=== PATIENT | male | born 1975 | race Caucasian/White ===

== ENCOUNTER 2017-06-04 14:43 | Inpatient (IN) | payer OTHER, MEDICAID ==
[~2017-06-04] VITALS: Ht 172.7 cm; Wt 61.9 kg
[~2017-06-04 14:43] MED LIST: INSULIN
[2017-06-04 14:45] VITALS: BP 153/81
--- NOTE | 2017-06-04 14:45 | NUR ---
PATIENT TO BED #2
--- NOTE | 2017-06-04 15:00 | NUR ---
PATIENT BIBA WITH BLOOD SUGAR IN THE FACILITY 38, GLUCAGON 1MG GIVEN IM, WHEN SPRAYER AUTOMATIC SPRAY MACHINE ARRIVED BS 72, ORAL GLUCOSE GIVEN, 92 BLOOD GLUCOSE AFTER. HX OF DM, HTN, CKD WITH HD TTS, AV SHUNT TO LEFT UPER ARM, LEGALLY BLIND, LEFT SIDE WEAKNESS, MULTIPLE FALLS AT RETIREMENT. AAOX4, LUNGS CLEAR BL; HR EVEN AND REGULAR; PT DENIES ANY FEVER, CP, SOB, OR COUGH AT THIS TIME; SKIN IS WARM AND DRY TO TOUCH, DENIES PAIN; VSS; PATIENT POSITIONED FOR COMFORT; HOB ELEVATED; BEDRAILS UP X2; BED DOWN. ER MD MADE AWARE OF PT STATUS.
[2017-06-04] MEDS ORDERED: CRAN450T5 PO (15:58)
[2017-06-04] MEDS ORDERED: NIFE90TE4 PO (15:58)
[2017-06-04] MEDS ORDERED: LOSA100T1 PO (15:58)
[2017-06-04] MEDS ORDERED: ASCO500T45 PO (15:58)
[2017-06-04] MEDS ORDERED: LACT10SO11 PO (15:58)
[2017-06-04] MEDS ORDERED: DOCU-299 PO (15:58)
[2017-06-04] MEDS ORDERED: APR20I IM (15:58)
[2017-06-04] MEDS ORDERED: CLON0.3T23 PO (15:58)
[2017-06-04] MEDS ORDERED: OMEP20TC12 PO (15:58)
[2017-06-04] MEDS ORDERED: ISOS20TA13 PO (15:58)
[2017-06-04] MEDS ORDERED: cefTRIAXone 1,000 MG VIAL ONE (17:03)
[2017-06-04 17:09] LABS: BASOPHILS # (AUTO) 0.1 K/uL (0.00-0.22); BASOPHILS % (AUTO) 0.7 % (0.0-2.0); EOSINOPHILS # (AUTO) 0.2 K/uL (0-0.4); EOSINOPHILS % (AUTO) 2.5 % (0.0-4.0); HEMATOCRIT 27.5 % (36-52); LYMPHOCYTES # (AUTO) 0.5 K/uL (2.0-11.5); LYMPHOCYTES % (AUTO) 5.8 % (20.5-51.1); MEAN CORPUSCULAR HEMOGLOBIN 31 pg (27-31); MEAN CORPUSCULAR HGB CONC 33 g/dL (33-37); MEAN CORPUSCULAR VOLUME 94.1 fL (80-94); MONOCYTES # (AUTO) 0.6 K/uL (0.8-1.0); MONOCYTES % (AUTO) 7.8 % (1.7-9.3); NEUTROPHILS # (AUTO) 6.9 K/uL (1.8-7.7); NEUTROPHILS % (AUTO) 83.2 % (42.2-75.2); PLATELET COUNT (AUTO) 187 K/uL (140-450); RED BLOOD CELL COUNT(AUTO) 2.92 MIL/uL (4.20-6.10); RED CELL DISTRIBUTION WIDTH 15.2 % (11.6-13.7); WHITE BLOOD COUNT (AUTO) 8.3 K/uL (4.8-10.8)
[2017-06-04 17:31] LABS: PROTHROMBIN TIME 16.3 secs (10.8-13.4)
[2017-06-04 17:43] LABS: CARBON DIOXIDE 28.6 mmol/L (21-32); POTASSIUM 3.6 mmol/L (3.5-5.1)
[2017-06-04 17:45] LABS: CREATININE 7.9 mg/dL (0.7-1.3)
--- NOTE | 2017-06-04 17:47 | NUR ---
CRITICAL LAB OF ROSS 7.9, ER DOCTOR MADE AWARE.
[2017-06-04 18:03] LABS: TOTAL BILIRUBIN 0.4 mg/dL (0.0-1.0)
[2017-06-04] MEDS ORDERED: HYDROcodone/APAP 7.5/325 MG 1 TAB PO PRN (18:55)
[2017-06-04] MEDS ORDERED: MORPHINE SULFATE 2 MG/ML SYR IVP PRN (18:55)
[2017-06-04] MEDS ORDERED: DOCUSATE SODIUM 100 MG GELCAP PO PRN (18:55)
[2017-06-04] MEDS ORDERED: ONDANSETRON 4 MG/2 ML VIAL IM/IVP PRN (18:55)
[2017-06-04] MEDS ORDERED: ACETAMINOPHEN 325 MG TAB PO PRN (18:55)
[2017-06-04] MEDS: DEXT 5% /NACL 0.9% 1,000 ML IV SCH (19:00)
--- NOTE | 2017-06-04 19:20 | NUR ---
Patient will be admitted TELE. Will go to room 119A. Belongings list completed. Report to KATHERIN WATTS AT BEDSIDE. PT IS IN STABLE CONDITION AT THIS TIME.
[2017-06-04 19:30] VITALS: BP 136/68
--- NOTE | 2017-06-04 19:30 | NUR ---
RECEIVED PT FROM ER IN STABLE CONDITION. REPORT GIVEN BY MOIRA PANDEY. RR EVEN/UNLABORED. NO S/S OF DISTRESS NOTED. PT AAOX4, ON 2L O2 VIA NC. IV PATENT AND INTACT INFUSING WELL. PT HAS SCAB TO BOTTOM OF LEFT FOOT, SKIN WARM AND DRY TO TOUCH. BOWEL SOUNDS PRESENT. INITIAL ASSESSMENT COMPLETED. PLAN OF CARE DISCUSSED WITH PT, VERBALIZED UNDERSTANDING ALL SAFETY PRECAUTIONS MET, CALL LIGHT WITHIN REACH, WILL CONTINUE TO MONITOR
[2017-06-04] MEDS ORDERED: DEXTROSE 50% 50 ML SYR IVP PRN (20:00)
--- NOTE | 2017-06-04 20:00 | NUR ---
DR. HINES IN TO SEE PT, MADE AWARE OF PTS BS 327.
[2017-06-04] MEDS ORDERED: INSULIN LANTUS 100 UNITS/ML 10 ML VIAL SUBQ SCH (21:00)
[2017-06-04] MEDS: ASCORBIC ACID 500 MG TAB PO SCH (21:48)
[2017-06-04] MEDS: BLOOD GLUCOSE MONITORING 1 DEV DEV FS SCH (21:59)
[2017-06-04] MEDS: INSULIN LISPRO SLIDING SCALE 100 UNITS/ML VIAL SUBQ PRN (22:13)
--- NOTE | 2017-06-04 22:13 | NUR ---
MADE DR. HINES AWARE OF BS 433, HE STATED TO GIVE 13 UNITS ON HUMALOG
[2017-06-05] VITALS: BP 156/94
--- NOTE | 2017-06-05 | NUR ---
VSS, BS 133. NO S/S OF DISTRESS NOTED. WILL CONTINUE TO MONITOR
[2017-06-05 04:00] VITALS: BP 148/86
[2017-06-05] MEDS: DEXT 5% /NACL 0.9% 1,000 ML IV SCH ×2 (05:00→15:35)
[2017-06-05 06:45] LABS: BASOPHILS % (AUTO) 0.8 % (0.0-2.0); EOSINOPHILS # (AUTO) 0.1 K/uL (0-0.4); EOSINOPHILS % (AUTO) 3.1 % (0.0-4.0); HEMATOCRIT 26.1 % (36-52); HEMOGLOBIN 8.3 g/dL (12.0-18.0); LYMPHOCYTES # (AUTO) 0.9 K/uL (2.0-11.5); LYMPHOCYTES % (AUTO) 19.4 % (20.5-51.1); MEAN CORPUSCULAR HEMOGLOBIN 30 pg (27-31); MEAN CORPUSCULAR HGB CONC 32 g/dL (33-37); MEAN CORPUSCULAR VOLUME 94.2 fL (80-94); MONOCYTES # (AUTO) 0.3 K/uL (0.8-1.0); NEUTROPHILS # (AUTO) 3.3 K/uL (1.8-7.7); NEUTROPHILS % (AUTO) 69.7 % (42.2-75.2); PLATELET COUNT (AUTO) 139 K/uL (140-450); RED BLOOD CELL COUNT(AUTO) 2.77 MIL/uL (4.20-6.10); RED CELL DISTRIBUTION WIDTH 14.8 % (11.6-13.7); WHITE BLOOD COUNT (AUTO) 4.7 K/uL (4.8-10.8)
[2017-06-05] MEDS: BLOOD GLUCOSE MONITORING 1 DEV DEV FS SCH ×4 (06:47→21:50)
--- NOTE | 2017-06-05 06:48 | NUR ---
PTS BS 11, EASILY AROUSED TO NAME, NO S/S OF DISTRESS NOTED. D50 GIVEN
--- NOTE | 2017-06-05 07:40 | NUR ---
REPORT GIVEN TO DAY NURSE FOR CONTINUITY OF CARE, PT IN STABLE CONDITION
--- NOTE | 2017-06-05 07:45 | NUR ---
RECEIVED PT. FROM CANARY RAISER NURSE, AWAKE, ALERT LYING ON THE BED WITH AN IV LINE INFUSING ON THE LEFT ARM AT G. 20, BLOOD GLUCOSE CHECK DONE AND RESULT REVEALED 45MG/DL. WILL CONTINUE TO MONITOR AND CONTINUE WITH CURRENT PLAN OF CARE. CALL LIGHT WITHIN REACH.
--- NOTE | 2017-06-05 07:50 | NUR ---
PT IS LYING ON THE BED, PT WAS GIVEN ORANGE JUICE TO HELP RAISE UP THE BLOOD GLUCOSE. WILL RECHECK. PT HAS NO SIGNS OF DISTRESS AT THIS TIME. CALL LIGHT WITHIN REACH. WILL CONTINUE TO MONITOR
[2017-06-05 08:00] VITALS: BP 190/101
[2017-06-05] MEDS: ISOSORBIDE DINITRATE 20 MG TAB PO SCH ×3 (08:30→16:55)
[2017-06-05] MEDS: cloNIDine 0.1 MG TAB PO SCH ×3 (08:30→16:54)
--- NOTE | 2017-06-05 08:30 | NUR ---
PT IS AWAKE, LYING ON HIS LEFT SIDE ON THE BED, REPEAT BLOOD GLUCOSE CHECK DONE RESULT REVEALED 88MG/DL. MEDICATIONS WERE GIVEN. NO SIGNS OF DISTRESS NOTED AT THIS TIME. CALL LIGHT WITHIN REACH. WILL CONTINUE TO MONITOR.
[2017-06-05] MEDS: LACTOBACILLUS RHAMNOSUS GG 1 EACH CAP PO SCH (08:31)
[2017-06-05] MEDS: DOCUSATE SODIUM 100 MG GELCAP PO SCH (08:31)
[2017-06-05] MEDS: ASCORBIC ACID 500 MG TAB PO SCH ×2 (08:32→21:51)
[2017-06-05 08:35] LABS: T4 (THYROXINE) 6.5 ug/dL (4.5-12.0)
[2017-06-05] MEDS ORDERED: MECLIZINE 25 MG TAB PO PRN (09:20)
[2017-06-05] MEDS: NIFEdipine 90 MG TABER PO SCH (10:02)
--- NOTE | 2017-06-05 10:27 | NUR ---
PATIENT HAS BEEN SCREENED AND CATEGORIZED MODERATE NUTRITION RISK. PATIENT WILL BE SEEN WITHIN 3-5 DAYS OF ADMISSION. 06/07/17 - 06/09/[address]
--- NOTE | 2017-06-05 10:30 | NUR ---
CLARISA FROM X-RAY CAME AND SAID THAT THE PT. REFUSED TO HAVE AN ULTRASOUND OF THE CAROTID. PT SAID HE FEELS TIRED.
[2017-06-05 11:01] LABS: CHOL/HDL RATIO 1.5 (1-4.5); MAGNESIUM 2.3 mg/dL (1.8-2.4); PHOSPHORUS 7.2 mg/dL (2.5-4.9); THYROID STIMULATING HORMONE 3.41 uIU/mL (0.34-3.74)
[2017-06-05 12:00] VITALS: BP 164/86
--- NOTE | 2017-06-05 12:59 | NUR ---
CALLED VERO TO LET HER KNOW THE PATIENT HAD AN ORDER FOR DIALYSIS. I ASKED HER TO COME IN TO DO DIALYSIS SOON POSSIBLE.
--- NOTE | 2017-06-05 13:20 | NUR ---
PT IS WITH THE [facility] BUFFER COPPER DOING AN ULTRASOUND OF THE CAROTID ON THE PT. PT IS LYING COMFORTABLY ON THE BED. AWAKE AND NO SIGNS OF DISTRESS NOTED AT THIS TIME WHILE THE ULTRASOUND IS BEING DONE. CALL LIGHT WITHIN REACH. WILL CONTINUE TO MONITOR.
[2017-06-05] MEDS: INSULIN LISPRO SLIDING SCALE 100 UNITS/ML VIAL SUBQ PRN ×2 (13:33→17:16)
--- NOTE | 2017-06-05 13:33 | NUR ---
PT IS GIVEN A 2 UNITS OF HUMALOG, SUBQ IN THE RIGHT UPPER ARM. PT IS LYING ON THE BED COMFORTABLY. NO SIGNS OF DISTRESS NOTED AT THIS TIME. CALL LIGHT WITHIN REACH. WILL CONTINUE TO MONITOR.
[2017-06-05 13:40] LABS: ANION GAP 21.4 (8-16); CARBON DIOXIDE 24.2 mmol/L (21-32); POTASSIUM 3.6 mmol/L (3.5-5.1)
--- NOTE | 2017-06-05 14:00 | NUR ---
DIALYSIS NURSE HERE TO BEGIN DIALYSIS ON PT.
--- NOTE | 2017-06-05 14:06 | NUR ---
UNABLE TO DO TO 2D ECHO TODAY DUE TO PT REQUESTING ECHO TO BE DONE AFTER LUNCH. DIALYSIS IS IN ROOM NOW
[2017-06-05 15:08] LABS: CREATININE 8.7 mg/dL (0.7-1.3)
[2017-06-05 16:00] VITALS: BP 148/78
[2017-06-05] MEDS ORDERED: cefTRIAXone 2,000 MG in DEXTROSE 5% 100 ML IV SCH (17:00)
[2017-06-05] MEDS ORDERED: cefTRIAXone 1,000 MG in DEXTROSE 5% 100 ML IV SCH (17:00)
--- NOTE | 2017-06-05 17:45 | NUR ---
DIALYSIS COMPLETED AT THIS TIME. 3 LITER OUTPUT FROM DIALYSIS.
--- NOTE | 2017-06-05 19:28 | NUR ---
ENDORSED PT TO VENEER PRESS OPERATOR NURSE FOR CONTINUITY OF CARE. PT IS LYING COMFORTABLY ON THE BED. NO UNTOWARD SIGNS AND SYMPTOMS NOTED.
--- NOTE | 2017-06-05 20:17 | NUR ---
ASLEEP EASILY AWAKENS RESPONSIVE TO PHOTOGRAPHY COLORIST VERBAL COMMANDS LFW POSITION PATIENT REFUSES TO USE SUPPLEMENTAL OXYGEN VIA NC
--- NOTE | 2017-06-05 20:40 | NUR ---
RECEIVED PT FROM STEFANIE RN PT AAOX2 RESTING ON BED ON LEFT UA AV SHUNT FOR DIALYSIS, ON TELEMETRY SR NOT DISTRESS NOTED AT THIS TIME INITIAL ASSESSMENT DONE
[2017-06-05 20:45] VITALS: BP 136/66
--- NOTE | 2017-06-05 21:58 | NUR ---
PTS BS IS 100, CALLED DR. HINES AND ASKED IF HE WANTED PT TO HAVE 20 UNITS LANTUS, HE SAID TO HOLD FOR CASSANDRA
[2017-06-06] VITALS: BP 153/87
--- NOTE | 2017-06-06 | NUR ---
PT SLEEPING WELL NOT DISTRESS NOTYED ON TELMETRY SR REPOSITIONED Q2H
[2017-06-06 04:00] VITALS: BP 160/95
--- NOTE | 2017-06-06 04:00 | NUR ---
SPONGE BATH GIVEN LINEN CHANGED REPOSITIONED Q2H NOT DISTRESS NOTED ON TELEMETRY SR
[2017-06-06] MEDS: BLOOD GLUCOSE MONITORING 1 DEV DEV FS SCH ×4 (06:43→20:44)
[2017-06-06] MEDS: INSULIN LISPRO SLIDING SCALE 100 UNITS/ML VIAL SUBQ PRN ×3 (06:43→20:48)
--- NOTE | 2017-06-06 06:46 | NUR ---
PT RESTING ON BED ON TELEMETRY SR BLOOD SUGAR TEST 206 COVERAGE WITH4 UNITS SUBQ HUMALOG FOLLOWING PROTOCOL, PT WILL BE ENDORSED TO DAY SHIFT NURSE FOR CONTINUITY OF CARE
--- NOTE | 2017-06-06 07:20 | NUR ---
RECEIVED REPORT FROM SENIOR RESEARCH PROJECT MANAGER NURSE AT BEDSIDE FOR CONT OF CARE. PATIENT RESTING WITH EYES CLOSED EASILY WOKEN. NO ACUTE DISTRESS NOTED. PATIENT RESPONDS APPROPRIATELY TO QUESTIONS. PATIENT WITH RFA 20G. FISUTULA TO LFA. CALL LIGHT WITHIN REACH. WILL CONT TO MONITOR.
[2017-06-06 08:00] VITALS: BP 194/94
--- NOTE | 2017-06-06 08:00 | NUR ---
INITIAL ASSESSMENT PERFORMED. VSS. PATIENT ALERT AND ABLE TO VERBALIZE NEEDS. NO ACUTE DISTRESS. DENIES PAIN. PATIENT WITH LEFT ARM FISTULA. BRUIT/THRILL PRESENT. PATIENT WITH IV SITE TO RFA 20G SL. PATENT AND INTACT. PATIENT EASILY WOKEN RESPONDS APPROPRIATELY TO QUESTIONS. PATIENT LEGALLY BLIND ALL ITEMS WITHIN REACH. DISCUSSED PLAN OF CARE WITH PATIENT AT BEDSIDE. PATIENT VERBALIZED UNDERSTANDING AND AGREEMENT. CALL LIGHT WITHIN REACH. WILL CONT TO MONITOR PT.
[2017-06-06] MEDS: NIFEdipine 90 MG TABER PO SCH (08:12)
--- NOTE | 2017-06-06 08:12 | NUR ---
ADMINISTERED SCHEDULED MEDICATIONS ORDERED. PATIENT TOLERATED WELL. PT BP 194/94. WILL RECHECK BP. NO ACUTE DISTRESS NOTED. CALL LIGHT WITHIN REACH. WILL CONT TO MONITOR.
[2017-06-06] MEDS: ISOSORBIDE DINITRATE 20 MG TAB PO SCH ×3 (08:13→17:19)
[2017-06-06] MEDS: cloNIDine 0.1 MG TAB PO SCH ×3 (08:13→17:19)
[2017-06-06] MEDS: LACTOBACILLUS RHAMNOSUS GG 1 EACH CAP PO SCH (08:13)
[2017-06-06] MEDS: DOCUSATE SODIUM 100 MG GELCAP PO SCH (08:13)
[2017-06-06] MEDS: ASCORBIC ACID 500 MG TAB PO SCH ×2 (08:13→20:44)
--- NOTE | 2017-06-06 10:00 | NUR ---
REASSESSED BP 157/77. PATIENT STABLE . NO ACUTE DISTRESS. NO C/O PAIN OR DISCOMFORT. ALL NEEDS ANTICIPATED THEY ARISE.CALL LIGHT WITHIN REACH. WILL CONT TO MONITOR.
--- NOTE | 2017-06-06 13:39 | NUR ---
ADMINISTERED SCHEDULED MEDICATION ORDERED. NO ACUTE DISTRESS NOTED. DENIES PAIN. PATIENT WITH BP 177/97 HR 77. WILL RECHECK BP.
--- NOTE | 2017-06-06 14:00 | NUR ---
PHYSICAL THERAPIST REPORTED THAT WHEN WORKING WITH PT O2 SAT RANGING FROM 80-85 ON ROOM AIR. PATIENT REFUSING TO WEAR NASAL CANULA . EXPLAINED RISKS AND BENEFITS TO PATIENT . CONT TO REFUSE. PATIENT ATTEMPTED TO USE SIMPLE MASK BRIEFLY BECAUSE HE STATED HE DID NOT LIKE NASAL CANULA. DID NOT LIKE SIMPLE MASK EITHER. DR LYMAN IN AT THAT TIME AND MADE AWARE. WILL CONT TO MONITOR PT.
--- NOTE | 2017-06-06 15:38 | NUR ---
RECHECKED BP 140/75 HR 75. PATIENT ALERT AND ABLE TO VERBALIZE NEEDS. LEGALLY BLIND ALL ITEMS WITHIN REACH. DENIES PAIN. WILL CONT TO MONITOR.
[2017-06-06 16:00] VITALS: BP 131/79
--- NOTE | 2017-06-06 16:00 | NUR ---
PATIENT VSS. PATIENT O2 SAT FLUCTUATING BETWEEN 80-89%. PATIENT MADE AWARE . EDUCATED ON IMPORTANCE ON OXYGEN USE. PATIENT REFUSED BOTH SIMPLE MASK AND NC. PT CONT TO REFUSE. CALL LIGHT WITHIN REACH. WILL CONT TO MONITOR PT.
--- NOTE | 2017-06-06 18:20 | NUR ---
PATIENT ALERT AND ABLE TO VERBALIZE NEEDS. NO ACUTE DISTRESS NOTED. PATIENT IN BED HAVING DINNER. ALL ITEMS WITHIN REACH. DENIES PAIN AT THIS TIME. CALL LIGHT WITHIN REACH. WILL CONT TO MONITOR PT. SPOKE WITH VERO PANDEY FROM DIALYSIS AND MADE AWARE OF ORDERS FOR PATIENT TO HAVE HD TOMORROW.
--- NOTE | 2017-06-06 19:19 | NUR ---
ENDORSED REPORT TO MASON LINER NURSE AT BEDSIDE FOR CONTINUITY OF CARE. PATIENT STABLE.
--- NOTE | 2017-06-06 19:20 | NUR ---
RECEIVED REPORT FROM DAY SHIFT RN, PATIENT RESTING IN BED, NO S/S OF DISTRESS NOTED, RESPIRATION EVEN AND UNLABORED, O2SAT 92% ON ROOM AIR. PLAN OF CARE DISCUSSED, PATIENT VERBALIZED UNDERSTANDING. CALL LIGHT WITHIN REACH, SAFETY MEASURE ENSURED, WILL CONTINUE TO MONITOR.
[2017-06-06] MEDS ORDERED: INSULIN LANTUS 100 UNITS/ML 10 ML VIAL SUBQ SCH (21:00)
[2017-06-06] MEDS: hydrALAZINE 25 MG TAB PO PRN (23:38)
--- NOTE | 2017-06-06 23:48 | NUR ---
BP 171/116, HR 71, HYDRALAZINE ADMINISTERED ORDERED. PATIENT STATED," I FEEL MY SUGAR IS LOW, CAN YOU CHECK MY SUGAR." GLUCOSE LEVEL 79. INFORMED DR. HINES. DR SAID," HIS GLUCOSE LEVEL SHOULD BE AROUND 140." OFFERED PATIENT JUICE AND CRACKERS, BUT PATIENT ASKED FOR SANDWICH. I TOLD PATIENT THAT WE DON'T HAVE SANDWICH AT THIS MOMENT, BUT I CALLED [employer] TO BRING US SANDWICH. PATIENT BECAME UPSET AND SAID," I DON'T WANT CRACKERS, I AM TIRED OF EXPLAINING TO YOU GUYS, YOU DON'T WANT GIVE ME A SANDWICH, THAT'S FINE, I WILL TEACH YOU GUYS A LESSON." EXPLAINED TO PATIENT," IT TAKES TIME FOR [employer] TO BRING SANDWICH, ONCE THE SANDWICH IS DELIVERED, I WILL GIVE HIM A SANDWICH." PATIENT STILL REFUSE TO EAT CRACKERS.
[2017-06-07] VITALS: BP 171/116
--- NOTE | 2017-06-07 00:03 | NUR ---
OFFERED A SANDWICH TO PATIENT, PATIENT REFUSED AND SAID," I DON'T WANT SANDWICH NOW, I TOLD YOU I WOULD TEACH YOU A LESSON." ASKED PATIENT TO CLARIFY WHAT A LESSON MEAN. PATIENT SAID," I WOULD SHOW YOU THAT MY SUGAR WILL GO DOWN." EDUCATED PATIENT OF THE COMPLICATIONS OF HYPOGLYCEMIA, PATIENT STILL REFUSED SANDWICH.
--- NOTE | 2017-06-07 00:09 | NUR ---
MADE DR. HINES AWARE THAT PATIENT REFUSED SANDWICH.
--- NOTE | 2017-06-07 01:18 | NUR ---
PATIENT ATE A SANDWICH, AND CRACKERS. BP 148/73, HR 71, O2SAT 93%, RR 18. NO S/S OF DISTRESS NOTED, RESPIRATION EVEN AND UNLABORED, CALL LIGHT WITHIN REACH, SAFETY MEASURE ENSURED, WILL CONTINUE TO MONITOR.
--- NOTE | 2017-06-07 03:28 | NUR ---
PATIENT IS SLEEPING, NO S/S OF DISTRESS NOTED, RESPIRATION EVEN AND UNLABORED, CALL LIGHT WITHIN REACH, SAFETY MEASURE ENSURED, WILL CONTINUE TO MONITOR.
[2017-06-07] MEDS: BLOOD GLUCOSE MONITORING 1 DEV DEV FS SCH ×4 (06:54→20:49)
--- NOTE | 2017-06-07 07:16 | NUR ---
ENDORSED PLAN OF CARE TO DAY SHIFT RN, PATIENT RESTING IN BED, IN STABLE CONDITION.
--- NOTE | 2017-06-07 07:18 | NUR ---
RECEIVED REPORT FROM WEBSPHERE PORTAL ARCHITECT NURSE. PATIENT IS IN STABLE CONDITION. HE IS ALERT AND ORIENTEDX4. PATIENT IS LEGALLY BLIND. SIGNS ARE POSTED. NO IV OR B/P ON LEFT ARM. SIGNS ARE POSTED. DIALYSIS SHUNT ON L ARM. TODAY HE WILL BE RECEIVING DIALYSIS. IV ON R WRIST SALINE LOCK. IV IS CLEAN, DRY AND INTACT. HX OF LEFT TOE AMPUTATION. GAVE PATIENT CRACKERS REQUESTED TO PREVENT HYPOGLYCEMIA. BED IS IN LOW POSITION. CALL LIGHT WITHIN REACH. WILL CONTINUE TO MONITOR PATIENT.
[2017-06-07 07:21] LABS: ANION GAP 18.8 (8-16); CARBON DIOXIDE 25.3 mmol/L (21-32); POTASSIUM 4.1 mmol/L (3.5-5.1)
[2017-06-07 07:49] LABS: CREATININE 8.7 mg/dL (0.7-1.3)
[2017-06-07 08:00] VITALS: BP 203/103
[2017-06-07 08:04] LABS: PROTHROMBIN TIME 15.4 secs (10.8-13.4)
[2017-06-07] MEDS: DOCUSATE SODIUM 100 MG GELCAP PO SCH (09:00)
[2017-06-07] MEDS: cloNIDine 0.1 MG TAB PO SCH ×3 (09:59→18:16)
[2017-06-07] MEDS: ISOSORBIDE DINITRATE 20 MG TAB PO SCH ×3 (10:00→18:15)
[2017-06-07] MEDS: LACTOBACILLUS RHAMNOSUS GG 1 EACH CAP PO SCH (10:00)
[2017-06-07] MEDS: ASCORBIC ACID 500 MG TAB PO SCH (10:00)
[2017-06-07] MEDS: NIFEdipine 90 MG TABER PO SCH (10:00)
--- NOTE | 2017-06-07 10:00 | NUR ---
ADMINISTERED MORNING MEDS ORDERED. TOLERATED MEDS WELL. PATIENT IS CURRENTLY ALERT AND ORIENTED WITH NO S/SX OF DISTRESS. BED IN LOW POSITION, CALL LIGHT WITHIN REACH. WILL CONTINUE TO MONITOR.
--- NOTE | 2017-06-07 10:49 | NUR ---
PT NOTES Patient refused PT tx d/t not feeling well, and will be having HD right now. Asked if he would like to do some therapy prior to HD, but cont to refuse, not today. Will follow up with PT tx tomorrow. Nursing aware.
--- NOTE | 2017-06-07 11:30 | NUR ---
DIALYSIS NURSE AT BEDSIDE. WILL CONTINUE TO MONITOR PATIENT.
--- NOTE | 2017-06-07 11:54 | NUR ---
LET DR REYNOLDS KNOW THAT PATIENTS BLOOD PRESSURE IS STILL HIGH, 209/117, AND DIALYSIS NURSE IS JUST STARTING. DIALYSIS NURSE STATED THAT SHE WILL RECHECK SHORTLY AND IF IT IS STILL HIGH SHE WILL LET ME KNOW SO I CAN GIVE PATIENT PRN HYDRALAZINE.
--- NOTE | 2017-06-07 12:36 | NUR ---
ADMINISTERED AFTERNOON MEDS ORDERED. PATIENT TOLERATED MEDS WELL. DIALYSIS NURSE IS AT BEDSIDE. WILL CONTINUE TO MONITOR.
[2017-06-07] MEDS: hydrALAZINE 25 MG TAB PO PRN (12:44)
[2017-06-07] MEDS ORDERED: CARVEDILOL 6.25 MG TAB PO SCH (13:30)
--- NOTE | 2017-06-07 14:12 | NUR ---
ADMINISTERED BLOOD PRESSURE MED ORDERED BY WILL CONTINUE TO MONITOR B/P. LATEST BP IS 199/103. DIALYSIS NURSE AT BEDSIDE. WILL CONTINUE TO MONITOR PATIENT.
--- NOTE | 2017-06-07 14:30 | NUR ---
DIALYSIS NURSE GAVE REPORT. 4L OUT. PATIENT TOLERATED WELL. ALL VITALS STABLE EXCEPT B/P. WILL CONTINUE TO MONITOR BP AND GIVE MEDS ORDERED/PRN.
[2017-06-07 16:00] VITALS: BP 168/92
--- NOTE | 2017-06-07 16:30 | NUR ---
PATIENT CURRENTLY RESTING. NO S/SX OF DISTRESS. WILL CONTINUE TO MONITOR.
[2017-06-07] MEDS: CALCIUM ACETATE 667 MG TAB PO SCH (18:15)
--- NOTE | 2017-06-07 19:25 | NUR ---
ENDORSED PATIENT TO SALOONKEEPER RN FOR CONTINUITY OF CARE. PATIENT IN STABLE CONDITION.
--- NOTE | 2017-06-07 19:35 | NUR ---
RECEIVED REPORT FROM DAY SHIFT RN, PATIENT RESTING IN BED, NO S/S OF DISTRESS NOTED, RESPIRATION EVEN AND UNLABORED, DENIES PAIN AT THIS TIME. PLAN OF CARE DISCUSSED, PATIENT VERBALIZED UNDERSTANDING, CALL LIGHT WITHIN REACH, SAFETY MEASURE ENSURED, WILL CONTINUE TO MONITOR.
[2017-06-07] MEDS: CARVEDILOL 6.25 MG TAB PO SCH (20:55)
[2017-06-07] MEDS: INSULIN LISPRO SLIDING SCALE 100 UNITS/ML VIAL SUBQ PRN (20:57)
[2017-06-07] MEDS ORDERED: NIFEdipine 30 MG TABER PO SCH (21:00)
[2017-06-07] MEDS ORDERED: INSULIN LANTUS 100 UNITS/ML 10 ML VIAL SUBQ SCH (21:00)
--- NOTE | 2017-06-07 21:06 | NUR ---
DUE MEDICATION GIVEN, PATIENT TOLERATED WELL. NO S/S OF DISTRESS NOTED, RESPIRATION EVEN AND UNLABORED, CALL LIGHT WITHIN REACH, SAFETY MEASURE ENSURED, WILL CONTINUE TO MONITOR.
[2017-06-07 23:55] VITALS: BP 164/87
--- NOTE | 2017-06-07 23:58 | NUR ---
BP 164/87, HR 62, PATIENT DENIES ANY DISCOMFORT. MADE DR. LIANG AWARE. NO ORDER RECEIVED AT THIS TIME.
--- NOTE | 2017-06-08 02:23 | NUR ---
PATIENT IS SLEEPING, NO S/S OF DISTRESS NOTED, RESPIRATION EVEN AND UNLABORED, ON ROOM AIR. CALL LIGHT WITHIN REACH, SAFETY MEASURE ENSURED, WILL CONTINUE TO MONITOR.
--- NOTE | 2017-06-08 04:05 | NUR ---
BP 161/85, HR 74. NO S/S OF DISTRESS NOTED, RESPIRATION EVEN AND UNLABORED. CALL LIGHT WITHIN REACH, SAFETY MEASURE ENSURED, WILL CONTINUE TO MONITOR.
--- NOTE | 2017-06-08 05:51 | NUR ---
PATIENT IS SLEEPING, RESPIRATION EVEN AND UNLABORED, CALL LIGHT WITHIN REACH, SAFETY MEASURE ENSURED, WILL CONTINUE TO MONITOR.
[2017-06-08] MEDS: BLOOD GLUCOSE MONITORING 1 DEV DEV FS SCH (06:34)
[2017-06-08] MEDS ORDERED: LACT1.4C PO (06:43)
[2017-06-08] MEDS ORDERED: ROC1PM IV ×2 (06:43→06:46)
[2017-06-08 06:59] LABS: ANION GAP 17.9 (8-16); CARBON DIOXIDE 28.3 mmol/L (21-32); POTASSIUM 4.2 mmol/L (3.5-5.1)
[2017-06-08 07:06] LABS: MAGNESIUM 1.9 mg/dL (1.8-2.4); PHOSPHORUS 6.1 mg/dL (2.5-4.9)
--- NOTE | 2017-06-08 07:14 | NUR ---
ENDORSED PLAN OF CARE TO DAY SHIFT RN, PATIENT RESTING IN BED, IN STABLE CONDITION.
--- NOTE | 2017-06-08 07:15 | NUR ---
RECEIVED REPORT FROM VARIETY LATHE OPERATOR NURSE. PATIENT HAS NO SIGNS AND SYMPTOMS OF ACUTE DISTRESS NOTED AT THIS TIME. HE IS ALERT AND ORIENTEDX4. PATIENT IS LEGALLY BLIND. PATIENT HAS AV SHUNT ON THE LEFT UPPER ARM. SIGNS ARE POSTED. NO IV OR B/P ON LEFT ARM. IV ON R WRIST SALINE LOCK. IV IS CLEAN, DRY AND INTACT. HX OF LEFT TOE AMPUTATION. GAVE PATIENT CRACKERS REQUESTED TO PREVENT HYPOGLYCEMIA. BED IS IN LOW POSITION. CALL LIGHT WITHIN REACH. WILL CONTINUE TO MONITOR PATIENT.
[2017-06-08 07:18] LABS: HEMATOCRIT 23.7 % (36-52); HEMOGLOBIN 7.9 g/dL (12.0-18.0); MEAN CORPUSCULAR HEMOGLOBIN 31 pg (27-31); MEAN CORPUSCULAR HGB CONC 34 g/dL (33-37); MEAN CORPUSCULAR VOLUME 93.8 fL (80-94); PLATELET COUNT (AUTO) 108 K/uL (140-450); RED BLOOD CELL COUNT(AUTO) 2.53 MIL/uL (4.20-6.10); RED CELL DISTRIBUTION WIDTH 15.1 % (11.6-13.7); WHITE BLOOD COUNT (AUTO) 2.7 K/uL (4.8-10.8)
[2017-06-08 08:00] VITALS: BP 144/86
[2017-06-08 08:04] LABS: CREATININE 6.9 mg/dL (0.7-1.3)
--- NOTE | 2017-06-08 08:13 | NUR ---
CM NOTE RECEIVED ORDER TO [place]SF[place] [facility] [place] PER ROSENDO OF [facility], PATIENT CAN GO TO RM [address] Rishi MENA, NUMBER TO CALL FOR REPORT PH# [phone]. SPOKE WITH [facility] OF [facility] PH# [phone] AND WITH PATIENT'S FATHER MR. MAGNUS BOOTH PH# [phone] WHO SAID THAT HE IS WILLING TO PAY FOR TRANSPORT. PER [facility] NIEVES [place], PATIENT WILL BE PICKED UP AT 1100 TIME TODAY GOING TO [facility]. SULY PANDEY AND DORA OF [facility] AWARE.
[2017-06-08] MEDS: NIFEdipine 90 MG TABER PO SCH (08:33)
[2017-06-08 08:35] VITALS: BP 144/86
[2017-06-08] MEDS: CARVEDILOL 6.25 MG TAB PO SCH (08:35)
[2017-06-08] MEDS: CALCIUM ACETATE 667 MG TAB PO SCH (08:35)
[2017-06-08] MEDS: LACTOBACILLUS RHAMNOSUS GG 1 EACH CAP PO SCH (08:35)
[2017-06-08] MEDS: cloNIDine 0.1 MG TAB PO SCH (08:35)
[2017-06-08] MEDS: ISOSORBIDE DINITRATE 20 MG TAB PO SCH (08:36)
--- NOTE | 2017-06-08 08:48 | NUR ---
ADMINISTERED PATIENTS MORNING MEDICATIONS. HE TOLERATED THEM WELL. MADE HIM AWARE THAT [place] [facility] [place] VERBALIZED UNDERSTANDING. WILL CONTINUE TO MONITOR.
[2017-06-08] MEDS: DOCUSATE SODIUM 100 MG GELCAP PO SCH (09:00)
[2017-06-08] MEDS ORDERED: LEVO750T2 IVP (10:50)
[2017-06-08] MEDS: hydrALAZINE 25 MG TAB PO PRN (10:53)
--- NOTE | 2017-06-08 12:00 | NUR ---
DISCHARGE ORDER IS IN PLACE. PATIENT IS GOING BACK [place] [facility] [place] ROOM 10A. GAVE PATIENT INSTRUCTIONS ON SIGNS AND SYMPTOMS ON DISTRESS AND TO SEEK EMERGENCY MEDICAL ATTENTION WHEN HE HAS ANY. EDUCATED HIM ON THE IMPORTANCE OF EATING WELL SO HIS BLOOD SUGAR DOESN'T DROP. PATIENT VERBALIZED UNDERSTANDING. PREMIERE IS HERE TO FRENCH INSTRUCTOR THE PATIENT. PATIENT IS IN STABLE CONDITION. ALL BELONGINGS ARE WITH THE PATIENT.
--- NOTE | 2017-06-08 12:05 | NUR ---
BEEN TRYING TO CALL [facility] BUT LINE IS DOWN, FINALLY WAS ABLE TO GET AHOLD OF SOMEONE TO GIVE REPORT. REPORT WAS GIVEN.
[2017-06-08 15:01] LABS: EOSINOPHILS % (MANUAL) 7 % (0-4); LYMPHOCYTES % (MANUAL) 30 % (20-46); MONOCYTES % (MANUAL) 12 % (5-12)
== END 2017-06-08 12:00 | disposition home or self-care (01) | DRG 177 ==
LOC: MED 14:43 → MTU 18:57
PROVIDERS: ADMIT Student in an Organized Health Care Education/Training Program; ATTEND Student in an Organized Health Care Education/Training Program
PROC: 5A1D70Z Performance of Urinary Filtration, Intermittent, Less than 6 Hours Per Day (ICD-10-PCS; principal; 2017-06-05)
PROC: 5A1D70Z Performance of Urinary Filtration, Intermittent, Less than 6 Hours Per Day (ICD-10-PCS; 2017-06-07)
DX: J69.0 Pneumonitis due to inhalation of food and vomit (principal); N17.0 Acute kidney failure with tubular necrosis; G93.41 Metabolic encephalopathy; I50.43 Acute on chronic combined systolic (congestive) and diastolic (congestive) heart failure; D68.59 Other primary thrombophilia; E11.21 Type 2 diabetes mellitus with diabetic nephropathy; E44.0 Moderate protein-calorie malnutrition; N18.6 End stage renal disease; E11.649 Type 2 diabetes mellitus with hypoglycemia without coma; E11.319 Type 2 diabetes mellitus with unspecified diabetic retinopathy without macular edema; I13.0 Hypertensive heart and chronic kidney disease with heart failure and stage 1 through stage 4 chronic kidney disease, or unspecified chronic kidney disease; J18.9 Pneumonia, unspecified organism; H54.8 Legal blindness, as defined in USA; Z99.2 Dependence on renal dialysis; Z88.1 Allergy status to other antibiotic agents; Z88.8 Allergy status to other drugs, medicaments and biological substances; Z89.429 Acquired absence of other toe(s), unspecified side; Z68.20 Body mass index [BMI] 20.0-20.9, adult; E78.5 Hyperlipidemia, unspecified; D63.1 Anemia in chronic kidney disease; I70.209 Unspecified atherosclerosis of native arteries of extremities, unspecified extremity; Z79.899 Other long term (current) drug therapy
CPT/HCPCS: 36415; 71045; 80048; 80053; 82550; 82948; 83036; 83605; 83735; 83880; 84100; 84436; 84443; 84479; 84484; 85025; 85610; 85730; 87040; 87081; 90935; 93005; 93880; 93925; 93970; 96365; 97110; 97116; 97140; 97530; 99285; J0696; J1644; J1815; J2405; J7030; J7042; J7060; Q0092

== ENCOUNTER 2017-07-26 16:06 | Emergency (ER) | payer OTHER, MEDICAID ==
[~2017-07-26] VITALS: Ht 182.9 cm; Wt 68.0 kg
[~2017-07-26 16:06] MED LIST changes: +APR20I IM; +ASCO500T45 PO; +CLON0.3T23 PO; +CRAN450T5 PO; +DOCU-299 PO; -INSULIN; +ISOS20TA13 PO; +LACT1.4C PO; +LACT10SO11 PO; +LEVO750T2 IVP; +LOSA100T1 PO; +NIFE90TE4 PO; +OMEP20TC12 PO
[2017-07-26 16:11] VITALS: BP 241/125
[2017-07-26] MEDS ORDERED: TRAM50TA1 PO (16:24)
[2017-07-26] MEDS ORDERED: PRON INH (16:24)
[2017-07-26] MEDS ORDERED: INSU100S22 SUBQ (16:24)
[2017-07-26] MEDS ORDERED: SIMV40TA1 PO (16:24)
[2017-07-26] MEDS ORDERED: LISI-420 PO (16:24)
[2017-07-26] MEDS ORDERED: PHO667 PO (16:24)
[2017-07-26] MEDS ORDERED: KEP500 PO (16:24)
[2017-07-26] MEDS ORDERED: OLOP2.5S OP (16:24)
[2017-07-26] MEDS: hydrALAZINE 20 MG/ML VIAL IVP ONE (16:38)
[2017-07-26] MEDS: METOPROLOL 5 MG/5 ML VIAL IVP ONE (17:25)
[2017-07-26] MEDS: cloNIDine 0.1 MG TAB PO ONE (18:01)
[2017-07-26 19:03] VITALS: BP 166/106
== END 2017-07-26 19:03 | disposition home or self-care (01) ==
LOC: MED 16:06
DX: I10 Essential (primary) hypertension (principal); E11.9 Type 2 diabetes mellitus without complications; Z79.899 Other long term (current) drug therapy; Z88.8 Allergy status to other drugs, medicaments and biological substances; Z88.1 Allergy status to other antibiotic agents
CPT/HCPCS: 96374; 96375; 99284; J0360; J3490

== ENCOUNTER 2017-08-18 14:18 | Inpatient (IN) | payer OTHER, MEDICAID ==
[~2017-08-18] VITALS: Ht 182.9 cm; Wt 61.7 kg
[2017-08-18] VITALS (27 sets, daily range): BP systolic 178–253; BP diastolic 62–121
[~2017-08-18 14:18] MED LIST changes: +INSU100S22 SUBQ; +KEP500 PO; -LACT1.4C PO; -LACT10SO11 PO; -LEVO750T2 IVP; +LISI-420 PO; +OLOP2.5S OP; +PHO667 PO; +PRON INH; +SIMV40TA1 PO; +TRAM50TA1 PO
--- NOTE | 2017-08-18 14:18 | NUR ---
Patient BIBA ACLS, transferred to bed 7. RN evaluating patient at bedside.
--- NOTE | 2017-08-18 14:46 | NUR ---
Dr. Cruz evaluating patient at bedside.
--- NOTE | 2017-08-18 14:50 | NUR ---
PT BIBA FOR C/O HIGH BP WHILE HAVING DIALYSIS. PT DENIES ANY PAIN, SOB N/V OR DIZZINESS. PTS SHUNT IS ON LEFT UPPARM ARM, THRILL PALPATED, BRUIT AUSCULTATED. PT IS AXO X4, PLACED ON ALL MONITORS --> BP 255/111 DR GREY NOTIFIED. PT STATES THAT HE GOT THROUGH 3.5 HR OS DIALYSIS, THEY REMOVED 3.5 LITERS. NAD NOTED/STATED OTEHRWISE.
[2017-08-18] MEDS ORDERED: FUROSEMIDE 40 MG/4 ML VIAL IVP ONE (15:00)
[2017-08-18] MEDS ORDERED: ENALAPRILAT 2.5 MG/2 ML VIAL IVP ONE (15:00)
[2017-08-18] MEDS ORDERED: NITROGLYCERIN 2% 1 GM PKT TP ONE (15:00)
[2017-08-18] MEDS ORDERED: MORPHINE SULFATE 2 MG/ML SYR IVP ONE (15:00)
--- NOTE | 2017-08-18 15:11 | NUR ---
opto mechanical technician at bedside.
--- NOTE | 2017-08-18 16:04 | NUR ---
PT ON CELL PHONE WRITING DOWN NUMBERS ON PAPER. NO CHANGE FROM PREVIOUS. PT DENIES ANY DISTRESS AT THIS TIME. LAB AT BEDSIDE DRAWING LABS. PT REMAINS ON ALL MONITORS. PT WAS JUST MEDICATED FOR HTN PER MD KRAUS. BP REMAINS HIHG AT THIS TIME, WILL CONTINUE TO REASSESS BP.
[2017-08-18 16:11] LABS: BASOPHILS # (AUTO) 0.1 K/uL (0.00-0.22); BASOPHILS % (AUTO) 2.3 % (0.0-2.0); EOSINOPHILS # (AUTO) 0.3 K/uL (0-0.4); EOSINOPHILS % (AUTO) 8.7 % (0.0-4.0); HEMATOCRIT 39.9 % (36-52); HEMOGLOBIN 13.2 g/dL (12.0-18.0); LYMPHOCYTES # (AUTO) 0.6 K/uL (2.0-11.5); LYMPHOCYTES % (AUTO) 15.8 % (20.5-51.1); MEAN CORPUSCULAR HEMOGLOBIN 32 pg (27-31); MEAN CORPUSCULAR HGB CONC 33 g/dL (33-37); MEAN CORPUSCULAR VOLUME 97.5 fL (80-94); MONOCYTES # (AUTO) 0.4 K/uL (0.8-1.0); MONOCYTES % (AUTO) 10.1 % (1.7-9.3); NEUTROPHILS # (AUTO) 2.3 K/uL (1.8-7.7); NEUTROPHILS % (AUTO) 63.1 % (42.2-75.2); PLATELET COUNT (AUTO) 140 K/uL (140-450); RED BLOOD CELL COUNT(AUTO) 4.09 MIL/uL (4.20-6.10); RED CELL DISTRIBUTION WIDTH 15.1 % (11.6-13.7); WHITE BLOOD COUNT (AUTO) 3.7 K/uL (4.8-10.8)
[2017-08-18 16:28] LABS: ANION GAP 14.1 (8-16); CARBON DIOXIDE 30.9 mmol/L (21-32); TOTAL BILIRUBIN 0.5 mg/dL (0.0-1.0)
[2017-08-18 16:31] LABS: CREATININE 4.7 mg/dL (0.7-1.3)
[2017-08-18 16:32] LABS: PROTHROMBIN TIME 16.1 secs (10.8-13.4)
[2017-08-18] MEDS ORDERED: NITROPRUSSIDE 50 MG in DEXTROSE 5% 250 ML IV ONE (16:35)
[2017-08-18] MEDS ORDERED: CAPTOPRIL 12.5 MG TAB PO ONE (16:50)
[2017-08-18] MEDS ORDERED: NITROGLYCERIN 50 MG/D5W PREMIX 250 ML IV ONE ×2 (16:50→16:53)
--- NOTE | 2017-08-18 16:58 | NUR ---
NITRO DRIP STARTED AT 10MCG/MIN PER MD GREY VERBAL ORDER. BP 250/122, HR 64.
--- NOTE | 2017-08-18 16:59 | NUR ---
Dr. Vargas evaluating patient at bedside.
[2017-08-18] MEDS ORDERED: BUPIVACAINE-MPF 0.25% 30 ML VIAL INJ ONE (17:10)
--- NOTE | 2017-08-18 17:25 | NUR ---
ADMITTED PT FROM ER BY ANDRAE, PT AWAKE, ALERT, BOTH EYES BLIND. ON ROOM AIR, NO S/S OF RESPIRATORY DISTRESS NOTED. LUNG SOUNDS CLEAR, PT ABLE TO MOVE ALL HIS EXTREMITIES BUT LEFT SIDE WEAKNESS NOTED. PT REFUSED TO TAKE OFF HIS OWN TOP AND PANTS. POC EXPLAINED TO PT, CALL LIGHT IN REACH, WILL CONTINUE TO MONITOR. Addendum: 08/18/17 at 1956 by Claudio Braswell RN PT ON NITROGLYCERIN 20 MCG/MIN WHEN PT CAME TO ICU.
--- NOTE | 2017-08-18 17:29 | NUR ---
Patient will be admitted to care of [facility]. Admited to ICU. Will go to room 2. Belongings list completed. Report to RODRI PANDEY.
[2017-08-18] MEDS ORDERED: HYDROmorphone 1 MG/ML AMP IVP ONE (18:45)
[2017-08-18] MEDS ORDERED: LORazepam 2 MG/ML VIAL IVP ONE (18:45)
[2017-08-18] MEDS ORDERED: DEXTROSE 50% 50 ML SYR IVP PRN (18:55)
[2017-08-18] MEDS ORDERED: ALBUTEROL 0.083% 2.5 MG/3 ML NEBU INH PRN (19:00)
[2017-08-18] MEDS ORDERED: traMADol 50 MG TAB PO PRN (19:00)
[2017-08-18] MEDS ORDERED: ACETAMINOPHEN 325 MG TAB PO PRN (19:15)
[2017-08-18] MEDS ORDERED: INSULIN LISPRO 100 UNITS/ML VIAL SUBQ ONE (19:30)
--- NOTE | 2017-08-18 19:30 | NUR ---
RECEIVED BEDSIDE REPORT FROM MORNING SHIFT NURSE. PATIENT AWAKE, ALERT AND ORIENTED X4, VERBALLY RESPONSIVE, BOTH EYES BLIND NOTED. ON O2 2L/M VIA NC, SAT 99% NOTED. NO ACUTE DISTRESS NOTED. BILATERAL LUNGS SOUND CLEAR. DENIES PAIN. PERIPHERAL LINE TO RIGHT FORE ARM RUNNING NITROGLYCERIN 100MCG/MIN. BP IS 228/[address] RIVERA AT BEDSIDE TO PREPARE CENTRAL LINE INSERTION. PATIENT ABLE TO MOVE ALL EXTREMITIES AND LEFT SIDE WEAKNESS NOTED. DARK COLORED LESION ON RIGHT BABY TOE, DRY ABRASION ON TIP OF RIGHT MIDDLE TOE, CALLOUS ON LEFT FOOT AND AMPUTATED LEFT BABY TOE. HOB ELEVATED, BED IN LOW POSITION, CALL LIGHT WITHIN REACH. WILL CONTINUE TO MONITOR.
[2017-08-18] MEDS ORDERED: LORazepam 2 MG/ML VIAL ONE (19:32)
[2017-08-18] MEDS ORDERED: HYDROmorphone PFS 2 MG/ML SYR ONE (19:34)
[2017-08-18 19:39] LABS: MAGNESIUM 2.1 mg/dL (1.8-2.4); PHOSPHORUS 4.3 mg/dL (2.5-4.9)
--- NOTE | 2017-08-18 19:45 | NUR ---
CENTRAL LINE INSERTION PROCEDURE STARTED BY DR. RIVERA, TECH AT BEDSIDE. PATIENT AAO X4. WILL CONTINUE TO MONITOR.
[2017-08-18] MEDS ORDERED: LORazepam 2 MG/ML VIAL IVP PRN (20:35)
--- NOTE | 2017-08-18 20:50 | NUR ---
RECEIVED CALL FROM DR. BRENDA Javier. UPDATE PATIENT'S CONDITION, RECEIVED CLONIDINE 0.1MG PO ONCE AND CLONIDINE 0.1MG Q6H. WILL FOLLOW THE ORDERS.
[2017-08-18] MEDS ORDERED: PANTOPRAZOLE 40 MG TABEC PO SCH (21:00)
[2017-08-18] MEDS ORDERED: INSULIN GLARGINE HUM REC ANLOG 5 UNIT SUBQ SCH (21:00)
[2017-08-18] MEDS ORDERED: NON-FORMULARY ITEM (Cranberry Fruit (Cranberry) 450 MG) PO SCH (21:00)
[2017-08-18] MEDS ORDERED: cloNIDine 0.1 MG TAB PO SCH (21:00)
[2017-08-18] MEDS: SIMVASTATIN 40 MG TAB PO SCH (21:05)
[2017-08-18] MEDS: levETIRAcetam 500 MG TAB PO SCH (21:05)
[2017-08-18] MEDS: ASCORBIC ACID 500 MG TAB PO SCH (21:05)
--- NOTE | 2017-08-18 21:40 | NUR ---
PATIENT CURRENTLY ON 2L NC. BREATH SOUNDS CLEAR. NO SOB. NO BREATHING TREATMENT INDICATED AT THIS TIME. NO RESPIRATORY DISTRESS NOTED AT THIS TIME. WILL CONTINUE TO MONITOR.
[2017-08-18] MEDS: BLOOD GLUCOSE MONITORING 1 DEV DEV FS SCH (21:46)
[2017-08-18] MEDS: INSULIN LANTUS 100 UNITS/ML 10 ML VIAL SUBQ SCH (22:00)
--- NOTE | 2017-08-18 22:40 | NUR ---
CALLED DR. GUTIERREZ.Hortencia NOTIFIED PATIENT HAS HOME MEDICATION ORDER FOR CLONIDINE 0.3MG PO TID. DR. GUTIERREZ STATED FOLLOW THE HOME MEDICATION ORDER INSTEAD OF PREVIOUS HIS ORDER. AND Addendum: 08/19/17 at 0009 by Lorrie Gonzales RN [id number] Hortencia GUTIERREZ REGARDING PATIENT'S HIGH BP DESPITE OF NITROGLYCERIN DRIP, HE ORDERED TO START PATIENT ON CARDENE DRIP OR IF NOT AVAILABLE TO START ON NITROPRUSSIDE DRIP; CARRIED OUT.
[2017-08-18] MEDS ORDERED: NITROPRUSSIDE 50 MG in DEXTROSE 5% 250 ML IV PRN (22:45)
--- NOTE | 2017-08-18 23:00 | NUR ---
DIALYSIS NURSE AT BEDSIDE TO HEMODIALYSIS, PATIENT AAO X4, DENIES ANY PAIN. NO ACUTE DISTRESS NOTED. BP 205/93 NOTED. WILL CONTINUE TO MONITOR.
[2017-08-19] VITALS (70 sets, daily range): BP systolic 109–209; BP diastolic 56–119
--- NOTE | 2017-08-19 00:05 | NUR ---
PER DIE MAKER TRIMRONDA, THERE'S NO AVAILABLE CARDENE NOR NITRPRUSSIDE DRIP ACCORDING TO [facility] [employer] PHARMACIST SHERLEY. DR. Hortencia GUTIERREZ WAS INFORMED AND AWARE; ADVICED JUST TO CONTINUE NITROGLYCERIN DRIP AND SINCE PATIENT IS WITH ON GOING HEMODIALYSIS BP MIGHT COME DOWN.
--- NOTE | 2017-08-19 02:00 | NUR ---
HEMODIALYSIS DONE, RECEIVED REPORT FROM DIALYSIS NURSE, REMOVED 4L OF FLUID FROM PATIENT. NO ACUTE DISTRESS NOTED. DENIES PAIN OR DISCOMFORT, PATIENT STATED LITTLE TIRED USUAL. BP 174/ 99 NOTED. WILL CONTINUE TO MONITOR.
--- NOTE | 2017-08-19 05:00 | NUR ---
PATIENT IN ASLEEP AT THIS TIME, AROUSALBLE TO VOICE. DENIES PAIN OR DISCOMFORT. NO ACUTE DISTRESS NOTED. BP 168/90 NOTED WITH NITROGLYCERIN DRIP. WILL CONTINUE TO MONITOR.
--- NOTE | 2017-08-19 05:40 | NUR ---
CALLED DR. GUTIERREZ, NOTIFIED PATIENT BP 183/115, HR 58 TO 60 WITH NITROGLYCERIN DRIP AND BP WENT UP TO 200 WHEN NITROGLYCERIN DRIP HOLDING. RECEIVED PROCARDIA 60MG PO ONCE AND BID ORDER. Addendum: 08/19/17 at 0653 by Celine Garzon RN WRONG WITH PROCARDIA 60MG PO ONCE. RECEIVED PROCARDIA 60MG PO BID ORDER.
--- NOTE | 2017-08-19 06:00 | NUR ---
ADMINISTERED NIFEDIPINE 60MG PO ONCE BECAUSE PATIENT ALREADY HAS NIFEDIPINE 90MG PO DAILY. WILL NEED TO VERIFY WITH DR. GUTIERREZ.
[2017-08-19] MEDS: NIFEdipine 60 MG TABER PO SCH (06:30)
[2017-08-19] MEDS ORDERED: NON-FORMULARY ITEM (Omeprazole (Omeprazole) 20 MG) PO SCH (06:30)
--- NOTE | 2017-08-19 07:30 | NUR ---
RECEIVED PT FROM PM NURSE, PT AWAKE, ALERT, And ORIENTED. ON O2 NC 2L/MIN, O2 SAT 98, NO S/S OF RESPIRATORY DISTRESS NOTED. BEDSIDE MONITOR SHOWS SR 60 S, BP 203/119, PT HAS CENTRAL LINE TO RIGHT IJ RUNNING NITROGLYCERIN 80 MCG/MIN. SCDS IN PLACE, PT C/O NECK SORE BUT IT IS TOLERABLE , WILL NOTIFY DOCTOR WHEN THEY MAKE ROUNDS, REORIENTED PT ENVIRONMENT, CALL LIGHT IN REACH, PT REFUSED TO HOB ELEVATED 30 DEGREES AND HE PREFERS LYING FLAT.WILL CONTINUE TO MONITOR PT.
--- NOTE | 2017-08-19 07:30 | NUR ---
REPORT GIVEN TO MORNING NURSE.
[2017-08-19] MEDS: BLOOD GLUCOSE MONITORING 1 DEV DEV FS SCH ×4 (08:00→20:50)
[2017-08-19 08:01] LABS: BASOPHILS # (AUTO) 0.2 K/uL (0.00-0.22); BASOPHILS % (AUTO) 3.4 % (0.0-2.0); EOSINOPHILS # (AUTO) 0.5 K/uL (0-0.4); EOSINOPHILS % (AUTO) 10.1 % (0.0-4.0); HEMATOCRIT 36.8 % (36-52); LYMPHOCYTES # (AUTO) 0.7 K/uL (2.0-11.5); LYMPHOCYTES % (AUTO) 15.7 % (20.5-51.1); MEAN CORPUSCULAR HEMOGLOBIN 32 pg (27-31); MEAN CORPUSCULAR HGB CONC 33 g/dL (33-37); MEAN CORPUSCULAR VOLUME 97.7 fL (80-94); MONOCYTES # (AUTO) 0.7 K/uL (0.8-1.0); MONOCYTES % (AUTO) 13.9 % (1.7-9.3); NEUTROPHILS # (AUTO) 2.7 K/uL (1.8-7.7); NEUTROPHILS % (AUTO) 56.9 % (42.2-75.2); PLATELET COUNT (AUTO) 170 K/uL (140-450); RED BLOOD CELL COUNT(AUTO) 3.76 MIL/uL (4.20-6.10); RED CELL DISTRIBUTION WIDTH 15.3 % (11.6-13.7); WHITE BLOOD COUNT (AUTO) 4.8 K/uL (4.8-10.8)
[2017-08-19 08:07] LABS: ANION GAP 13.4 (8-16); CARBON DIOXIDE 30.1 mmol/L (21-32); POTASSIUM 4.5 mmol/L (3.5-5.1)
[2017-08-19 08:11] LABS: MAGNESIUM 2.2 mg/dL (1.8-2.4); PHOSPHORUS 6.4 mg/dL (2.5-4.9)
[2017-08-19 08:13] LABS: CREATININE 6.5 mg/dL (0.7-1.3)
[2017-08-19] MEDS: DOCUSATE SODIUM 100 MG GELCAP PO SCH (08:15)
[2017-08-19] MEDS: cloNIDine 0.1 MG TAB PO SCH ×3 (08:15→17:08)
[2017-08-19] MEDS: PANTOPRAZOLE 40 MG TABEC PO SCH ×2 (08:15→17:08)
[2017-08-19] MEDS: CALCIUM ACETATE 667 MG TAB PO SCH ×3 (08:15→17:07)
[2017-08-19] MEDS: ISOSORBIDE DINITRATE 20 MG TAB PO SCH ×3 (08:16→17:08)
[2017-08-19] MEDS: ASCORBIC ACID 500 MG TAB PO SCH ×2 (08:16→20:50)
[2017-08-19] MEDS: levETIRAcetam 500 MG TAB PO SCH ×2 (08:16→20:50)
[2017-08-19] MEDS: LOSARTAN 50 MG TAB PO SCH (08:16)
[2017-08-19] MEDS: hydrALAZINE 20 MG/ML VIAL IM SCH ×3 (08:18→17:07)
--- NOTE | 2017-08-19 08:50 | NUR ---
DR. RIDDLE MAKING ROUNDS, MADE HER AWARE PT HAS HEADACHE.
[2017-08-19] MEDS ORDERED: NIFEdipine 90 MG TABER PO SCH (09:00)
[2017-08-19] MEDS ORDERED: LOSARTAN 50 MG TAB PO SCH (09:00)
[2017-08-19] MEDS ORDERED: LISINOPRIL 20 MG TAB PO SCH (09:00)
[2017-08-19] MEDS ORDERED: OLOPATADINE HCL OP SCH (09:00)
[2017-08-19] MEDS ORDERED: KETOROLAC 30 MG/ML VIAL IVP PRN (09:40)
--- NOTE | 2017-08-19 10:02 | NUR ---
PT C/O HEADACHE, OFFERED PT PAIN MEDICATION, PT REFUSED, PT STATED " FORGET IT, I AM FINE", CHARGE NURSE AWARE, NOTIFIED DR. RIDDLE PT HAS HEADACHE.
[2017-08-19] MEDS: INSULIN LISPRO SLIDING SCALE 100 UNITS/ML VIAL SUBQ PRN ×2 (11:48→16:36)
--- NOTE | 2017-08-19 13:14 | NUR ---
pt sleeping at this moment, no s/s of respiratory distress noted. vitals in normal range at this moment.
[2017-08-19] MEDS: METOCLOPRAMIDE 10 MG/2 ML INJ VIAL IVP PRN (13:38)
[2017-08-19] MEDS: NITROGLYCERIN 50 MG/D5W PREMIX 250 ML IV PRN (14:36)
--- NOTE | 2017-08-19 17:50 | NUR ---
PT HAD A GOOD APPETITE FOR DINNER, BED CHANGED WITH CHARGE NURSE.
--- NOTE | 2017-08-19 18:53 | NUR ---
NEPHRO IN TO SEE PT, WILL FOLLOW UP, PT SLEEPING AT THIS TIME, VITALS STABLE, NO S/S OF RESPIRATORY DISTRESS NOTED.
--- NOTE | 2017-08-19 19:20 | NUR ---
RECEIVED BEDSIDE REPORT FROM MORNING SHIFT NURSE. PATIENT IN ASLEEP, AROUSABLE TO VOICE, ALERT AND ORIENTED X4, VERBALLY RESPONSIVE, BOTH EYES BLIND NOTED. ON ROOM AIR, O2 SAT 92% NOTED. NO ACUTE DISTRESS NOTED. BILATERAL LUNGS SOUND CLEAR. DENIES PAIN AND HEADACHE AT THIS TIME. NO NAUSEA/ VOMIT AT THIS TIME.CENTRAL LINE TO RIGHT IJ, INTACT AND PATENT. NO DRIP NOTED. BP IS 135/[address] RIVERA AT BEDSIDE TO SEE THE PATIENT. PATIENT ABLE TO MOVE ALL EXTREMITIES AND LEFT SIDE WEAKNESS NOTED. DARK COLORED LESION ON RIGHT BABY TOE, DRY ABRASION ON TIP OF RIGHT MIDDLE TOE, CALLOUS ON LEFT FOOT AND AMPUTATED LEFT BABY TOE. HOB ELEVATED, BED IN LOW POSITION, CALL LIGHT WITHIN REACH. WILL CONTINUE TO MONITOR.
--- NOTE | 2017-08-19 19:35 | NUR ---
RECEIVED PATIENT ON ROOM AIR, O2 SAT 93%. PATIENT STATES TO HAVE NO SOB. BREATH SOUNDS CLEAR. NO BREATHING TREATMENT INDICATED AT THIS TIME. NO RESPIRATORY DISTRESS NOTED AT THIS TIME. WILL CONTINUE TO MONITOR.
[2017-08-19] MEDS: SIMVASTATIN 40 MG TAB PO SCH (20:50)
[2017-08-19] MEDS: INSULIN LANTUS 100 UNITS/ML 10 ML VIAL SUBQ SCH (20:54)
--- NOTE | 2017-08-19 21:00 | NUR ---
BS CHECKED 118 NOTED, PATIENT FEELING HUNGRY. GIVEN ORANGE JUICE, CRACKERS AND SANDWICHES. ADMINISTERED SCHEDULED MEDICATIONS ORDERED, TOLERATED WELL. NO ACUTE DISTRESS NOTED. SR ON THE MONITOR. DENIES PAIN. WILL CONTINUE TO MONITOR.
--- NOTE | 2017-08-19 23:00 | NUR ---
PATIENT IN ASLEEP, AROUSABLE TO VOICE. NO ACUTE DISTRESS NOTED. BP IN CONTROLLED. SR ON THE MONITOR. DENIES ANY PAIN. WILL CONTINUE TO MONITOR.
--- NOTE | 2017-08-19 23:26 | NUR ---
PATIENT PLACED ON 2L NC PER 02 DESATURATION TO 88%. CURRENT O2 SAT ON 2L NC 99%. NO RESPIRATORY DISTRESS NOTED AT THIS TIME. WILL CONTINUE TO MONITOR.
[2017-08-20] VITALS (62 sets, daily range): BP systolic 109–205; BP diastolic 62–111
--- NOTE | 2017-08-20 00:48 | NUR ---
PATIENT'S BP 200/[address] GUTIERREZ.Y, RECEIVED ORDER TO START NITROGLYCERIN DRIP AND MONITOR THE PATIENT. WILL CARRY OUT.
--- NOTE | 2017-08-20 00:55 | NUR ---
STARTED NITROGLYCERIN DRIP 5MCG/MIN. PATIENT DENIES CHEST PAIN, HEADACHE OR DISCOMFORT AT THIS TIME. WILL CONTINUE TO MONITOR.
--- NOTE | 2017-08-20 02:00 | NUR ---
DR. RIVERA AT BEDSIDE TO CHECK THE PATIENT. WILL FOLLOW ORDER.
--- NOTE | 2017-08-20 03:00 | NUR ---
PATIENT IN ASLEEP, AROUSABLE TO VOICE. DENIES PAIN. ON NITROGLYCERIN DRIP, BP 190/99 NOTED. HR 65 NOTED. WILL CONTINUE TO MONITOR.
--- NOTE | 2017-08-20 05:00 | NUR ---
PATIENT IN ASLEEP, AROUSABLE TO VOICE, NO ACUTE DISTRESS NOTED. DENIES PAIN, N/V AT THIS TIME. BP 197/104 WITH NITROGLYCERIN DRIP. WILL CONTINUE TO TITRATE TO CONTROL THE BP.
[2017-08-20 05:48] LABS: BASOPHILS # (AUTO) 0.1 K/uL (0.00-0.22); BASOPHILS % (AUTO) 1.8 % (0.0-2.0); EOSINOPHILS # (AUTO) 0.6 K/uL (0-0.4); EOSINOPHILS % (AUTO) 10.2 % (0.0-4.0); HEMATOCRIT 35.5 % (36-52); HEMOGLOBIN 11.7 g/dL (12.0-18.0); LYMPHOCYTES # (AUTO) 0.8 K/uL (2.0-11.5); LYMPHOCYTES % (AUTO) 14.4 % (20.5-51.1); MEAN CORPUSCULAR HEMOGLOBIN 32 pg (27-31); MEAN CORPUSCULAR HGB CONC 33 g/dL (33-37); MEAN CORPUSCULAR VOLUME 97.4 fL (80-94); MONOCYTES # (AUTO) 0.8 K/uL (0.8-1.0); MONOCYTES % (AUTO) 13.9 % (1.7-9.3); NEUTROPHILS # (AUTO) 3.2 K/uL (1.8-7.7); NEUTROPHILS % (AUTO) 59.7 % (42.2-75.2); PLATELET COUNT (AUTO) 161 K/uL (140-450); RED BLOOD CELL COUNT(AUTO) 3.64 MIL/uL (4.20-6.10); RED CELL DISTRIBUTION WIDTH 14.8 % (11.6-13.7); WHITE BLOOD COUNT (AUTO) 5.4 K/uL (4.8-10.8)
[2017-08-20 05:51] LABS: PROTHROMBIN TIME 15.9 secs (10.8-13.4)
[2017-08-20 05:56] LABS: ANION GAP 12.4 (8-16); CARBON DIOXIDE 29.9 mmol/L (21-32); POTASSIUM 4.3 mmol/L (3.5-5.1)
[2017-08-20 05:58] LABS: MAGNESIUM 2.4 mg/dL (1.8-2.4); PHOSPHORUS 7.1 mg/dL (2.5-4.9)
[2017-08-20 06:00] LABS: CREATININE 8.6 mg/dL (0.7-1.3)
[2017-08-20 06:04] LABS: FREE T4 (FREE THYROXINE) 0.95 ng/dL (0.76-1.46); THYROID STIMULATING HORMONE 2.74 uIU/mL (0.34-3.74)
[2017-08-20] MEDS: NIFEdipine 60 MG TABER PO SCH (06:27)
[2017-08-20] MEDS: INSULIN LISPRO SLIDING SCALE 100 UNITS/ML VIAL SUBQ PRN ×2 (07:17→16:30)
[2017-08-20] MEDS: BLOOD GLUCOSE MONITORING 1 DEV DEV FS SCH ×4 (07:18→20:48)
--- NOTE | 2017-08-20 07:20 | NUR ---
BEDSIDE REPORT GIVEN TO MORNING NURSE.
--- NOTE | 2017-08-20 07:30 | NUR ---
RECEIVED PT FROM PM NURSE, PT SLEEPING BUT EASILY AWAKING BY INITIAL ASSESSMENT. PT SAYS HE HAD A GOOD SLEEP LAST NIGHT. ON ROOM AIR, O2 SAT 98, NO S/S OF RESPIRATORY DISTRESS NOTED. BEDSIDE MONITOR SHOWS SR 66 S, BP 192/101, PT HAS CENTRAL LINE TO RIGHT IJ RUNNING NITROGLYCERIN 100 MCG/MIN. SCDS IN PLACE, PT C/O HEADACHE WHEN ASSESS PT,FELT A BUMP ON THE BACK OF HEAD. PT STATED PAIN WHEN TOUCH THE BUMP AND HE ALSO STATED HE HIT HIS HEAD BEFORE HE CAME TO HOSPITAL HE BENT DOWN TO TIE HIS SHOES . OFFERED PT PAIN MEDICATION, PT REFUSED. WILL NOTIFY DOCTOR WHEN THEY MAKE ROUNDS, REORIENTED PT ENVIRONMENT, CALL LIGHT IN REACH.WILL CONTINUE TO MONITOR PT.
[2017-08-20] MEDS: PANTOPRAZOLE 40 MG TABEC PO SCH ×2 (07:34→16:32)
[2017-08-20] MEDS: CALCIUM ACETATE 667 MG TAB PO SCH ×3 (07:34→16:33)
[2017-08-20] MEDS ORDERED: NIFEdipine 30 MG TABER PO SCH (08:00)
[2017-08-20] MEDS: hydrALAZINE 20 MG/ML VIAL IM SCH (08:37)
[2017-08-20] MEDS: ASCORBIC ACID 500 MG TAB PO SCH ×2 (08:37→20:51)
[2017-08-20] MEDS: DOCUSATE SODIUM 100 MG GELCAP PO SCH (08:37)
[2017-08-20] MEDS: levETIRAcetam 500 MG TAB PO SCH ×2 (08:38→20:51)
[2017-08-20] MEDS: cloNIDine 0.1 MG TAB PO SCH ×3 (08:38→20:50)
[2017-08-20] MEDS: LOSARTAN 50 MG TAB PO SCH (08:39)
[2017-08-20] MEDS: ISOSORBIDE DINITRATE 20 MG TAB PO SCH ×3 (08:39→20:50)
--- NOTE | 2017-08-20 08:40 | NUR ---
DIALYSIS NURSE JOSE PRESENT TO BEDSIDE.
[2017-08-20] MEDS ORDERED: NIFEdipine 90 MG TABER PO SCH (09:00)
--- NOTE | 2017-08-20 10:00 | NUR ---
HOLD NITROGLYCERIN DUE TO PT ON DIALYSIS. CHARGE NURSE AWARE.
--- NOTE | 2017-08-20 12:10 | NUR ---
DIALYSIS DONE, TOTAL OUTPUT 3 L PER DIALYSIS NURSE
[2017-08-20] MEDS: PIPER/TAZO 2.25GM/D5W PREMIX 50 ML IV SCH ×2 (12:34→20:49)
[2017-08-20] MEDS: hydrALAZINE 25 MG TAB PO SCH ×2 (12:35→20:51)
[2017-08-20] MEDS: MUPIROCIN 2% OINT 22 GM TUBE TP SCH (12:36)
[2017-08-20] MEDS: CHLORHEXADINE GLUC 2% CLOTH TP SCH (12:36)
[2017-08-20] MEDS: METOCLOPRAMIDE 10 MG/2 ML INJ VIAL IVP PRN ×2 (12:59→21:44)
--- NOTE | 2017-08-20 12:59 | NUR ---
PT THROW UP AFTER EATING LUNCH, REGLAN GIVEN ORDERED.
[2017-08-20] MEDS ORDERED: hydrALAZINE 20 MG/ML VIAL IM SCH (13:00)
--- NOTE | 2017-08-20 14:03 | NUR ---
CALLED CATHEAD WORKER [id number] REGARDING PT IS READY TO GO CT, PER TECH, SHE HAS COUPLE OF ER PT, JUST GIVE HER 30 MINUTES.
--- NOTE | 2017-08-20 15:05 | NUR ---
08/20/17 RD INITIAL ASSESSMENT COMPLETED PLEASE REFER TO NUTRITION ASSESSMENT UNDER CARE ACTIVITY FOR ESTIMATED NUTRITIONAL NEEDS. 1. CONTINUE CCHO 60 GM, NA 2GM, AND FLUID 1500 DIET TOLERATED 2. RECOMMEND RENAL DIET IN ADDITION TO CURRENT DIET. 3. RECOMMEND PROVIDING FINGER FOODS SO IT WOULD BE EASIER FOR PT TO FEED HIMSELF WITH. 4. RD TO FOLLOW-UP 2-3 DAYS, HIGH RISK ELIDA BADILLO RD
[2017-08-20 15:09] LABS: HEPATITIS A ANTIBODY IGM Negative (Negative); HEPATITIS B CORE AB TOTAL Negative (Negative); HEPATITIS B SURFACE ANTIBODY Reactive (.); HEPATITIS B SURFACE ANTIGEN Negative (Negative)
[2017-08-20] MEDS: NITROGLYCERIN 50 MG/D5W PREMIX 250 ML IV PRN (16:19)
[2017-08-20] MEDS ORDERED: cloNIDine 0.1 MG TAB PO PRN (17:35)
--- NOTE | 2017-08-20 19:15 | NUR ---
RECEIVED BEDSIDE REPORT FROM MORNING SHIFT NURSE. PATIENT IN ASLEEP, AROUSABLE TO VOICE, ALERT AND ORIENTED X4, VERBALLY RESPONSIVE, BOTH EYES BLIND NOTED. ON ROOM AIR, O2 SAT 95% NOTED. NO ACUTE DISTRESS NOTED. BILATERAL LUNGS SOUND CLEAR. DENIES PAIN AND HEADACHE AT THIS TIME. NO NAUSEA/ VOMIT AT THIS TIME.CENTRAL LINE TO RIGHT IJ, RUNNING NITROGLYCERIN DRIP 50MCG/MIN. LINE INTACT AND PATENT. PATIENT ABLE TO MOVE ALL EXTREMITIES AND LEFT SIDE WEAKNESS NOTED. DARK COLORED LESION ON RIGHT BABY TOE, DRY ABRASION ON TIP OF RIGHT MIDDLE TOE, CALLOUS ON LEFT FOOT AND AMPUTATED LEFT BABY TOE. HOB ELEVATED, BED IN LOW POSITION, CALL LIGHT WITHIN REACH. WILL CONTINUE TO MONITOR. Addendum: 08/21/17 at 0702 by Celine Garzon RN PATIENT REFUSED BILATERAL SIDE PAD FOR SEIZURE PRECAUTION. RISK AND BENEFIT EXPLAINED X3.
[2017-08-20] MEDS: SIMVASTATIN 40 MG TAB PO SCH (20:50)
[2017-08-20] MEDS: INSULIN LANTUS 100 UNITS/ML 10 ML VIAL SUBQ SCH (20:58)
--- NOTE | 2017-08-20 21:10 | NUR ---
ADMINISTERED SCHEDULED MEDICATIONS ORDERED, PATIENT TOLERATED WELL. BS CHECKED 102 NOTED. OFFERED SANDWICHES, APPLE JUICE. NO ACUTE DISTRESS NOTED. DENIES PAIN AT THIS TIME. WILL CONTINUE TO MONITOR.
--- NOTE | 2017-08-20 21:45 | NUR ---
ADMINISTERED PRN REGLAN DUE TO PATIENT VOMIT ONE TIME AFTER ATE SANDWICHES AND JUICE. WILL CONTINUE TO MONITOR.
--- NOTE | 2017-08-20 22:20 | NUR ---
PATIENT DENIES NAUSEA/ VOMIT AND PAIN AT THIS TIME. WILL CONTINUE TO MONITOR.
--- NOTE | 2017-08-20 23:05 | NUR ---
HOLD NITROGLYCERIN DRIP DUE TO BP 109/68, HR 77. PATIENT IN ASLEEP. NO ACUTE DISTRESS NOTED.
[2017-08-21] VITALS (10 sets, daily range): BP systolic 121–171; BP diastolic 64–98
--- NOTE | 2017-08-21 | NUR ---
PATIENT IN ASLEEP, AROUSABLE TO VOICE. DENIES ANY DISCOMFORT AT THIS TIME. NO ACUTE DISTRESS NOTED.
--- NOTE | 2017-08-21 02:00 | NUR ---
PATIENT IN ASLEEP AT THIS TIME, AROUSABLE TO VOICE. NO ACUTE DISTRESS NOTED. DENIES PAIN AT THIS TIME. NO NAUSEA/VOMIT. SR ON THE MONITOR. CALL LIGHT WITHIN REACH.
[2017-08-21 05:10] LABS: BASOPHILS % (AUTO) 0.5 % (0.0-2.0); EOSINOPHILS # (AUTO) 0.4 K/uL (0-0.4); EOSINOPHILS % (AUTO) 7.8 % (0.0-4.0); HEMATOCRIT 37.9 % (36-52); HEMOGLOBIN 12.3 g/dL (12.0-18.0); LYMPHOCYTES # (AUTO) 0.6 K/uL (2.0-11.5); LYMPHOCYTES % (AUTO) 12.8 % (20.5-51.1); MEAN CORPUSCULAR HEMOGLOBIN 32 pg (27-31); MEAN CORPUSCULAR HGB CONC 33 g/dL (33-37); MEAN CORPUSCULAR VOLUME 97.2 fL (80-94); MONOCYTES # (AUTO) 0.7 K/uL (0.8-1.0); MONOCYTES % (AUTO) 14.1 % (1.7-9.3); NEUTROPHILS # (AUTO) 3.3 K/uL (1.8-7.7); NEUTROPHILS % (AUTO) 64.8 % (42.2-75.2); PLATELET COUNT (AUTO) 166 K/uL (140-450); RED CELL DISTRIBUTION WIDTH 14.7 % (11.6-13.7); WHITE BLOOD COUNT (AUTO) 5.1 K/uL (4.8-10.8)
[2017-08-21] MEDS: hydrALAZINE 25 MG TAB PO SCH ×3 (05:15→20:39)
[2017-08-21] MEDS: ISOSORBIDE DINITRATE 20 MG TAB PO SCH ×3 (05:16→20:40)
[2017-08-21] MEDS: cloNIDine 0.1 MG TAB PO SCH ×3 (05:16→20:39)
[2017-08-21] MEDS: PIPER/TAZO 2.25GM/D5W PREMIX 50 ML IV SCH ×3 (05:17→20:47)
[2017-08-21 06:03] LABS: ANION GAP 15.5 (8-16); CARBON DIOXIDE 29.8 mmol/L (21-32); POTASSIUM 4.3 mmol/L (3.5-5.1)
[2017-08-21 06:11] LABS: MAGNESIUM 1.9 mg/dL (1.8-2.4)
[2017-08-21 06:23] LABS: CREATININE 7.6 mg/dL (0.7-1.3)
--- NOTE | 2017-08-21 07:20 | NUR ---
BEDSIDE REPORT GIVEN TO MORNING SHIFT NURSE.
--- NOTE | 2017-08-21 07:30 | NUR ---
RECEIVED PT FROM PM NURSE, PT SLEEPING BUT EASILY AWAKING. ON ROOM AIR , O2 SAT 98, NO S/S OF RESPIRATORY DISTRESS NOTED. BEDSIDE MONITOR SHOWS SR 60 S, PT OFF NITROGLYCERIN DRIP DURING PM SHIFT. PT HAS CENTRAL LINE TO RIGHT IJ WITH GOOD BLOOD RETURN. SCDS IN PLACE, PT DENIES HEADACHE TODAY, REORIENTED PT ENVIRONMENT, CALL LIGHT IN REACH, WILL CONTINUE TO MONITOR PT.
[2017-08-21] MEDS: PANTOPRAZOLE 40 MG TABEC PO SCH ×2 (08:07→16:39)
[2017-08-21] MEDS: NIFEdipine 90 MG TABER PO SCH (08:07)
[2017-08-21] MEDS: CALCIUM ACETATE 667 MG TAB PO SCH ×3 (08:07→16:39)
[2017-08-21] MEDS: ASCORBIC ACID 500 MG TAB PO SCH ×2 (08:07→20:39)
[2017-08-21] MEDS: DOCUSATE SODIUM 100 MG GELCAP PO SCH (08:07)
[2017-08-21] MEDS: levETIRAcetam 500 MG TAB PO SCH ×2 (08:08→20:40)
[2017-08-21] MEDS: BLOOD GLUCOSE MONITORING 1 DEV DEV FS SCH ×4 (08:12→20:38)
[2017-08-21] MEDS: INSULIN LISPRO SLIDING SCALE 100 UNITS/ML VIAL SUBQ PRN ×2 (08:15→20:43)
--- NOTE | 2017-08-21 08:30 | NUR ---
PATIENT HAS BEEN SCREENED AND CATEGORIZED HIGH NUTRITION RISK. PATIENT WILL BE SEEN WITHIN 1-2 DAYS OF ADMISSION. 08/20/[address]
--- NOTE | 2017-08-21 09:40 | NUR ---
DIALYSIS NURSE JOSE PRESENT TO BEDSIDE. PT SLEEPING AT THIS TIME, NO S/S OF RESPIRATORY DISTRESS NOTED.
[2017-08-21] MEDS: CHLORHEXADINE GLUC 2% CLOTH TP SCH (11:40)
--- NOTE | 2017-08-21 11:47 | NUR ---
PT'S DAUGHTER AT BEDSIDE, PT'S DAUGHTER CALLED MOHAN( GRANDDAUGHTER), CHARGE NURSE TALKED WITH MOHAN ON THE PHONE REGARDING DR. MORRIS'S EXTUBATION ORDER, PER MIND, SHE WILL ASK HER UNCLE AND CALL US BACK. CHARGE NURSE ALSO TELL MOHAN THE RISKS OF EXTUBATION. MOHAN VERBALIZED UNDERSTANDING AND SHE WOULD LET HER UNCLE KNOW THE RISKS. Addendum: 08/21/17 at 1206 by Claudio Braswell RN WRONG ENTRY, DISCARD IT.
--- NOTE | 2017-08-21 11:55 | NUR ---
MOHAN ( PT'S GRANDDAUGHTER CALLED BACK) HAD CONVERSATION WITH CHARGE NURSE LISHA, SHE STATED HER UNCLE ( WHO IS THE DECISION MAKER) SAID IT IS OK TO TAKE THE TUBE OUT. Addendum: 08/21/17 at 1227 by Claudio Braswell RN WRONG ENTRY, DISCARD IT.
[2017-08-21] MEDS: MUPIROCIN 2% OINT 22 GM TUBE TP SCH (12:00)
--- NOTE | 2017-08-21 12:00 | NUR ---
DIALYSIS IN PROCESS, PT TOLERATED WELL.
--- NOTE | 2017-08-21 13:00 | NUR ---
DIALYSIS DONE, OUTPUT 2 L. PT TOLERATED WELL.
--- NOTE | 2017-08-21 14:30 | NUR ---
PT WAS UPSET HE CAN NOT FIND ONE PIECE OF PAPER WITH HIS DAD'S CELLPHONE NUMBER, TRIED TO HELP PT TO FIND THE PIECE OF PAPER, ONLY [facility] MENU WITH NOTHING HANDWRITING ON, CALLED PT'S MOTHER TO SEE DOES SHE HAVE PT'S DAD'S NUMBER, VOICE MESSAGE LEFT. WILL FOLLOW UP.
--- NOTE | 2017-08-21 15:06 | NUR ---
PT CALMS DOWN, SLEEPING AT THIS MOMENT.
[2017-08-21 15:07] LABS: FOLIC ACID 10.6 ng/mL (>3.0)
[2017-08-21] MEDS ORDERED: D50SYR IVP (15:38)
[2017-08-21] MEDS ORDERED: TOR30I IVP (15:38)
[2017-08-21] MEDS ORDERED: HYDR-4420 PO (15:38)
[2017-08-21] MEDS ORDERED: ATI2I IVP (15:38)
[2017-08-21] MEDS ORDERED: METO50TE2 PO (15:38)
[2017-08-21] MEDS ORDERED: BACTO TP (15:38)
[2017-08-21] MEDS ORDERED: PANT40EC28 PO (15:38)
[2017-08-21] MEDS ORDERED: MECL-272 PO (15:38)
[2017-08-21] MEDS ORDERED: CHLO118S2 TP (15:38)
[2017-08-21] MEDS ORDERED: ACET-1182 PO (15:38)
[2017-08-21] MEDS ORDERED: METO5SOL24 IVP (15:38)
[2017-08-21] MEDS ORDERED: LANTUS SUBQ (15:38)
[2017-08-21] MEDS ORDERED: CLON0.1T42 PO (15:38)
[2017-08-21] MEDS ORDERED: PIPE50SO5 IV (15:49)
--- NOTE | 2017-08-21 16:02 | NUR ---
REHAB NOTES RECEIVED CANCELLATION ORDER FOR ST SWALLOW EVAL
--- NOTE | 2017-08-21 16:31 | NUR ---
Typesetting Machine Operator/Tender Note: I faxed patient's clinical information to [facility] . Per Kenn from [facility], patient may return to bed 11A, accepting physician , he requested patient to be transfer to their facility after 7pm, case technician Diane duarte.
--- NOTE | 2017-08-21 17:00 | NUR ---
NOTIFIED PT'S DAD, PT WANTED TO BE PICKED UP BY HIM, PT REFUSED TO BE TRANSFERRED BY AMBULANCE. PER PT'S DAD, HE WILL BE THERE AFTER 7PM.
--- NOTE | 2017-08-21 17:10 | NUR ---
Tableau Architect Notes: Kenn form [facility] call asking for Auto Body Straightener Taylor; I informed him she has left for the day. Kenn stated that earlier today there was a miscommunication between S.W the [facility] staff and they are making arrangements however; they are unable to take Patient back tonight. Wire Puller Eladia and manager plant Diane made aware.
--- NOTE | 2017-08-21 17:40 | NUR ---
PT'S MOTHER CALLED IN, NOTIFIED HER PT WILL NOT BE TRANSFERRED TO ( [facility] TODAY, MAYBE TOMORROW, PT'S MOM STATED SHE WILL NOTIFY PT'S DAD.
--- NOTE | 2017-08-21 17:48 | NUR ---
JOSE LUIS AWARE THAT PATIENT CANNOT GO TO [facility] TODAY. I ALSO INFORMED DR. SCHOFIELD THAT PATIENT WILL NOT BE GOING TO [facility] TODAY. LISHA PANDEYSERVICE NOW DEVELOPER NURSE AWARE.
--- NOTE | 2017-08-21 18:40 | NUR ---
PT ATE 100% OF FOOD, EXPLAINED TO PT WE MAY TRANSFER PT TO [facility] TOMORROW, PT VERBALIZED UNDERSTANDING.
--- NOTE | 2017-08-21 19:17 | NUR ---
REPORT GIVEN TO PM NURSE. PT IS SITTING IN BED QUIETLY AT THIS MOMENT.
--- NOTE | 2017-08-21 19:30 | NUR ---
RECEIVED BEDSIDE REPORT FROM MORNING SHIFT NURSE. PATIENT AWAKE, ALERT AND ORIENTED X4, VERBALLY RESPONSIVE, BOTH EYES BLIND NOTED. ON ROOM AIR, O2 SAT 94% NOTED. NO ACUTE DISTRESS NOTED. BILATERAL LUNGS SOUND CLEAR. DENIES PAIN AND HEADACHE AT THIS TIME. NO NAUSEA/ VOMIT, PATIENT EATING CRACKERS AT THIS TIME. CENTRAL LINE TO RIGHT IJ, INTACT AND PATENT. PATIENT ABLE TO MOVE ALL EXTREMITIES AND LEFT SIDE WEAKNESS NOTED. DARK COLORED LESION ON RIGHT BABY TOE, DRY ABRASION ON TIP OF RIGHT MIDDLE TOE, CALLOUS ON LEFT FOOT AND AMPUTATED LEFT BABY TOE. HOB ELEVATED, BED IN LOW POSITION, CALL LIGHT WITHIN REACH. WILL CONTINUE TO MONITOR.
[2017-08-21] MEDS: SIMVASTATIN 40 MG TAB PO SCH (20:39)
[2017-08-21] MEDS: MECLIZINE 25 MG TAB PO SCH (20:40)
[2017-08-21] MEDS: INSULIN LANTUS 100 UNITS/ML 10 ML VIAL SUBQ SCH (20:42)
[2017-08-21] MEDS ORDERED: METOPROLOL SUCCINATE 50 MG TABER PO SCH (21:00)
--- NOTE | 2017-08-21 21:10 | NUR ---
ADMINISTERED SCHEDULED MEDICATIONS ORDERED, TOLERATED WELL. NO NAUSEA/VOMIT. BS CHECKED 287 NOTED. ADMINISTERED HUMALOG 6 UNITS AND LANTUS 10 UNITS. PATIENT DENIES PAIN. NO ACUTE DISTRESS NOTED.
--- NOTE | 2017-08-21 23:40 | NUR ---
PATIENT IN ASLEEP, AROUSABLE TO VOICE. NO ACUTE DISTRESS NOTED. DENIES PAIN AT THIS TIME. WILL CONTINUE TO MONITOR.
[2017-08-22] VITALS: BP 119/68
--- NOTE | 2017-08-22 01:30 | NUR ---
PATIENT IN ASLEEP, AROSABLE TO VOICE. DENIES PAIN, N/V. NO ACUTE DISTRESS NOTED. WILL CONTINUE TO MONITOR.
--- NOTE | 2017-08-22 03:30 | NUR ---
PATIENT IN ASLEEP AT THIS TIME, AROUSABLE TO VOICE. DENIES PAIN, N/V. NO ACUTE RESPIRATORY DISTRESS NOTED. PB CONTROLLED. O2 SAT 98% IN ROOM AIR. WILL CONTINUE TO MONITOR.
--- NOTE | 2017-08-22 03:35 | NUR ---
PATIENT SEDATED WITH PROPOFOL DRIP. 30MCG/KG/MIN. NO ACUTE RESPIRATORY DISTRESS NOTED. SR ON THE MONITOR. PROVIDED VAP ORAL CARE, SMALL AMOUNT WHITE CLEAR SECRETION NOTED. WILL CONTINUE TO MONITOR. Addendum: 08/22/17 at 0423 by Celine Garzon RN WRONG ENTRY DISCARD.
[2017-08-22 04:00] VITALS: BP 132/78
[2017-08-22 04:50] LABS: BASOPHILS # (AUTO) 0.1 K/uL (0.00-0.22); BASOPHILS % (AUTO) 1.3 % (0.0-2.0); EOSINOPHILS # (AUTO) 0.6 K/uL (0-0.4); EOSINOPHILS % (AUTO) 13.3 % (0.0-4.0); HEMATOCRIT 37.3 % (36-52); HEMOGLOBIN 12.3 g/dL (12.0-18.0); LYMPHOCYTES # (AUTO) 0.8 K/uL (2.0-11.5); LYMPHOCYTES % (AUTO) 16.3 % (20.5-51.1); MEAN CORPUSCULAR HEMOGLOBIN 32 pg (27-31); MEAN CORPUSCULAR HGB CONC 33 g/dL (33-37); MEAN CORPUSCULAR VOLUME 96.8 fL (80-94); MONOCYTES # (AUTO) 0.7 K/uL (0.8-1.0); MONOCYTES % (AUTO) 13.8 % (1.7-9.3); NEUTROPHILS # (AUTO) 2.7 K/uL (1.8-7.7); NEUTROPHILS % (AUTO) 55.3 % (42.2-75.2); PLATELET COUNT (AUTO) 170 K/uL (140-450); RED BLOOD CELL COUNT(AUTO) 3.85 MIL/uL (4.20-6.10); RED CELL DISTRIBUTION WIDTH 14.9 % (11.6-13.7); WHITE BLOOD COUNT (AUTO) 4.9 K/uL (4.8-10.8)
[2017-08-22] MEDS: hydrALAZINE 25 MG TAB PO SCH ×2 (04:58→13:34)
[2017-08-22] MEDS: cloNIDine 0.1 MG TAB PO SCH ×2 (04:59→13:36)
[2017-08-22] MEDS: ISOSORBIDE DINITRATE 20 MG TAB PO SCH ×2 (04:59→13:35)
[2017-08-22] MEDS: PIPER/TAZO 2.25GM/D5W PREMIX 50 ML IV SCH ×2 (05:00→12:16)
--- NOTE | 2017-08-22 05:10 | NUR ---
ADMINISTERED SCHEDULED MEDICATIONS ORDERED, TOLERATED WELL. DENIES PAIN, NAUSEA/VOMIT. NO ACUTE DISTRESS NOTED. SR ON THE MONITOR. WILL CONTINUE TO MONITOR.
[2017-08-22 05:51] LABS: ANION GAP 13.2 (8-16); CARBON DIOXIDE 29.8 mmol/L (21-32)
[2017-08-22 05:52] LABS: MAGNESIUM 1.9 mg/dL (1.8-2.4); PHOSPHORUS 6.7 mg/dL (2.5-4.9)
[2017-08-22 06:46] LABS: CREATININE 6.7 mg/dL (0.7-1.3)
--- NOTE | 2017-08-22 07:10 | NUR ---
GIVEN BEDSIDE REPORT TO MORNING NURSE.
--- NOTE | 2017-08-22 07:10 | NUR ---
PT RESTING IN BED. AWAKE ALERT. ABLE TO MAKE NEEDS KNOWN. UNABLE TO SEE. SB ON MONITOR. SKIN DRY AND WARM TO TOUCH. LUNGS DIMINISHED ON AUSCULTATION. RIGHT IJ TRIPLE LUMEN INTACT WITH GOOD BLOOD RETURNS. ABDOMEN SOFT ROUND AND NON-TENDER. ACTIVE BOWEL SOUND. SKIN INTACT. DENIES PAIN AT THIS TIME. KEPT HOB ELEVATED. BED IN LOW POSITION LOCKED. WILL CONTINUE TO MONITOR.
--- NOTE | 2017-08-22 07:35 | NUR ---
PT DENIED MORNING CARE.
[2017-08-22] MEDS: PANTOPRAZOLE 40 MG TABEC PO SCH ×2 (07:50→16:23)
[2017-08-22] MEDS: CALCIUM ACETATE 667 MG TAB PO SCH ×3 (07:50→16:22)
--- NOTE | 2017-08-22 07:50 | NUR ---
BREAKFAST SERVED. ASSISTED NEEDED.
[2017-08-22 08:00] VITALS: BP 120/44
[2017-08-22] MEDS: INSULIN LISPRO SLIDING SCALE 100 UNITS/ML VIAL SUBQ PRN ×2 (08:22→13:47)
[2017-08-22] MEDS: BLOOD GLUCOSE MONITORING 1 DEV DEV FS SCH ×3 (08:23→16:22)
--- NOTE | 2017-08-22 08:35 | NUR ---
SEEN BY DR. NAPIER. WILL FOLLOW UP ON ORDER.
[2017-08-22] MEDS: NIFEdipine 90 MG TABER PO SCH (09:18)
[2017-08-22] MEDS: MECLIZINE 25 MG TAB PO SCH (09:19)
[2017-08-22] MEDS: DOCUSATE SODIUM 100 MG GELCAP PO SCH (09:20)
[2017-08-22] MEDS: ASCORBIC ACID 500 MG TAB PO SCH (09:20)
[2017-08-22] MEDS: levETIRAcetam 500 MG TAB PO SCH (09:20)
--- NOTE | 2017-08-22 09:54 | NUR ---
PT SLEEPING IN BED COMFORTABLY. VS WNL. BP 138/85. NO CHANGE IN LOC. WILL CONTINUE TO MONITOR.
--- NOTE | 2017-08-22 10:57 | NUR ---
PT REFUSED TO USE BED DECKER AND BEDSIDE COMMODE.
--- NOTE | 2017-08-22 11:04 | NUR ---
CALLED [facility] TO GIVE REPORT SPOKE TO KATHERIN PERRY REFUSED TO GET REPORT AT THIS TIME. SAID WILL CALL US BACK TO GET REPORT FROM US.
--- NOTE | 2017-08-22 11:08 | NUR ---
CALLED PT'S MOTHER AND FATHER, LEFT VOICE MESSAGE INFORMING THAT WE HAVE ROOM FOR [facility]. WAITING FOR CALL BACK.
--- NOTE | 2017-08-22 11:36 | NUR ---
Mailing Machine Operator Note: Per Kenn from [facility] , patent may return to room 33A, accepting physician is , Kenn requested patient to be transfer after 5pm today, I informed patient's nurse Kita of this.
--- NOTE | 2017-08-22 11:50 | NUR ---
BS CHECKED 53. OFFERED JUICE AND LUNCH AVAILABE TO PT. PT REFUSED TO EAT. NOTIFIED DR. LUNA.
[2017-08-22 12:00] VITALS: BP 138/78
[2017-08-22] MEDS: MUPIROCIN 2% OINT 22 GM TUBE TP SCH (12:10)
[2017-08-22] MEDS: CHLORHEXADINE GLUC 2% CLOTH TP SCH (12:15)
--- NOTE | 2017-08-22 12:35 | NUR ---
ASSISTED TO USE BEDSIDE COMMODE.
[2017-08-22 12:45] VITALS: BP_SYST 146; BP_SYST 153; BP_DIAS 76; BP_DIAS 82
--- NOTE | 2017-08-22 13:28 | NUR ---
PT RESTING IN BED COMFORTABLY. NO ACUTE DISTRESS NOTED. NO CHANGE IN LOC. WILL CONTINUE TO MONITOR.
--- NOTE | 2017-08-22 14:41 | NUR ---
RECEIVED CALL FROM [facility]. REPORT GIVEN TO RECEIVING NURSE FREDIS CHÁVEZ. PT IS GOING TO BE TRANSFERRED TO [facility] ROOM 33A.
[2017-08-22 16:30] VITALS: BP 153/76
--- NOTE | 2017-08-22 16:53 | NUR ---
PT DOESN'T WANT TO BE ON MONITOR.
--- NOTE | 2017-08-22 17:00 | NUR ---
PT REFUSED TO BE ON BEDSIDE MONITOR. ASSIGNED NURSE EXPLAINED THE IMPORTANCE TO KEEP PT ON MONITORING STILL REFUSED TO BE HOOKED ON LINES FOR BEDSIDE MONITORING. REFUSED TO PUT GOWN ON. PT IS AWARE THAT HE IS GOING [place] [facility] AND WILL BE ACCOMPAINED BY FATHER. VS T: 97.1 BP 153/76 HR 63 RR 15 SPO2 98%. PT ON STABLE CONDITION. SITTING AT BEDSIDE. ON CONTINUOUS MONITORING.
--- NOTE | 2017-08-22 17:40 | NUR ---
AT 1726 PT DISCHARGED ON STABLE CONDITION ACCOMPANIED BY FATHER. PT TRANSFERRED TO PRIVATE VEHICLE VIA WHEELCHAIR BY ASSIGNED NURSE. DISCHARGE TEACHING PROVIDED TO PT AND FATHER. ALL NEEDED DOCUMENTS HANDED TO FATHER. BELONGINGS HANDED TO FATHER.
== END 2017-08-22 17:26 | disposition home or self-care (01) | DRG 177 ==
LOC: MED 14:18 → MIC 16:41
PROVIDERS: ADMIT Family Medicine; ATTEND Family Medicine
PROC: 02HV33Z Insertion of Infusion Device into Superior Vena Cava, Percutaneous Approach (ICD-10-PCS; principal; 2017-08-18)
PROC: 5A1D70Z Performance of Urinary Filtration, Intermittent, Less than 6 Hours Per Day (ICD-10-PCS; 2017-08-18)
PROC: 5A1D70Z Performance of Urinary Filtration, Intermittent, Less than 6 Hours Per Day (ICD-10-PCS; 2017-08-20)
PROC: 5A1D70Z Performance of Urinary Filtration, Intermittent, Less than 6 Hours Per Day (ICD-10-PCS; 2017-08-21)
DX: J69.0 Pneumonitis due to inhalation of food and vomit (principal); N17.0 Acute kidney failure with tubular necrosis; N18.6 End stage renal disease; I13.2 Hypertensive heart and chronic kidney disease with heart failure and with stage 5 chronic kidney disease, or end stage renal disease; D68.9 Coagulation defect, unspecified; E87.1 Hypo-osmolality and hyponatremia; I16.0 Hypertensive urgency; E11.65 Type 2 diabetes mellitus with hyperglycemia; K21.9 Gastro-esophageal reflux disease without esophagitis; Z88.1 Allergy status to other antibiotic agents; Z88.8 Allergy status to other drugs, medicaments and biological substances; E11.22 Type 2 diabetes mellitus with diabetic chronic kidney disease; H54.8 Legal blindness, as defined in USA; E11.319 Type 2 diabetes mellitus with unspecified diabetic retinopathy without macular edema; E78.5 Hyperlipidemia, unspecified; R56.9 Unspecified convulsions; D63.8 Anemia in other chronic diseases classified elsewhere; D72.819 Decreased white blood cell count, unspecified; Z79.4 Long term (current) use of insulin; Z99.2 Dependence on renal dialysis; E11.40 Type 2 diabetes mellitus with diabetic neuropathy, unspecified; E83.39 Other disorders of phosphorus metabolism; S09.90XA Unspecified injury of head, initial encounter; X58.XXXA Exposure to other specified factors, initial encounter; Y93.89 Activity, other specified; Y92.89 Other specified places as the place of occurrence of the external cause; Y99.8 Other external cause status; E11.43 Type 2 diabetes mellitus with diabetic autonomic (poly)neuropathy; K31.84 Gastroparesis; N28.1 Cyst of kidney, acquired; Z22.322 Carrier or suspected carrier of Methicillin resistant Staphylococcus aureus; R42 Dizziness and giddiness; E87.8 Other disorders of electrolyte and fluid balance, not elsewhere classified; Z88.2 Allergy status to sulfonamides
CPT/HCPCS: 36415; 70450; 71045; 76705; 80048; 80053; 82533; 82607; 82728; 82746; 82948; 83540; 83735; 83880; 84100; 84439; 84443; 84484; 85025; 85045; 85610; 85730; 86704; 86706; 86708; 86709; 86803; 87081; 87340; 93005; 93308; 96374; 96375; 99285; J0360; J1170; J1642; J1815; J1940; J2060; J2270; J2543; J2765; J3490; J7030; J8597; Q0092

== ENCOUNTER 2017-08-22 22:52 | Emergency (ER) | payer OTHER, MEDICAID ==
[~2017-08-22] VITALS: Ht 182.9 cm; Wt 54.4 kg
[~2017-08-22 22:52] MED LIST changes: +ACET-1182 PO; -APR20I IM; +ATI2I IVP; +BACTO TP; +CHLO118S2 TP; +CLON0.1T42 PO; +D50SYR IVP; +HYDR-4420 PO; +LANTUS SUBQ; +MECL-272 PO; +METO50TE2 PO; +METO5SOL24 IVP; +PANT40EC28 PO; +PIPE50SO5 IV; +TOR30I IVP
[2017-08-22 23:07] VITALS: BP 167/90
[2017-08-22] MEDS ORDERED: INSULIN REGULAR, HUMAN 100 UNIT/ML VIAL SUBQ ONE (23:15)
[2017-08-23 00:38] VITALS: BP 147/88
== END 2017-08-23 00:38 | disposition home or self-care (01) ==
LOC: MED 22:52
DX: E11.65 Type 2 diabetes mellitus with hyperglycemia (principal); I12.0 Hypertensive chronic kidney disease with stage 5 chronic kidney disease or end stage renal disease; N18.6 End stage renal disease; E11.22 Type 2 diabetes mellitus with diabetic chronic kidney disease; Z79.4 Long term (current) use of insulin; Z99.2 Dependence on renal dialysis; Z88.1 Allergy status to other antibiotic agents; Z88.8 Allergy status to other drugs, medicaments and biological substances
CPT/HCPCS: 82948; 99283; J1815; 99282

== ENCOUNTER 2017-08-25 14:59 | Emergency (ER) | payer OTHER, MEDICAID ==
[~2017-08-25] VITALS: Ht 182.9 cm; Wt 68.0 kg
[~2017-08-25 14:59] MED LIST changes: +APR20I IM
--- NOTE | 2017-08-25 14:59 | NUR ---
PT BIBA TO ER BED 07
--- NOTE | 2017-08-25 15:00 | NUR ---
42/M BIBA FROM DIALYSIS CENTER FOR HIGH BP. HD SITE TRISTAN, CENTRAL LINE R NECK. DENIES N/V/D; SKIN IS PINK/WARM/DRY; AAOX4 .LUNGS CLEAR BL. PT DENIES ANY FEVER, CP, SOB, OR COUGH AT THIS TIME; PATIENT STATES PAIN OF 0/10 AT THIS TIME. PATIENT POSITIONED FOR COMFORT; HOB ELEVATED; BEDRAILS UP X2; BED DOWN. ER MD MADE AWARE OF PT STATUS.
[2017-08-25 15:03] VITALS: BP 246/116
[2017-08-25] MEDS ORDERED: METOPROLOL 5 MG/5 ML VIAL IVP ONE (15:25)
[2017-08-25] MEDS ORDERED: hydrALAZINE 20 MG/ML VIAL IVP ONE (15:25)
[2017-08-25] MEDS ORDERED: NITROGLYCERIN 2% 1 GM PKT TP ONE (15:30)
[2017-08-25] MEDS ORDERED: cloNIDine 0.1 MG TAB PO ONE (15:30)
--- NOTE | 2017-08-25 18:14 | NUR ---
Patient discharged with BP 228/115;DENIES JUARES OR DIZINESS DR GREY MADE AWARE. Written and verbal after care instructions given and explained. Patient alert, oriented and verbalized understanding of instructions. Ambulance Transport with to [facility]. All questions addressed prior to discharge. ID band removed. Patient advised to follow up with PMD. Rx of TRAMADOL given. Patient educated on indication of medication including possible reaction and side effects. Opportunity to ask questions provided and answered.
[2017-08-25 18:16] VITALS: BP 228/115
--- NOTE | 2017-08-25 19:10 | NUR ---
ATTEMPTED TO CALL REPORT TO [facility] ABOUT PATIENT AND WAS DISCONNECTED.
== END 2017-08-25 18:14 | disposition home or self-care (01) ==
LOC: MED 14:59
DX: I12.0 Hypertensive chronic kidney disease with stage 5 chronic kidney disease or end stage renal disease (principal); N18.6 End stage renal disease; E11.22 Type 2 diabetes mellitus with diabetic chronic kidney disease; Z86.73 Personal history of transient ischemic attack (TIA), and cerebral infarction without residual deficits; Z99.2 Dependence on renal dialysis; Z88.1 Allergy status to other antibiotic agents; Z79.899 Other long term (current) drug therapy
CPT/HCPCS: 96374; 96375; 99284; J0360; J3490

== ENCOUNTER 2017-08-30 11:28 | Emergency (ER) | payer OTHER, MEDICAID ==
[~2017-08-30] VITALS: Ht 182.9 cm; Wt 68.0 kg
[~2017-08-30 11:28] MED LIST changes: -APR20I IM
[2017-08-30 11:30] VITALS: BP 235/100
--- NOTE | 2017-08-30 11:32 | NUR ---
42/M BIBA FROM DIALYSIS CENTER S/P HIGH BP. PT REPORTED DIZINESS; DENIES JUARES OR N/V/D; [facility]; [facility]. NO URINE X 9 YEARS. HX ESRD, HTN & DM & HIGH CHOL, GERD & BLIND. LUNGS CLEAR BL. PT DENIES ANY FEVER, CP, SOB, OR COUGH AT THIS TIME; PATIENT STATES PAIN OF 0/10 AT THIS TIME. PATIENT POSITIONED FOR COMFORT; HOB ELEVATED; BEDRAILS UP X2; BED DOWN. ER MADE AWARE OF PT STATUS. Addendum: 08/30/17 at 1402 by [email or web address] PT STATED HD X 3 TIMES/WEEK; ON ZABRNIA CHRISTOPHER & SAT.
--- NOTE | 2017-08-30 11:32 | NUR ---
Note undone in EDM - 08/30/17 at 1400 by [email or web address] 42/M LUCIAA FROM DIALYSIS CENTER S/P HIGH BP. PT REPORT DIZINESS; DENIES JUARES OR N/V/D; [facility]; [facility]. DENIES URENTE X 9 YEARS. HX ESRD, HTN & DM & BLIND. LUNGS CLEAR BL. PT DENIES ANY FEVER, CP, SOB, OR COUGH AT THIS TIME; PATIENT STATES PAIN OF 0/10 AT THIS TIME. PATIENT POSITIONED FOR COMFORT; HOB ELEVATED; BEDRAILS UP X2; BED DOWN. ER MD MADE AWARE OF PT STATUS.
--- NOTE | 2017-08-30 11:32 | NUR ---
PT BIBA BLS TO BED 8
--- NOTE | 2017-08-30 11:52 | NUR ---
XRAY AT BEDSIDE
--- NOTE | 2017-08-30 11:56 | NUR ---
PT REFUSES CXR; NOTIFIED DR GREY.
[2017-08-30] MEDS ORDERED: cloNIDine 0.1 MG TAB ONE (12:06)
[2017-08-30] MEDS ORDERED: LABETALOL 100 MG/20 ML VIAL ONE (12:07)
[2017-08-30] MEDS ORDERED: LABETALOL 100 MG/20 ML VIAL IVP ONE ×2 (12:10→15:30)
--- NOTE | 2017-08-30 12:24 | NUR ---
NING PANDEY ASKED FOR HELP WITH IV START---UPON INTRODUCING MYSELF TO PT AND INFORMING HIM OF IV ATTEMPT, PT REFUSED. MR BOOTH STATED HE IS TIRED OF IV AND HE HAD A PICC LINE REMOVED TODAY.
[2017-08-30 12:28] LABS: BASOPHILS # (AUTO) 0.2 K/uL (0.00-0.22); BASOPHILS % (AUTO) 4.3 % (0.0-2.0); EOSINOPHILS # (AUTO) 0.5 K/uL (0-0.4); EOSINOPHILS % (AUTO) 12.2 % (0.0-4.0); HEMATOCRIT 34.8 % (36-52); HEMOGLOBIN 11.8 g/dL (12.0-18.0); LYMPHOCYTES # (AUTO) 0.8 K/uL (2.0-11.5); LYMPHOCYTES % (AUTO) 18.1 % (20.5-51.1); MEAN CORPUSCULAR HEMOGLOBIN 32 pg (27-31); MEAN CORPUSCULAR HGB CONC 34 g/dL (33-37); MEAN CORPUSCULAR VOLUME 93.4 fL (80-94); MONOCYTES # (AUTO) 0.5 K/uL (0.8-1.0); MONOCYTES % (AUTO) 11.1 % (1.7-9.3); NEUTROPHILS # (AUTO) 2.4 K/uL (1.8-7.7); NEUTROPHILS % (AUTO) 54.3 % (42.2-75.2); PLATELET COUNT (AUTO) 169 K/uL (140-450); RED BLOOD CELL COUNT(AUTO) 3.72 MIL/uL (4.20-6.10); RED CELL DISTRIBUTION WIDTH 14.2 % (11.6-13.7); WHITE BLOOD COUNT (AUTO) 4.4 K/uL (4.8-10.8)
[2017-08-30] MEDS ORDERED: LISINOPRIL 20 MG TAB PO SCH (12:45)
[2017-08-30 12:47] LABS: ALBUMIN 3.7 g/dL (3.4-5.0); ANION GAP 23.8 (8-16); CARBON DIOXIDE 24.8 mmol/L (21-32); POTASSIUM 4.6 mmol/L (3.5-5.1); TOTAL BILIRUBIN 0.5 mg/dL (0.0-1.0)
[2017-08-30 12:49] LABS: CREATININE 9.1 mg/dL (0.7-1.3)
[2017-08-30] MEDS ORDERED: NACL 0.9% 500 ML IV SCH (13:43)
[2017-08-30] MEDS ORDERED: ACETAMINOPHEN 325 MG TAB PO PRN (13:45)
[2017-08-30] MEDS ORDERED: HYDROcodone/APAP 5/325 MG 1 TAB TAB PO PRN (13:45)
[2017-08-30] MEDS ORDERED: ONDANSETRON 4 MG/2 ML VIAL IM/IVP PRN (13:45)
[2017-08-30] MEDS ORDERED: DOCUSATE SODIUM 100 MG GELCAP PO PRN (13:45)
[2017-08-30 14:46] LABS: CHOL/HDL RATIO 1.5 (1-4.5); MAGNESIUM 2.5 mg/dL (1.8-2.4); THYROID STIMULATING HORMONE 1.56 uIU/mL (0.34-3.74)
--- NOTE | 2017-08-30 15:09 | NUR ---
Patient does not wish to proceed with medical care recommended by . Patient given information related to possible complications, up to and including , which could occur as a result of leaving hospital at this time. Patient verbalizes understanding of risks involved leaving against medical advice. Patient has signed AMA form. Addendum: 08/31/17 at 1735 by [facility] Patient does not wish to proceed with medical care recommended by DR GREY. INFORMED PT TO ADMIT IN HOSPITAL BUT PT REFUSED AND WANTED TO SIGN AMA. PT AGITATED AND WANT TO GO TO FACILITY. PT STATED" MY BLOOD PRESSURE GO DOWN & I WANT TO GO TO MY FACILITY NEXT DOOR'. OFFERED TAXI VOUCHER BUT PT REFUSED. MIRACLE BARRAZA CALL SECURITY TO TAKE PT TO FACILITY.
[2017-08-30 15:10] VITALS: BP 143/77
[2017-08-30] MEDS ORDERED: cloNIDine 0.1 MG TAB PO ONE (15:30)
[2017-08-31 06:15] LABS: T4 (THYROXINE) 6.5 ug/dL (4.5-12.0)
--- NOTE | 2017-08-31 18:20 | NUR ---
PT LEOBARDO INFORMED HE WOULD LIKE TO GO BACK TO HIS FACILITY, HE FEELS FINE NOW. INFORMED PT OF RISK FACTORS OF SIGNING AMA EVEN LEADING UP TO . PT WITH FULL CLEAR SPEECH AWAKE ALERT ORIENTED TO NAME PLACE TIME AND EVENT, CONTINUED TO ACCEPT RISK AND RESPONSIBILITY OF SIGNING AMA. DC INSTRUCTIONS GIVEN TO PT AND F/U WITH PMD SOON POSSIBLE, RETURN FOR ANY MEDICAL EMERGENCIES. PT ASKED WHAT IS THE NEAREST STREET TO OUR EXIT AND AFFIRMED HE KNEW THE LOCATION AND HOW TO GET BACK. FOOD WAS OFFERED, PT REFUSED STATED HE WILL EAT IN HIS FACILITY. WHEEL CHAIR ASSISTANCE WAS OFFERED, PT GREW AGGITATED SHOUTING "I DONT NEED A FUCKING WHEELCHAIR, I CAN WALK FINE". MIRACLE PANDEYSHEARING SHED WORKER OFFERED PT A TAXI; PT AGAIN SHOUTED, " I ALREADY TOLD YOU I KNOW HOW TO GET BACK, IT'S ONLY THE NEXT BUILDING OVER" FINALLY PT AMBULATED OUTSIDE THE ER WITH STEADY GAIT, GREYSON BOYD GUIDED PT OUT OF THE ER ON PT'S REQUEST. MIRACLE PANDEYSHEARING SHED WORKER CALLED SECURITY TO MEET PT OUTSIDE AND OFFER A RIDE IN THEIR GOLF CART TO HIS FACILITY [facility]
== END 2017-08-30 15:09 | disposition left against medical advice (07) ==
LOC: MED 11:28
DX: I16.0 Hypertensive urgency (principal); I12.0 Hypertensive chronic kidney disease with stage 5 chronic kidney disease or end stage renal disease; N18.6 End stage renal disease; E11.22 Type 2 diabetes mellitus with diabetic chronic kidney disease; Z91.15 Patient's noncompliance with renal dialysis; Z86.73 Personal history of transient ischemic attack (TIA), and cerebral infarction without residual deficits; Z88.1 Allergy status to other antibiotic agents; Z88.8 Allergy status to other drugs, medicaments and biological substances; Z79.899 Other long term (current) drug therapy
CPT/HCPCS: 36415; 80053; 80061; 82550; 83036; 83690; 83735; 83880; 84100; 84436; 84443; 84479; 84484; 85025; 85610; 85730; 93005; 99285; J3490

== ENCOUNTER 2017-10-04 15:25 | Emergency (ER) | payer OTHER, MEDICAID ==
[~2017-10-04] VITALS: Ht 182.9 cm; Wt 68.0 kg
[2017-10-04 15:27] VITALS: BP 227/97
--- NOTE | 2017-10-04 15:34 | NUR ---
42Y/M BIB EMS FROM DIALYSIS CENTER IN [place] FOR HIGH BLOOD PRESSURE AFTER DIALYSIS. PT IS ION THE MONITOR. PT DENIES N/V/D; SKIN IS PINK/WARM/DRY; AAOX4 WITH EVEN AND STEADY GAIT; LUNGS CLEAR BL; HR EVEN AND REGULAR; PT DENIES ANY FEVER, CP, SOB, OR COUGH AT THIS TIME; PATIENT STATES PAIN OF 0/10 AT THIS TIME; PATIENT POSITIONED FOR COMFORT; HOB ELEVATED; BEDRAILS UP X1; BED DOWN. ER MD MADE AWARE OF PT STATUS.
[2017-10-04] MEDS ORDERED: cloNIDine 0.1 MG TAB PO ONE (15:35)
[2017-10-04] MEDS ORDERED: cloNIDine 0.1 MG TAB ONE (15:39)
--- NOTE | 2017-10-04 16:06 | NUR ---
PT REFUSE IV MANAGEMENT; AWARE AND NOTIFIED
--- NOTE | 2017-10-04 16:21 | NUR ---
PT REFUSE TO STAY IN THE HOSPITAL, PT INSISTED ON LEAVING KNOWING THE CONDITIONS OF HIGH BLOOD PRESSURE 248/120, ER MD MADE AWARE AND NOTIFIED.
--- NOTE | 2017-10-04 16:21 | NUR ---
PATIENT INSISTS ON LEAVING WILL SIGN AMA, SPOKE TO DEONNA RN AT [facility] AND THEY ARE UNABLE TO SEND A STAFF MEMBER OVER TO PICK HIM UP. A TAXI VOUCHER IS PROVIDED AND AND A CALL PLACED FOR TRANSPORT.
--- NOTE | 2017-10-04 18:19 | NUR ---
PT BECOME ANGRY AND AGITATED, JEANINE CADENA WAS CALLED AND NOW IS WITH JALEN LOPEZ.
[2017-10-04 18:33] VITALS: BP 190/105
--- NOTE | 2017-10-04 18:33 | NUR ---
Patient does not wish to proceed with medical care recommended by . Patient given information related to possible complications, up to and including , which could occur as a result of leaving hospital at this time. Patient verbalizes understanding of risks involved leaving against medical advice. Patient has signed AMA form.
--- NOTE | 2017-10-04 18:33 | NUR ---
INFORMED BY JALEN LOPEZ THAT SHE AND SECURITY TOOK PT BACK TO [facility]
== END 2017-10-04 18:33 | disposition left against medical advice (07) ==
LOC: MED 15:25
DX: I12.0 Hypertensive chronic kidney disease with stage 5 chronic kidney disease or end stage renal disease (principal); E11.22 Type 2 diabetes mellitus with diabetic chronic kidney disease; N18.6 End stage renal disease; Z99.2 Dependence on renal dialysis; Z79.4 Long term (current) use of insulin; Z88.1 Allergy status to other antibiotic agents; Z88.3 Allergy status to other anti-infective agents; Z88.8 Allergy status to other drugs, medicaments and biological substances
CPT/HCPCS: 93005; 99283

== ENCOUNTER 2017-10-23 18:38 | Emergency (ER) | payer OTHER, MEDICAID ==
[~2017-10-23] VITALS: Ht 182.9 cm; Wt 68.0 kg
--- NOTE | 2017-10-23 18:39 | NUR ---
PT LUCILA BELTRAN, CURRENTLY AWAITING BED
--- NOTE | 2017-10-23 18:47 | NUR ---
PT TAKEN TO BED 5 BY EMS CREW
[2017-10-23 18:54] VITALS: BP 205/103
--- NOTE | 2017-10-23 19:18 | NUR ---
BIBA. PT PRESENTED ER WITH C/O SYNCOPE AND LOW BS. PT HAD DIALYSIS TODAY. UPON ASSESSMENT, BS WAS 199. PT IS WADE IN BOTH EYES. PT IS UNSTEADY AND NEEDS ASSISTANCE TO AMBUALTE. PT STATED HE BLACKED OUT DUE TO LOW BS. SKIN IS PINK/WARM/DRY; AAOX4 LUNGS CLEAR BL; HR EVEN AND REGULAR; PATIENT STATES PAIN OF 0/10 AT THIS TIME; VSS; PATIENT POSITIONED FOR COMFORT; HOB ELEVATED; BEDRAILS UP X2; BED DOWN. ER MD MADE AWARE OF PT STATUS. Addendum: 10/23/17 at 2034 by [email or web address] BIBA. PT PRESENTED ER WITH C/O SYNCOPE AND LOW BS. PT HAD DIALYSIS TODAY. UPON ASSESSMENT, BS WAS 199. PT IS BLIND IN BOTH EYES. PT IS UNSTEADY AND NEEDS ASSISTANCE TO AMBUALTE. PT STATED HE BLACKED OUT DUE TO LOW BS. SKIN IS PINK/WARM/DRY; AAOX4 LUNGS CLEAR BL; HR EVEN AND REGULAR; PATIENT STATES PAIN OF 0/10 AT THIS TIME; VSS; PATIENT POSITIONED FOR COMFORT; HOB ELEVATED; BEDRAILS UP X2; BED DOWN. ER MD MADE AWARE OF PT STATUS.
--- NOTE | 2017-10-23 21:07 | NUR ---
PT REFUSING LABS AT THIS TIME. MADE AWARE
--- NOTE | 2017-10-23 21:19 | NUR ---
CONTACT PT FATHER FOR A RIDE HOME. NOTIFIED.
[2017-10-23 22:05] VITALS: BP 191/92
--- NOTE | 2017-10-23 22:05 | NUR ---
Patient discharged with v/s stable. Written and verbal after care instructions given and explained. Patient verbalized understanding. Ambulatory with steady gait. All questions addressed prior to discharge. Advised to follow up with PMD. Father picked up pt. pt was able to ambulate with fathers assistance. non skid socks were implemented due to pt not having shoes. pt tolerated well.
== END 2017-10-23 22:05 | disposition home or self-care (01) ==
LOC: MED 18:38
DX: E11.649 Type 2 diabetes mellitus with hypoglycemia without coma (principal); R55 Syncope and collapse; E11.22 Type 2 diabetes mellitus with diabetic chronic kidney disease; E11.40 Type 2 diabetes mellitus with diabetic neuropathy, unspecified; I12.0 Hypertensive chronic kidney disease with stage 5 chronic kidney disease or end stage renal disease; N18.6 End stage renal disease; I10 Essential (primary) hypertension; Z88.1 Allergy status to other antibiotic agents; Z88.3 Allergy status to other anti-infective agents; Z88.8 Allergy status to other drugs, medicaments and biological substances; Z79.4 Long term (current) use of insulin; Z79.899 Other long term (current) drug therapy; Z86.73 Personal history of transient ischemic attack (TIA), and cerebral infarction without residual deficits; Z99.2 Dependence on renal dialysis
CPT/HCPCS: 82948; 99283

== ENCOUNTER 2017-11-01 12:16 | Inpatient (IN) | payer OTHER, MEDICAID ==
[~2017-11-01] VITALS: Ht 182.9 cm; Wt 66.7 kg
[2017-11-01 12:17] VITALS: BP 236/112
--- NOTE | 2017-11-01 12:17 | NUR ---
PT BIBA ALS TO BED 6
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
--- NOTE | 2017-11-01 12:21 | NUR ---
NOT ABLE TO GIVE URINE, DIALYSIS PT
--- NOTE | 2017-11-01 12:24 | NUR ---
DR OCAMPO EVALUATING AT BEDSIDE
[2017-11-01] MEDS ORDERED: cloNIDine 0.1 MG TAB PO ONE ×2 (12:30→14:05)
[2017-11-01 12:49] LABS: BASOPHILS # (AUTO) 0.1 K/uL (0.00-0.22); BASOPHILS % (AUTO) 1.8 % (0.0-2.0); EOSINOPHILS # (AUTO) 0.3 K/uL (0-0.4); EOSINOPHILS % (AUTO) 5.7 % (0.0-4.0); HEMATOCRIT 29.7 % (36-52); HEMOGLOBIN 10.1 g/dL (12.0-18.0); LYMPHOCYTES # (AUTO) 0.6 K/uL (2.0-11.5); LYMPHOCYTES % (AUTO) 12.4 % (20.5-51.1); MEAN CORPUSCULAR HEMOGLOBIN 33 pg (27-31); MEAN CORPUSCULAR HGB CONC 34 g/dL (33-37); MEAN CORPUSCULAR VOLUME 96.6 fL (80-94); MONOCYTES # (AUTO) 0.5 K/uL (0.8-1.0); MONOCYTES % (AUTO) 9.7 % (1.7-9.3); NEUTROPHILS # (AUTO) 3.4 K/uL (1.8-7.7); NEUTROPHILS % (AUTO) 70.4 % (42.2-75.2); PLATELET COUNT (AUTO) 148 K/uL (140-450); RED BLOOD CELL COUNT(AUTO) 3.08 MIL/uL (4.20-6.10); RED CELL DISTRIBUTION WIDTH 13.8 % (11.6-13.7); WHITE BLOOD COUNT (AUTO) 4.8 K/uL (4.8-10.8)
--- NOTE | 2017-11-01 12:52 | NUR ---
PT REFUSED X-RAY
--- NOTE | 2017-11-01 12:58 | NUR ---
PT CHANGED HIS MIND AND NOW WANTS X-RAY
--- NOTE | 2017-11-01 13:03 | NUR ---
DR OCAMPO CANCELLED ORDER FOR CHEST X-RAY
--- NOTE | 2017-11-01 13:05 | NUR ---
X-RAY NOTIFIED; CHEST X-RAY WAS CANCELLED FOR PT
[2017-11-01 13:07] LABS: ANION GAP 11.3 (8-16); CARBON DIOXIDE 31.3 mmol/L (21-32); POTASSIUM 5.6 mmol/L (3.5-5.1)
[2017-11-01 13:11] LABS: PROTHROMBIN TIME 14.5 secs (10.8-13.4)
[2017-11-01 13:12] LABS: CREATININE 6.1 mg/dL (0.7-1.3)
[2017-11-01 13:13] LABS: ALBUMIN 3.9 g/dL (3.4-5.0); TOTAL BILIRUBIN 0.5 mg/dL (0.0-1.0)
[2017-11-01] MEDS ORDERED: ONDANSETRON 4 MG/2 ML VIAL IM/IVP PRN (14:15)
[2017-11-01] MEDS ORDERED: NACL 0.9% 1,000 ML IV SCH (14:15)
[2017-11-01] MEDS ORDERED: ZOLPIDEM 5 MG TAB PO PRN (14:15)
[2017-11-01] MEDS ORDERED: DOCUSATE SODIUM 100 MG GELCAP PO PRN (14:15)
[2017-11-01] MEDS ORDERED: ACETAMINOPHEN 325 MG TAB PO PRN (14:15)
[2017-11-01] MEDS ORDERED: LORazepam 2 MG/ML VIAL IM/IVP PRN (14:15)
[2017-11-01] MEDS ORDERED: HYDROcodone/APAP 5/325 MG 1 TAB TAB PO PRN (14:15)
[2017-11-01] MEDS ORDERED: MORPHINE SULFATE 2 MG/ML SYR IVP PRN (14:15)
--- NOTE | 2017-11-01 14:55 | NUR ---
PT REFUSE IV MANANGMENT AT THIS TIME
[2017-11-01 15:08] LABS: MAGNESIUM 2.3 mg/dL (1.8-2.4); PHOSPHORUS 2.8 mg/dL (2.5-4.9)
--- NOTE | 2017-11-01 15:13 | NUR ---
Patient will be admitted to care of . Admited to TELE FLOOR. Will go to room 114. Belongings list completed. Report to KATHERIN STOUT.
--- NOTE | 2017-11-01 15:13 | NUR ---
PT TAKEN TO FLOOR BY KATHERIN NORTON AND EMT GREYSON
--- NOTE | 2017-11-01 15:15 | NUR ---
PT ADMITTED FROM ER. REPORT RECEIVED FROM ER NURSE. PT AAOx3, DENIES ANY PAIN OR DISCOMFORT. NO SIGNS OF DISTRESS. PT ORIENTED TO ROOM & UNIT. FALL PRECAUTIONS INITIATED. CALL LIGHT WITHIN REACH. PT CALM & COOPERATIVE. DR. DAN NOTIFIED OF PERSISTENT ELEVATED BP. WILL CONTINUE TO MONITOR PT.
[2017-11-01] MEDS ORDERED: hydrALAZINE 25 MG TAB PO SCH (15:45)
[2017-11-01 16:00] VITALS: BP 235/107
[2017-11-01] MEDS ORDERED: cloNIDine 0.1 MG TAB PO PRN (16:35)
[2017-11-01] MEDS ORDERED: DEXTROSE 50% 50 ML SYR IVP PRN (16:35)
[2017-11-01] MEDS ORDERED: HYDR100T79 PO (16:44)
[2017-11-01] MEDS ORDERED: cloNIDine 0.1 MG TAB PO SCH ×2 (16:46→17:00)
--- NOTE | 2017-11-01 16:47 | NUR ---
SPOKE TO DR KIM ON THE PHONE WITH ORDER FOR STAT DIALYSIS. SPOKE TO PHAM AT DIALYSIS RE ORDER. PER PHAM, WILL ARRIVE IN 3HRS.
[2017-11-01] MEDS ORDERED: ALBUTEROL SULFATE/IPRATROPIU 3 ML SOL IH PRN (16:55)
[2017-11-01] MEDS: hydrALAZINE 25 MG TAB PO SCH (17:00)
[2017-11-01] MEDS ORDERED: SODIUM POLYSTYRENE 15 GM/60 ML UDBTL PO SCH (17:00)
[2017-11-01] MEDS: CALCIUM ACETATE 667 MG TAB PO SCH (17:14)
[2017-11-01] MEDS: ISOSORBIDE DINITRATE 20 MG TAB PO SCH (17:15)
[2017-11-01] MEDS: INSULIN LISPRO SLIDING SCALE 100 UNITS/ML VIAL SUBQ PRN ×2 (17:17→22:25)
--- NOTE | 2017-11-01 18:25 | NUR ---
US AT BEDSIDE
--- NOTE | 2017-11-01 18:30 | NUR ---
PICC LINE INSERTION CONSENT SIGNED BY PT, PICC LINE NURSE ESHA CALLED TO NOTIFY OF ORDER, PER ESHA, WE NEED OK FROM HEAD MIXER TO START PICC LINE ON RENAL PATIENT, DR KAMARA PAGED AT THIS TIME
--- NOTE | 2017-11-01 18:38 | NUR ---
PT TO RADIOLOGY FOR CT HEAD
--- NOTE | 2017-11-01 18:50 | NUR ---
DR KAMARA CALLED BACK, STATES PICC LINE PLACEMENT IS NOT IDEAL FOR PT BECAUSE OF FUTURE NEED FOR RIGHT ARM FISTULA FOR DIALYSIS, DR KAMARA RECOMMENDS ATTEMPTING PIV IF POSSIBLE, PICC LINE SHOULD BE LAST RESORT, PT INFORMED OF DR KAMARA'S RECOMMENDATION TO TRY PIV, PT AGREEABLE, PIV START ATTEMPTED X1 IN R FA, WITHOUT SUCCESS, PT REQUESTS TO HAVE IV IN NECK ( EJ PIV ), WILL NOTIFY ONCOMING SHIFT.
--- NOTE | 2017-11-01 19:25 | NUR ---
REPORT GIVEN TO LAUNDRY MACHINE OPERATOR NURSE FOR CONTINUITY OF CARE.
--- NOTE | 2017-11-01 19:26 | NUR ---
RECD. RESTING IN BED, AWAKE, A/OX4, BLIND. RESPIRATION EVEN AND UNLABORED. NO IV LINE. DIALYSIS ON GOING, LEFT UPPER ARM AV SHUNT. WITH WOUNDS AT THE RIGHT SECOND AND FIFTH TOE, AND LATERAL FOOT, OPEN TO AIR, NO DRAINAGE NOTED. PLAN OF CARE DISCUSSED. VERBALIZED UNDERSTANDING. DENIES PAIN 0/10.
[2017-11-01 20:00] VITALS: BP 204/99
--- NOTE | 2017-11-01 20:00 | NUR ---
Patient's Plan of Care was discussed and reviewed with MICROWAVE OVEN ASSEMBLER: ARDEN CHAVARRIA
[2017-11-01] MEDS: BLOOD GLUCOSE MONITORING 1 DEV DEV FS SCH (21:00)
[2017-11-01] MEDS ORDERED: METOPROLOL SUCCINATE 50 MG TABER PO SCH (21:00)
--- NOTE | 2017-11-01 21:00 | NUR ---
ER CHARGE NURS E CAME, NEW IV LINE INSERTED AT THE RIGHT HAND G20.
[2017-11-01] MEDS: ASCORBIC ACID 500 MG TAB PO SCH (22:15)
[2017-11-01] MEDS: ATORVASTATIN 20 MG TAB PO SCH (22:16)
[2017-11-01] MEDS: levETIRAcetam 500 MG TAB PO SCH (22:16)
[2017-11-01] MEDS: MECLIZINE 25 MG TAB PO SCH (22:17)
--- NOTE | 2017-11-01 22:25 | NUR ---
LAB CALLED TROPONIN, 0.704, INFORMED DR. HUBBARD. NO ORDER MADE BUT WILL REPEAT BECAUSE DIALYIS PATIENT USUALLY HAVE HIGH TROPONIN. MADE AWARE OF BP ALWAYS HIGH DURING DIALYSIS, 204/99, HR - 60. PO MEDICATION GIVEN. WILL ORDER BP IV MEDICATION AFTER DIALYSIS.
--- NOTE | 2017-11-01 22:55 | NUR ---
DIALYSIS FINISHED, ABLE TO TAKE OUT 3 LITERS FLUIDS.
--- NOTE | 2017-11-01 23:10 | NUR ---
INFORMED DR. RAYA, BP STILL HIGH AFTER DIALYSIS, 220/101, HR - 60. WILL ORDER HYDRALAZINE.
[2017-11-01] MEDS: cloNIDine 0.1 MG TAB PO SCH (23:53)
--- NOTE | 2017-11-01 23:53 | NUR ---
MEDICATED WITH CLONIDINE 0.3 MG ORDERED.
[2017-11-02] VITALS (9 sets, daily range): BP systolic 120–235; BP diastolic 62–105
--- NOTE | 2017-11-02 01:40 | NUR ---
INFORMED DR. RAYA, PATIENT BP STILL HIGH - 222/106, HR -57. WILL ORDER MEDICATION.
[2017-11-02] MEDS ORDERED: cloNIDine 0.1 MG TAB PO ONE (01:45)
[2017-11-02] MEDS: ENALAPRILAT 2.5 MG/2 ML VIAL IVP PRN ×2 (03:13→10:35)
--- NOTE | 2017-11-02 03:13 | NUR ---
BP - 190/89 HR - 57. MEDICATED WITH VASOTEC 5 MG. IVP BY KATHERIN GALAVIZ.
--- NOTE | 2017-11-02 04:13 | NUR ---
BP - 196/83, HR -57, RESTING COMFORTABLY SLEEPING IN BED.
[2017-11-02] MEDS: LEVOTHYROXINE 0.025 MG TAB PO SCH (06:30)
[2017-11-02] MEDS: BLOOD GLUCOSE MONITORING 1 DEV DEV FS SCH ×4 (06:41→20:47)
[2017-11-02] MEDS: INSULIN LISPRO SLIDING SCALE 100 UNITS/ML VIAL SUBQ PRN ×2 (06:43→17:40)
--- NOTE | 2017-11-02 07:00 | NUR ---
REQUESTING FOR SOME SPECIFIC FOODS TO EAT. WILL ENDORSED TO AM NURSE TO ASSIST HELP CHOOSE FOODS IN THE MENU. NO COMPLAINT OF PAIN 0/10. SAFETY MAINTAINED DURING SHIFT.
--- NOTE | 2017-11-02 07:15 | NUR ---
RECEIVED REPORT FROM SENIOR SCIENTIST NURSE. PT LYING COMFORTABLY IN BED, ALERT & AWAKE, VERBALLY RESPONSIVE, DENIES ANY PAIN OR DISCOMFORT, NO SIGNS OF DISTRESS. FALL PRECAUTIONS IN PLACE. WILL CONTINUE TO MONITOR.
[2017-11-02] MEDS: DOCUSATE SODIUM 100 MG GELCAP PO SCH (08:26)
[2017-11-02] MEDS: cloNIDine 0.1 MG TAB PO SCH ×2 (08:26→20:51)
[2017-11-02] MEDS: levETIRAcetam 500 MG TAB PO SCH ×2 (08:27→20:48)
[2017-11-02] MEDS: FAMOTIDINE 20 MG TAB PO SCH (08:27)
[2017-11-02] MEDS: MECLIZINE 25 MG TAB PO SCH ×2 (08:27→20:50)
[2017-11-02] MEDS: ASCORBIC ACID 500 MG TAB PO SCH ×2 (08:27→20:47)
[2017-11-02] MEDS: ISOSORBIDE DINITRATE 20 MG TAB PO SCH (08:28)
[2017-11-02] MEDS: CALCIUM ACETATE 667 MG TAB PO SCH ×3 (08:28→17:43)
[2017-11-02] MEDS: hydrALAZINE 25 MG TAB PO SCH ×3 (08:29→17:43)
--- NOTE | 2017-11-02 08:51 | NUR ---
PATIENT HAS BEEN SCREENED AND CATEGORIZED MODERATE NUTRITION RISK. PATIENT WILL BE SEEN WITHIN 3-5 DAYS OF ADMISSION. 11/04/17 11/06/[address]
[2017-11-02] MEDS ORDERED: METOPROLOL SUCCINATE 50 MG TABER PO SCH (09:00)
[2017-11-02] MEDS ORDERED: NIFEdipine 90 MG TABER PO SCH (09:00)
[2017-11-02] MEDS ORDERED: cloNIDine 0.1 MG TAB PO SCH ×3 (09:00→14:00)
[2017-11-02] MEDS ORDERED: OLOPATADINE HCL OP SCH (09:00)
[2017-11-02] MEDS ORDERED: LISINOPRIL 20 MG TAB PO SCH (09:00)
[2017-11-02] MEDS: INSULIN LANTUS 100 UNITS/ML 10 ML VIAL SUBQ SCH (09:00)
[2017-11-02] MEDS: LOSARTAN 50 MG TAB PO SCH (09:37)
[2017-11-02 09:38] LABS: BASOPHILS # (AUTO) 0.1 K/uL (0.00-0.22); BASOPHILS % (AUTO) 1.3 % (0.0-2.0); EOSINOPHILS # (AUTO) 0.3 K/uL (0-0.4); EOSINOPHILS % (AUTO) 6.8 % (0.0-4.0); HEMATOCRIT 31.3 % (36-52); HEMOGLOBIN 10.5 g/dL (12.0-18.0); LYMPHOCYTES # (AUTO) 0.8 K/uL (2.0-11.5); LYMPHOCYTES % (AUTO) 17.3 % (20.5-51.1); MEAN CORPUSCULAR HEMOGLOBIN 32 pg (27-31); MEAN CORPUSCULAR HGB CONC 33 g/dL (33-37); MEAN CORPUSCULAR VOLUME 96.5 fL (80-94); MONOCYTES # (AUTO) 0.5 K/uL (0.8-1.0); MONOCYTES % (AUTO) 11.5 % (1.7-9.3); NEUTROPHILS # (AUTO) 2.8 K/uL (1.8-7.7); NEUTROPHILS % (AUTO) 63.1 % (42.2-75.2); PLATELET COUNT (AUTO) 148 K/uL (140-450); RED BLOOD CELL COUNT(AUTO) 3.24 MIL/uL (4.20-6.10); RED CELL DISTRIBUTION WIDTH 13.9 % (11.6-13.7); WHITE BLOOD COUNT (AUTO) 4.4 K/uL (4.8-10.8)
[2017-11-02 09:53] LABS: ANION GAP 11.2 (8-16); CARBON DIOXIDE 32.9 mmol/L (21-32); POTASSIUM 4.1 mmol/L (3.5-5.1)
[2017-11-02 10:00] LABS: CREATININE 4.8 mg/dL (0.7-1.3)
[2017-11-02 10:13] LABS: MAGNESIUM 1.7 mg/dL (1.8-2.4); PHOSPHORUS 3.7 mg/dL (2.5-4.9)
--- NOTE | 2017-11-02 10:35 | NUR ---
VASOTEC 5MG GIVEN IV FOR ELEVATED BP. PT LYING COMFORTABLY IN BED, ALERT, VERBALLY RESPONSIVE, DENIES ANY PAIN OR DISCOMFORT.
[2017-11-02] MEDS ORDERED: ENALAPRILAT 2.5 MG/2 ML VIAL IVP PRN (11:50)
--- NOTE | 2017-11-02 12:00 | NUR ---
RADIOLOGY CALLED & INFORMED THAT PT TO REMAIN NPO DURING DINNER D/T ABD US SCHEDULED FOR 6PM. PT NOTIFIED & VERBALIZED UNDERSTANDING.
[2017-11-02] MEDS ORDERED: MAGNESIUM OXIDE 400 MG TAB PO SCH (12:30)
--- NOTE | 2017-11-02 12:50 | NUR ---
DR KIM AT BEDSIDE TO ASSESS PT
--- NOTE | 2017-11-02 13:00 | NUR ---
PT REFUSED LUNCH. ALTERNATIVE MEAL/SNACKS OFFERED BUT CONTINUE TO REFUSE. HUMALOG INSULIN COVERAGE PER POC SLIDING SCALE NOT GIVEN D/T NO PO INTAKE.
--- NOTE | 2017-11-02 14:45 | NUR ---
MEDS DUE GIVEN. PT LYING COMFORTABLY IN BED, ALERT, VERBALLY RESPONSIVE, DENIES ANY PAIN OR DISCOMFORT, NO SIGNS OF DISTRESS.
[2017-11-02] MEDS: ISOSORBIDE DINITRATE 10 MG TAB PO SCH ×2 (15:09→17:43)
--- NOTE | 2017-11-02 18:00 | NUR ---
DEPENDENCY DIRECTOR AT BEDSIDE FOR ABD US. PT ALERT, AWAKE, DENIES PAIN OR DISCOMFORT, NO SIGNS OF DISTRESS. WILL CONTINUE TO MONITOR.
--- NOTE | 2017-11-02 19:10 | NUR ---
REPORT GIVEN TO GRANULATING BLENDER NURSE EWA SANDOVAL IN STABLE CONDITION.
--- NOTE | 2017-11-02 19:11 | NUR ---
RECEIVED REPORT FROM DAY SHIFT NURSE PHILLIP RN, PT STABLE, NO DISTRESS NOTED, IV TO R HAND 20G PATENT, INTACT, PT ON ROOM AIR, NO SOB, PT HAS DIALYSIS ACCESS ON THE L ARM, INITIAL ASSESSMENT DONE, ALL SAFETY PRECAUTION MET, PT HOB AT 30DEG, CALL LIGHT WITHIN REACH, WILL CONTINUE TO MONITOR.
[2017-11-02] MEDS: ATORVASTATIN 20 MG TAB PO SCH (20:49)
--- NOTE | 2017-11-02 20:58 | NUR ---
DUE MEDICATION ADMINISTERED, PT TOLERATED WELL, NO DISTRESS NOTED, CALL LIGHT WITHIN REACH, WILL CONTINUE TO MONITOR.
--- NOTE | 2017-11-02 22:18 | NUR ---
CALLED DR. RAYA REGARDING PT UNABLE TO SLEEP WITH HOB 30 DEG, PT REQUESTING TO HAVE THE BED FLAT, STATED UNDERSTANDING AND STATED THAT PT SHOULD BE SITTING UP WHEN TAKING BLOOD PRESSURE, PT AGREES, LEFT PT RESTING, NO DISTRESS NOTED, CALL LIGHT WITHIN REACH, WILL CONTINUE TO MONITOR.
[2017-11-03] VITALS (8 sets, daily range): BP systolic 111–222; BP diastolic 63–106
--- NOTE | 2017-11-03 00:10 | NUR ---
CHECKED ON PT, PT SLEEPING, NO DISTRESS NOTED, V/S TAKEN, WNL, PT STATED HAVING NO PAIN AT THIS MOMENT, CALL LIGHT WITHIN REACH, WILL CONTINUE TO MONITOR.
--- NOTE | 2017-11-03 02:09 | NUR ---
PT SLEEPING, NO DISTRESS NOTED, CALL LIGHT WITHIN REACH, WILL CONTINUE TO MONITOR.
--- NOTE | 2017-11-03 04:22 | NUR ---
CHECKED ON PT, PT SLEEPING, V/S TAKEN WNL, PT RESTING, NO DISTRESS NOTED, CALL LIGHT WITHIN REACH, WILL CONTINUE TO MONITOR.
[2017-11-03] MEDS: cloNIDine 0.1 MG TAB PO SCH ×3 (05:30→20:35)
[2017-11-03] MEDS: LEVOTHYROXINE 0.025 MG TAB PO SCH (05:31)
[2017-11-03] MEDS: BLOOD GLUCOSE MONITORING 1 DEV DEV FS SCH ×4 (05:37→20:30)
--- NOTE | 2017-11-03 05:39 | NUR ---
CHECKED ON PT BLOOD SUGAR 194, PT REFUSED INSULIN PER PROTOCOL, PT STATED THAT HIS PRIMARY DOCTOR SAID THAT HIS BLOOD SUGAR HAS TO STAY ABOVE 200, EDUCATE PT REGARDING BLOOD SUGAR CONTROL, PT STILL REFUSED INSULIN. DR. LUNA NOTIFIED, STATED UNDERSTANDING. PT STABLE, NO DISTRESS NOTED, CALL LIGHT WITHIN REACH.
--- NOTE | 2017-11-03 07:15 | NUR ---
ENDORSED PT TO DAY SHIFT NURSE FRANCINE RN, PT STABLE, NO DISTRESS NOTED, CALL LIGHT WITHIN REACH.
--- NOTE | 2017-11-03 07:16 | NUR ---
RECEIVED REPORT FROM CATERING TRUCK DRIVER RN. PATIENT IS AAOX4, IS LEGALLY BLIND. HAS NO SIGNS AND SYMPTOMS OF ACUTE DISTRESS NOTED AT THIS TIME. HAS IV TO THE RIGHT HAND 20G, SALINE LOCK AT THIS TIME. SITE IS CLEAN, DRY, PATENT AND INTACT. HAS LEFT UPPER ARM AV SHUNT. DISCUSSED PLAN OF CARE WITH PATIENT AND HE VERBALIZED UNDERSTANDING. BED IN LOWEST POSITION, SIDE RAILS UP X2, CALL LIGHT WITHIN NORMAL REACH. WILL CONTINUE TO MONITOR.
[2017-11-03] MEDS: DOCUSATE SODIUM 100 MG GELCAP PO SCH (08:44)
[2017-11-03] MEDS: FAMOTIDINE 20 MG TAB PO SCH (08:44)
[2017-11-03] MEDS: CALCIUM ACETATE 667 MG TAB PO SCH ×3 (08:44→16:54)
[2017-11-03] MEDS: ASCORBIC ACID 500 MG TAB PO SCH ×2 (08:44→20:36)
[2017-11-03] MEDS: MECLIZINE 25 MG TAB PO SCH ×2 (08:45→20:36)
[2017-11-03] MEDS: levETIRAcetam 500 MG TAB PO SCH ×2 (08:45→20:35)
[2017-11-03] MEDS: NIFEdipine 60 MG TABER PO SCH (09:00)
[2017-11-03] MEDS: ISOSORBIDE DINITRATE 10 MG TAB PO SCH ×3 (09:00→16:53)
[2017-11-03] MEDS: INSULIN LANTUS 100 UNITS/ML 10 ML VIAL SUBQ SCH (09:00)
[2017-11-03] MEDS: LOSARTAN 50 MG TAB PO SCH (09:00)
[2017-11-03] MEDS: hydrALAZINE 25 MG TAB PO SCH ×3 (09:00→16:54)
--- NOTE | 2017-11-03 10:00 | NUR ---
DIALYSIS NURSE IS HERE. PATIENT IN STABLE CONDITION.
--- NOTE | 2017-11-03 10:09 | NUR ---
ASLEEP LFW POSITION HEMODIALYSIS IN PROGRESS
[2017-11-03 10:21] LABS: BASOPHILS # (AUTO) 0.1 K/uL (0.00-0.22); BASOPHILS % (AUTO) 1.1 % (0.0-2.0); EOSINOPHILS # (AUTO) 0.4 K/uL (0-0.4); EOSINOPHILS % (AUTO) 8.1 % (0.0-4.0); HEMOGLOBIN 9.5 g/dL (12.0-18.0); LYMPHOCYTES # (AUTO) 0.7 K/uL (2.0-11.5); LYMPHOCYTES % (AUTO) 14.2 % (20.5-51.1); MEAN CORPUSCULAR HEMOGLOBIN 32 pg (27-31); MEAN CORPUSCULAR HGB CONC 34 g/dL (33-37); MEAN CORPUSCULAR VOLUME 95.6 fL (80-94); MONOCYTES # (AUTO) 0.6 K/uL (0.8-1.0); NEUTROPHILS # (AUTO) 3.2 K/uL (1.8-7.7); NEUTROPHILS % (AUTO) 64.6 % (42.2-75.2); PLATELET COUNT (AUTO) 156 K/uL (140-450); RED BLOOD CELL COUNT(AUTO) 2.93 MIL/uL (4.20-6.10); RED CELL DISTRIBUTION WIDTH 14.2 % (11.6-13.7); WHITE BLOOD COUNT (AUTO) 4.9 K/uL (4.8-10.8)
[2017-11-03 12:08] LABS: ANION GAP 10.2 (8-16); CARBON DIOXIDE 28.4 mmol/L (21-32); CREATININE 2.7 mg/dL (0.7-1.3)
[2017-11-03 12:12] LABS: MAGNESIUM 1.6 mg/dL (1.8-2.4); PHOSPHORUS 2.1 mg/dL (2.5-4.9)
[2017-11-03 12:14] LABS: POTASSIUM 2.6 mmol/L (3.5-5.1)
[2017-11-03] MEDS: INSULIN LISPRO SLIDING SCALE 100 UNITS/ML VIAL SUBQ PRN ×2 (12:20→16:59)
--- NOTE | 2017-11-03 12:50 | NUR ---
DIALYSIS NURSE IS FINISHED. REMOVED 3L. PATIENT HAS NO SIGNS AND SYMPTOMS OF DISTRESS NOTED AT THIS TIME.
[2017-11-03] MEDS ORDERED: MAGNESIUM OXIDE 400 MG TAB PO SCH (12:55)
[2017-11-03] MEDS ORDERED: POTASSIUM PHOSPHATE 15 MM in NACL 0.9% 250 ML IV SCH (12:55)
[2017-11-03] MEDS ORDERED: POTASSIUM CHLORIDE 10 MEQ TABER PO SCH (12:55)
--- NOTE | 2017-11-03 15:00 | NUR ---
RESTING IN BED. HAS NO SIGNS AND SYMPTOMS OF ACUTE DISTRESS NOTED AT THIS TIME.
--- NOTE | 2017-11-03 19:05 | NUR ---
ENDORSED PATIENT TO RELAY ASSOCIATE RN FOR CONTINUITY OF CARE. PATIENT IN STABLE CONDITION.
--- NOTE | 2017-11-03 19:06 | NUR ---
RECEIVED BEDSIDE REPORT FROM DAY SHIFT NURSE FRANCINE RN, PT STABLE, NO DISTRESS NOTED, IV TO R HAND 20G PATENT, INTACT. SALINE LOCKED, PT ON ROOM AIR, NO SOB, PT STATED HAVING NO PAIN AT THIS MOMENT, JUST DIZZINESS WHICH HAS BEEN CHRONIC, INITIAL ASSESSMENT DONE, ALL SAFETY PRECAUTION MET, WILL CONTINUE TO MONITOR.
[2017-11-03 19:51] LABS: ANION GAP 8.1 (8-16); CARBON DIOXIDE 28.9 mmol/L (21-32)
[2017-11-03 20:04] LABS: CREATININE 4.2 mg/dL (0.7-1.3)
--- NOTE | 2017-11-03 20:33 | NUR ---
REPORTED TO DR. DUVAL REGARDING PT CREATININE CRITICAL VALUE OF 4.2, PT IS A DIALYSIS PT AND IT HAS BEEN TRENDING. STATED UNDERSTANDING AND STATED NO CHANGE IN ORDERS.
[2017-11-03] MEDS: ATORVASTATIN 20 MG TAB PO SCH (20:36)
--- NOTE | 2017-11-03 22:50 | NUR ---
PT BP 222/106, CALLED DR. DUVAL REGARDING PT BP, DR STATED TO GIVE THE PRN ORDER, CONFIRMED WITH TO GIVE 10MG OF VASOTEC, PRN ORDER OF VASOTEC ADMINISTERED, PT TOLERATED WELL, NO DISTRESS NOTED, CALL LIGHT WITHIN REACH, WILL CONTINUE TO MONITOR.
[2017-11-04] VITALS (10 sets, daily range): BP systolic 105–251; BP diastolic 42–118
--- NOTE | 2017-11-04 | NUR ---
NOTIFIED REGARDING PT BP STILL 245/118 HR 64 TAKEN AT 235, PT STABLE, NO DISTRESS NOTED, STATED FEELING USUAL WITH CHRONIC DIZZINESS. STATED UNDERSTANDING AND WILL PUT IN ORDERS.
--- NOTE | 2017-11-04 00:17 | NUR ---
NIGEL PER ORDERED GIVEN, PT TOLERATED WELL, NO DISTRESS NOTED, CALL LIGHT WITHIN REACH, WILL RECHECK PT BP IN 90 MINUTES
[2017-11-04] MEDS ORDERED: cloNIDine 0.1 MG TAB PO SCH (00:30)
--- NOTE | 2017-11-04 01:50 | NUR ---
NOTIFIED DR. DUVAL REGARDING PT BP HAS NOT GONE DOWN CURRENTLY AT 251/109 HR 61, STATED UNDERSTANDING AND WILL PUT IN ORDERS. WILL FOLLOW UP WITH ORDERS.
--- NOTE | 2017-11-04 02:04 | NUR ---
NITRO PER DR ORDERED GIVEN, PT TOLERATED WELL, WILL RECHECK PT BP IN 30 MIN, PT RESTING, NO DISTRESS NOTED, CALL LIGHT WITHIN REACH, WILL CONTINUE TO MONITOR.
[2017-11-04] MEDS ORDERED: NITROGLYCERIN 0.4 MG TAB SL SCH (02:15)
--- NOTE | 2017-11-04 02:31 | NUR ---
RECHECKED PT BP CURRENTLY AT 213/103 HR 60, PT RESTING, NO DISTRESS NOTED, NOTIFIED DR. DUVAL, STATED UNDERSTANDING, AND STATED TO JUST MONITOR PT FOR NOW.
[2017-11-04] MEDS: cloNIDine 0.1 MG TAB PO SCH ×3 (04:21→21:00)
--- NOTE | 2017-11-04 04:21 | NUR ---
DUE MEDICATION GIVEN, CATAPRES AND MINOXADIL, PER DR. DUVAL IT IS OK TO GIVE BOTH AT THE SAME TIME, ADMINISTER MEDICATION TO PT, PT TOLERATED WELL, NO DISTRESS NOTED, WILL RECHECK BP IN 90MINUTES, CALL LIGHT WITHIN REACH, WILL CONTINUE TO MONITOR.
[2017-11-04] MEDS ORDERED: MINOXIDIL 2.5 MG TAB PO SCH ×2 (04:30→06:30)
--- NOTE | 2017-11-04 05:51 | NUR ---
CALLED DR. DUVAL REGARDING PT BP DID NOT GO DOWN AFTER MEDICATION, CURRENTLY AT 254/107 HR 59, PT SLEEPING, NO DISTRESS NOTED, CALL LIGHT WITHIN REACH, WILL CONTINUE TO MONITOR.
[2017-11-04] MEDS ORDERED: hydrALAZINE 20 MG/ML VIAL IVP PRN (06:20)
[2017-11-04] MEDS: LEVOTHYROXINE 0.025 MG TAB PO SCH (06:46)
--- NOTE | 2017-11-04 06:46 | NUR ---
HYDRALAZINE ORDERED PER DR ORDERED GIVEN, STATED TO GIVE PT THE HYDRALAZINE INSTEAD OF THE MINOXADIL THAT WAS ORDERED FOR 09.08, PT TOLERATED WELL, NO DISTRESS NOTED, CALL LIGHT WITHIN REACH, WILL CONTINUE TO MONITOR.
[2017-11-04] MEDS: INSULIN LISPRO SLIDING SCALE 100 UNITS/ML VIAL SUBQ PRN ×3 (06:53→21:23)
[2017-11-04] MEDS: BLOOD GLUCOSE MONITORING 1 DEV DEV FS SCH ×4 (06:55→21:23)
[2017-11-04 07:28] LABS: BASOPHILS # (AUTO) 0.1 K/uL (0.00-0.22); BASOPHILS % (AUTO) 1.2 % (0.0-2.0); EOSINOPHILS # (AUTO) 0.5 K/uL (0-0.4); EOSINOPHILS % (AUTO) 10.7 % (0.0-4.0); HEMATOCRIT 28.4 % (36-52); HEMOGLOBIN 9.7 g/dL (12.0-18.0); LYMPHOCYTES # (AUTO) 0.7 K/uL (2.0-11.5); LYMPHOCYTES % (AUTO) 15.6 % (20.5-51.1); MEAN CORPUSCULAR HEMOGLOBIN 32 pg (27-31); MEAN CORPUSCULAR HGB CONC 34 g/dL (33-37); MEAN CORPUSCULAR VOLUME 95.1 fL (80-94); MONOCYTES # (AUTO) 0.6 K/uL (0.8-1.0); MONOCYTES % (AUTO) 13.6 % (1.7-9.3); NEUTROPHILS # (AUTO) 2.7 K/uL (1.8-7.7); NEUTROPHILS % (AUTO) 58.9 % (42.2-75.2); PLATELET COUNT (AUTO) 150 K/uL (140-450); RED BLOOD CELL COUNT(AUTO) 2.98 MIL/uL (4.20-6.10); RED CELL DISTRIBUTION WIDTH 14.3 % (11.6-13.7); WHITE BLOOD COUNT (AUTO) 4.6 K/uL (4.8-10.8)
--- NOTE | 2017-11-04 07:30 | NUR ---
ENDORSED PT TO DAY SHIFT NURSE FRANCINE RN, PT STABLE, NO DISTRESS NOTED, BP STILL HIGH, LAST BP TAKEN 217/107 HR 60, DR. MIKE ALREADY NOTIFIED, STATED TO CONTINUE TO MONITOR.
[2017-11-04 08:07] LABS: MAGNESIUM 2.1 mg/dL (1.8-2.4); PHOSPHORUS 5.4 mg/dL (2.5-4.9)
[2017-11-04 08:12] LABS: ANION GAP 10.3 (8-16); POTASSIUM 4.3 mmol/L (3.5-5.1)
[2017-11-04] MEDS: levETIRAcetam 500 MG TAB PO SCH ×2 (08:22→21:17)
[2017-11-04] MEDS: DOCUSATE SODIUM 100 MG GELCAP PO SCH (08:23)
[2017-11-04] MEDS: LOSARTAN 50 MG TAB PO SCH (08:23)
[2017-11-04] MEDS: CALCIUM ACETATE 667 MG TAB PO SCH ×3 (08:23→17:11)
[2017-11-04] MEDS: hydrALAZINE 25 MG TAB PO SCH ×3 (08:24→17:12)
[2017-11-04] MEDS: ASCORBIC ACID 500 MG TAB PO SCH ×2 (08:24→21:17)
[2017-11-04] MEDS: NIFEdipine 60 MG TABER PO SCH (08:24)
[2017-11-04] MEDS: FAMOTIDINE 20 MG TAB PO SCH (08:25)
[2017-11-04] MEDS: MINOXIDIL 2.5 MG TAB PO SCH ×2 (08:25→21:00)
[2017-11-04] MEDS: MECLIZINE 25 MG TAB PO SCH ×2 (08:26→21:00)
[2017-11-04] MEDS: ISOSORBIDE DINITRATE 10 MG TAB PO SCH ×3 (08:26→17:12)
--- NOTE | 2017-11-04 08:30 | NUR ---
ADMINISTERED PATIENTS MORNING MEDICATIONS. TOLERATED WELL. REFUSED THE LANTUS STATING THAT HE DOESN'T TAKE THAT MEDICATION.
[2017-11-04] MEDS: INSULIN LANTUS 100 UNITS/ML 10 ML VIAL SUBQ SCH (09:00)
--- NOTE | 2017-11-04 09:43 | NUR ---
RECHECKED PATIENTS BLOOD PRESSURE, IT IS 153/89
[2017-11-04 10:10] LABS: CREATININE 5.2 mg/dL (0.7-1.3)
--- NOTE | 2017-11-04 11:30 | NUR ---
PATIENT RESTING IN BED. NO SIGNS AND SYMPTOMS OF ACUTE DISTRESS NOTE AT THIS TIME. WILL CONTINUE TO MONITOR.
--- NOTE | 2017-11-04 12:40 | NUR ---
BP CONTINUE TO BE HIGH BUT PATIENT IS ASYMPTOMATIC. DRS ARE AWARE OF HIS HIGH BP. WILL CONTINUE TO MONITOR.
[2017-11-04] MEDS: RAMIPRIL 5 MG CAP PO SCH (18:35)
--- NOTE | 2017-11-04 19:25 | NUR ---
ENDORSED PATIENT TO GALLERY DIRECTOR RN FOR CONTINUITY OF CARE. PATIENT IN STABLE CONDITION.
--- NOTE | 2017-11-04 19:27 | NUR ---
RECEIVED REPORT FROM RN. PT RESTING IN BED. AAOX4. NO S/S OF ACUTE DISTRESS. PT DENIES PAIN. IV SITE PATENT AND INTACT. CALL LIGHT WITHIN REACH. SAFETY MEASURES ENSURED. WILL CONTINUE TO MONITOR.
[2017-11-04] MEDS: ISOSORBIDE MONONITRATE 30 MG TABER PO SCH (21:00)
--- NOTE | 2017-11-04 21:00 | NUR ---
BLOOD PRESSURE MEDS HELD DUE TO BP TRENDING DOWN TO 108/42. DR. THRASHER MADE AWARE. WILL CONTINUE TO MONITOR.
[2017-11-04] MEDS: ATORVASTATIN 20 MG TAB PO SCH (21:17)
--- NOTE | 2017-11-04 23:33 | NUR ---
PT SLEEPING IN BED. NO S/S OF ACUTE DISTRESS. WILL CONTINUE TO MONITOR.
[2017-11-05 04:00] VITALS: BP 103/47
--- NOTE | 2017-11-05 04:53 | NUR ---
PT SLEEPING IN BED. NO S/S OF ACUTE DISTRESS. WILL CONTINUE TO MONITOR
[2017-11-05] MEDS: cloNIDine 0.1 MG TAB PO SCH ×2 (04:54→12:46)
[2017-11-05] MEDS: LEVOTHYROXINE 0.025 MG TAB PO SCH (05:37)
[2017-11-05] MEDS: BLOOD GLUCOSE MONITORING 1 DEV DEV FS SCH ×2 (05:49→11:30)
[2017-11-05] MEDS: INSULIN LISPRO SLIDING SCALE 100 UNITS/ML VIAL SUBQ PRN ×2 (05:50→13:11)
[2017-11-05 06:30] LABS: BASOPHILS % (AUTO) 0.9 % (0.0-2.0); EOSINOPHILS # (AUTO) 0.5 K/uL (0-0.4); EOSINOPHILS % (AUTO) 10.3 % (0.0-4.0); HEMATOCRIT 25.4 % (36-52); HEMOGLOBIN 8.8 g/dL (12.0-18.0); LYMPHOCYTES # (AUTO) 0.9 K/uL (2.0-11.5); LYMPHOCYTES % (AUTO) 16.8 % (20.5-51.1); MEAN CORPUSCULAR HEMOGLOBIN 32 pg (27-31); MEAN CORPUSCULAR HGB CONC 35 g/dL (33-37); MEAN CORPUSCULAR VOLUME 93.7 fL (80-94); MONOCYTES # (AUTO) 0.8 K/uL (0.8-1.0); MONOCYTES % (AUTO) 14.6 % (1.7-9.3); NEUTROPHILS % (AUTO) 57.4 % (42.2-75.2); PLATELET COUNT (AUTO) 149 K/uL (140-450); RED BLOOD CELL COUNT(AUTO) 2.71 MIL/uL (4.20-6.10); RED CELL DISTRIBUTION WIDTH 14.3 % (11.6-13.7); WHITE BLOOD COUNT (AUTO) 5.2 K/uL (4.8-10.8)
[2017-11-05 06:52] LABS: MAGNESIUM 2.1 mg/dL (1.8-2.4); PHOSPHORUS 5.2 mg/dL (2.5-4.9)
[2017-11-05 06:54] LABS: ANION GAP 15.4 (8-16); CARBON DIOXIDE 24.1 mmol/L (21-32); POTASSIUM 4.5 mmol/L (3.5-5.1)
[2017-11-05 07:00] LABS: CREATININE 7.6 mg/dL (0.7-1.3)
--- NOTE | 2017-11-05 07:30 | NUR ---
RECEIVED REPORT FROM PM RN. PT RESTING IN BED. AWAKE, ALERT, ON ROOM AIR. NO S/S OF ACUTE DISTRESS. PT DENIES PAIN. IV SITE TO RIGHT HAND PATENT AND INTACT. PT ALSO HAS DIALYSIS ACCESS TO LEFT ARM. CALL LIGHT WITHIN REACH. SAFETY MEASURES ENSURED. POC EXPLAINED TO PT, PT VERBALIZED UNDERSTANDING . WILL CONTINUE TO MONITOR.
[2017-11-05 08:00] VITALS: BP 134/73
[2017-11-05] MEDS: INSULIN LANTUS 100 UNITS/ML 10 ML VIAL SUBQ SCH (08:53)
[2017-11-05] MEDS: CALCIUM ACETATE 667 MG TAB PO SCH ×2 (08:55→12:47)
[2017-11-05] MEDS: FAMOTIDINE 20 MG TAB PO SCH (08:55)
[2017-11-05] MEDS: ISOSORBIDE MONONITRATE 30 MG TABER PO SCH (08:56)
[2017-11-05] MEDS: ASCORBIC ACID 500 MG TAB PO SCH (08:57)
[2017-11-05] MEDS: levETIRAcetam 500 MG TAB PO SCH (08:57)
[2017-11-05] MEDS: hydrALAZINE 25 MG TAB PO SCH ×2 (08:57→12:46)
[2017-11-05] MEDS: DOCUSATE SODIUM 100 MG GELCAP PO SCH (09:00)
--- NOTE | 2017-11-05 09:00 | NUR ---
PT REFUSED COLACE. PT STATED "I DO NOT WANT TO TAKE THIS MEDICATION TO MAKE ME GO".
[2017-11-05] MEDS: MECLIZINE 25 MG TAB PO SCH (09:04)
[2017-11-05] MEDS: MINOXIDIL 2.5 MG TAB PO SCH (09:04)
[2017-11-05] MEDS: RAMIPRIL 5 MG CAP PO SCH (09:04)
[2017-11-05] MEDS: NIFEdipine 60 MG TABER PO SCH (09:04)
--- NOTE | 2017-11-05 10:00 | NUR ---
PT NOTE 919 CHART REVIEWED AND CLEARED FOR PHYSICAL THERAPY PER RN. Pt WAS SEEN AWAKE RESTING IN BED BUT REFUSED PT PARTICIPATION DESPITE ENCOURAGEMENT. Pt STATES THAT HE HAS BLISTER ON LEFT FOOT AND DOES NOT WANT TO PARTICIPATE WITH PT AT THIS TIME. Pt WAS EDUCATED ON HEP THAT CAN BE PERFORMED IN SUPINE, VERBALIZED UNDERSTANDING; RN UPDATED.
[2017-11-05] MEDS ORDERED: CLON0.1T42 PO (10:11)
[2017-11-05] MEDS ORDERED: LEVO0.0211 PO (10:11)
[2017-11-05] MEDS ORDERED: MECL-272 PO (10:11)
[2017-11-05] MEDS ORDERED: ADA60 PO (10:11)
[2017-11-05] MEDS ORDERED: LON2.5 PO (10:11)
[2017-11-05] MEDS ORDERED: ISOS30TE35 PO (10:11)
[2017-11-05] MEDS ORDERED: RAMI5CAP21 PO (10:11)
[2017-11-05] MEDS ORDERED: KEP500 PO (10:11)
[2017-11-05] MEDS ORDERED: hydrALAZINE 20 MG/ML VIAL IVP PRN (10:51)
--- NOTE | 2017-11-05 11:30 | NUR ---
Title Coordinator Notes: I called Shubham Assistant Federal Public Defender at [facility], to inform her about Patient's discharge today. Per Shubham Patient is on a 7 days skilled bed hold. Per Shubham patient is able to return to their facility at room 33A under accepting MD Lester today after 15:00pm. I thanked Shubham for information and I ended the call.
--- NOTE | 2017-11-05 11:43 | NUR ---
SPOKE WITH ROSENDO AT [facility] AND FAXED INFORMATION AND ORDER FOR THE CT WITH CONTRAST. I TOLD HER ABOUT THE CT AND NEEDS TO BE DONE OUTPATIENT ON DAY OF DIALYSIS, PRIOR TO DIALYSIS. PATIENT CAN GO TO ROOM 33A UNDER DR[address] MAYORGA AFTER 3P.M. I INFORMED RODRI PANDEY. SHE SAID THE PATIENT'S MOTHER WILL PICK HIM UP.
[2017-11-05 12:00] VITALS: BP 155/91
--- NOTE | 2017-11-05 12:30 | NUR ---
ASSISTED PT TO BATH ROOM , PT HAD BM.
--- NOTE | 2017-11-05 13:40 | NUR ---
NOTIFIED DR. DAN PT HAS ST DEPRESSION ON MONITOR.
[2017-11-05 14:16] VITALS: BP 151/88
--- NOTE | 2017-11-05 14:55 | NUR ---
CALLED RN IN [facility] RN CRYSTAL [phone] FOR REPORT.
--- NOTE | 2017-11-05 15:50 | NUR ---
PT MOTHER PRESENT TO BEDSIDE. PT'S MOTHER SIGNED DISCHARGE PAPER. ALL PERSONAL BELONGINGS WITH PT. PT AND PT'S MOTHER VERBALIZED UNDERSTANDING, IV REMOVED. PT TAKEN TO PARKING LOT BY WHEELCHAIR, ACCOMPANIED BY RN. PT DISCHARGED IN STABLE CONDITION.
== END 2017-11-05 16:00 | DRG 291 ==
LOC: MED 12:16 → MTU 14:15
PROVIDERS: ADMIT General Practice; ATTEND General Practice
PROC: 5A1D70Z Performance of Urinary Filtration, Intermittent, Less than 6 Hours Per Day (ICD-10-PCS; principal; 2017-11-01)
PROC: 5A1D70Z Performance of Urinary Filtration, Intermittent, Less than 6 Hours Per Day (ICD-10-PCS; 2017-11-03)
DX: I13.2 Hypertensive heart and chronic kidney disease with heart failure and with stage 5 chronic kidney disease, or end stage renal disease (principal); N18.6 End stage renal disease; G93.41 Metabolic encephalopathy; I50.43 Acute on chronic combined systolic (congestive) and diastolic (congestive) heart failure; N17.0 Acute kidney failure with tubular necrosis; I16.1 Hypertensive emergency; E87.1 Hypo-osmolality and hyponatremia; D68.9 Coagulation defect, unspecified; D64.9 Anemia, unspecified; E11.65 Type 2 diabetes mellitus with hyperglycemia; I73.9 Peripheral vascular disease, unspecified; H54.8 Legal blindness, as defined in USA; E03.9 Hypothyroidism, unspecified; E87.5 Hyperkalemia; D63.8 Anemia in other chronic diseases classified elsewhere; E11.21 Type 2 diabetes mellitus with diabetic nephropathy; E11.22 Type 2 diabetes mellitus with diabetic chronic kidney disease; E11.319 Type 2 diabetes mellitus with unspecified diabetic retinopathy without macular edema; F41.9 Anxiety disorder, unspecified; F32.9 Major depressive disorder, single episode, unspecified; E83.42 Hypomagnesemia; N20.0 Calculus of kidney; K21.9 Gastro-esophageal reflux disease without esophagitis; R56.9 Unspecified convulsions; E11.51 Type 2 diabetes mellitus with diabetic peripheral angiopathy without gangrene; R00.1 Bradycardia, unspecified; T46.5X5A Adverse effect of other antihypertensive drugs, initial encounter; E87.8 Other disorders of electrolyte and fluid balance, not elsewhere classified; E83.39 Other disorders of phosphorus metabolism; E78.5 Hyperlipidemia, unspecified; I08.1 Rheumatic disorders of both mitral and tricuspid valves; Z99.2 Dependence on renal dialysis; Z88.1 Allergy status to other antibiotic agents; Z88.8 Allergy status to other drugs, medicaments and biological substances; Z79.4 Long term (current) use of insulin; Z91.14 Patient's other noncompliance with medication regimen; Y92.89 Other specified places as the place of occurrence of the external cause
CPT/HCPCS: 36415; 70450; 71045; 76705; 80048; 80053; 82140; 82948; 83690; 83735; 83880; 84100; 84134; 84484; 85025; 85610; 85730; 87081; 93005; 93880; 93976; 97161-GP; 99285; J0360; J1644; J1815; J3490; J7030; J8597; Q0092

== ENCOUNTER 2017-12-21 10:14 | Inpatient (IN) | payer OTHER, MEDICAID ==
[~2017-12-21] VITALS: Ht 182.9 cm; Wt 71.7 kg
[~2017-12-21 10:14] MED LIST changes: +ADA60 PO; -BACTO TP; -CHLO118S2 TP; -CLON0.3T23 PO; -HYDR-4420 PO; +HYDR100T79 PO; -INSU100S22 SUBQ; -ISOS20TA13 PO; +ISOS30TE35 PO; +LEVO0.0211 PO; -LISI-420 PO; -LOSA100T1 PO; -METO50TE2 PO; -NIFE90TE4 PO; -OMEP20TC12 PO; -PANT40EC28 PO; -PIPE50SO5 IV; +RAMI5CAP21 PO
--- NOTE | 2017-12-21 10:16 | NUR ---
PT LUCILA BLS TO ER BED 05
[2017-12-21 10:17] VITALS: BP 150/93
--- NOTE | 2017-12-21 10:20 | NUR ---
42 Y/O M, BIBA. PATIENT PRESENTS TO ED WITH BRIGHT RED RECTAL BLEEDING x2 DAYS . PT STATES HE FEELS DIZZY . DENIES N/V/D; SKIN IS PINK/WARM/DRY; AAOX4 WITH EVEN AND STEADY GAIT; LUNGS CLEAR BL; HR EVEN AND REGULAR; PT DENIES ANY FEVER, CP, SOB, OR COUGH AT THIS TIME; PATIENT STATES PAIN OF 0/10 AT THIS TIME; VSS; PATIENT POSITIONED FOR COMFORT; HOB ELEVATED; BEDRAILS UP X2; BED DOWN. ER MD MADE AWARE OF PT STATUS.
[2017-12-21] MEDS ORDERED: NACL 0.9% 500 ML IV SCH (10:49)
[2017-12-21] MEDS ORDERED: ONDANSETRON 4 MG/2 ML VIAL IVP ONE (10:50)
[2017-12-21] MEDS ORDERED: FAMOTIDINE 20 MG/2 ML VIAL IVP ONE (10:50)
[2017-12-21] MEDS ORDERED: PANTOPRAZOLE 40 MG INJ VIAL IVP ONE (10:50)
[2017-12-21] MEDS: DEXT 5% /NACL 0.9% 1,000 ML IV SCH (11:14)
[2017-12-21] MEDS ORDERED: DOCUSATE SODIUM 100 MG GELCAP PO PRN (11:15)
[2017-12-21] MEDS ORDERED: LORazepam 2 MG/ML VIAL IM/IVP PRN (11:15)
[2017-12-21] MEDS ORDERED: KETOROLAC 15 MG/ML VIAL IVP PRN (11:15)
[2017-12-21] MEDS ORDERED: ONDANSETRON 4 MG/2 ML VIAL IM/IVP PRN (11:15)
[2017-12-21] MEDS ORDERED: MORPHINE SULFATE 2 MG/ML SYR IVP PRN (11:15)
[2017-12-21 11:23] LABS: BASOPHILS # (AUTO) 0.1 K/uL (0.00-0.22); BASOPHILS % (AUTO) 1.5 % (0.0-2.0); EOSINOPHILS # (AUTO) 0.3 K/uL (0-0.4); EOSINOPHILS % (AUTO) 4.6 % (0.0-4.0); HEMATOCRIT 30.3 % (36-52); LYMPHOCYTES # (AUTO) 0.8 K/uL (2.0-11.5); LYMPHOCYTES % (AUTO) 10.3 % (20.5-51.1); MEAN CORPUSCULAR HEMOGLOBIN 32 pg (27-31); MEAN CORPUSCULAR HGB CONC 33 g/dL (33-37); MEAN CORPUSCULAR VOLUME 97.7 fL (80-94); MONOCYTES % (AUTO) 13.9 % (1.7-9.3); NEUTROPHILS # (AUTO) 5.2 K/uL (1.8-7.7); NEUTROPHILS % (AUTO) 69.7 % (42.2-75.2); PLATELET COUNT (AUTO) 225 K/uL (140-450); RED BLOOD CELL COUNT(AUTO) 3.11 MIL/uL (4.20-6.10); RED CELL DISTRIBUTION WIDTH 14.4 % (11.6-13.7); WHITE BLOOD COUNT (AUTO) 7.5 K/uL (4.8-10.8)
--- NOTE | 2017-12-21 11:25 | NUR ---
PATIENT REFUESING ALL CARE. REFUESED O2 SPO2 89% CURRENTLY; MD NOTIFIED. MEDICATION AND IV MANAGMENT ALSO REFUESED.
[2017-12-21 11:33] LABS: PROTHROMBIN TIME 14.4 secs (10.8-13.4)
[2017-12-21 11:36] LABS: ALBUMIN 3.1 g/dL (3.4-5.0); CARBON DIOXIDE 37.5 mmol/L (21-32); POTASSIUM 4.5 mmol/L (3.5-5.1); TOTAL BILIRUBIN 0.4 mg/dL (0.0-1.0)
--- NOTE | 2017-12-21 11:39 | NUR ---
CRITICAL LAB VALUE RECEIVED AT THIS TIME, BUN 78 AND CREATININE 8.75. ER MD NOTIFIED.
[2017-12-21 11:40] LABS: CREATININE 8.8 mg/dL (0.7-1.3)
[2017-12-21] MEDS ORDERED: LORazepam 2 MG/ML VIAL IVP PRN (11:45)
[2017-12-21] MEDS ORDERED: traMADol 50 MG TAB PO PRN (11:45)
[2017-12-21] MEDS ORDERED: KETOROLAC 30 MG/ML VIAL IVP PRN (11:45)
[2017-12-21 12:09] LABS: MAGNESIUM 2.5 mg/dL (1.8-2.4); PHOSPHORUS 7.2 mg/dL (2.5-4.9); THYROID STIMULATING HORMONE 1.92 uIU/mL (0.34-3.74)
--- NOTE | 2017-12-21 12:15 | NUR ---
RECEIVED PATIENT FROM ED VIA [employer]. RECEIVED REPORT FROM ED RN. PATIENT IN STABLE CONDITION, AO X3. NO COMPLAINTS OF PAIN. STATES HE HAS "CONSTANT DIZZINESS". PT REPORTS "MY DIZZINESS IS 2/10 RIGHT NOW". DOCTOR IS AWARE. HAS PERIODS OF UNCOOPERATIVENESS. PT IS BLIND. LT UA FISTULA FOR HD ON /. SKIN INTACT. NO BLEEDING FROM RECTUM SEEN. WILL CONTINUE TO MONITOR. NO IV ACCESS AVAILABLE, PATIENT REFUSED IV ACCESS. PT REFUSED TO TAKE OFF HIS SHOES AND PANTS, REFUSING SCD. PER PT, HE IS ANURIC. ALL SAFETY PRECAUTIONS IN PLACE, WILL CONTINUE TO MONITOR.
--- NOTE | 2017-12-21 12:15 | NUR ---
GAVE REPORT TO RODRI DAWSON TELE NURSE FOR CONTINUATION OF CARE. PATIENT STABLE AT TIME OF ADMISSION.
[2017-12-21 12:20] VITALS: BP 138/75
[2017-12-21] MEDS ORDERED: MIRT30TA PO (12:40)
[2017-12-21] MEDS ORDERED: GABA300C PO (12:40)
[2017-12-21] MEDS ORDERED: DEXTROSE 50% 50 ML SYR IVP PRN (12:45)
[2017-12-21] MEDS ORDERED: FAMOTIDINE 20 MG TAB PO SCH (13:00)
--- NOTE | 2017-12-21 13:01 | NUR ---
LEFT MESSAGE FOR DR. GOMEZ REGARDING DIET CLARIFICATION. WILL HOLD ALL ORAL MEDS UNTIL CLARIFICATION OBTAINED.
--- NOTE | 2017-12-21 13:10 | NUR ---
PATIENT AWARE THAT HE IS TO PROVIDE STOOL SAMPLE. HE AGREES TO NOTIFY CIVIL ATTORNEY CV RN WHEN HE NEEDS TO GO AND WILL BE HELPED ONTO BEDSIDE COMMODE.
[2017-12-21] MEDS: CALCIUM ACETATE 667 MG TAB PO SCH ×2 (13:26→18:01)
[2017-12-21] MEDS: cloNIDine 0.1 MG TAB PO SCH ×3 (13:27→23:15)
--- NOTE | 2017-12-21 13:31 | NUR ---
SCHEDULED MEDICATIONS ADMINISTERED. PATIENT IS NO LONGER NPO.
--- NOTE | 2017-12-21 13:57 | NUR ---
SENIOR MANAGER CAME TO ELEMENT SETTER PATIENT, PATIENT REFUSED, NOTIFIED.
--- NOTE | 2017-12-21 14:55 | NUR ---
PATIENT REFUSED BLOOD PRESSURE MEASUREMENT AT THIS TIME. WILL TRY AGAIN FOR 1600 VITALS.
[2017-12-21] MEDS ORDERED: MAGNESIUM CITRATE 300 ML BTL PO SCH (15:30)
--- NOTE | 2017-12-21 15:30 | NUR ---
DR. LANGFORD DISCUSSED COLONOSCOPY WITH PATIENT.
[2017-12-21 16:00] VITALS: BP 114/64
[2017-12-21] MEDS ORDERED: BOWEL EVACUANT DRINK 4,000 ML PDS PO SCH (16:00)
--- NOTE | 2017-12-21 16:07 | NUR ---
GOLYTE ADMINISTERED. PATIENT VERBALIZED UNDERSTANDING FOR INDICATION OF MEDICATION. WILL CONTINUE TO ENCOURAGE PATIENT TO DRINK THROUGHOUT THE SHIFT.
[2017-12-21] MEDS: BLOOD GLUCOSE MONITORING 1 DEV DEV FS SCH ×2 (16:34→21:00)
[2017-12-21 16:47] LABS: BASOPHILS # (AUTO) 0.2 K/uL (0.00-0.22); BASOPHILS % (AUTO) 2.2 % (0.0-2.0); EOSINOPHILS # (AUTO) 0.4 K/uL (0-0.4); EOSINOPHILS % (AUTO) 5.8 % (0.0-4.0); HEMATOCRIT 28.9 % (36-52); HEMOGLOBIN 9.6 g/dL (12.0-18.0); LYMPHOCYTES # (AUTO) 0.9 K/uL (2.0-11.5); LYMPHOCYTES % (AUTO) 11.7 % (20.5-51.1); MEAN CORPUSCULAR HEMOGLOBIN 32 pg (27-31); MEAN CORPUSCULAR HGB CONC 33 g/dL (33-37); MEAN CORPUSCULAR VOLUME 97.4 fL (80-94); MONOCYTES # (AUTO) 0.9 K/uL (0.8-1.0); MONOCYTES % (AUTO) 12.1 % (1.7-9.3); NEUTROPHILS # (AUTO) 5.1 K/uL (1.8-7.7); NEUTROPHILS % (AUTO) 68.2 % (42.2-75.2); PLATELET COUNT (AUTO) 217 K/uL (140-450); RED BLOOD CELL COUNT(AUTO) 2.97 MIL/uL (4.20-6.10); RED CELL DISTRIBUTION WIDTH 14.2 % (11.6-13.7); WHITE BLOOD COUNT (AUTO) 7.4 K/uL (4.8-10.8)
[2017-12-21] MEDS: METOCLOPRAMIDE 10 MG/2 ML INJ VIAL IVP SCH ×2 (17:00→21:44)
[2017-12-21] MEDS: LACTULOSE 20 GM/30 ML UDC PO SCH ×2 (18:01→21:45)
[2017-12-21] MEDS: SENNA 8.6 MG TAB PO SCH (18:01)
--- NOTE | 2017-12-21 18:01 | NUR ---
SCHEDULED MEDS ADMINISTERED AT THIS TIME. PT DENIES PAIN AND DISCOMFORT. WILL CONTINUE TO MONITOR.
--- NOTE | 2017-12-21 19:20 | NUR ---
REPORT GIVEN TO MEAT SCRUBBER RN. PT IN STABLE CONDITION. ENDORSED NEED TO FINISH GOLYTE AT BEDSIDE.
--- NOTE | 2017-12-21 19:20 | NUR ---
RECEIVED REPORT AT BEDSIDE FROM RODRI PANDEY DAYSHIFT NURSEFOR CONTINUTIY OF CARE, PT IN STABLE CONDITION.
[2017-12-21 20:00] VITALS: BP 139/74
[2017-12-21] MEDS ORDERED: ZOLPIDEM 5 MG TAB PO PRN (21:00)
[2017-12-21] MEDS ORDERED: SIMVASTATIN 40 MG TAB PO SCH (21:00)
--- NOTE | 2017-12-21 21:00 | NUR ---
PT IN LOW BED ASLEEP BUT AROUSABLE TO NAME AND LIGHT TOUCH. V/S FOLLOWS T 99.1 P 60 R 18 B/P 136/74 FINGERSTICK IS 165. COVERAGE OF HUMALOG GIVEN ORDERED. PT TAKING GOLYTELY FOR COLONOSCOPY TOMORROW.
[2017-12-21] MEDS: ISOSORBIDE MONONITRATE 30 MG TABER PO SCH (21:46)
[2017-12-21] MEDS: GABAPENTIN 300 MG CAP PO SCH (21:47)
[2017-12-21] MEDS: levETIRAcetam 500 MG TAB PO SCH (21:47)
[2017-12-21] MEDS: ASCORBIC ACID 500 MG TAB PO SCH (21:48)
[2017-12-21] MEDS: MIRTAZAPINE 15 MG TAB PO SCH (21:48)
--- NOTE | 2017-12-21 22:00 | NUR ---
PT FINISHED Jewel Toned CONTAINER. PT ALREADY HAD X2 VERY LARGE BOWELS CONSISTENCY IS LOOSE AND LIGHT BROWN LIQUID. NO C/O VOICED REGARDING PAIN.
[2017-12-21] MEDS: INSULIN LANTUS 100 UNITS/ML 10 ML VIAL SUBQ SCH (22:15)
[2017-12-21] MEDS: INSULIN LISPRO SLIDING SCALE 100 UNITS/ML VIAL SUBQ PRN (22:19)
[2017-12-22] VITALS: BP 157/80
[2017-12-22] MEDS ORDERED: INFLUENZA VIRUS VACCINE QUAD 0.5 ML SYR IMVAC PRN (01:40)
--- NOTE | 2017-12-22 03:00 | NUR ---
PT HAD LARGE BM, BED AND GOWN WERE CHANGED. NO BLOOD NOTED.
[2017-12-22 04:00] VITALS: BP 152/76
--- NOTE | 2017-12-22 06:00 | NUR ---
PT FINGERSTICK 33. PT HAS NO IV ACCESS DUE TO BEING A VERY HARD STICK AND PT REFUSES. PT WAS LETHARGIC BUT RESPONSIVE AND WAS ABLE TO DRINK OJ MIXED WITH 2 SUGAR PACKETS.
[2017-12-22] MEDS: LEVOTHYROXINE 0.025 MG TAB PO SCH (06:37)
--- NOTE | 2017-12-22 06:37 | NUR ---
PATIENT HAS BEEN SCREENED AND CATEGORIZED MODERATE NUTRITION RISK. PATIENT WILL BE SEEN WITHIN 3-5 DAYS OF ADMISSION. 12/24/17-12/26/17 CHELITA STONE MS, RDN
[2017-12-22 07:14] LABS: T4 (THYROXINE) 6.1 ug/dL (4.5-12.0)
--- NOTE | 2017-12-22 07:15 | NUR ---
FINGERSTICK RETAKE IS 60. ENDORSED CARE TO DAYSHIFT NURSE. RESIDENT MD MADE AWARE THAT PT NEEDED TO HAVE OJ IN THE AM DUE TO VERY LOW BLOOD SUGAR. PT SCHEDULED FOR COLONOSCOPY TODAY CONSENT SIGNED AND PRE OP LIST DONE. MD AWARE THAT JUICE WAS GIVEN FOR BLOOD SUGAR.
[2017-12-22] MEDS ORDERED: fentaNYL 0.05 MG/ML VIAL ONE (07:16)
[2017-12-22] MEDS ORDERED: diphenhydrAMINE 50 MG/ML VIAL ONE (07:17)
[2017-12-22] MEDS ORDERED: MIDAZOLAM 2 MG/2 ML VIAL ONE (07:17)
--- NOTE | 2017-12-22 07:22 | NUR ---
RECEIVED REPORT FROM CASE HARDENER RN. PATIENT IN STABLE CONDITION, AO X1. LAST BS WAS 60 PER CASE HARDENER RN. WILL RE-CHECK. NO COMPLAINTS OF PAIN. PT IS BLIND. LT UA FISTULA FOR HD ON . SKIN INTACT. NO BLEEDING FROM RECTUM SEEN. WILL CONTINUE TO MONITOR. NO IV ACCESS AVAILABLE, PATIENT REFUSED IV ACCESS. PT REFUSED SCD. PER PT, HE IS ANURIC. ALL SAFETY PRECAUTIONS IN PLACE, WILL CONTINUE TO MONITOR.
[2017-12-22] MEDS ORDERED: DEXTROSE 50% 50 ML SYR IVP PRN (07:35)
[2017-12-22] MEDS ORDERED: BOWEL EVACUANT DRINK 4,000 ML PDS PO ONE (07:35)
[2017-12-22 08:00] VITALS: BP 135/78
--- NOTE | 2017-12-22 08:15 | NUR ---
BS NOW IS 73. PATIENT IS AWAKE. AO X1. PT DRANK ANOTHER APPLE JUICE BOX.
[2017-12-22] MEDS: BLOOD GLUCOSE MONITORING 1 DEV DEV FS SCH ×4 (08:20→21:43)
--- NOTE | 2017-12-22 08:24 | NUR ---
PER DR. LANGFORD, EDGARCEL THE COLONOSCOPY. Addendum: 12/22/17 at 0825 by Yulisa Conner Meng, RN PATIENT DOES NOT HAVE IV ACCESS AND HAS BEEN REFUSING IT SINCE ADMISSION YESTERDAY.
[2017-12-22] MEDS: METOCLOPRAMIDE 10 MG/2 ML INJ VIAL IVP SCH ×4 (09:00→21:00)
[2017-12-22] MEDS: PANTOPRAZOLE 40 MG INJ VIAL IVP SCH (09:00)
[2017-12-22] MEDS ORDERED: OLOPATADINE HCL OP SCH (09:00)
[2017-12-22 09:40] LABS: BASOPHILS # (AUTO) 0.1 K/uL (0.00-0.22); BASOPHILS % (AUTO) 0.9 % (0.0-2.0); EOSINOPHILS # (AUTO) 0.1 K/uL (0-0.4); EOSINOPHILS % (AUTO) 1.8 % (0.0-4.0); HEMATOCRIT 31.4 % (36-52); HEMOGLOBIN 10.3 g/dL (12.0-18.0); LYMPHOCYTES # (AUTO) 0.6 K/uL (2.0-11.5); LYMPHOCYTES % (AUTO) 8.2 % (20.5-51.1); MEAN CORPUSCULAR HEMOGLOBIN 32 pg (27-31); MEAN CORPUSCULAR HGB CONC 33 g/dL (33-37); MEAN CORPUSCULAR VOLUME 97.1 fL (80-94); MONOCYTES # (AUTO) 0.8 K/uL (0.8-1.0); MONOCYTES % (AUTO) 10.1 % (1.7-9.3); NEUTROPHILS # (AUTO) 6.2 K/uL (1.8-7.7); PLATELET COUNT (AUTO) 236 K/uL (140-450); RED BLOOD CELL COUNT(AUTO) 3.23 MIL/uL (4.20-6.10); RED CELL DISTRIBUTION WIDTH 14.3 % (11.6-13.7); WHITE BLOOD COUNT (AUTO) 7.9 K/uL (4.8-10.8)
[2017-12-22] MEDS: NIFEdipine 60 MG TABER PO SCH (09:53)
[2017-12-22] MEDS: LACTULOSE 20 GM/30 ML UDC PO SCH (09:53)
[2017-12-22] MEDS: RAMIPRIL 5 MG CAP PO SCH (09:54)
[2017-12-22] MEDS: ASCORBIC ACID 500 MG TAB PO SCH ×2 (09:54→20:59)
[2017-12-22] MEDS: levETIRAcetam 500 MG TAB PO SCH ×2 (09:54→21:00)
[2017-12-22] MEDS: ISOSORBIDE MONONITRATE 30 MG TABER PO SCH ×2 (09:54→20:58)
[2017-12-22] MEDS: SENNA 8.6 MG TAB PO SCH (09:55)
[2017-12-22] MEDS: CALCIUM ACETATE 667 MG TAB PO SCH ×3 (09:55→17:18)
[2017-12-22 09:57] LABS: ANION GAP 15.4 (8-16); POTASSIUM 4.4 mmol/L (3.5-5.1)
[2017-12-22 10:00] LABS: CHOL/HDL RATIO 1.6 (1-4.5); MAGNESIUM 3.2 mg/dL (1.8-2.4); PHOSPHORUS 8.3 mg/dL (2.5-4.9)
--- NOTE | 2017-12-22 10:59 | NUR ---
NOTIFIED K.Chiquis DIALYSIS OF PT SCHEDULED FOR HD TODAY AT 2778. DIALYSIS NURSE WILL BE SENT TO UNIT.
[2017-12-22] MEDS: DEXT 5% /NACL 0.9% 1,000 ML IV SCH (11:14)
--- NOTE | 2017-12-22 11:30 | NUR ---
PT DRANK TWO JUICE BOXES AFTER BS OF 63. PT IS ALERT. NO IV ACCESS. WILL CONTINUE TO MONITOR.
--- NOTE | 2017-12-22 11:50 | NUR ---
OBTAINED CONSENT FOR DIALYSIS FROM PATIENT.
[2017-12-22 12:00] VITALS: BP 174/90
--- NOTE | 2017-12-22 12:00 | NUR ---
TUNA PURSE SEINER HERE TO START HD. NOTIFIED TUNA PURSE SEINER THAT PATIENT RECEIVED RAMIPRIL, NIFEDIPINE AND IMDUR IN THE MORNING.
[2017-12-22] MEDS ORDERED: HYDROCORTISONE 2.5% CRM 30 GM TUBE TP SCH (12:10)
--- NOTE | 2017-12-22 12:13 | NUR ---
PER HOMELAND SECURITY PROGRAM SPECIALIST, PT WAS AGITATED AND SHOUTING. PULLED ATIVAN FROM [facility]. HOMELAND SECURITY PROGRAM SPECIALIST WILL ADMINISTER THE PRESCRIBED DOSE THROUGH HD.
[2017-12-22] MEDS ORDERED: LORazepam 1 MG TAB PO PRN (12:25)
[2017-12-22] MEDS ORDERED: SHARK OIL/PHENYLEPHRINE 60 GM TUBE TP PRN (13:10)
--- NOTE | 2017-12-22 13:10 | NUR ---
PATIENT SLEEPING IN BED, ONE HOUR AFTER ATIVAN IVP THROUGH HD. STILL UNDERGOING HD. WILL CONTINUE TO MONITOR.
[2017-12-22 16:00] VITALS: BP 169/82
--- NOTE | 2017-12-22 16:00 | NUR ---
HD COMPLETE. PER STORAGE MANAGEMENT CONSULTANT, 3.6 L REMOVED. PT IN STABLE CONDITION. WILL CONTINUE TO MONITOR.
--- NOTE | 2017-12-22 17:19 | NUR ---
ATIVAN PO GIVEN FOR ANXIETY. WILL ATTEMPT IV ACCESS LATER.
[2017-12-22] MEDS ORDERED: BOWEL EVACUANT DRINK 4,000 ML PDS PO SCH (18:00)
--- NOTE | 2017-12-22 18:00 | NUR ---
PT REFUSING IV ACCESS. PROMOTIONS MANAGER PHILLIP TALKED TO PATIENT BUT HE CONTINUES TO REFUSE. WILL NOTIFY DOCTOR.
--- NOTE | 2017-12-22 18:19 | NUR ---
PT SLEEPING IN BED, ONE HOUR AFTER ATIVAN PO.
--- NOTE | 2017-12-22 19:00 | NUR ---
LEFT MESSAGE FOR MOTHER EDI [phone] TO BRING PATADAY EYE DROPS PER PHARMACY REQUEST.
--- NOTE | 2017-12-22 19:20 | NUR ---
NOTIFIED DR. JOHNS THAT PT REFUSED IV ACCESS MULTIPLE TIMES.
--- NOTE | 2017-12-22 19:29 | NUR ---
REPORT GIVEN TO HAND BANDER RN. PT IN STABLE CONDITION. Addendum: 12/22/17 at 1943 by Yulisa Conner Meng RN NOTIFIED HAND BANDER RN THOMAS THAT PT HAS LOW BLOOD SUGARS DURING THE NIGHT. ALSO STOOL CULTURE TO BE COLLECTED.
--- NOTE | 2017-12-22 19:31 | NUR ---
RECEIVED PT FROM RODRI RN PT AAOX3 ON TELEMETRY SR, HD FISTULA ON LEFT UA NOT IV ACCESS PT REFUSED DR BOYD AWARE, PT ON COLON PREPARATION FOR COLONOSCOPY, INITIAL ASSESSMENT DONE
[2017-12-22 20:00] VITALS: BP 148/78
--- NOTE | 2017-12-22 20:00 | NUR ---
PT REFUSED TO FINISH ALL GOLYTELY I EXPLAINT THE IMPORTANT TOFINISH GOLYTELY DR CURRY
[2017-12-22] MEDS ORDERED: HALOPERIDOL IM 5 MG/ML VIAL IM SCH (20:15)
[2017-12-22] MEDS: GABAPENTIN 300 MG CAP PO SCH (20:58)
[2017-12-22] MEDS: MIRTAZAPINE 15 MG TAB PO SCH (20:59)
[2017-12-22] MEDS: INSULIN LANTUS 100 UNITS/ML 10 ML VIAL SUBQ SCH ×2 (21:00→21:51)
--- NOTE | 2017-12-22 21:30 | NUR ---
BLOOD SUGAR TEST 113
[2017-12-23] VITALS: BP 158/92
[2017-12-23] MEDS: DEXT 5% /NACL 0.9% 1,000 ML IV SCH (00:45)
--- NOTE | 2017-12-23 00:45 | NUR ---
IV WAS INSERTED ON RT HAND GAUGE # 24 PT SLEEPING ON TELEMETRY SR PT WILL BE NPO FOR COLONOSCOPY
[2017-12-23 04:00] VITALS: BP 155/89
--- NOTE | 2017-12-23 04:00 | NUR ---
PT SLEEPING WITH LIQUID STOOL BROWNISH ON TELE SR
[2017-12-23] MEDS: cloNIDine 0.1 MG TAB PO SCH ×3 (05:00→20:59)
--- NOTE | 2017-12-23 06:00 | NUR ---
BLOOD SUGAR TEST 190 PT NPO AND PT WILL BE ENDORSED TO DAY SHIFT NURSE A LITTLE SMEAR YELLOW COLOR LIQUID STOOL
[2017-12-23] MEDS: LEVOTHYROXINE 0.025 MG TAB PO SCH (06:30)
[2017-12-23] MEDS: BLOOD GLUCOSE MONITORING 1 DEV DEV FS SCH ×4 (06:41→21:11)
--- NOTE | 2017-12-23 07:25 | NUR ---
RECEIVED PT REPORT FROM CUT OUT WORKER RN AT BEDSIDE. PT IN STABLE CONDITION, SLEEPING, EASILY AROUSED BY NAME, AOX2. NO COMPLAINTS OF PAIN. PT IS BLIND, CALL LIGHT WITHIN REACH. LT UA FISTULA FOR HD ON . SKIN INTACT. NO RECTAL BLEEDING SEEN. WILL CONTINUE TO MONITOR. IV CATH RIGHT HAND 24G, PATENT AND INTACT, ASYMPTOMATIC. ALL SAFETY PRECAUTIONS IN PLACE, WILL CONTINUE TO MONITOR.
[2017-12-23 07:44] LABS: HEMATOCRIT 30.5 % (36-52); HEMOGLOBIN 10.3 g/dL (12.0-18.0); MEAN CORPUSCULAR HEMOGLOBIN 33 pg (27-31); MEAN CORPUSCULAR HGB CONC 34 g/dL (33-37); MEAN CORPUSCULAR VOLUME 96.5 fL (80-94); PLATELET COUNT (AUTO) 250 K/uL (140-450); RED BLOOD CELL COUNT(AUTO) 3.16 MIL/uL (4.20-6.10); WHITE BLOOD COUNT (AUTO) 9.2 K/uL (4.8-10.8)
[2017-12-23 07:49] LABS: ANION GAP 12.7 (8-16); CARBON DIOXIDE 31.4 mmol/L (21-32); POTASSIUM 4.1 mmol/L (3.5-5.1)
[2017-12-23 07:53] LABS: MAGNESIUM 2.3 mg/dL (1.8-2.4); PHOSPHORUS 5.4 mg/dL (2.5-4.9)
[2017-12-23 08:00] VITALS: BP 170/91
[2017-12-23 08:00] LABS: CREATININE 6.7 mg/dL (0.7-1.3)
[2017-12-23 08:09] LABS: BASOPHILS % (MANUAL) 0 % (0-2); EOSINOPHILS % (MANUAL) 3 % (0-4); LYMPHOCYTES % (MANUAL) 14 % (20-46); MONOCYTES % (MANUAL) 10 % (5-12)
[2017-12-23] MEDS: RAMIPRIL 5 MG CAP PO SCH (08:32)
[2017-12-23] MEDS: SENNA 8.6 MG TAB PO SCH (08:33)
[2017-12-23] MEDS: DOCUSATE SODIUM 250 MG GELCAP PO SCH (08:33)
[2017-12-23] MEDS: levETIRAcetam 500 MG TAB PO SCH ×2 (08:33→20:58)
[2017-12-23] MEDS: CALCIUM ACETATE 667 MG TAB PO SCH ×3 (08:33→17:41)
[2017-12-23] MEDS: ASCORBIC ACID 500 MG TAB PO SCH ×2 (08:33→20:57)
[2017-12-23] MEDS: ISOSORBIDE MONONITRATE 30 MG TABER PO SCH ×2 (08:34→20:58)
[2017-12-23] MEDS: METOCLOPRAMIDE 10 MG/2 ML INJ VIAL IVP SCH ×4 (08:34→20:58)
[2017-12-23] MEDS: NIFEdipine 60 MG TABER PO SCH (08:34)
[2017-12-23] MEDS: PANTOPRAZOLE 40 MG INJ VIAL IVP SCH (08:35)
[2017-12-23] MEDS ORDERED: FAMOTIDINE 20 MG TAB PO SCH (09:00)
--- NOTE | 2017-12-23 10:55 | NUR ---
SPOKE WITH FLORA, DR LANGFORD WILL PERFORM COLONOSCOPY TOMORROW.
[2017-12-23 12:00] VITALS: BP 188/94
[2017-12-23] MEDS: INSULIN LISPRO SLIDING SCALE 100 UNITS/ML VIAL SUBQ PRN ×2 (12:21→21:22)
--- NOTE | 2017-12-23 12:30 | NUR ---
HELPED PT WITH LUNCH, PT TOLERATED OK. FINISHED 50%
[2017-12-23 16:00] VITALS: BP 158/86
--- NOTE | 2017-12-23 16:00 | NUR ---
PT'S O2 SAT 88%, ELEVATED HOB TO 35DEG, O2 SAT 91-92%. PUT O2 2L VIA NC. O2 SAT 96% NOTIFIED DR OZUNA.
[2017-12-23] MEDS ORDERED: BOWEL EVACUANT DRINK 4,000 ML PDS PO SCH (18:00)
--- NOTE | 2017-12-23 18:00 | NUR ---
PT FINISHED 2L OF [employer].
--- NOTE | 2017-12-23 18:35 | NUR ---
SAT PT ON THE BEDSIDE COMMODE. PT HAVING BM, YELLOW LIQUIDIY STOOL.
--- NOTE | 2017-12-23 19:00 | NUR ---
STOOL COLLECTED AND SENT TO LAB.
--- NOTE | 2017-12-23 19:20 | NUR ---
RECEIVED BEDSIDE REPORT FROM KATHERIN FERRARO, PT ON BEDSIDE COMMODE, IV ON RIGHT HAND 24G INFUSING D5 AND 1/2 NS AT 10 ML/HR. PT IN NOTED TO BE LEGALLY BLIND, ON FALL RISK. CONTINUING WITH KAMLESH NOTED 500 ML LEFT TO CONSUME. EXPLAINED TO PT THAT HE MUST FINISH BOWEL PREP BEFORE PROCEDURE TOMORROW AND IS ORDERED TO BE NPO AT MIDNIGHT. PT AGREED AND STATED HE UNDERSTANDS. CALL LIGHT WITHIN REACH, LEAD JAVASCRIPT DEVELOPER AT BEDSIDE, WILL CONTINUE TO MONITOR.
--- NOTE | 2017-12-23 19:20 | NUR ---
ENDORSED PT TO NEURO INTENSIVIST PHYSICIAN RN. PT IN STABLE CONDITION.
[2017-12-23] MEDS: GABAPENTIN 300 MG CAP PO SCH (20:57)
[2017-12-23] MEDS: MIRTAZAPINE 15 MG TAB PO SCH (20:59)
--- NOTE | 2017-12-23 21:11 | NUR ---
PT BG 309 MEDICATED WITH 8 UNITS OF INSULIN ACCORDING TO MD ORDER.
[2017-12-23] MEDS: INSULIN LANTUS 100 UNITS/ML 10 ML VIAL SUBQ SCH (21:21)
--- NOTE | 2017-12-23 22:35 | NUR ---
PT C/O THAT HE HASN'T BEEN ABLE TO SLEEP THE PAST FEW DAYS. ADMINISTERED AMBIEN ACCORDING TO MD ORDER.
[2017-12-24] VITALS: BP 145/80
--- NOTE | 2017-12-24 | NUR ---
KAMLESH BOWEL PREP COMPLETED, PLACED ON NPO STATUS, REMOVED FOOD AND FLUIDS FROM ROOM, WILL CONTINUE TO MONITOR.
--- NOTE | 2017-12-24 02:20 | NUR ---
PLACED PT ON SEIZURE PRECAUTIONS WITH APPROPRIATE SUCTION EQUIPMENT AT BEDSIDE.
--- NOTE | 2017-12-24 03:52 | NUR ---
PT ASLEEP IN BED, NO SIGNS OF DISTRESS, CALL LIGHT WITHIN REACH.
[2017-12-24] MEDS: cloNIDine 0.1 MG TAB PO SCH ×3 (05:00→21:02)
--- NOTE | 2017-12-24 05:15 | NUR ---
ENTERED PTS ROOM, STAFF AT BEDSIDE REPORTED PT FOUND ON FLOOR WITH IV OUT. BP 160/91, HR 68, RR 14, DENIES PAIN NO SIGNS OF ACUTE TRAUMA, DR JOHNS AWARE AND AT BEDSIDE, CHARGE NURSE AWARE, EYE CARE PROFESSIONAL AWARE. NO NEW ORDERS AT THIS TIME. PT IN BED, EDUCATION PROVIDED ABOUT CALLING FOR HELP. CALL LIGHT WITHIN REACH. WILL CONTINUE TO MONITOR.
[2017-12-24] MEDS: LEVOTHYROXINE 0.025 MG TAB PO SCH (06:30)
[2017-12-24] MEDS ORDERED: GLUCAGON 1 MG VIAL ONE (06:53)
--- NOTE | 2017-12-24 06:56 | NUR ---
BLOOD SUGAR 45 CALLED OR IF OKAY TO GIVE APPLE JUICE STATED OKAY ACCORDING TO CHARGE NURSE THOMAS. ADMINISTERED APPLE JUICE REASSESSED BLOOD GLUCOSE 47. CALLED THE RESIDENTS SPOKE WITH DR GOMEZ AND NAT. ORDER NOTIFYING OF SITUATION ORDER TO REASSESS BLOOD GLUCOSE CALLED BACK ORDER GLUCOSE IS 52. ORDER FOR 1 MG GLUCAGON. ADMINISTERED GLUCAGON IN RIGHT VASTUS LATERALIS. WILL REASSESS BLOOD SUGAR.
--- NOTE | 2017-12-24 07:01 | NUR ---
PATIENT REFUSED DUE CLONIDINE AND SYNTHROID STATED "I DONT WANT THAT SHIT WHAT I WANT IS TO BE LEFT ALONE TO " WILL HOLD DUE MEDICATIONS.
--- NOTE | 2017-12-24 07:10 | NUR ---
PT BLOOD GLUCOSE 123. ENDORSED PT TO DAY SHIFT NURSE YU, PATIENT STABLE.
--- NOTE | 2017-12-24 07:15 | NUR ---
RECEIVED REPORT FROM DIRECTOR OF SALES MARKETING NURSE. PT IS SLEEPING IN BED, LEFT LATERAL POSITION, PT IS EASILY AWAKEN, PT IS AAOX2, LEGALLY BLIND, PT HAS NO IV ACCESS AT THIS TIME, WILL ATTEMPT TO START A NEW IV, PT SKIN IS INTACT, NO S/S OF RESPIRATORY DISTRESS OR DISCOMFORT NOTED, PT IS ON ROOM AIR, DISCUSSED PLAN OF CARE WITH PT, PT VERBALIZED UNDERSTANDING, SAFETY/FALL PRECAUTIONS ARE IN PLACE, CALL LIGHT IS WITHIN REACH, WILL CONTINUE TO MONITOR.
[2017-12-24] MEDS ORDERED: GLUCAGON 1 MG VIAL IM SCH (07:30)
[2017-12-24] MEDS: BLOOD GLUCOSE MONITORING 1 DEV DEV FS SCH ×4 (07:33→21:12)
--- NOTE | 2017-12-24 07:45 | NUR ---
PT WAS TRANSFERRED TO A BED WITH BED ALARM. BED IS IN LOW POSITION, 2 SIDE RAILS UP, CALL LIGHT IS WITHIN REACH, BED ALARM IS ON.
[2017-12-24 08:00] VITALS: BP 173/78
[2017-12-24] MEDS: CALCIUM ACETATE 667 MG TAB PO SCH ×3 (08:00→18:11)
[2017-12-24] MEDS: SENNA 8.6 MG TAB PO SCH (09:00)
[2017-12-24] MEDS: DOCUSATE SODIUM 250 MG GELCAP PO SCH (09:00)
[2017-12-24] MEDS: ASCORBIC ACID 500 MG TAB PO SCH ×2 (09:00→21:01)
[2017-12-24] MEDS: RAMIPRIL 5 MG CAP PO SCH (09:10)
[2017-12-24] MEDS: levETIRAcetam 500 MG TAB PO SCH ×2 (09:10→21:01)
[2017-12-24] MEDS: NIFEdipine 60 MG TABER PO SCH (09:11)
[2017-12-24] MEDS: METOCLOPRAMIDE 10 MG/2 ML INJ VIAL IVP SCH ×2 (09:11→13:00)
[2017-12-24] MEDS: ISOSORBIDE MONONITRATE 30 MG TABER PO SCH ×2 (09:11→21:02)
[2017-12-24] MEDS: PANTOPRAZOLE 40 MG INJ VIAL IVP SCH (09:11)
[2017-12-24] MEDS: DEXT 5% /NACL 0.9% 1,000 ML IV SCH (11:14)
[2017-12-24] MEDS: hydrALAZINE 20 MG/ML VIAL IVP PRN (11:23)
--- NOTE | 2017-12-24 12:56 | NUR ---
Worship Leader Note: Elver Lord from [facility] , patient is on a 7 day bed hold and is one of their meterman patients. She stated patient does not have an existing Advance Directive and his father Salinas Mas and his mother Heide Alberto are his healthcare decision makers. I faxed patient's medical information to [facility].
[2017-12-24 13:38] LABS: BASOPHILS # (AUTO) 0.1 K/uL (0.00-0.22); BASOPHILS % (AUTO) 1.5 % (0.0-2.0); EOSINOPHILS # (AUTO) 0.3 K/uL (0-0.4); EOSINOPHILS % (AUTO) 5.2 % (0.0-4.0); HEMATOCRIT 28.6 % (36-52); HEMOGLOBIN 9.6 g/dL (12.0-18.0); LYMPHOCYTES # (AUTO) 0.8 K/uL (2.0-11.5); LYMPHOCYTES % (AUTO) 13.9 % (20.5-51.1); MEAN CORPUSCULAR HEMOGLOBIN 32 pg (27-31); MEAN CORPUSCULAR HGB CONC 34 g/dL (33-37); MEAN CORPUSCULAR VOLUME 96.6 fL (80-94); MONOCYTES # (AUTO) 0.6 K/uL (0.8-1.0); NEUTROPHILS % (AUTO) 69.4 % (42.2-75.2); PLATELET COUNT (AUTO) 241 K/uL (140-450); RED BLOOD CELL COUNT(AUTO) 2.96 MIL/uL (4.20-6.10); RED CELL DISTRIBUTION WIDTH 13.8 % (11.6-13.7); WHITE BLOOD COUNT (AUTO) 5.8 K/uL (4.8-10.8)
[2017-12-24] MEDS ORDERED: diphenhydrAMINE 50 MG/ML VIAL ONE (14:17)
[2017-12-24] MEDS ORDERED: MIDAZOLAM 2 MG/2 ML VIAL ONE ×2 (14:17→14:19)
[2017-12-24] MEDS: MIDAZOLAM 2 MG/2 ML VIAL ONE ×2 (14:17→14:38)
[2017-12-24] MEDS: fentaNYL 0.05 MG/ML VIAL ONE ×2 (14:17→14:38)
[2017-12-24 14:18] LABS: ANION GAP 17.3 (8-16); CARBON DIOXIDE 30.6 mmol/L (21-32); POTASSIUM 4.9 mmol/L (3.5-5.1)
[2017-12-24 14:20] LABS: MAGNESIUM 2.4 mg/dL (1.8-2.4); PHOSPHORUS 6.8 mg/dL (2.5-4.9)
[2017-12-24 14:28] LABS: CREATININE 9.1 mg/dL (0.7-1.3)
--- NOTE | 2017-12-24 14:30 | NUR ---
PT TAKEN TO OR AT THIS TIME TO HAVE A COLONOSCOPY DONE. PT LEFT IN STABLE CONDITION.
[2017-12-24 16:00] VITALS: BP 147/91
--- NOTE | 2017-12-24 19:40 | NUR ---
ENDORSED PT TO FRAME POLISHER NURSE FOR CONTINUITY OF CARE. PT STABLE AT THIS TIME.
--- NOTE | 2017-12-24 19:45 | NUR ---
RECEIVED FROM AM RN IN BED AWAKE AND ALERT. VERBALIZES WELL IN GUYANESE. DX. OF G.I. BLEED. HD PT. WITH LAV SHUNT. CALL LIGHT WITH IN REACH AND CARE PLANS FOR THE NIGHT DISCUSSED WITH HIM. BED ALARM ON . NO FURTHER RECTAL BLEEDING COMPLAINT AT THIS TIME.
[2017-12-24 20:56] VITALS: BP 136/79
[2017-12-24] MEDS: MIRTAZAPINE 15 MG TAB PO SCH (21:01)
[2017-12-24] MEDS: GABAPENTIN 300 MG CAP PO SCH (21:02)
[2017-12-24] MEDS: INSULIN LANTUS 100 UNITS/ML 10 ML VIAL SUBQ SCH (21:15)
[2017-12-24] MEDS: INSULIN LISPRO SLIDING SCALE 100 UNITS/ML VIAL SUBQ PRN (21:17)
--- NOTE | 2017-12-24 22:26 | NUR ---
PROVIDED WITH DM SNACK. ABLE TO VERBALIZE NEEDS WELL. NO SOB. NO COMPLAINTS OF ANY PAIN DONE AT THIS TIME. CALL LIGHT WITH IN REACH.
[2017-12-25] VITALS (7 sets, daily range): BP systolic 172–202; BP diastolic 87–102
--- NOTE | 2017-12-25 00:24 | NUR ---
SLEEPING AT THIS TIME. NO RESTLESSNESS NOTED.
--- NOTE | 2017-12-25 02:20 | NUR ---
CHECKED ON PT.NO RESTLESSNESS NOTED. SLEEPING. ABLE TO VERBALIZE NEEDS WELL WHEN AWAKE. IVF INFUSING WELL AND NO S/S OF INFILTRATION. BED ALARM AT BEDSIDE.
[2017-12-25] MEDS: cloNIDine 0.1 MG TAB PO SCH ×3 (05:56→21:55)
[2017-12-25] MEDS: LEVOTHYROXINE 0.025 MG TAB PO SCH (05:56)
[2017-12-25] MEDS: BLOOD GLUCOSE MONITORING 1 DEV DEV FS SCH ×4 (05:57→21:00)
[2017-12-25] MEDS: INSULIN LISPRO SLIDING SCALE 100 UNITS/ML VIAL SUBQ PRN ×3 (06:03→16:50)
--- NOTE | 2017-12-25 07:10 | NUR ---
CALLED VERO BARNES NURSE AT AND INFORMED OF PT. HD MD ORDER. VERO BARNES NURSE TOLD TO HOLD ALL BP MEDS.
[2017-12-25 07:19] LABS: BASOPHILS # (AUTO) 0.1 K/uL (0.00-0.22); BASOPHILS % (AUTO) 1.9 % (0.0-2.0); EOSINOPHILS # (AUTO) 0.4 K/uL (0-0.4); EOSINOPHILS % (AUTO) 7.8 % (0.0-4.0); HEMATOCRIT 25.9 % (36-52); HEMOGLOBIN 8.6 g/dL (12.0-18.0); LYMPHOCYTES % (AUTO) 18.3 % (20.5-51.1); MEAN CORPUSCULAR HEMOGLOBIN 32 pg (27-31); MEAN CORPUSCULAR HGB CONC 33 g/dL (33-37); MEAN CORPUSCULAR VOLUME 95.7 fL (80-94); MONOCYTES # (AUTO) 0.6 K/uL (0.8-1.0); MONOCYTES % (AUTO) 11.4 % (1.7-9.3); NEUTROPHILS # (AUTO) 3.2 K/uL (1.8-7.7); NEUTROPHILS % (AUTO) 60.6 % (42.2-75.2); PLATELET COUNT (AUTO) 205 K/uL (140-450); RED CELL DISTRIBUTION WIDTH 13.4 % (11.6-13.7); WHITE BLOOD COUNT (AUTO) 5.2 K/uL (4.8-10.8)
[2017-12-25 07:37] LABS: ANION GAP 13.5 (8-16); CARBON DIOXIDE 28.1 mmol/L (21-32); CREATININE 10.5 mg/dL (0.7-1.3); POTASSIUM 4.6 mmol/L (3.5-5.1)
[2017-12-25 07:59] LABS: MAGNESIUM 2.6 mg/dL (1.8-2.4); PHOSPHORUS 8.1 mg/dL (2.5-4.9)
--- NOTE | 2017-12-25 08:00 | NUR ---
INFORMED DR. GOMEZ THAT PT. BP [id number]/90 AT THIS TIME, NO ACUTE DISTRESS NOTICED, AND PER VERO GARZA HD NURSE NOT TO GIVE ALL BP MEDS DUE TO HD SCHEDULE TODAY. ALSO INFORMED CHARGE NURSE AYE CASTELLANOS -KATHERIN.
--- NOTE | 2017-12-25 08:00 | NUR ---
Patient's Plan of Care was discussed and reviewed with FRONT DESK PERSON: SELVIN MEJÍA
[2017-12-25] MEDS: levETIRAcetam 500 MG TAB PO SCH ×2 (08:35→21:53)
[2017-12-25] MEDS: CALCIUM ACETATE 667 MG TAB PO SCH ×3 (08:35→16:44)
[2017-12-25] MEDS: DOCUSATE SODIUM 250 MG GELCAP PO SCH (08:35)
[2017-12-25] MEDS: ASCORBIC ACID 500 MG TAB PO SCH ×2 (08:36→21:55)
[2017-12-25] MEDS: SENNA 8.6 MG TAB PO SCH (08:36)
[2017-12-25] MEDS: LACTULOSE 20 GM/30 ML UDC PO SCH (08:37)
--- NOTE | 2017-12-25 08:45 | NUR ---
DUE TO RECEIVING A FNS CONSULT, PATIENT HAS BEEN CATEGORIZED HIGH RISK. PATIENT WILL BE SEEN WITHIN 1-2 DAYS FROM RECEIVING FNS CONSULT. 12/25/17- 12/26/[address]
[2017-12-25] MEDS: NIFEdipine 60 MG TABER PO SCH (09:00)
[2017-12-25] MEDS: EPOETIN ALFA 4,000 UNITS/ML VIAL SUBQ SCH ×2 (09:00→14:11)
[2017-12-25] MEDS: RAMIPRIL 5 MG CAP PO SCH (09:00)
[2017-12-25] MEDS: ISOSORBIDE MONONITRATE 30 MG TABER PO SCH ×2 (09:00→21:52)
--- NOTE | 2017-12-25 09:55 | NUR ---
ASSISTED PT. TO BATHROOM. TOLERATED WELL. NO C/O PAIN.
--- NOTE | 2017-12-25 10:25 | NUR ---
CHRISTIAN -HD NURSE CAME FOR PT. SCHEDULED HD.
--- NOTE | 2017-12-25 13:36 | NUR ---
12/25/17 RD INITIAL ASSESSMENT COMPLETED PLEASE REFER TO NUTRITION ASSESSMENT UNDER CARE ACTIVITY FOR ESTIMATED NUTRITIONAL NEEDS. 1. CONTINUE RENAL AND CCHO 60 GM DIET TOLERATED 2. ENCOURAGE INCREASING PO INTAKE 3. RD TO FOLLOW-UP ON EATING HABITS AND NUTRITION EDUCATION 4. RD TO FOLLOW-UP 3-5 DAYS, MODERATE RISK ELIDA BADILLO RD
--- NOTE | 2017-12-25 14:11 | NUR ---
CHRISTIAN -HD NURSE GAVE [id number] UNITS VIA PT. HD ACCESS PER MD ORDER.
--- NOTE | 2017-12-25 14:38 | NUR ---
DR. GOMEZ CAME AND SEEN PT.. INFORMED DR. GOMEZ THAT PT. VS ESPECIALLY BP WAS 202/93 AT 1430.
[2017-12-25] MEDS ORDERED: NIFEdipine 60 MG TABER PO SCH (15:00)
[2017-12-25] MEDS ORDERED: ISOSORBIDE MONONITRATE 30 MG TABER PO SCH (15:00)
--- NOTE | 2017-12-25 16:55 | NUR ---
INFORMED DR. RIVERA THAT PT. VS AT 1645 ESPECIALLY BP WAS 195/102 AND PT. ASYMPTOMATIC.
[2017-12-25] MEDS: hydrALAZINE 20 MG/ML VIAL IVP PRN (17:06)
--- NOTE | 2017-12-25 18:52 | NUR ---
DR. CHENG CAME AND SEEN PT.. INFORMED DR. CHENG ABOUT PT. HIGH BP SINCE 0800 START OF SHIFT TILL 1809.
--- NOTE | 2017-12-25 19:22 | NUR ---
REPORT RECEIVED FROM MELIDA CHÁVEZ DAYSNHFT NURSE AT BEDSIDE FOR CONTINUITY OF CARE, PT IN STABLE CONDITION.
--- NOTE | 2017-12-25 19:22 | NUR ---
BEDSIDE REPORT GIVEN TO CIERRA CLARK -KATHERIN. IN STABLE CONDITION. ALSO ENDORSED ABOUT PT. HIGH BP DURING SHIFT.
--- NOTE | 2017-12-25 19:30 | NUR ---
NEW ORDER NOTED TRANDATE/LABETALOL 20MG IVP FOR ELEVATED B/P V/S FOLLOWS T 98.7 P 76 R 18 B/P 213/108 02 96% WITH R/A. FLY RAIL OPERATOR SEE CALLED BECAUSE MEDICATION NOT AVAILABLE O THE UNIT. AWAITING MEDICATION ARRIVAL. PT HAS NO C/O OF SYMPTOMS OF HIGH B/P.
[2017-12-25] MEDS ORDERED: LABETALOL 100 MG/20 ML VIAL ONE (20:07)
[2017-12-25] MEDS: LABETALOL 100 MG/20 ML VIAL IVP SCH ×2 (20:30→22:11)
[2017-12-25] MEDS: INSULIN LANTUS 100 UNITS/ML 10 ML VIAL SUBQ SCH (21:00)
--- NOTE | 2017-12-25 21:00 | NUR ---
PT GIVEN [id number] VIA IV SITE AT 24G IN R THUMB. MEDICATION GIVEN IV PUSH. FINGER STICK NOTED 155, PT DECLINES 2 UNITS OF COVERAGE. GIVEN LANTUS COVERAGE 10 UNITS ORDERED AND ALL ORAL PILLS DUE AT THIS TIME.
[2017-12-25] MEDS: GABAPENTIN 300 MG CAP PO SCH (21:53)
[2017-12-25] MEDS: MIRTAZAPINE 15 MG TAB PO SCH (21:54)
--- NOTE | 2017-12-25 22:00 | NUR ---
PRIMARY RESIDENT ON DUTY DR. DAN INFORMED PRIMARY NURSE THAT PT HAS BEEN HERE BEFORE AND THAT PT HAS HX OF EPISODE OF HIGH B/P, RESIDENT DOCTOR REQUEST THAT B/P BE TAKEN WITH PT SITTING IN UPRIGHT POSITION. PT B/P SITTING YUP AT 90% IS 181/82. MADE AWARE.
[2017-12-25] MEDS ORDERED: hydrALAZINE 25 MG TAB PO SCH (22:30)
[2017-12-26] VITALS: BP 153/83
--- NOTE | 2017-12-26 00:30 | NUR ---
PT IN BED, ALL REQUESTED NEEDS ATTENDED BY STAFF. PT V/S FOLLOWS: T 98.7 P 76 R 18 B/P 153/83 02 94 WITH R/A.
--- NOTE | 2017-12-26 03:00 | NUR ---
PT SLEEPING NO S/S OF PAIN OR DISTRESS NOTED BED LOW ALL FALLS AND SEIZURE PRECAUTIONS IN PLACE.
[2017-12-26] MEDS: cloNIDine 0.1 MG TAB PO SCH (05:00)
--- NOTE | 2017-12-26 05:53 | NUR ---
LAB DRAWS AT BEDSIDE.
[2017-12-26] MEDS: LEVOTHYROXINE 0.025 MG TAB PO SCH (06:27)
[2017-12-26] MEDS: BLOOD GLUCOSE MONITORING 1 DEV DEV FS SCH ×2 (07:13→11:54)
--- NOTE | 2017-12-26 07:37 | NUR ---
ENDORSED CARE TO CORINE GOOD DAYSHIFT NURSE FOR CONTINUITY OF CARE, PT IN STABLE CONDITION
--- NOTE | 2017-12-26 07:38 | NUR ---
RECEIVED BEDSIDE REPORT FROM HARDENER HELPER NURSE. PATIENT IS SLEEPING. NO SIGNS OF DISTRESS ON RA. PATIENT IN LEGALLY BLIND. SIGNS POSTED. FALL RISK PROTOCOL IN PLACE. PLACED PATIENT ON SEIZURE PRECAUTIONS. SIGNS POSTED. AV SHUNT ON L ARM, NO B/P OR VENIPUNCTURE ON L ARM SIGN POSTED. AMBULATE W ASSIST. SKIN IS INTACT. MED SURGE PATIENT. R THUMB 24G SALINE LOCK. CLEAN, DRY AND INTACT. BED IN LOW POSITION. BED ALARM IS ON. WILL CONTINUE TO MONITOR THE PATIENT. CALL LIGHT IS WITHIN REACH.
[2017-12-26 08:00] VITALS: BP 133/68
[2017-12-26] MEDS: levETIRAcetam 500 MG TAB PO SCH (08:51)
[2017-12-26] MEDS: CALCIUM ACETATE 667 MG TAB PO SCH (08:51)
[2017-12-26] MEDS: ISOSORBIDE MONONITRATE 30 MG TABER PO SCH (08:52)
[2017-12-26] MEDS: RAMIPRIL 5 MG CAP PO SCH (08:52)
[2017-12-26] MEDS: ASCORBIC ACID 500 MG TAB PO SCH (08:52)
[2017-12-26] MEDS: NIFEdipine 60 MG TABER PO SCH (08:52)
[2017-12-26] MEDS: DOCUSATE SODIUM 250 MG GELCAP PO SCH (08:56)
[2017-12-26] MEDS: LACTULOSE 20 GM/30 ML UDC PO SCH (08:56)
[2017-12-26] MEDS: SENNA 8.6 MG TAB PO SCH (08:57)
--- NOTE | 2017-12-26 08:57 | NUR ---
ADMINISTERED MEDS. PATIENT TOLERATED WELL. PATIENT REFUSED SENNA, LACTULOSE AND COLACE AT THIS TIME. HE SAID HE DOES NOT NEED IT
[2017-12-26] MEDS ORDERED: hydrALAZINE 25 MG TAB PO SCH ×2 (09:00→10:10)
--- NOTE | 2017-12-26 09:20 | NUR ---
PT WORKING WITH THE PATIENT AT THIS TIME. WILL CONTINUE TO MONITOR THE PATIENT
[2017-12-26 09:33] LABS: HEMATOCRIT 32.5 % (36-52); HEMOGLOBIN 10.4 g/dL (12.0-18.0); LYMPHOCYTES % (AUTO) 19.6 % (20.5-51.1); MEAN CORPUSCULAR HEMOGLOBIN 32 pg (27-31); MEAN CORPUSCULAR HGB CONC 32 g/dL (33-37); MEAN CORPUSCULAR VOLUME 98.3 fL (80-94); NEUTROPHILS % (AUTO) 63.2 % (42.2-75.2); PLATELET COUNT (AUTO) 259 K/uL (140-450); RED BLOOD CELL COUNT(AUTO) 3.31 MIL/uL (4.20-6.10); WHITE BLOOD COUNT (AUTO) 4.9 K/uL (4.8-10.8)
[2017-12-26 09:34] LABS: BASOPHILS % (AUTO) 0.7 % (0.0-2.0); EOSINOPHILS # (AUTO) 0.3 K/uL (0-0.4); EOSINOPHILS % (AUTO) 5.8 % (0.0-4.0); MONOCYTES # (AUTO) 0.5 K/uL (0.8-1.0); MONOCYTES % (AUTO) 10.7 % (1.7-9.3); NEUTROPHILS # (AUTO) 3.1 K/uL (1.8-7.7)
[2017-12-26 09:55] LABS: ANION GAP 12.3 (8-16); CARBON DIOXIDE 31.7 mmol/L (21-32)
[2017-12-26 09:58] LABS: MAGNESIUM 2.4 mg/dL (1.8-2.4); PHOSPHORUS 6.5 mg/dL (2.5-4.9)
[2017-12-26 09:59] LABS: CREATININE 7.5 mg/dL (0.7-1.3)
--- NOTE | 2017-12-26 10:05 | NUR ---
Front Desk Assistant Note: I faxed patient's updated medical information to [facility]. Per Director Investor Relations Ileana, patient is not on isolation. Per Kenn from [facility] , patient can go to room 9C at their facility any time today, accepting physician is , and Director Investor Relations Ileana made aware.
[2017-12-26] MEDS ORDERED: PHEN1OIN TP (10:16)
[2017-12-26] MEDS ORDERED: RAMI5CAP21 PO (10:16)
[2017-12-26] MEDS ORDERED: DOCU-299 PO (10:16)
[2017-12-26] MEDS ORDERED: LACT10SO11 PO (10:16)
[2017-12-26] MEDS ORDERED: PROC4I SUBQ (10:16)
[2017-12-26] MEDS ORDERED: PHO667 PO (10:16)
[2017-12-26] MEDS ORDERED: D50SYR IVP (10:16)
[2017-12-26] MEDS ORDERED: DOCU-463 PO (10:16)
[2017-12-26] MEDS ORDERED: HUMSLIDE SUBQ (10:16)
[2017-12-26] MEDS ORDERED: SENN-89 PO (10:16)
[2017-12-26] MEDS ORDERED: LANTUS SUBQ (10:16)
[2017-12-26] MEDS ORDERED: GLUC-805 FS (10:16)
--- NOTE | 2017-12-26 10:45 | NUR ---
CALLED DANIELLE BOOTH AND LAWSON BEGUM AT [phone] AND [phone] NO ANSWER, LEFT A MESSAGE. PATIENT NEEDS TO BE PICKED UP PER CASE MANAGEMENT, CALLED PARENTS TO SEE IF THEY CAN PICK HIM UP. PER RAFA IT WOULD BE ABOUT 50DOLLARS FOR TRANSPORT.
--- NOTE | 2017-12-26 10:51 | NUR ---
PATIENT SAID HE IS SURE HIS DAD WILL PICK HIM UP. WILL AWAIT HIS DADS CALL BACK.
--- NOTE | 2017-12-26 11:30 | NUR ---
G[place] [facility] [place] ANSWERED ALL QUESTIONS AT THIS TIME. GAVE CALL BACK NUMBER
[2017-12-26] MEDS ORDERED: PNEUMOCOCCAL VACCINE 23 MCG/0.5 ML VIAL IMVAC SCH (11:35)
--- NOTE | 2017-12-26 11:55 | NUR ---
DAD HERE TO DOOR OPERATOR PATIENT. EDUCATED PATIENT AND DAD ON DISEASE PROCESS, ABN S/SX, WHEN TO GO TO THE ER, MEDICATIONS, EDUCATED ON F/U WITH PCP. ADMINISTERED PNA AND FLU VACCINES. PATIENT TOLERATED WELL. IVS REMOVED. IV TIPS ARE INTACT. ID BANDS REMOVED. PATIENT CHANGED IN NORMAL CLOTHES AND LEFT IN WHEELCHAIR IN STABLE CONDITION. DAD SIGNED ALL PAPERWORK AND LEFT.
--- NOTE | 2017-12-26 13:06 | NUR ---
LATE ENTRY FOR 10:30 SPOKE WITH JODY, QUOTE FOR WHEELCHAIR TRANSPORT IS ABOUT $47.50 AND INFORMED PATIENT'S FATHER DANIELLE YOU. PER PATIENT'S FATHER HE WILL MENSWEAR SALESPERSON HIS SON [place] [facility] [place]
[2017-12-26] MEDS ORDERED: INSULIN LANTUS 100 UNITS/ML 10 ML VIAL SUBQ SCH (21:00)
== END 2017-12-26 11:55 | disposition home or self-care (01) | DRG 393 ==
LOC: MED 10:14 → MTU 11:14
PROVIDERS: ADMIT General Practice; ATTEND General Practice
PROC: 5A1D70Z Performance of Urinary Filtration, Intermittent, Less than 6 Hours Per Day (ICD-10-PCS; 2017-12-22)
PROC: 0DJD8ZZ Inspection of Lower Intestinal Tract, Via Natural or Artificial Opening Endoscopic (ICD-10-PCS; principal; 2017-12-24 13:25)
PROC: 5A1D70Z Performance of Urinary Filtration, Intermittent, Less than 6 Hours Per Day (ICD-10-PCS; 2017-12-25)
DX: K64.8 Other hemorrhoids (principal); N18.6 End stage renal disease; I50.43 Acute on chronic combined systolic (congestive) and diastolic (congestive) heart failure; G93.41 Metabolic encephalopathy; N17.0 Acute kidney failure with tubular necrosis; I13.2 Hypertensive heart and chronic kidney disease with heart failure and with stage 5 chronic kidney disease, or end stage renal disease; E44.0 Moderate protein-calorie malnutrition; K64.4 Residual hemorrhoidal skin tags; K21.9 Gastro-esophageal reflux disease without esophagitis; E10.22 Type 1 diabetes mellitus with diabetic chronic kidney disease; E10.319 Type 1 diabetes mellitus with unspecified diabetic retinopathy without macular edema; E10.42 Type 1 diabetes mellitus with diabetic polyneuropathy; E10.43 Type 1 diabetes mellitus with diabetic autonomic (poly)neuropathy; E10.65 Type 1 diabetes mellitus with hyperglycemia; E03.9 Hypothyroidism, unspecified; G40.909 Epilepsy, unspecified, not intractable, without status epilepticus; F32.9 Major depressive disorder, single episode, unspecified; D63.8 Anemia in other chronic diseases classified elsewhere; F41.9 Anxiety disorder, unspecified; K31.84 Gastroparesis; F29 Unspecified psychosis not due to a substance or known physiological condition; E83.39 Other disorders of phosphorus metabolism; E83.41 Hypermagnesemia; E78.5 Hyperlipidemia, unspecified; H54.8 Legal blindness, as defined in USA; Z99.2 Dependence on renal dialysis; Z88.1 Allergy status to other antibiotic agents; Z88.8 Allergy status to other drugs, medicaments and biological substances; Z79.899 Other long term (current) drug therapy; Z86.73 Personal history of transient ischemic attack (TIA), and cerebral infarction without residual deficits; Z91.19 Patient's noncompliance with other medical treatment and regimen; Z82.5 Family history of asthma and other chronic lower respiratory diseases; Z82.49 Family history of ischemic heart disease and other diseases of the circulatory system; Z68.21 Body mass index [BMI] 21.0-21.9, adult
CPT/HCPCS: 36415; 80048; 80053; 82140; 82150; 82272; 82948; 83036; 83690; 83735; 83880; 84100; 84134; 84436; 84443; 84484; 85025; 85610; 85730; 86886; 86900; 86901; 86920; 87045; 87081; 89055; 90658; 90732; 90935; 93005; 97110; 97116; 97530; 99285; C9113; J0360; J0885; J1200; J1610; J1630; J1815; J2060; J2250; J2405; J2765; J3010; J3490; J7030; J7042

== ENCOUNTER 2018-02-02 03:50 | Inpatient (IN) | payer OTHER ==
[~2018-02-02] VITALS: Ht 182.9 cm; Wt 72.6 kg
[2018-02-02 03:50] VITALS: BP 212/101
[~2018-02-02 03:50] MED LIST changes: +DOCU-463 PO; +GABA300C PO; +GLUC-805 FS; +HUMSLIDE SUBQ; +ISOS30TE PO; -ISOS30TE35 PO; +LACT10SO11 PO; +MIRT30TA PO; +PHEN1OIN TP; +PROC4I SUBQ; -RAMI5CAP21 PO; +RAMI5CAP73 PO; +SENN-89 PO
--- NOTE | 2018-02-02 03:50 | NUR ---
Patient BIBA BLS from [facility], transferred to bed 11. RN evaluating patient at bedside.
--- NOTE | 2018-02-02 03:50 | NUR ---
42/M BIBA FROM [facility] S/P MECHANICAL FALL, PER EMS PT WAS FOUND ON THE FLOOR LYING ON HIS LEFT SIDE BY [facility] STAFF. FACILITY CHECKED BS- AT 40, GIVEN GLUCAGON AND SANDWICH, BS 162 AT 0315. PT AOX4, GCS 15. PT STATES " I DONT KNOW WHAT HAPPENED". DENIES ANY PAIN, LEFT ARM/LEG WITHOUT DEFORMITY, LEFT SIDE OF BODY WITHOUT ANY COMPLAINTS OR S/S OF INJURY. PMH: DM, HTN, DIALYSIS (/), TBI Addendum: 02/02/18 at 0544 by MEDDESIREE UNKNOWN IF LOC/HEAD INJURY. DENIES HEADACHE/ NECK PAIN, SCALP INTACT.
[2018-02-02] MEDS ORDERED: INSU100I7 SQ (04:23)
[2018-02-02] MEDS ORDERED: GLU1I IM (04:23)
[2018-02-02] MEDS ORDERED: TRAM50TA1 PO (04:23)
[2018-02-02] MEDS ORDERED: ASCO-770 PO (04:23)
[2018-02-02] MEDS ORDERED: MIRT30TA PO (04:23)
--- NOTE | 2018-02-02 04:23 | NUR ---
PT SENT TO CT VIA BED WITH DIRECTOR CLIENT AND EMT GHULAM MCKEON
--- NOTE | 2018-02-02 05:35 | NUR ---
PT MADE AWARE OF RELIGIOUS ASSISTANT TIME
--- NOTE | 2018-02-02 05:35 | NUR ---
[facility] BLS ETA FOR PICKUP : 2 HOURS. [facility] STAFF INFORMED REGARDING PT STATUS
--- NOTE | 2018-02-02 07:01 | NUR ---
Patient discharged with v/s stable. Written and verbal after care instructions given and explained. Patient verbalized understanding. Ambulance Transport with [facility] to skilled nursing. All questions addressed prior to discharge. Advised to follow up with PMD.
[2018-02-02] MEDS ORDERED: NITROGLYCERIN 0.4 MG TAB SL ONE ×3 (07:15→07:35)
[2018-02-02] MEDS ORDERED: hydrALAZINE 20 MG/ML VIAL IVP STA (07:29)
--- NOTE | 2018-02-02 07:31 | NUR ---
BP 216/116 PRIOR TO NITROSTAT ADMINISTRATION
--- NOTE | 2018-02-02 07:38 | NUR ---
PATIENT REFUSED EKG. FIONA SPARROW MADE AWARE
[2018-02-02] MEDS: NACL 0.9% 1,000 ML IV SCH (07:42)
--- NOTE | 2018-02-02 07:43 | NUR ---
XRAY AT BEDSIDE
--- NOTE | 2018-02-02 07:44 | NUR ---
PT REFUSED XRAY
[2018-02-02] MEDS ORDERED: ACETAMINOPHEN 325 MG TAB PO PRN (07:45)
[2018-02-02] MEDS ORDERED: DOCUSATE SODIUM 100 MG GELCAP PO PRN (07:45)
[2018-02-02] MEDS ORDERED: HYDROcodone/APAP 5/325 MG 1 TAB TAB PO PRN (07:45)
[2018-02-02] MEDS ORDERED: ONDANSETRON 4 MG/2 ML VIAL IM/IVP PRN (07:45)
[2018-02-02] MEDS ORDERED: LORazepam 2 MG/ML VIAL IM/IVP PRN (07:45)
[2018-02-02] MEDS ORDERED: ZOLPIDEM 5 MG TAB PO PRN (07:45)
--- NOTE | 2018-02-02 07:50 | NUR ---
PT REFUSE IV START WITH HYRALAZINE MEDICATION. BP 181/[address] SNOW NOTIFIED. RESEARCH ATTORNEY ISAAC NOTIFIED
--- NOTE | 2018-02-02 08:07 | NUR ---
LAB AT BEDSIDE
[2018-02-02 08:20] LABS: BASOPHILS # (AUTO) 0.1 K/uL (0.00-0.22); BASOPHILS % (AUTO) 0.8 % (0.0-2.0); EOSINOPHILS # (AUTO) 0.2 K/uL (0-0.4); EOSINOPHILS % (AUTO) 2.4 % (0.0-4.0); HEMOGLOBIN 11.6 g/dL (12.0-18.0); LYMPHOCYTES # (AUTO) 0.7 K/uL (2.0-11.5); LYMPHOCYTES % (AUTO) 9.1 % (20.5-51.1); MEAN CORPUSCULAR HEMOGLOBIN 31 pg (27-31); MEAN CORPUSCULAR HGB CONC 33 g/dL (33-37); MEAN CORPUSCULAR VOLUME 93.8 fL (80-94); MONOCYTES # (AUTO) 0.5 K/uL (0.8-1.0); MONOCYTES % (AUTO) 7.3 % (1.7-9.3); NEUTROPHILS # (AUTO) 5.9 K/uL (1.8-7.7); NEUTROPHILS % (AUTO) 80.4 % (42.2-75.2); PLATELET COUNT (AUTO) 242 K/uL (140-450); RED BLOOD CELL COUNT(AUTO) 3.73 MIL/uL (4.20-6.10); RED CELL DISTRIBUTION WIDTH 15.9 % (11.6-13.7); WHITE BLOOD COUNT (AUTO) 7.3 K/uL (4.8-10.8)
[2018-02-02] MEDS ORDERED: INSULIN REGULAR, HUMAN 100 UNIT/ML VIAL SUBQ ONE (08:25)
--- NOTE | 2018-02-02 08:34 | NUR ---
PT TAKEN TO FLOOR BY KATHERIN HASSAN AND DEB SHEEHAN
[2018-02-02 08:45] VITALS: BP 220/108
--- NOTE | 2018-02-02 08:45 | NUR ---
PT ARRIVED ON THE UNIT WITH 2 ER NURSES. PT IS AWAKE AND ORIENTED. PT SCOOTED FROM THE GURNEY TO BED. INTRODUCED MYSELF AND UPDATED THE BOARD. PER ER NURSE, BP WAS VERY HIGH AND BS WAS HIGH. GAVE INSULIN COVERAGE OF 10 UNITS. PER ER NURSE, PT REFUSED IV ACCESS. PT HAS A DIALYSIS ACCESS ON L FA. PER FACILITY PT HAS HAD A FALL. PER PT, PT DOES NOT REMEMBER FALLING. PER PT, PT NORMALLY TAKE A LOT OF MORNING MEDS. HE HAS NOT TAKEN ANY. WOULD LIKE HIS MEDS SOON. PT C/O BEING HUNGRY. NOW ORDERS ARE NPO EXCEPT MEDS BUT WILL TALK TO MD ABOUT CHANGING ORDERS. V/S DONE. V/S: 97.7F, 220/108, 74, 97%, 20R. WILL CONTINUE WITH ADMISSION PROCESS. Addendum: 02/02/18 at 1032 by Tamiko Francisco RN SKIN INTACT. DIALYSIS DUE TODAY.
--- NOTE | 2018-02-02 08:45 | NUR ---
Patient will be admitted to care of Dr Tiwari. Admited to tele. Pt transported to room 114 with chief technical officer Jamee. Belongings list completed. Report to KATHERIN Morrison.
[2018-02-02 08:50] LABS: ALBUMIN 3.5 g/dL (3.4-5.0); TOTAL BILIRUBIN 0.5 mg/dL (0.0-1.0)
[2018-02-02 08:56] LABS: CREATININE 12.4 mg/dL (0.7-1.3)
[2018-02-02] MEDS ORDERED: RAMIPRIL 5 MG PO SCH (09:10)
[2018-02-02] MEDS ORDERED: hydrALAZINE 20 MG/ML VIAL IVP PRN (09:10)
[2018-02-02 09:14] LABS: PROTHROMBIN TIME 13.2 secs (10.8-13.4)
[2018-02-02] MEDS ORDERED: NIFEdipine 60 MG TABER PO SCH (09:30)
[2018-02-02] MEDS ORDERED: LISINOPRIL 10 MG TAB PO SCH (09:30)
[2018-02-02 09:45] VITALS: BP 180/98
[2018-02-02] MEDS ORDERED: LORazepam 1 MG TAB PO PRN (10:00)
[2018-02-02] MEDS ORDERED: MECLIZINE 25 MG TAB PO PRN (10:00)
[2018-02-02] MEDS ORDERED: LEVOTHYROXINE SODIUM 0.025 MG PO SCH (10:00)
[2018-02-02] MEDS ORDERED: DEXTROSE 50% 50 ML SYR IVP PRN (10:00)
--- NOTE | 2018-02-02 10:00 | NUR ---
CALLED [facility] TO REQUEST LATE BREAKFAST TRAY FOR THE PATIENT BECAUSE THE PATIENT WAS COMPLAINING OF HUNGER. PATIENT WAS PUT ON RENAL DIET PER DR SCHREIBER.
[2018-02-02] MEDS ORDERED: ALBUTEROL 0.083% 2.5 MG/3 ML NEBU INH PRN (10:15)
--- NOTE | 2018-02-02 10:15 | NUR ---
PATIENT TRAY WAS GIVEN TO THE PATIENT BUT PATIENT REFUSED. PATIENT STATED THAT HE IS UNABLE TO HAVE CARBS AND FRUITS BECAUSE OF HIS BLOOD SUGAR LEVEL. HE REFUSED HIS SANDWICH, SLICES OF PEARS, AND DECAF TEA. HE SAID HE WANTS TO EAT THE SUGAR FREE JELLO, BUT THEN HE CHANGED HIS MIND AND REFUSED JELLO WELL. Addendum: 02/02/18 at 1103 by Tamiko Francisco RN ADMINISTERED MRSA SCREENING. ADMINISTERED YELLOW ARM, YELLOW SOCKS, YELLOW SIGN ON DOOR, GOWN. REMINDED PT TO CALL NURSE BEFORE GETTING UP. BED IN LOWEST POSITION. CALL LIGHT WITHIN REACH. PHONE IN REACH. WILL CONTINUE TO MONITOR PT.
--- NOTE | 2018-02-02 10:27 | NUR ---
PATIENT REQUESTED TO HAVE HIS BS DONE AT THIS TIME. BLOOD SUGAR LEVEL 187.
--- NOTE | 2018-02-02 10:28 | NUR ---
PATIENT HAS BEEN SCREENED AND CATEGORIZED MODERATE NUTRITION RISK. PATIENT WILL BE SEEN WITHIN 3-5 DAYS OF ADMISSION. 02/05/18-02/07/18 CHELITA STONE MS, RDN
--- NOTE | 2018-02-02 10:44 | NUR ---
RECHECKED PATIENT'S BP: 180/98
[2018-02-02] MEDS ORDERED: LEVOTHYROXINE 0.025 MG TAB PO SCH (11:00)
[2018-02-02] MEDS ORDERED: LACTULOSE 20 GM/30 ML UDC PO SCH (11:00)
[2018-02-02] MEDS ORDERED: SENNA 8.6 MG TAB PO SCH (11:00)
[2018-02-02] MEDS ORDERED: LORazepam 2 MG/ML VIAL IVP PRN (11:15)
[2018-02-02] MEDS: BLOOD GLUCOSE MONITORING 1 DEV DEV FS SCH ×3 (11:30→20:37)
[2018-02-02 12:00] VITALS: BP 177/96
[2018-02-02] MEDS: CALCIUM ACETATE 667 MG TAB PO SCH ×3 (12:30→18:48)
--- NOTE | 2018-02-02 12:30 | NUR ---
ADMINISTERED SCHEDULED MEDICATIONS. PATIENT REFUSED LACTULOSE AND SENNA. MEDICATIONS RETURNED TO [facility].
[2018-02-02] MEDS ORDERED: hydrALAZINE 25 MG TAB PO SCH (13:00)
--- NOTE | 2018-02-02 13:10 | NUR ---
HD NURSE HERE. COPIES OF ORDER, LABS, AND CONSENT, 2 L NS GIVEN TO THE HD NURSE.
[2018-02-02 13:59] LABS: CHOL/HDL RATIO 1.6 (1-4.5); FREE T4 (FREE THYROXINE) 0.73 ng/dL (0.76-1.46); MAGNESIUM 2.8 mg/dL (1.8-2.4); PHOSPHORUS 8.3 mg/dL (2.5-4.9); THYROID STIMULATING HORMONE 2.06 uIU/mL (0.34-3.74)
[2018-02-02 14:05] LABS: CREATINE KINASE MB 0.9 ng/mL (0-3.6)
--- NOTE | 2018-02-02 15:00 | NUR ---
PT SLEEPING. PLEAT PATTERNMAKER AT BEDSIDE. TOLERATING WELL. BP STEADY. WILL CONTINUE TO MONITOR PT.
[2018-02-02 16:00] VITALS: BP 151/77
--- NOTE | 2018-02-02 17:23 | NUR ---
HD NURSE GAVE REPORT. PT FINISHED HD. FINAL BP 173/57, HR 74. NO FEVER. TOTAL FLUID REMOVED 3L. PT TOLERATED WELL. WILL GIVE 1700 BP MEDS THAT WAS HELD EARLIER.
[2018-02-02] MEDS ORDERED: HALOPERIDOL IM 5 MG/ML VIAL IM ONE (17:55)
--- NOTE | 2018-02-02 18:01 | NUR ---
PATIENT HAD AN MOMENT OF OUTBURST. HE WAS VERBALLY AGGRESSIVE. HE SAYING THAT HE "HATES HOSPITALS" AND THAT "I WANT TO LEAVE", CALLED SECURITY.
[2018-02-02] MEDS: INSULIN LISPRO SLIDING SCALE 100 UNITS/ML VIAL SUBQ PRN ×2 (18:21→20:45)
--- NOTE | 2018-02-02 18:21 | NUR ---
PATIENT REFUSED MEDICATION, DINNER, TIME STUDY TECHNICIAN LEAD CHANGE (MONITOR BATTERY LOW AND LEAD STICKERS ARE COMING OFF THE PATIENT'S SKIN), AND INSULIN COVERAGE. PATIENT WAS ABLE TO CALM HIMSELF DOWN AND WANTED TO SLEEP; BE LEFT ALONE. WILL NOTIFY DR. SCHREIBER.
[2018-02-02] MEDS: hydrALAZINE 25 MG TAB PO SCH (18:48)
--- NOTE | 2018-02-02 18:51 | NUR ---
PATIENT TOOK HYDRALAZINE AND PHOSLO. HE STILL HAD OCCASIONAL VERBAL OUTBURSTS; BUT TOLERATED THE MEDICATION WELL.
--- NOTE | 2018-02-02 19:30 | NUR ---
RECEIVED BEDSIDE REPORT FROM KATHERIN GANDHI, PATIENT STATED HS IS BLIND, ON SEIZURE, AND FALL PRECAUTIONS. HAS LEFT AV SHUNT, MOVED PATIENT TO BED WITH BED ALARM. NOTED BG 394 ADMINISTERED 10 U INSULIN ACCORDING TO MD ORDER. PATIENT REFUSED SOME DUE MEDICATIONS AND TELE BOX, PATIENT REFUSED TO WEAR FALL GOWN, NOTED TO BE VERBALLY AGGRESSIVE TOWARDS STAFF. REFUSED IV ACCESS. WILL CONTINUE TO MONITOR.
--- NOTE | 2018-02-02 19:33 | NUR ---
ENDORSED PATIENT TO ENVIRONMENTAL SERVICES FLOOR TECH RN BY HIS BED SIDE FOR CONTINUITY OF CARE. PATIENT IS IN STABLE CONDITION. BED AT THE LOWEST POSITION AND CALL LIGHT WITHIN REACH.
[2018-02-02 20:00] VITALS: BP 163/83
[2018-02-02] MEDS: DOCUSATE SODIUM 100 MG GELCAP PO SCH (20:24)
[2018-02-02] MEDS: ASCORBIC ACID 500 MG TAB PO SCH (20:25)
[2018-02-02] MEDS: levETIRAcetam 500 MG TAB PO SCH (20:36)
[2018-02-02] MEDS: ISOSORBIDE DINITRATE 20 MG TAB PO SCH (20:36)
[2018-02-02] MEDS ORDERED: SIMVASTATIN 40 MG TAB PO SCH (21:00)
[2018-02-02] MEDS ORDERED: GABAPENTIN 300 MG CAP PO SCH (21:00)
[2018-02-02] MEDS ORDERED: INSULIN GLARGINE HUM REC ANLOG 12 UNIT SQ SCH (21:00)
[2018-02-02] MEDS ORDERED: MIRTAZAPINE 15 MG TAB PO SCH (21:00)
[2018-02-02] MEDS ORDERED: INSULIN LANTUS 100 UNITS/ML 10 ML VIAL SUBQ SCH (21:00)
--- NOTE | 2018-02-02 21:30 | NUR ---
PATIENT STATED TO LEAVE ALONE. BED ALARM ON WILL CONTINUE TO MONITOR.
[2018-02-03] VITALS: BP 170/80
--- NOTE | 2018-02-03 | NUR ---
V/S TAKEN, BP 170/80, WITHIN BASELINE. REFUSED TELE BOX AND IV INSERTION.
[2018-02-03] MEDS: NACL 0.9% 1,000 ML IV SCH (00:22)
--- NOTE | 2018-02-03 02:00 | NUR ---
PATIENT AWAKE IN BED NO SIGNS OF DISTRESS, BED ALARM ON, WILL CONTINUE TO MONITOR.
[2018-02-03 04:00] VITALS: BP 161/80
--- NOTE | 2018-02-03 04:00 | NUR ---
V/S TAKEN BP 161/80. DENIES PAIN, STATED HE DOES NOT WANT SCHEDULED THYROID MEDICATION. STATES HE WILL ALLOW ME TO CHECK BLOOD SUGAR. REPOSITIONED FOR COMFORT WILL CONTINUE TO MONITOR.
--- NOTE | 2018-02-03 05:21 | NUR ---
BLOOD GLUCOSE 296 WILL MEDICATE ACCORDING TO MD ORDER WITH INSULIN.
[2018-02-03] MEDS: INSULIN LISPRO SLIDING SCALE 100 UNITS/ML VIAL SUBQ PRN (06:14)
[2018-02-03] MEDS: BLOOD GLUCOSE MONITORING 1 DEV DEV FS SCH ×2 (06:27→12:24)
[2018-02-03] MEDS ORDERED: LEVOTHYROXINE 0.025 MG TAB PO SCH (06:30)
--- NOTE | 2018-02-03 07:24 | NUR ---
ENDORSED PATIENT TO DAY SHIFT NURSE DENI MACE. Addendum: 02/03/18 at 0725 by Charito Garza RN DAY SHIFT NURSE PHILLIP
--- NOTE | 2018-02-03 07:30 | NUR ---
RECEIVED PATIENT FROM INTAKE MANAGER RN. PATIENT IS CALM AND COOPERATIVE. ALERT AND ORIENTED. PATIENT STATES THAT HE IS NOT IN ANY PAIN AT THIS TIME. PATIENT IS NOT WEARING HIS YELLOW GOWN. WILL ASK AND EXPLAIN TO THE PATIENT ABOUT THE IMPORTANCE OF WEARING THE HOSPITAL GOWN WHILE IN THE UNIT. PATIENT DENIES ANY PAIN; SKIN WARM AND INTACT. EVEN UNLABORED BREATHING ON ROOM AIR. PATIENT STATES THAT HE WOULD LIKE TO GO BACK TO [facility]. [place]. FARFAN SPOKE WITH THE PATIENT REGARDING THE PLAN OF CARE. BED IS AT THE LOWEST POSITION WITH CALL LIGHT WITHIN REACH SINCE HE IS BLIND. WILL CONTINUE TO MONITOR THE PATIENT
[2018-02-03 08:00] VITALS: BP 193/101
[2018-02-03] MEDS: CALCIUM ACETATE 667 MG TAB PO SCH ×2 (08:00→12:51)
[2018-02-03] MEDS: ISOSORBIDE DINITRATE 20 MG TAB PO SCH (08:38)
[2018-02-03] MEDS: DOCUSATE SODIUM 100 MG GELCAP PO SCH (08:48)
[2018-02-03] MEDS: levETIRAcetam 500 MG TAB PO SCH (08:49)
[2018-02-03] MEDS: ASCORBIC ACID 500 MG TAB PO SCH (08:50)
--- NOTE | 2018-02-03 08:52 | NUR ---
PATIENT TOOK MORNING BLOOD PRESSURE MEDICATIONS ONLY. REFUSED OTHER MEDICATIONS SAYING "I DON'T NEED IT". EXPLAINED TO THE PATIENT OF THE REASON FOR TAKING THE MEDICATION WELL THE CONSEQUENCES OF NOT TAKING THE MEDICATION. PATIENT UNDERSTOOD. PATIENT TOLERATED WELL.
--- NOTE | 2018-02-03 08:53 | NUR ---
PATIENT AGREED TO GETTING LAB DRAWN AGAIN AFTER REFUSING THE FIRST TRY. REVIEW THE PLAN OF CARE WITH THE PATIENT SAYING THAT THE PROP SETTER WILL BE COMING IN TO UPDATE HIM WITH THE PLAN OF CARE. PATIENT UNDERSTOOD. HE APPEARS TO BE MORE CALM AND COOPERATIVE WITH THE PLAN. WILL CONTINUE TO MONITOR THE PATIENT. PATIENT ALSO AGREED TO WEAR THE YELLOW GOWN.
[2018-02-03] MEDS ORDERED: OLOPATADINE HCL OP SCH (09:00)
[2018-02-03] MEDS ORDERED: NIFEdipine 60 MG TABER PO SCH (09:00)
[2018-02-03] MEDS ORDERED: SENNA 8.6 MG TAB PO SCH (09:00)
[2018-02-03] MEDS ORDERED: LISINOPRIL 10 MG TAB PO SCH (09:00)
[2018-02-03] MEDS ORDERED: FAMOTIDINE 20 MG TAB PO SCH (09:00)
[2018-02-03] MEDS ORDERED: hydrALAZINE 25 MG TAB PO SCH (09:00)
[2018-02-03] MEDS: hydrALAZINE 25 MG TAB PO SCH ×2 (09:00→12:51)
[2018-02-03] MEDS ORDERED: LACTULOSE 20 GM/30 ML UDC PO SCH (09:00)
[2018-02-03 09:01] LABS: BASOPHILS # (AUTO) 0.1 K/uL (0.00-0.22); BASOPHILS % (AUTO) 1.6 % (0.0-2.0); EOSINOPHILS # (AUTO) 0.3 K/uL (0-0.4); EOSINOPHILS % (AUTO) 5.4 % (0.0-4.0); HEMATOCRIT 34.4 % (36-52); HEMOGLOBIN 11.4 g/dL (12.0-18.0); LYMPHOCYTES % (AUTO) 16.9 % (20.5-51.1); MEAN CORPUSCULAR HEMOGLOBIN 31 pg (27-31); MEAN CORPUSCULAR HGB CONC 33 g/dL (33-37); MEAN CORPUSCULAR VOLUME 93.8 fL (80-94); MONOCYTES # (AUTO) 0.7 K/uL (0.8-1.0); MONOCYTES % (AUTO) 12.1 % (1.7-9.3); NEUTROPHILS # (AUTO) 3.6 K/uL (1.8-7.7); PLATELET COUNT (AUTO) 231 K/uL (140-450); RED BLOOD CELL COUNT(AUTO) 3.67 MIL/uL (4.20-6.10); RED CELL DISTRIBUTION WIDTH 15.6 % (11.6-13.7); WHITE BLOOD COUNT (AUTO) 5.6 K/uL (4.8-10.8)
[2018-02-03 09:23] LABS: ANION GAP 11.5 (8-16); CARBON DIOXIDE 29.3 mmol/L (21-32); POTASSIUM 3.8 mmol/L (3.5-5.1)
[2018-02-03 09:28] LABS: MAGNESIUM 2.4 mg/dL (1.8-2.4); PHOSPHORUS 4.2 mg/dL (2.5-4.9)
[2018-02-03 09:33] LABS: CREATININE 7.9 mg/dL (0.7-1.3)
--- NOTE | 2018-02-03 10:25 | NUR ---
PATIENT IS SLEEPING ON HIS BED WITHOUT ANY DISTRESS AT THIS TIME. PATIENT COMPLAINED EARLIER THAT HE WAS UNABLE TO SLEEP PREVIOUS NIGHT. WILL CONTINUE TO MONITOR THE PATIENT.
[2018-02-03 12:00] VITALS: BP 150/80
--- NOTE | 2018-02-03 13:14 | NUR ---
PATIENT STATED THAT HE IS HAVING SEVERE LOWER BACK PAIN DUE TO LYING DOWN ON THE BED FOR A LONG PERIOD OF TIME. HE REQUESTED MEDICATION. NORCO 5/325 PO GIVEN PER PRN ORDER. PATIENT CONTINUE TO ASK REGARDING THE PLAN OF CARE, WOULD LIKE TO GO BACK TO [facility]. AWAITING SHOP CLERK.
[2018-02-03] MEDS ORDERED: LORazepam 1 MG TAB PO PRN (14:40)
--- NOTE | 2018-02-03 15:02 | NUR ---
DR. KIM BY THE PATIENT'S BEDSIDE. PATIENT'S MOTHER, AMANDA, IS ALSO PRESENT.
--- NOTE | 2018-02-03 15:16 | NUR ---
CALLED [facility] SPOKE WITH YOU PATIENT CAN GO TO ROOM 33A
--- NOTE | 2018-02-03 15:30 | NUR ---
DR. SCHREIBER AT BEDSIDE. PATIENT SIGNED AMA. MOTHER TO TAKE THE PATIENT TO THE [facility].
--- NOTE | 2018-02-03 15:32 | NUR ---
REPORT GIVEN TO KALYANI ACOSTA.
--- NOTE | 2018-02-03 15:45 | NUR ---
PATIENT WAS ASSISTED TO WHEELCHAIR. ESCORTED TO THE FRONT DOOR; LEFT AMA BACK TO [facility] WITH MOTHER.
== END 2018-02-03 15:45 | disposition left against medical advice (07) | DRG 682 ==
LOC: MED 03:50 → MTU 07:42
PROVIDERS: ADMIT General Practice; ATTEND General Practice
PROC: 5A1D70Z Performance of Urinary Filtration, Intermittent, Less than 6 Hours Per Day (ICD-10-PCS; principal; 2018-02-02)
DX: N17.0 Acute kidney failure with tubular necrosis (principal); I50.43 Acute on chronic combined systolic (congestive) and diastolic (congestive) heart failure; I13.2 Hypertensive heart and chronic kidney disease with heart failure and with stage 5 chronic kidney disease, or end stage renal disease; E87.1 Hypo-osmolality and hyponatremia; N18.6 End stage renal disease; I16.0 Hypertensive urgency; E11.21 Type 2 diabetes mellitus with diabetic nephropathy; E11.319 Type 2 diabetes mellitus with unspecified diabetic retinopathy without macular edema; E78.5 Hyperlipidemia, unspecified; D63.8 Anemia in other chronic diseases classified elsewhere; K21.9 Gastro-esophageal reflux disease without esophagitis; E11.43 Type 2 diabetes mellitus with diabetic autonomic (poly)neuropathy; K31.84 Gastroparesis; E87.6 Hypokalemia; E83.39 Other disorders of phosphorus metabolism; D64.9 Anemia, unspecified; E11.51 Type 2 diabetes mellitus with diabetic peripheral angiopathy without gangrene; H54.7 Unspecified visual loss; E03.9 Hypothyroidism, unspecified; E11.649 Type 2 diabetes mellitus with hypoglycemia without coma; Z53.21 Procedure and treatment not carried out due to patient leaving prior to being seen by health care provider; Z88.1 Allergy status to other antibiotic agents; Z88.8 Allergy status to other drugs, medicaments and biological substances; Z86.73 Personal history of transient ischemic attack (TIA), and cerebral infarction without residual deficits; Z82.5 Family history of asthma and other chronic lower respiratory diseases; Z91.19 Patient's noncompliance with other medical treatment and regimen
CPT/HCPCS: 36415; 70450; 72125; 80048; 80053; 82140; 82150; 82550; 82553; 82948; 83036; 83690; 83735; 83880; 84100; 84439; 84443; 84484; 85025; 85610; 85730; 87081; 96372; 99285; J0360; J1815

== ENCOUNTER 2018-04-17 19:29 | Emergency (ER) | payer OTHER ==
[~2018-04-17] VITALS: Ht 182.9 cm; Wt 68.0 kg
[~2018-04-17 19:29] MED LIST changes: +ASCO-770 PO; +GLU1I IM; +INSU100I7 SQ; -ISOS30TE PO; +ISOS30TE68 PO; +SENN-74 PO; -SENN-89 PO
--- NOTE | 2018-04-17 19:34 | NUR ---
PT LUCILA LINDSAYS. TAKEN TO BED 4
[2018-04-17 19:41] VITALS: BP 148/99
--- NOTE | 2018-04-17 19:47 | NUR ---
Dr. Mcgraw evaluating patient at bedside.
--- NOTE | 2018-04-17 19:52 | NUR ---
PT TO ED FROM [facility] DUE TO ABNORMAL POTASSIUM (8.0) FACILITY IS REQUESTION EMERGENCY DIALYSIS DUE TO PT REFUSING DIALYSIS AT FACILITY. DIALYSIS SCHEDULE T, , S. PT PLACED INTO BED, ER MD AT BEDSIDE.
[2018-04-17 20:05] LABS: BASOPHILS # (AUTO) 0.1 K/uL (0.00-0.22); BASOPHILS % (AUTO) 2.4 % (0.0-2.0); EOSINOPHILS # (AUTO) 0.3 K/uL (0-0.4); EOSINOPHILS % (AUTO) 4.9 % (0.0-4.0); HEMATOCRIT 29.6 % (36-52); HEMOGLOBIN 9.8 g/dL (12.0-18.0); LYMPHOCYTES # (AUTO) 1.2 K/uL (2.0-11.5); LYMPHOCYTES % (AUTO) 18.6 % (20.5-51.1); MEAN CORPUSCULAR HEMOGLOBIN 31 pg (27-31); MEAN CORPUSCULAR HGB CONC 33 g/dL (33-37); MEAN CORPUSCULAR VOLUME 93.3 fL (80-94); MONOCYTES # (AUTO) 0.7 K/uL (0.8-1.0); MONOCYTES % (AUTO) 10.4 % (1.7-9.3); NEUTROPHILS % (AUTO) 63.7 % (42.2-75.2); PLATELET COUNT (AUTO) 312 K/uL (140-450); RED BLOOD CELL COUNT(AUTO) 3.18 MIL/uL (4.20-6.10); RED CELL DISTRIBUTION WIDTH 14.9 % (11.6-13.7); WHITE BLOOD COUNT (AUTO) 6.3 K/uL (4.8-10.8)
[2018-04-17 20:41] LABS: ALBUMIN 3.3 g/dL (3.4-5.0); ANION GAP 18.3 (8-16); POTASSIUM 5.3 mmol/L (3.5-5.1); TOTAL BILIRUBIN 0.4 mg/dL (0.0-1.0)
[2018-04-17 20:47] LABS: CREATININE 13.8 mg/dL (0.7-1.3)
[2018-04-17] MEDS ORDERED: INSULIN REGULAR, HUMAN 100 UNIT/ML VIAL SUBQ ONE (20:55)
[2018-04-17] MEDS ORDERED: DEXTROSE 50% 50 ML SYR IVP ONE (20:55)
--- NOTE | 2018-04-17 21:00 | NUR ---
PT SCREAMING AND YELLING REFUSING CARE AT THIS TIME. ER MD ALTMAN AWARE.
--- NOTE | 2018-04-17 21:20 | NUR ---
ER MD ALTMAN SPOKE WITH [facility] INFORMING PT STATUS. PT TO SIGN AMA.
--- NOTE | 2018-04-17 22:07 | NUR ---
Patient does not wish to proceed with medical care recommended by DR ALTMAN. Patient given information related to possible complications, up to and including , which could occur as a result of leaving hospital at this time. Patient verbalizes understanding of risks involved leaving against medical advice. Patient has REFUSED TO SIGN AMA form. CAB CALLED AND PT ASSISTED TO CAB VIA WHEELCHAIR WITH EMT AND RN. INFORMED ADMINISTRATIVE RESIDENT TO CALL [facility] UPON ARRIVAL. GRAFFITI CLEANER UNDERSTOOD INSTRUCTIONS.
[2018-04-17 22:08] VITALS: BP 148/99
[2018-10-04] MEDS ORDERED: DOCU-300 PO (05:59)
[2018-10-04] MEDS ORDERED: DIVA125E1 (06:01)
[2018-10-04] MEDS ORDERED: ADA60 PO ×2 (08:37→08:40)
[2018-10-04] MEDS ORDERED: ISOS20TA11 PO (08:40)
== END 2018-04-17 20:07 | disposition left against medical advice (07) ==
LOC: MED 19:29
DX: E11.22 Type 2 diabetes mellitus with diabetic chronic kidney disease (principal); I12.0 Hypertensive chronic kidney disease with stage 5 chronic kidney disease or end stage renal disease; N18.6 End stage renal disease; E87.5 Hyperkalemia; D64.9 Anemia, unspecified; R79.89 Other specified abnormal findings of blood chemistry; Z99.2 Dependence on renal dialysis; Z86.73 Personal history of transient ischemic attack (TIA), and cerebral infarction without residual deficits; Z79.4 Long term (current) use of insulin; Z79.899 Other long term (current) drug therapy; Z88.1 Allergy status to other antibiotic agents; Z88.8 Allergy status to other drugs, medicaments and biological substances
CPT/HCPCS: 36415; 80053; 85025; 99283; J1815

== ENCOUNTER 2018-07-28 03:36 | Emergency (ER) | payer OTHER ==
[~2018-07-28] VITALS: Ht 172.7 cm; Wt 66.9 kg
[2018-07-28 03:39] VITALS: BP 153/94
[2018-07-28] MEDS ORDERED: DEXTROSE 50% 50 ML SYR IVP ONE (03:45)
[2018-07-28 03:54] LABS: BASOPHILS # (AUTO) 0.1 K/uL (0.00-0.22); BASOPHILS % (AUTO) 1.6 % (0.0-2.0); EOSINOPHILS # (AUTO) 0.4 K/uL (0-0.4); EOSINOPHILS % (AUTO) 7.3 % (0.0-4.0); HEMATOCRIT 39.3 % (36-52); HEMOGLOBIN 13.1 g/dL (12.0-18.0); LYMPHOCYTES # (AUTO) 0.8 K/uL (2.0-11.5); LYMPHOCYTES % (AUTO) 16.2 % (20.5-51.1); MEAN CORPUSCULAR HEMOGLOBIN 32 pg (27-31); MEAN CORPUSCULAR HGB CONC 33 g/dL (33-37); MEAN CORPUSCULAR VOLUME 95.9 fL (80-94); MONOCYTES # (AUTO) 0.6 K/uL (0.8-1.0); MONOCYTES % (AUTO) 12.6 % (1.7-9.3); NEUTROPHILS # (AUTO) 3.1 K/uL (1.8-7.7); NEUTROPHILS % (AUTO) 62.3 % (42.2-75.2); PLATELET COUNT (AUTO) 291 K/uL (140-450); RED BLOOD CELL COUNT(AUTO) 4.09 MIL/uL (4.20-6.10); RED CELL DISTRIBUTION WIDTH 16.6 % (11.6-13.7)
--- NOTE | 2018-07-28 03:55 | NUR ---
43 [place]O [place] [facility] [place] BS AT FACILITY: 28. PT RECEIVED 5 MG GLUCAGON IM IN FIELD. BS INCREASED TO 48. BS UPON ARRIVAL TO ED: 60. PT ARRIVES A/O X PERSON, PLACE, PURPOSE. C/O FEELING COLD. LAST DIALYSIS, SUNDAY. A/V SHUNT NOTED TO LEFT ARM. DENIES PAIN AT THIS TIME. PT APPEARS FRAIL. SKIN PALE, COOL, CLAMMY. BREATHING EVEN, UNLABORED. PMH-- ESRD, HTN, DM, SEIZURES, BLINDNESS TO BOTH EYES.
[2018-07-28 04:10] LABS: ALBUMIN 3.3 g/dL (3.4-5.0); ANION GAP 11.9 (8-16); CARBON DIOXIDE 34.6 mmol/L (21-32); POTASSIUM 3.5 mmol/L (3.5-5.1); TOTAL BILIRUBIN 0.3 mg/dL (0.0-1.0)
[2018-07-28 04:13] LABS: CREATININE 6.4 mg/dL (0.7-1.3)
--- NOTE | 2018-07-28 04:28 | NUR ---
NEW BS: 233. DR. ALTMAN NOTIFIED.
--- NOTE | 2018-07-28 05:00 | NUR ---
Patient appears to be resting comfortably in bed. Vital Signs within normal limits. Respirations even and unlabored. Blood sugar stable.
[2018-07-28 05:22] VITALS: BP 140/86
--- NOTE | 2018-07-28 05:22 | NUR ---
Patient discharged with v/s stable. Written and verbal after care instructions given and explained. Patient verbalized understanding. Ambulance Transport with to [facility] [place]. All questions addressed prior to discharge. Advised to follow up with PMD.
[2018-10-04] MEDS ORDERED: DOCU-300 PO (05:59)
[2018-10-04] MEDS ORDERED: DIVA125E1 (06:01)
[2018-10-04] MEDS ORDERED: ADA60 PO ×2 (08:37→08:40)
[2018-10-04] MEDS ORDERED: ISOS20TA11 PO (08:40)
== END 2018-07-28 05:22 | disposition home or self-care (01) ==
LOC: MED 03:36
DX: E11.649 Type 2 diabetes mellitus with hypoglycemia without coma (principal); E11.22 Type 2 diabetes mellitus with diabetic chronic kidney disease; I12.0 Hypertensive chronic kidney disease with stage 5 chronic kidney disease or end stage renal disease; N18.6 End stage renal disease; Z99.2 Dependence on renal dialysis; Z86.73 Personal history of transient ischemic attack (TIA), and cerebral infarction without residual deficits; Z88.1 Allergy status to other antibiotic agents; Z88.8 Allergy status to other drugs, medicaments and biological substances; Z79.4 Long term (current) use of insulin; Z79.899 Other long term (current) drug therapy
CPT/HCPCS: 36415; 80053; 85025; 96374; 99283

== ENCOUNTER 2018-08-22 12:20 | Inpatient (IN) | payer OTHER ==
[~2018-08-22] VITALS: Ht 170.2 cm; Wt 79.4 kg
[2018-08-22 12:22] VITALS: BP 206/98
--- NOTE | 2018-08-22 12:30 | NUR ---
DIALYSIS PT BIBA WITH C/O SOB AND GENERALIZED WEAKNESS. O2 SAT <90%; PLACED ON 2L VIA NC. FEBRILE; TYLENOL ADMINISTERED PER PROTOCOL. DENIES N/V; PT STATES PAIN OF 0/10 AT THIS TIME. DIALYSIS FISTULA TO LT ARM. PLACED ON GOWN; CONNECTED TO MONITOR; HOB ELEVATED. BEDRAILS UP X1. PENDING ER MD EVALUATION.
[2018-08-22] MEDS ORDERED: ACETAMINOPHEN EXTRA STRENGTH 500 MG TAB PO ONE (12:45)
--- NOTE | 2018-08-22 12:50 | NUR ---
x ray at bedside
[2018-08-22 13:45] LABS: BASOPHILS # (AUTO) 0.1 K/uL (0.00-0.22); BASOPHILS % (AUTO) 1.2 % (0.0-2.0); EOSINOPHILS # (AUTO) 0.2 K/uL (0-0.4); HEMATOCRIT 32.7 % (36-52); HEMOGLOBIN 10.9 g/dL (12.0-18.0); LYMPHOCYTES # (AUTO) 0.2 K/uL (2.0-11.5); LYMPHOCYTES % (AUTO) 2.3 % (20.5-51.1); MEAN CORPUSCULAR HEMOGLOBIN 32 pg (27-31); MEAN CORPUSCULAR HGB CONC 33 g/dL (33-37); MEAN CORPUSCULAR VOLUME 96.7 fL (80-94); MONOCYTES # (AUTO) 0.5 K/uL (0.8-1.0); MONOCYTES % (AUTO) 6.8 % (1.7-9.3); NEUTROPHILS # (AUTO) 6.6 K/uL (1.8-7.7); NEUTROPHILS % (AUTO) 86.7 % (42.2-75.2); PLATELET COUNT (AUTO) 201 K/uL (140-450); RED BLOOD CELL COUNT(AUTO) 3.38 MIL/uL (4.20-6.10); RED CELL DISTRIBUTION WIDTH 15.9 % (11.6-13.7); WHITE BLOOD COUNT (AUTO) 7.6 K/uL (4.8-10.8)
[2018-08-22] MEDS ORDERED: LEVOFLOXACIN 500 MG/D5W PREMIX 100 ML IV ONE (14:10)
[2018-08-22] MEDS ORDERED: VANCOMYCIN 1,000 MG in DEXTROSE 5% 250 ML IV ONE (14:10)
[2018-08-22 14:16] LABS: ALBUMIN 3.3 g/dL (3.4-5.0); ANION GAP 17.8 (8-16); CARBON DIOXIDE 27.2 mmol/L (21-32); TOTAL BILIRUBIN 0.5 mg/dL (0.0-1.0)
[2018-08-22 14:31] LABS: CREATININE 10.2 mg/dL (0.7-1.3)
[2018-08-22] MEDS ORDERED: VANCOMYCIN 1,000 MG VIAL ONE (14:32)
[2018-08-22] MEDS ORDERED: hydrALAZINE 20 MG/ML VIAL IVP ONE (14:50)
[2018-08-22] MEDS ORDERED: NACL 0.9% 1,000 ML IV SCH (15:10)
--- NOTE | 2018-08-22 16:05 | NUR ---
PT ARRIVED FROM ER IN [facility], PT AWAKE WITH FLAT AFFECT, OX4, RESP EVEN UNLABORED, REPORT RECEIVED FROM CRAFT ARTIST, POC REVIEWED, PT ORIENTED TO ROOM AND FLOOR, SAFETY MEASURES IN PLACE, CALL LEA WITHIN REACH.
[2018-08-22 16:06] LABS: PROTHROMBIN TIME 12.7 secs (10.8-13.4)
--- NOTE | 2018-08-22 16:11 | NUR ---
Patient admited to telemetry floor to room 114. Belongings list completed. Report KATHERIN Horton.
[2018-08-22 16:12] LABS: CHOL/HDL RATIO 1.4 (1-4.5); FREE T4 (FREE THYROXINE) 0.87 ng/dL (0.76-1.46); MAGNESIUM 2.7 mg/dL (1.8-2.4); PHOSPHORUS 4.5 mg/dL (2.5-4.9); THYROID STIMULATING HORMONE 3.93 uIU/mL (0.34-3.74)
--- NOTE | 2018-08-22 16:41 | NUR ---
DIALYSIS NURSE VERO CALLED FOR URGENT DIALYSIS TODAY.
[2018-08-22] MEDS ORDERED: LORazepam 2 MG/ML VIAL IVP PRN (16:55)
[2018-08-22 17:00] VITALS: BP 218/106
[2018-08-22] MEDS ORDERED: METOPROLOL 5 MG/5 ML VIAL IVP SCH (17:00)
[2018-08-22] MEDS ORDERED: KETOROLAC 15 MG/ML VIAL IM SCH (17:00)
[2018-08-22] MEDS: hydrALAZINE 25 MG TAB PO SCH (17:00)
--- NOTE | 2018-08-22 17:11 | NUR ---
PT C/O BILAT LEG PAIN, TORADOL GIVEN PER ORDER, PT WITH CHRONIC KIDNEY FAILURE, PER TORIBIO WOMACK TO GIVE TORADOL.
[2018-08-22] MEDS ORDERED: ALBUTEROL SULFATE/IPRATROPIU 3 ML SOL IH PRN (17:15)
[2018-08-22] MEDS ORDERED: MECLIZINE 25 MG TAB PO PRN (17:25)
--- NOTE | 2018-08-22 17:30 | NUR ---
DIALYSIS NURSE AT BEDSIDE.
--- NOTE | 2018-08-22 18:10 | NUR ---
ABG DRAWN BY RT BECK.RESULTS GIVEN TO MD LOPEZ. AWARE THAT SAMPLE IS LIKELY MIXED VENOUS BLOOD. MD LOPEZ AGREES. PT IS CURRENTLY ON DIALYSIS.
--- NOTE | 2018-08-22 19:25 | NUR ---
REPORT GIVEN TO SEED COLLECTOR, PT RECEIVING HD.
--- NOTE | 2018-08-22 19:26 | NUR ---
RECEIVED REPORT FROM DAY SHIFT NURSE. PT LYING IN BED, RECEIVING HEMODIALYSIS. DIALYSIS NURSE AT BEDSIDE. AAOX2. NO C/O PAIN AT THIS TIME. NO RESP DISTRESS NOTED. ON O2 AT 2L/MIN VIA NC. PT HAS LEFT UPPER ARM AV SHUNT. PT HAS BILATERAL BLINDNESS. IV TO RIGHT AC #20, SALINE LOCK. PT HAS SCABS TO JENNIFER. TOES. FALL AND SEIZURES PRECAUTION IN PLACE. CALL LIGHT WITHIN REACH.
[2018-08-22 20:00] VITALS: BP 190/89
[2018-08-22] MEDS: MIRTAZAPINE 15 MG TAB PO SCH (20:14)
[2018-08-22] MEDS: GABAPENTIN 300 MG CAP PO SCH (20:15)
[2018-08-22] MEDS: cloNIDine 0.1 MG TAB PO SCH (20:15)
[2018-08-22] MEDS: levETIRAcetam 500 MG TAB PO SCH (20:16)
[2018-08-22] MEDS: HYDROcodone/APAP 5/325 MG 1 TAB TAB PO PRN (20:17)
--- NOTE | 2018-08-22 20:20 | NUR ---
HEMODIALYSIS STILL ONGOING. PT C/O GEN. PAIN. BP 190/89, HR 97. DR. DUVAL MADE AWARE. NORCO 5/325MG GIVEN FOR PAIN AND DUE MED CATAPRES 0.2MG PO GIVEN FOR HIGH BP. PT TOLERATED WELL.
[2018-08-22] MEDS ORDERED: VANCOMYCIN PER PHARMACY MC PRN (20:25)
[2018-08-22] MEDS: BLOOD GLUCOSE MONITORING 1 DEV DEV FS SCH (21:00)
[2018-08-22] MEDS ORDERED: INSULIN LANTUS 100 UNITS/ML 10 ML VIAL SUBQ SCH (21:00)
[2018-08-22] MEDS: ALBUTEROL SULFATE/IPRATROPIU 3 ML SOL IH SCH (21:09)
--- NOTE | 2018-08-22 21:25 | NUR ---
HEMODIALYSIS DONE. OUTPUT 4L. DR. AYALA MADE AWARE.
--- NOTE | 2018-08-22 21:30 | NUR ---
PT WANTED TO GET DUE MEDS BEFORE GOING HOME. DUE MEDS GIVEN. PT TOLERATED WELL. Addendum: 08/22/18 at 2338 by Junior Victoria RN WRONG PATIENT
[2018-08-22] MEDS: INSULIN LISPRO SLIDING SCALE 100 UNITS/ML VIAL SUBQ PRN (22:02)
[2018-08-22] MEDS: SIMVASTATIN 40 MG TAB PO SCH (22:05)
--- NOTE | 2018-08-22 22:05 | NUR ---
PT'S BP STILL HIGH 210/104 AND PT C/O GENERALIZED PAIN. DR. DENISE MADE AWARE. WAITING FOR NEW ORDERS.
[2018-08-22] MEDS ORDERED: hydrALAZINE 20 MG/ML VIAL IVP SCH (22:15)
[2018-08-22] MEDS ORDERED: MORPHINE SULFATE 2 MG/ML SYR IVP SCH (22:15)
--- NOTE | 2018-08-22 23:05 | NUR ---
RECEIVED A CALL FROM [facility]. PER TECH, THEY WILL DO ALL THE ULTRASOUND TOMORROW MORNING.
[2018-08-23] VITALS: BP 147/84
[2018-08-23] MEDS ORDERED: PIPER/TAZO 3.375GM/D5W PREMIX 50 ML IV SCH
--- NOTE | 2018-08-23 00:10 | NUR ---
VS TAKEN. PT'S BP 147/84, HR 86, TEMP 99.6, O2 SAT 99% ON 2L. PT SLEEPING. NO S/S OF PAIN.
--- NOTE | 2018-08-23 00:30 | NUR ---
SNACK OFFERED TO PT, PT REFUSED. PER PT HE JUST WANT TO DRINK. APPLE JUICE GIVEN.
--- NOTE | 2018-08-23 01:53 | NUR ---
CALLED [facility] ABOUT PENDING ZOSYN. SPOKE WITH PHARMACIST ERI. PER ERI, PT HAS ALLERGY WITH KEFLEX AND IT HAS INTERACTION WITH ZOSYN. DR. DENISE MADE AWARE.
[2018-08-23 04:00] VITALS: BP 158/90
--- NOTE | 2018-08-23 04:00 | NUR ---
PT SLEEPING, EASILY AROUSABLE. NO S/S OF PAIN. NO S/S OF RESP DISTRESS.
--- NOTE | 2018-08-23 05:00 | NUR ---
DR. DUVAL MADE AWARE ALSO OF PHARMACIST DIDN'T VERIFY ZOSYN AND VANCO.
[2018-08-23] MEDS: cloNIDine 0.1 MG TAB PO SCH ×3 (05:08→20:34)
--- NOTE | 2018-08-23 05:12 | NUR ---
PT LEFT UNIT FOR CT HEAD WITHOUT CONTRAST WITH SAIL REPAIRER AND STUDIO COUCH FRAME BUILDER. PT IN STABLE CONDITION.
--- NOTE | 2018-08-23 05:40 | NUR ---
PT BACK IN THE ROOM. NO C/O PAIN OR SOB. PT KEPT COMFORTABLE.
[2018-08-23] MEDS: DEXTROSE 50% 50 ML SYR IVP PRN ×2 (06:08→11:28)
--- NOTE | 2018-08-23 06:15 | NUR ---
PT'S BLOOD SUGAR 48. D50 ADMINISTERED. PT ALERT AND ORIENTED X 3. PER PT, HIS BLOOD SUGAR ALWAYS DROPPED TO 40'S-50'S. DR. DENISE MADE AWARE.
[2018-08-23] MEDS: LEVOTHYROXINE 0.025 MG TAB PO SCH (06:17)
--- NOTE | 2018-08-23 06:53 | NUR ---
RECHECKED BLOOD SUGAR, 151. DR. MIKE MADE AWARE.
[2018-08-23 06:59] LABS: T4 (THYROXINE) 6.2 ug/dL (4.5-12.0)
--- NOTE | 2018-08-23 07:15 | NUR ---
ENDORSED PT TO DAY SHIFT NURSE. PT IN STABLE CONDITION.
--- NOTE | 2018-08-23 07:16 | NUR ---
RECEIVED BEDSIDE REPORT FROM NIGHT NURSE. PT IS SLEEPING AND AROUSABLE TO NAME AOX1 TELLING ME HIS NAME, BUT UNABLE TO PROVIDE OTHER ACCURATE INFORMATION STATING HE BELIEVES WE ARE IN [place] AND STATES HE DOESN'T KNOW TO OTHER QUESTIONING. PT HAS A RIGHT ANTECUBITAL IV SITE THAT IS ASYMPTOMATIC AND PATENT. PT HAS ISLAND DRESSING TO RIGHT ROBLES THAT IS DRY AND INTACT. SCABS TO BILATERAL TOES OPEN TO AIR WITH NO DRAINAGE, ODOR, SWELLING, REDNESS OR OTHER SIGNS OF INFECTION. ALL SAFETY MEASURES IN PLACE AND CALL LIGHT WITHIN REACH. PT HAS NASAL CANNULA WITH 4L OXYGEN.
[2018-08-23] MEDS: BLOOD GLUCOSE MONITORING 1 DEV DEV FS SCH ×4 (07:29→20:34)
[2018-08-23] MEDS: ALBUTEROL SULFATE/IPRATROPIU 3 ML SOL IH SCH ×3 (07:43→20:06)
[2018-08-23 08:00] VITALS: BP 154/88
--- NOTE | 2018-08-23 08:00 | NUR ---
PT BLOOD SUGAR IS 115
--- NOTE | 2018-08-23 08:03 | NUR ---
PATIENT HAS BEEN SCREENED AND CATEGORIZED HIGH NUTRITION RISK. PATIENT WILL BE SEEN WITHIN 1-2 DAYS OF ADMISSION. 08/23/18-08/24/[address]
[2018-08-23] MEDS: levETIRAcetam 500 MG TAB PO SCH ×2 (08:39→20:27)
[2018-08-23] MEDS: NIFEdipine 60 MG TABER PO SCH (08:39)
[2018-08-23] MEDS: PIPER/TAZO 2.25GM/D5W PREMIX 50 ML IV SCH ×2 (08:39→17:10)
[2018-08-23] MEDS: hydrALAZINE 25 MG TAB PO SCH ×3 (08:39→17:09)
--- NOTE | 2018-08-23 08:40 | NUR ---
ADMINISTERED MEDICATIONS PT HAS NO SIGNS OF DISTRESS AT THIS TIME BREATHING UNLABORED.
[2018-08-23] MEDS ORDERED: LEVOFLOXACIN 750 MG/D5W PREMIX 150 ML IV SCH (09:00)
[2018-08-23] MEDS ORDERED: PIPER/TAZO 2.25GM/D5W PREMIX 50 ML IV SCH (09:00)
--- NOTE | 2018-08-23 10:11 | NUR ---
WAS CALLED BY LAB REGARDING GRAM POSITIVE COCCI IN [place], DR FAUST NO AVAILABLE IN OFFICE AT THIS TIME, WILL NOTIFY HIM SOON POSSIBLE.
--- NOTE | 2018-08-23 10:31 | NUR ---
SPOKE WITH DR FAUST REGARDING GRAM POSITIVE COCCI IN [place] REPORTED TO ME BY LAB. NO FURTHER ORDERS AT THIS TIME.
--- NOTE | 2018-08-23 10:38 | NUR ---
WOUND CARE EVALUATION NOTE: REASON FOR EVALUATION: RIGHT TIBIA WOUND SKIN ASSESSMENT DONE WITH THIS 43 Y/O MALE PT. ADMITTED FROM [facility] TO [facility] WITH INITIAL DX OF ALOC. 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 PT SKIN IS WARM AND DRY, BLE FEW HAIR GROWTH, DORSAL PEDAL PULSES PRESENT. CAPILLARY REFILLED < 3 SEC. X 10 TOES. PLAN OF CARE DISCUSSED WITH PRIMARY RN AND PT. INTEGUMENTARY -MULTIPLE DRY SCABS TO UPPER AND LOWER EXTREMITIES, WITH LARGEST TO LEFT 2ND DIGIT TOE 1X1CM, LISANDRO WOUND SKIN INTACT -RIGHT LOWER LEG CELLULITIS, 4X2 CM WITH SUPERFICIAL DEPTH, WOUND BED 100% GRANULATION TISSUE, MOIST, NO ODOR, LISANDRO WOUND SKIN INTACT, WITH ERYTHREDEMA, SURROUNDING REDNESS AND WARM TO TOUCH. RECOMMENDATIONS: -ULTRA SOUND TO BLE -CLEANSE RIGHT LOWER LEG WOUND WITH NS. PAT DRY, APPLY HYDROGEL TO WOUND BED AND COVER WITH DRY DRESSING QD AND PRN IF SOILING. -APPLY HYDRAGUARD TO UPPER AND LOWER EXTREMITIES BID AND LEAVE IT OPEN TO AIR -TURN AND REPOSITION PATIENT Q 2H OFFLOAD LEFT AND RIGHT HIPS -ASSESS AND MONITOR SKIN CONDITION DURING POSITION CHANGE, PLEASE PAY ATTENTION TO AND HEELS -OFFLOAD BILATERAL HEELS BY PLACING PILLOWS UNDER CALVES AT ALL TIMES, UNLESS OTHERWISE CONTRAINDICATED -PRESSURE REDISTRIBUTION SURFACE THERAPY -KEEP SKIN CLEAN AND DRY AT ALL TIMES. RECOMMENDATIONS DISCUSSED WITH PRIMARY RN WILL FOLLOW UP PATIENT Q7-10 DAYS AND PRN. PLEASE CONTACT WOUND CARE NURSE FOR ANY QUESTIONS AND CHANGES IN SKIN CONDITION.
--- NOTE | 2018-08-23 10:50 | NUR ---
PT SLEEPING IN BED BREATHING UNLABORED NO OBVIOUS SIGNS OF DISTRESS.
--- NOTE | 2018-08-23 10:51 | NUR ---
PT SLEEPING IN BED BREATHING UNLABORED NO OBVIOUS SIGNS OF DISTRESS.
--- NOTE | 2018-08-23 11:46 | NUR ---
PT BLOOD GLUCOSE 26 ON FIRST READING, 24 ON SECOND READING AFTER DRINKING [address] FAUST AT BEDSIDE AND AWARE. INFORMED ME TO GIVE PRN D5 IVP. ADMINISTERED IT AND WAS INFORMED TO RETAKE BLOOD GLUCOSE AFTER 10 MINUTES.
--- NOTE | 2018-08-23 11:47 | NUR ---
PT AOX1 SAME LOC THROUGHOUT THE DAY AND WHEN BLOOD SUGAR READING WAS 115. PT IS RESTING IN BED NO OBVIOUS SIGNS OF DISTRESS WITH VITALS WNL
[2018-08-23 12:00] VITALS: BP 133/79
--- NOTE | 2018-08-23 12:00 | NUR ---
PT BLOOD GLUCOSE 118 ON SECOND READING. INFORMED DR. LOPEZ WHO INFORMED ME TO TALK TO PT AND SEE IF HE WOULD BE AGREEABLE TO HAVING HIS MORNING LABS DRAWN THAT PT HAS PREVIOUS REFUSED. I SPOKE TO PT WHO STATED HE WOULD BE OKAY WITH THEM COMING. CALLED LAB AND INFORMED THEM OF THIS.
[2018-08-23 12:30] LABS: HEMATOCRIT 33.7 % (36-52); HEMOGLOBIN 11.1 g/dL (12.0-18.0); MEAN CORPUSCULAR HEMOGLOBIN 32 pg (27-31); MEAN CORPUSCULAR HGB CONC 33 g/dL (33-37); MEAN CORPUSCULAR VOLUME 96.9 fL (80-94); PLATELET COUNT (AUTO) 158 K/uL (140-450); RED BLOOD CELL COUNT(AUTO) 3.47 MIL/uL (4.20-6.10); RED CELL DISTRIBUTION WIDTH 15.7 % (11.6-13.7); WHITE BLOOD COUNT (AUTO) 5.2 K/uL (4.8-10.8)
[2018-08-23] MEDS: HYDRAGUARD CREAM TP SCH (12:40)
[2018-08-23] MEDS: SKINTEGRITY HYDROGEL TP SCH (12:41)
--- NOTE | 2018-08-23 12:49 | NUR ---
ADMINISTERED MEDICATIONS AND PERFORMED WOUND CARE FOLLOWS. CLEANSED RIGHT ROBLES WITH NS AND PATTED DRY WITH 4X4 GAUZE. APPLIED HYDROGEL TO WOUND BED AND COVERED WITH DRESSING. ALSO APPLIED HYDRAGAURD TO BLE. PT TOLERATED WELL NO OBVIOUS SIGNS OF DISTRESS OR PAIN.
[2018-08-23 12:54] LABS: ANION GAP 10.4 (8-16); CARBON DIOXIDE 31.8 mmol/L (21-32); POTASSIUM 4.2 mmol/L (3.5-5.1)
[2018-08-23 12:56] LABS: CREATININE 7.3 mg/dL (0.7-1.3)
--- NOTE | 2018-08-23 13:00 | NUR ---
RECEIVED PHONE CALL FROM LAB AT 1255 REGARDING CREATININE 7.[address] LOPEZ AT 1300 NO CHANGE IN ORDERS AT THIS TIME.
--- NOTE | 2018-08-23 13:27 | NUR ---
08/23/18 RD INITIAL ASSESSMENT COMPLETED PLEASE REFER TO NUTRITION ASSESSMENT UNDER CARE ACTIVITY FOR ESTIMATED NUTRITIONAL NEEDS. 1. RECOMMEND CCHO 60 RENAL DIET TOLERATED 2. ENCOURAGE PO INTAKE WHEN APPROPRIATE 3. RD TO FOLLOW-UP 2-3 DAYS, HIGH RISK ELIDA BADILLO, RD
[2018-08-23 13:37] LABS: LYMPHOCYTES % (MANUAL) 9 % (20-46); MONOCYTES % (MANUAL) 14 % (5-12)
--- NOTE | 2018-08-23 13:48 | NUR ---
SPOKE TO PT FATHER AT BEDSIDE WHO PT WANTS ME TO DISCUSS HIS CONDITION TODAY WITH. UPDATED HIS FATHER IN REGARDS TO HOW HE HAS BEEN DOING TODAY. NO OTHER REQUESTS AT THIS TIME.
[2018-08-23] MEDS: HYDROcodone/APAP 5/325 MG 1 TAB TAB PO PRN (14:49)
--- NOTE | 2018-08-23 14:51 | NUR ---
INFORMED DR LOPEZ OF 183/96 BLOOD PRESSURE READING AND PT PAIN. INFORMED WE WILL GIVE THE NORCO PRN FOR PAIN AND CONTINUE TO MONITOR HIS BP. PT IS RESTING IN BED AOX3 STATING HE FEELS MUCH BETTER AND IS ABLE TO TALK WITH HIS FATHER AND MOTHER AT BEDSIDE.
--- NOTE | 2018-08-23 16:10 | NUR ---
PT REMOVED HEEL PROTECTORS, STATES HE OFTEN REMOVES THEM FROM MOVING HIS FEET A LOT. EDUCATED PT ON IMPORTANCE OF WEARING THEM TO PROTECT HEELS AND PURPOSE OF FLOATING HEELS.
[2018-08-23] MEDS: DEXT 5% /NACL 0.9% 1,000 ML IV SCH (16:32)
--- NOTE | 2018-08-23 16:38 | NUR ---
ADMINISTERED MEDICATION, PT RESTING IN BED DENIES ANY REQUESTS AOX3 CURRENTLY. NO OBVIOUS SIGNS OF DISTRESS.
[2018-08-23 16:39] VITALS: BP 110/62
--- NOTE | 2018-08-23 17:02 | NUR ---
UPDATED DR LOPEZ IN REGARDS TO PATIENT BLOOD SUGAR AT 85 AND BLOOD PRESSURE 110/62 ON MOST RECENT READINGS.
--- NOTE | 2018-08-23 17:17 | NUR ---
ADMINISTERED MEDICATION AND REMINDED PATIENT AGAIN TO FLOAT HEELS AND WEAR HEEL PROTECTORS. PT APOLOGIZED AND STATES HE JUST GETS RESTLESS WHEN HE SLEEPS. NO SIGNS OF DISTRESS BREATHING UNLABORED.
--- NOTE | 2018-08-23 17:45 | NUR ---
CALLED DIALYSIS AND INFORMED THEM OF PT ORDERED DIALYSIS.
--- NOTE | 2018-08-23 18:00 | NUR ---
PT RESTING IN BED REQUESTING HELP WITH EATING DINNER STATING HE IS FEELING TIRED. CASHIER PARKING LOT AT BEDSIDE TO ASSIST PT. PT DENIES ANY BOWEL MOVEMENTS OR VOIDING TODAY. STATES HE DID NOT EAT OR DRINK VERY MUCH UNTIL LATER IN THE DAY MORE RECENTLY AND HAD DIALYSIS YESTERDAY WHERE NIGHT NURSE REPORTS PT HAD 4L REMOVED.
--- NOTE | 2018-08-23 19:10 | NUR ---
RECEIVED BEDSIDE REPORT FROM DAY SHIFT NURSE. PATIENT IS AWAKE, ALERT, AND COOPERATIVE. RESPIRATION EVEN UNLABORED ON 4L O2 NC. NO DISTRESS NOTED. SKIN IS WARM AND DRY. SCABS TO BILATERAL TOE NOTED AND PATIENT HAS LEFT UPPER ARM AV SHUNT. PATIENT HAS BILATERAL BLINDNESS. IV PATENT AND INTACT. PLAN OF CARE WAS DISCUSSED. ALL SAFETY MEASURES IN PLACE. BED IS AT LOW POSITION. CALL LIGHT WITHIN REACH. WILL CONTINUE TO MONITOR.
--- NOTE | 2018-08-23 19:22 | NUR ---
GAVE BEDSIDE REPORT TO NIGHT NURSE. PT IN STABLE CONDITION
[2018-08-23 20:00] VITALS: BP 98/60
--- NOTE | 2018-08-23 20:00 | NUR ---
INITIAL ASSESSMENT DONE. VITALS WERE TAKEN. PATIENT CONDITION STABLE. NO DISTRESS NOTED. WILL CONTINUE TO MONITOR.
[2018-08-23] MEDS: MIRTAZAPINE 15 MG TAB PO SCH (20:27)
[2018-08-23] MEDS: GABAPENTIN 300 MG CAP PO SCH (20:28)
[2018-08-23] MEDS: SIMVASTATIN 40 MG TAB PO SCH (20:28)
--- NOTE | 2018-08-23 21:00 | NUR ---
ALL SCHEDULE MEDS WERE GIVEN PER ORDER AND TOLERATED THEM WELL. NO ASE NOTED. WILL CONTINUE TO MONITOR.
--- NOTE | 2018-08-23 23:00 | NUR ---
PATIENT IN BED SLEEPING RESPIRATION EVEN UNLABORED ON 2L NC. NO DISTRESS NOTED. WILL CONTINUE TO MONITOR.
[2018-08-24] VITALS: BP 113/58
--- NOTE | 2018-08-24 | NUR ---
VITALS WERE TAKEN. PATIENT CONDITION STABLE NO DISTRESS NOTED. WILL CONTINUE TO MONITOR.
[2018-08-24] MEDS: PIPER/TAZO 2.25GM/D5W PREMIX 50 ML IV SCH ×3 (00:08→17:33)
[2018-08-24] MEDS: HYDRAGUARD CREAM TP SCH ×2 (00:08→12:54)
--- NOTE | 2018-08-24 02:00 | NUR ---
CHECKED PATIENT. PATIENT SLEEPING RESPIRATION EVEN UNLABORED ON 2L NC. NO DISTRESS NOTED. WILL CONTINUE TO MONITOR.
[2018-08-24 04:00] VITALS: BP 133/69
--- NOTE | 2018-08-24 04:00 | NUR ---
VITALS WERE TAKEN. PATIENT CONDITION STABLE. NO DISTRESS NOTED. WILL CONTINUE TO MONITOR,
--- NOTE | 2018-08-24 04:30 | NUR ---
PATIENT REFUSED TO BE CHANGE AND CLEAN.
[2018-08-24] MEDS: cloNIDine 0.1 MG TAB PO SCH ×3 (05:06→21:30)
--- NOTE | 2018-08-24 05:15 | NUR ---
PATIENT WANTS BLOOD DRAWN AFTER BREAKFAST.
[2018-08-24] MEDS: INSULIN LISPRO SLIDING SCALE 100 UNITS/ML VIAL SUBQ PRN ×4 (06:19→20:50)
[2018-08-24] MEDS: LEVOTHYROXINE 0.025 MG TAB PO SCH (06:23)
[2018-08-24] MEDS: BLOOD GLUCOSE MONITORING 1 DEV DEV FS SCH ×4 (06:25→20:50)
--- NOTE | 2018-08-24 07:22 | NUR ---
ENDORSED PATIENT TO DAY SHIFT NURSE FOR CONTINUITY OF CARE. PATIENT CONDITION IS STABLE.
--- NOTE | 2018-08-24 07:23 | NUR ---
RECEIVED REPORT FROM NUMERICAL CONTROL PROGRAMMER NURSE. PATIENT LYING DOWN IN BED SLEEPING, AROUSABLE BY VOICE. NO DISTRESS NOTED. DENIES ANY PAIN AT THIS TIME. RESPIRATIONS EVEN, UNLABORED, ON ROOM AIR. PATIENT BLIND ON BOTH EYES. AAOX3, CALM, COOPERATIVE, SKIN COLOR APPROPRIATE TO ETHNICITY, WARM TO TOUCH. HAS RLE ROBLES AREA WOUND, DRESSING IS DRY AND INTACT. IV SITE INTACT, PATENT, AND INFUSING IVF PER MD ORDERS. ABDOMEN SOFT, NON-DISTENDED. REVIEWED PLAN OF CARE WITH PATIENT. PATIENT VERBALIZED UNDERSTANDING. SAFETY MEASURES IN PLACE, CALL LIGHT WITHIN REACH. WILL CONTINUE TO MONITOR.
[2018-08-24] MEDS: ALBUTEROL SULFATE/IPRATROPIU 3 ML SOL IH SCH ×3 (07:28→19:00)
[2018-08-24 08:00] VITALS: BP 143/72
[2018-08-24] MEDS: NIFEdipine 60 MG TABER PO SCH (09:00)
[2018-08-24] MEDS: hydrALAZINE 25 MG TAB PO SCH ×3 (09:00→17:00)
--- NOTE | 2018-08-24 09:00 | NUR ---
REMINDED PATIENT THAT WE NEED TO COLLECT A SPUTUM SAMPLE, CUP PLACED ON PATIENT'S TABLE. NO SPUTUM AT THIS TIME. WILL CONTINUE TO MONITOR.
[2018-08-24] MEDS: levETIRAcetam 500 MG TAB PO SCH ×2 (09:06→20:42)
[2018-08-24] MEDS: CYCLOBENZAPRINE 10 MG TAB PO SCH ×3 (09:07→17:34)
[2018-08-24] MEDS: DEXT 5% /NACL 0.9% 1,000 ML IV SCH (09:07)
--- NOTE | 2018-08-24 09:15 | NUR ---
PATIENT LYING DOWN IN BED SLEEPING, AROUSABLE BY VOICE. NO DISTRESS NOTED. DENIES ANY PAIN. SCHEDULED MEDICATIONS DUE GIVEN. WILL CONTINUE TO MONITOR.
--- NOTE | 2018-08-24 09:40 | NUR ---
CALLED HEMODIALYSIS NURSE MS. PHAM. PER MS. PHAM, SHE WILL COME IN LATER IN THE AFTERNOON TODAY.
[2018-08-24 10:30] LABS: HEMATOCRIT 31.7 % (36-52); HEMOGLOBIN 10.6 g/dL (12.0-18.0); MEAN CORPUSCULAR HEMOGLOBIN 32 pg (27-31); MEAN CORPUSCULAR HGB CONC 33 g/dL (33-37); MEAN CORPUSCULAR VOLUME 96.6 fL (80-94); PLATELET COUNT (AUTO) 153 K/uL (140-450); RED BLOOD CELL COUNT(AUTO) 3.28 MIL/uL (4.20-6.10); RED CELL DISTRIBUTION WIDTH 15.5 % (11.6-13.7); WHITE BLOOD COUNT (AUTO) 5.4 K/uL (4.8-10.8)
[2018-08-24 10:46] LABS: ANION GAP 16.2 (8-16); POTASSIUM 4.2 mmol/L (3.5-5.1)
[2018-08-24 10:49] LABS: CREATININE 9.5 mg/dL (0.7-1.3)
[2018-08-24 10:51] LABS: BASOPHILS % (MANUAL) 3 % (0-2); EOSINOPHILS % (MANUAL) 14 % (0-4); LYMPHOCYTES % (MANUAL) 9 % (20-46)
--- NOTE | 2018-08-24 11:00 | NUR ---
PATIENT IV LINE INFILTRATED. TRIED INSERTING NEW IV LINE, PATIENT IS HARD STICK. UNABLE TO OBTAIN IV LINE AT THIS TIME. INFORMATION DELIVERY ANALYST AWARE. DR. DAN NOTIFIED THAT PATIENT IS HARD STICK AND REQUIRES POSSIBLE HALF-WAY IV ANTIBIOTIC TREATMENT DUE TO SEPSIS. PER DR. DAN, HE WILL ORDER A PICC LINE. WILL CONTINUE TO MONITOR.
[2018-08-24 12:00] VITALS: BP 150/73
[2018-08-24] MEDS: SKINTEGRITY HYDROGEL TP SCH (12:54)
--- NOTE | 2018-08-24 12:56 | NUR ---
PATIENT SITTING IN BED WITH LUNCH TRAY IN FRONT. NO DISTRESS NOTED. SCHEDULED MEDICATIONS DUE GIVEN. WILL CONTINUE TO MONITOR.
--- NOTE | 2018-08-24 15:45 | NUR ---
CALLED NEPHRODR. KAMARA TO ASK FOR CLEARANCE FOR PICC PLACEMENT. PER DR. KAMARA, PATIENT IS OK TO HAVE A PICC LINE.
[2018-08-24 16:00] VITALS: BP 172/74
--- NOTE | 2018-08-24 17:43 | NUR ---
PATIENT SITTING DOWN IN BED. NO DISTRESS NOTED. DENIES ANY PAIN. SCHEDULED MEDICATIONS DUE GIVEN. WILL CONTINUE TO MONITOR.
--- NOTE | 2018-08-24 18:00 | NUR ---
HEMODIALYSIS NURSE AT BEDSIDE TO START HD. WILL CONTINUE TO MONITOR.
--- NOTE | 2018-08-24 18:36 | NUR ---
NO SPUTUM CULTURE, PATIENT NOT COUGHING. WILL CONTINUE TO MONITOR.
--- NOTE | 2018-08-24 19:10 | NUR ---
GAVE REPORT TO CARE ANALYST NURSE FOR CONTINUITY OF CARE. PATIENT IN STABLE CONDITION.
--- NOTE | 2018-08-24 19:20 | NUR ---
RECEIVED BEDSIDE REPORT FROM DAY SHIFT NURSE. PATIENT IS AWAKE GETTING DIALYSIS. RESPIRATION EVEN UNLABORED ON ROOM AIR. NO DISTRESS NOTED. SKIN IS WARM AND DRY. RIGHT UPPER ARM PICC LINE NOTED. PLAN OF CARE WAS DISCUSSED. ALL SAFETY MEASURES IN PLACE. BED IS IN LOW POSITION. CALL LIGHT WITHIN REACH. WILL CONTINUE TO MONITOR.
[2018-08-24 20:00] VITALS: BP 137/78
--- NOTE | 2018-08-24 20:00 | NUR ---
INITIAL ASSESSMENT DONE. VITALS WERE TAKEN. DIALYSIS STILL ONGOING. DIALYSIS NURSE AT BEDSIDE. WILL CONTINUE TO MONITOR.
[2018-08-24] MEDS: GABAPENTIN 300 MG CAP PO SCH (20:41)
[2018-08-24] MEDS: MIRTAZAPINE 15 MG TAB PO SCH (20:41)
[2018-08-24] MEDS: SIMVASTATIN 40 MG TAB PO SCH (20:41)
--- NOTE | 2018-08-24 21:00 | NUR ---
ALL SCHEDULED MEDS WERE GIVEN AND TOLERATED THEM WELL. NO ASE NOTED. WILL CONTINUE TO MONITOR.
--- NOTE | 2018-08-24 21:20 | NUR ---
HEMODIALYSIS DONE. OUTPUT 4L. BP 154/84 WILL ADMINISTER THE SCHEDULED BP MEDS.
--- NOTE | 2018-08-24 23:00 | NUR ---
PATIENT SLEEPING RESPIRATION EVEN UNLABORED ON ROOM AIR. NO DISTRESS NOTED. WILL CONTINUE TO MONITOR.
[2018-08-25] VITALS: BP 155/87
--- NOTE | 2018-08-25 | NUR ---
VITALS WERE TAKEN. PATIENT CONDITION STABLE. NO DISTRESS NOTED. WILL CONTINUE TO MONITOR.
[2018-08-25] MEDS: PIPER/TAZO 2.25GM/D5W PREMIX 50 ML IV SCH ×2 (00:01→09:14)
[2018-08-25] MEDS: HYDRAGUARD CREAM TP SCH ×2 (00:01→12:56)
--- NOTE | 2018-08-25 02:00 | NUR ---
CHECKED PATIENT. PATIENT SLEEPING RESPIRATION EVEN UNLABORED ON ROOM AIR. NO DISTRESS NOTED. WILL CONTINUE TO MONITOR.
[2018-08-25] MEDS: cloNIDine 0.1 MG TAB PO SCH ×3 (03:58→21:00)
[2018-08-25 04:00] VITALS: BP 168/92
--- NOTE | 2018-08-25 04:00 | NUR ---
VITALS WERE TAKEN. PATIENT CONDITION STABLE. NO DISTRESS NOTED. WILL CONTINUE TO MONITOR.
--- NOTE | 2018-08-25 05:44 | NUR ---
REASSESS B/P AT, B/P WAS 206/93 P 77. PT DENIES PAIN AT THIS TIME , NO S/S OF DISTRESS. SPOKE WITH RESIDENT MD CENTENO, SHE ORDERED A HYDRAZALINE 10MG IVP STAT.
--- NOTE | 2018-08-25 05:52 | NUR ---
[facility] CALLED TO VERIFY MEDICATION.
[2018-08-25] MEDS ORDERED: hydrALAZINE 20 MG/ML VIAL IVP SCH (06:00)
[2018-08-25] MEDS: LEVOTHYROXINE 0.025 MG TAB PO SCH (06:08)
[2018-08-25] MEDS: BLOOD GLUCOSE MONITORING 1 DEV DEV FS SCH ×4 (06:12→20:44)
[2018-08-25] MEDS: INSULIN LISPRO SLIDING SCALE 100 UNITS/ML VIAL SUBQ PRN ×4 (06:17→20:46)
--- NOTE | 2018-08-25 06:30 | NUR ---
SYNTHROID GIVEN . PT FINGERSTICK IS 321, GIVEN 8 UNITS OF HUMALOG COVERAGE. DR. LOPEZ AT BEDSIDE EVALUATING PT.
[2018-08-25] MEDS ORDERED: VANCOMYCIN PER PHARMACY MC PRN (06:45)
--- NOTE | 2018-08-25 07:22 | NUR ---
ENDORSED PATIENT TO DAY SHIFT NURSE FOR CONTINUITY OF CARE. PATIENT CONDITION STABLE.
--- NOTE | 2018-08-25 07:23 | NUR ---
RECEIVED REPORT FROM SOLID WASTE ENGINEER NURSE. PATIENT LYING DOWN IN BED SLEEPING, AROUSABLE BY VOICE. NO DISTRESS NOTED. DENIES ANY PAIN AT THIS TIME. RESPIRATIONS EVEN, UNLABORED, ON ROOM AIR. PATIENT BLIND ON BOTH EYES. AAOX3, CALM, COOPERATIVE, SKIN COLOR APPROPRIATE TO ETHNICITY, WARM TO TOUCH. HAS RLE ROBLES AREA WOUND, DRESSING IS DRY AND INTACT. RIGHT UPPER ARM PICC LINE NOTED, ON TKO PER MD ORDERS. ABDOMEN SOFT, NON-DISTENDED. REVIEWED PLAN OF CARE WITH PATIENT. PATIENT VERBALIZED UNDERSTANDING. SAFETY MEASURES IN PLACE, CALL LIGHT WITHIN REACH. WILL CONTINUE TO MONITOR.
[2018-08-25] MEDS: ALBUTEROL SULFATE/IPRATROPIU 3 ML SOL IH SCH ×3 (07:24→19:10)
[2018-08-25 08:00] VITALS: BP 154/83
[2018-08-25 08:04] LABS: BASOPHILS # (AUTO) 0.1 K/uL (0.00-0.22); BASOPHILS % (AUTO) 1.2 % (0.0-2.0); EOSINOPHILS # (AUTO) 0.3 K/uL (0-0.4); EOSINOPHILS % (AUTO) 5.2 % (0.0-4.0); HEMATOCRIT 31.7 % (36-52); HEMOGLOBIN 10.6 g/dL (12.0-18.0); LYMPHOCYTES # (AUTO) 0.5 K/uL (2.0-11.5); LYMPHOCYTES % (AUTO) 8.4 % (20.5-51.1); MEAN CORPUSCULAR HEMOGLOBIN 32 pg (27-31); MEAN CORPUSCULAR HGB CONC 34 g/dL (33-37); MEAN CORPUSCULAR VOLUME 96.8 fL (80-94); MONOCYTES # (AUTO) 1.2 K/uL (0.8-1.0); MONOCYTES % (AUTO) 19.8 % (1.7-9.3); NEUTROPHILS # (AUTO) 3.8 K/uL (1.8-7.7); NEUTROPHILS % (AUTO) 65.4 % (42.2-75.2); PLATELET COUNT (AUTO) 158 K/uL (140-450); RED BLOOD CELL COUNT(AUTO) 3.28 MIL/uL (4.20-6.10); RED CELL DISTRIBUTION WIDTH 15.8 % (11.6-13.7); WHITE BLOOD COUNT (AUTO) 5.8 K/uL (4.8-10.8)
[2018-08-25 08:25] LABS: ANION GAP 18.7 (8-16); CARBON DIOXIDE 25.7 mmol/L (21-32); POTASSIUM 4.4 mmol/L (3.5-5.1)
[2018-08-25] MEDS: DEXT 5% /NACL 0.9% 1,000 ML IV SCH (08:26)
[2018-08-25 08:35] LABS: CREATININE 6.5 mg/dL (0.7-1.3)
[2018-08-25 09:00] LABS: PHOSPHORUS 5.4 mg/dL (2.5-4.9)
[2018-08-25] MEDS ORDERED: VANCOMYCIN 1GM/DEXT 5% PREMIX 200 ML IV SCH (09:00)
[2018-08-25] MEDS: levETIRAcetam 500 MG TAB PO SCH ×2 (09:14→20:39)
[2018-08-25] MEDS: NACL 0.9% 500 ML IV SCH (09:14)
[2018-08-25] MEDS: NIFEdipine 60 MG TABER PO SCH (09:15)
[2018-08-25] MEDS: CYCLOBENZAPRINE 10 MG TAB PO SCH ×3 (09:15→16:42)
[2018-08-25] MEDS: hydrALAZINE 25 MG TAB PO SCH ×3 (09:15→16:41)
--- NOTE | 2018-08-25 09:20 | NUR ---
PATIENT SITTING DOWN IN BED. NO DISTRESS NOTED. DENIES ANY PAIN. REPORTS FEELING BETTER TODAY, GENERALLY. SCHEDULED MEDICATIONS DUE GIVEN. WILL CONTINUE TO MONITOR.
--- NOTE | 2018-08-25 10:41 | NUR ---
ASSISTED PATIENT WITH BLANKETS AND REPOSITIONING. WILL CONTINUE TO MONITOR.
[2018-08-25 12:00] VITALS: BP 120/74
--- NOTE | 2018-08-25 12:20 | NUR ---
PATIENT AMBULATED TO BEDSIDE CHAIR. SITTING AT BEDSIDE CHAIR WITH LUNCH TRAY IN FRONT. FAMILY MEMBER AT BEDSIDE. NO DISTRESS NOTED. DENIES ANY PAIN. SCHEDULED MEDICATIONS DUE GIVEN. WILL CONTINUE TO MONITOR.
--- NOTE | 2018-08-25 12:50 | NUR ---
SPUTUM NOT COLLECTED PATIENT DOES NOT HAVE ANY COUGH TODAY.
[2018-08-25] MEDS: SKINTEGRITY HYDROGEL TP SCH (12:56)
--- NOTE | 2018-08-25 14:07 | NUR ---
SATURATION 90% ON ROOM AIR POST HHN THERAPY PLACED ON SUPPLEMENTAL OXYGEN AT 2 LPM VIA NC TO KEEP SATURATION GREATER 92% JACOB/RN NOTIFIED
--- NOTE | 2018-08-25 15:20 | NUR ---
PATIENT LYING DOWN IN BED SLEEPING, AROUSABLE BY VOICE. NO DISTRESS NOTED. DENIES ANY PAIN. CONDITION UNCHANGED. WILL CONTINUE TO MONITOR.
[2018-08-25 16:00] VITALS: BP 117/60
--- NOTE | 2018-08-25 16:45 | NUR ---
PATIENT LYING DOWN IN BED SLEEPING, AROUSABLE BY VOICE. NO DISTRESS NOTED. CONDITION UNCHANGED. SCHEDULED MEDICATIONS DUE GIVEN. WILL CONTINUE TO MONITOR.
--- NOTE | 2018-08-25 18:00 | NUR ---
SPUTUM NOT COLLECTED DUE TO PATIENT HAVING NO COUGH. WILL CONTINUE TO MONITOR.
--- NOTE | 2018-08-25 18:25 | NUR ---
PATIENT SITTING DOWN IN BED COMFORTABLY. NO DISTRESS NOTED. CONDITION UNCHANGED. WILL CONTINUE TO MONITOR.
--- NOTE | 2018-08-25 19:20 | NUR ---
RECEIVED BEDSIDE REPORT FROM DAY SHIFT NURSE. PATIENT IS AWAKE, ALERT, AND COOPERATIVE. RT AT THE BEDSIDE. RESPIRATION EVEN UNLABORED ON O2 2L NC. NO DISTRESS NOTED. SKIN IS WARM AND DRY. RIGHT UPPER ARM PATENT AND INTACT. OPEN WOUND RIGHT LOWER EXTREMITY NOTED. PLAN OF CARE WAS DISCUSSED. ALL SAFETY MEASURES IN PLACE. BED IS AT LOW POSITION. CALL LIGHT WITHIN REACH AND VERBALIZES ITS USE. WILL CONTINUE TO MONITOR.
--- NOTE | 2018-08-25 19:25 | NUR ---
GAVE REPORT TO HORSE SHOW JUDGE NURSE FOR CONTINUITY OF CARE. PATIENT IN STABLE CONDITION.
[2018-08-25 20:00] VITALS: BP 94/49
--- NOTE | 2018-08-25 20:00 | NUR ---
INITIAL ASSESSMENT DONE. VITALS WERE TAKEN. PATIENT IS IN STABLE CONDITION. WILL CONTINUE TO MONITOR
[2018-08-25] MEDS: MIRTAZAPINE 15 MG TAB PO SCH (20:39)
[2018-08-25] MEDS: SIMVASTATIN 40 MG TAB PO SCH (20:39)
[2018-08-25] MEDS: GABAPENTIN 300 MG CAP PO SCH (20:40)
[2018-08-25] MEDS ORDERED: BISACODYL 10 MG SUPP RC SCH (21:00)
--- NOTE | 2018-08-25 21:07 | NUR ---
HOLD BP MEDS DUE TO PATIENT BP 94/84 HR 78. PATIENT REFUSED SUPPOSITORY FOR TONIGHT HE WANTS IT TOMORROW MORNING. WILL ENDORSED TO DAY SHIFT NURSE.
--- NOTE | 2018-08-25 22:57 | NUR ---
PATIENT SLEEPING, AROUSABLE BY NAME. RESPIRATION EVEN UNLABORED ON O2 2L NC. NO DISTRESS NOTED. WILL CONTINUE TO MONITOR.
[2018-08-25] MEDS: HYDROcodone/APAP 5/325 MG 1 TAB TAB PO PRN (23:58)
[2018-08-26] VITALS: BP 95/50
--- NOTE | 2018-08-26 | NUR ---
VITALS WERE TAKEN. PATIENT COMPLAINED OF GENERALIZED PAIN 6/10. PRN PAIN MED ADMINISTERED PER ORDER. WILL CONTINUE TO MONITOR.
[2018-08-26] MEDS: NAFCILLIN 2,000 MG in DEXTROSE 5% 100 ML IV SCH ×4 (00:06→18:05)
[2018-08-26] MEDS ORDERED: NAFCILLIN 2,000 MG VIAL IV ONE ×2 (00:08→04:41)
[2018-08-26] MEDS: HYDRAGUARD CREAM TP SCH ×2 (00:10→13:23)
--- NOTE | 2018-08-26 02:00 | NUR ---
CHECKED PATIENT. PATIENT SLEEPING RESPIRATION EVEN UNLABORED ON 2L NC. NO DISTRESS NOTED. WILL CONTINUE TO MONITOR.
[2018-08-26 04:00] VITALS: BP 125/64
--- NOTE | 2018-08-26 04:00 | NUR ---
VITALS WERE TAKEN. PATIENT CONDITION STABLE. NO DISTRESS NOTED. WILL CONTINUE TO MONITOR.
[2018-08-26] MEDS: LEVOTHYROXINE 0.025 MG TAB PO SCH (05:36)
[2018-08-26] MEDS: cloNIDine 0.1 MG TAB PO SCH ×2 (05:37→12:47)
[2018-08-26] MEDS: INSULIN LISPRO SLIDING SCALE 100 UNITS/ML VIAL SUBQ PRN ×3 (06:19→17:01)
[2018-08-26] MEDS: BLOOD GLUCOSE MONITORING 1 DEV DEV FS SCH ×3 (06:20→17:02)
[2018-08-26 06:53] LABS: BASOPHILS # (AUTO) 0.1 K/uL (0.00-0.22); EOSINOPHILS # (AUTO) 0.5 K/uL (0-0.4); EOSINOPHILS % (AUTO) 8.6 % (0.0-4.0); HEMATOCRIT 31.9 % (36-52); HEMOGLOBIN 10.5 g/dL (12.0-18.0); LYMPHOCYTES # (AUTO) 0.8 K/uL (2.0-11.5); LYMPHOCYTES % (AUTO) 14.3 % (20.5-51.1); MEAN CORPUSCULAR HEMOGLOBIN 32 pg (27-31); MEAN CORPUSCULAR HGB CONC 33 g/dL (33-37); MONOCYTES % (AUTO) 18.8 % (1.7-9.3); NEUTROPHILS # (AUTO) 3.1 K/uL (1.8-7.7); NEUTROPHILS % (AUTO) 56.3 % (42.2-75.2); PLATELET COUNT (AUTO) 167 K/uL (140-450); RED BLOOD CELL COUNT(AUTO) 3.28 MIL/uL (4.20-6.10); RED CELL DISTRIBUTION WIDTH 15.4 % (11.6-13.7); WHITE BLOOD COUNT (AUTO) 5.4 K/uL (4.8-10.8)
[2018-08-26 07:05] LABS: ANION GAP 20.2 (8-16); CARBON DIOXIDE 21.6 mmol/L (21-32); POTASSIUM 4.8 mmol/L (3.5-5.1)
[2018-08-26 07:17] LABS: MAGNESIUM 2.3 mg/dL (1.8-2.4); PHOSPHORUS 7.2 mg/dL (2.5-4.9)
--- NOTE | 2018-08-26 07:19 | NUR ---
ENDORSED PATIENT TO DAY SHIFT NURSE FOR CONTINUITY OF CARE. PATIENT CONDITION STABLE.
--- NOTE | 2018-08-26 07:20 | NUR ---
RECEIVED REPORT FROM MACHINE STONE POLISHER NURSE. PATIENT LYING DOWN IN BED SLEEPING, AROUSABLE BY VOICE. NO DISTRESS NOTED. DENIES ANY PAIN AT THIS TIME. RESPIRATIONS EVEN, UNLABORED, ON ROOM AIR. PATIENT BLIND ON BOTH EYES. AAOX3, CALM, COOPERATIVE, SKIN COLOR APPROPRIATE TO ETHNICITY, WARM TO TOUCH. HAS RLE ROBLES AREA WOUND, DRESSING IS DRY AND INTACT. RIGHT UPPER ARM PICC LINE NOTED, ON TKO PER MD ORDERS. ABDOMEN SOFT, NON-DISTENDED. REVIEWED PLAN OF CARE WITH PATIENT. PATIENT VERBALIZED UNDERSTANDING. SAFETY MEASURES IN PLACE, CALL LIGHT WITHIN REACH. WILL CONTINUE TO MONITOR.
--- NOTE | 2018-08-26 07:45 | NUR ---
CRITICAL LAB VALUES REPORT TO DR. DAN. REGARDING GLUCOSE 448 LAB RESULT, PER MD, GIVE SCHEDULED LANTUS 10 UNITS THAT IS SCHEDULED AT 0900 AND RECHECK GLUCOSE IN 1 HOUR AFTER GIVING LANTUS. WILL ADMINISTER LANTUS PER MD ORDERS.
--- NOTE | 2018-08-26 07:46 | NUR ---
PATIENT AAOX3, ASYMPTOMATIC OF HYPERGLYCEMIA. WILL CONTINUE TO MONITOR.
[2018-08-26 08:00] VITALS: BP 132/75
[2018-08-26] MEDS: NACL 0.9% 500 ML IV SCH (08:55)
[2018-08-26] MEDS ORDERED: INSULIN LANTUS 100 UNITS/ML 10 ML VIAL SUBQ SCH ×2 (09:00→13:00)
[2018-08-26] MEDS: CYCLOBENZAPRINE 10 MG TAB PO SCH ×3 (09:08→17:03)
[2018-08-26] MEDS: hydrALAZINE 25 MG TAB PO SCH ×3 (09:08→17:03)
[2018-08-26] MEDS: NIFEdipine 60 MG TABER PO SCH (09:08)
[2018-08-26] MEDS: levETIRAcetam 500 MG TAB PO SCH (09:08)
--- NOTE | 2018-08-26 09:19 | NUR ---
ASSISTED PATIENT TO BATHROOM AND BACK TO BED. WILL CONTINUE TO MONITOR.
--- NOTE | 2018-08-26 09:23 | NUR ---
SCHEDULED MEDICATIONS DUE GIVEN. WILL CONTINUE TO MONITOR.
[2018-08-26] MEDS ORDERED: DOCUSATE SODIUM 250 MG GELCAP PO PRN (10:15)
[2018-08-26] MEDS ORDERED: LACTULOSE 20 GM/30 ML UDC PO SCH (10:30)
--- NOTE | 2018-08-26 10:34 | NUR ---
PHYSICAL THERAPIST WORKING WITH PATIENT. PATIENT AMBULATED DOWN MST HALLWAYS AND BACK TO BED. COMPLAINS OF CONSTIPATION AND UNABLE TO HAVE A BM. LACTULOSE AND DOCUSATE SODIUM GIVEN AT THIS TIME. WILL CONTINUE TO MONITOR.
--- NOTE | 2018-08-26 11:15 | NUR ---
ASSISTED PATIENT TO BATHROOM AND BACK TO BED. PATIENT HAD BM X 2 AFTER LACTULOSE AND COLACE GIVEN. WILL CONTINUE TO MONITOR.
[2018-08-26 12:00] VITALS: BP 123/65
[2018-08-26] MEDS ORDERED: NAFC1SOL1 IV (12:01)
[2018-08-26] MEDS ORDERED: INSU100S22 SUBQ (12:04)
--- NOTE | 2018-08-26 12:50 | NUR ---
CHECKED BLOOD GLUCOSE AT 430. NOTIFIED DR. OLPEZ, PER DR. LOPEZ ADMINISTER 10 UNITS HUMALOG AND 5 UNITS LANTUS X 1 DOSE. ADMINISTERED INSULINS TO PATIENT AND OTHER SCHEDULED MEDICATIONS DUE AT THIS TIME. PATIENT TOLERATED WELL. WILL CONTINUE TO MONITOR.
--- NOTE | 2018-08-26 13:00 | NUR ---
MOTHER AT BEDSIDE TALKING WITH PATIENT. NOTIFIED EDI, MOTHER, REGARDING TRANSFER TO [facility] [place]. EDI VERBALIZED UNDERSTANDING. WILL CONTINUE TO MONITOR.
[2018-08-26] MEDS: SKINTEGRITY HYDROGEL TP SCH (13:23)
[2018-08-26] MEDS: ALBUTEROL SULFATE/IPRATROPIU 3 ML SOL IH SCH ×2 (13:34→13:35)
--- NOTE | 2018-08-26 13:36 | NUR ---
PATIENT SITTING DOWN IN BED RECEIVING A BREATHING TREATMENT. WOUND CARE DRESSING CHANGED PER MD ORDERS. SCHEDULED MEDICATIONS DUE GIVEN. WILL CONTINUE TO MONITOR.
[2018-08-26 16:00] VITALS: BP 133/73
--- NOTE | 2018-08-26 16:16 | NUR ---
CALLED [facility] SPOKE WITH KIM CLARIFIED THE STAPHYLOCOCCUS AUREUS DOES NOT NEED ISOLATION PER KIM SHE WILL CALL BACK FOR THE ROOM NUMBER. FOR TRANSPORT SPOKE WITH THE DAD AND DANIELLE YOU STATED HE WILL PICK HIM UP ANY TIME. NOTIFIED JACOB PANDEY TO CALL PT'S DAD [phone] WHEN PT HAS ROOM AT [facility].
--- NOTE | 2018-08-26 17:09 | NUR ---
PATIENT LYING DOWN IN BED. NO DISTRESS NOTED. DENIES ANY PAIN. SCHEDULED MEDICATIONS DUE GIVEN. INSTRUCTIONS ON TRANSFER TO [facility] PROVIDED TO PATIENT. ANSWERED ALL OF PATIENT'S QUESTIONS REGARDING TRANSFER. PATIENT VERBALIZED UNDERSTANDING. AWAITING FOR [facility] TO CALL TO GIVE A ROOM NUMBER. WILL CONTINUE TO MONITOR.
--- NOTE | 2018-08-26 17:34 | NUR ---
CALLED [facility] AND GAVE REPORT TO KATHERIN GALAVIZ REGARDING PATIENT'S TRANSFER LATER TODAY BY HIS FATHER. ANSWERED ALL OF ANASTACIA'S QUESTIONS. ANASTACIA VERBALIZED UNDERSTANDING. ANASTACIA TO AWAIT FOR PATIENT'S ARRIVAL.
--- NOTE | 2018-08-26 17:58 | NUR ---
CALLED PATIENT'S FATHER DANIELLE BOOTH AND NOTIFIED HIM OF PATIENT'S TRANSFER TO [facility] LATER TONIGHT. PER DANIELLE, HE WILL COME INTENSIVE CARE UNIT NURSE PATIENT AT 1830 AND TAKE PATIENT TO [facility] HIMSELF. WILL CONTINUE TO MONITOR.
--- NOTE | 2018-08-26 18:30 | NUR ---
PATIENT'S FATHER ON UNIT READY TO TAKE PATIENT TO [facility]. ALL BELONGINGS AND PAPERWORK WITH FATHER. ESCORTED PATIENT DOWN TO LOBBY VIA WHEELCHAIR. PATIENT TRANSFERRED TO [facility] AT THIS TIME IN STABLE CONDITION.
[2018-10-04] MEDS ORDERED: DOCU-300 PO (05:59)
[2018-10-04] MEDS ORDERED: DIVA125E1 (06:01)
[2018-10-04] MEDS ORDERED: ADA60 PO ×2 (08:37→08:40)
[2018-10-04] MEDS ORDERED: ISOS20TA11 PO (08:40)
== END 2018-08-26 18:30 | DRG 871 ==
LOC: MED 12:20 → MTU 15:20
PROVIDERS: ADMIT General Practice; ATTEND General Practice
PROC: 5A1D70Z Performance of Urinary Filtration, Intermittent, Less than 6 Hours Per Day (ICD-10-PCS; principal; 2018-08-22)
PROC: 5A1D70Z Performance of Urinary Filtration, Intermittent, Less than 6 Hours Per Day (ICD-10-PCS; 2018-08-24)
PROC: 02HV33Z Insertion of Infusion Device into Superior Vena Cava, Percutaneous Approach (ICD-10-PCS; 2018-08-24)
PROC: B548ZZA Ultrasonography of Superior Vena Cava, Guidance (ICD-10-PCS; 2018-08-24)
DX: A41.01 Sepsis due to Methicillin susceptible Staphylococcus aureus (principal); J96.01 Acute respiratory failure with hypoxia; J69.0 Pneumonitis due to inhalation of food and vomit; N18.6 End stage renal disease; N17.0 Acute kidney failure with tubular necrosis; G93.41 Metabolic encephalopathy; I50.43 Acute on chronic combined systolic (congestive) and diastolic (congestive) heart failure; E87.1 Hypo-osmolality and hyponatremia; E44.1 Mild protein-calorie malnutrition; I13.2 Hypertensive heart and chronic kidney disease with heart failure and with stage 5 chronic kidney disease, or end stage renal disease; I16.0 Hypertensive urgency; E11.22 Type 2 diabetes mellitus with diabetic chronic kidney disease; E03.9 Hypothyroidism, unspecified; E11.319 Type 2 diabetes mellitus with unspecified diabetic retinopathy without macular edema; E78.5 Hyperlipidemia, unspecified; G40.909 Epilepsy, unspecified, not intractable, without status epilepticus; H54.3 Unqualified visual loss, both eyes; K21.9 Gastro-esophageal reflux disease without esophagitis; F32.9 Major depressive disorder, single episode, unspecified; E87.5 Hyperkalemia; E87.8 Other disorders of electrolyte and fluid balance, not elsewhere classified; D63.8 Anemia in other chronic diseases classified elsewhere; E83.41 Hypermagnesemia; E11.65 Type 2 diabetes mellitus with hyperglycemia; E11.40 Type 2 diabetes mellitus with diabetic neuropathy, unspecified; Z86.73 Personal history of transient ischemic attack (TIA), and cerebral infarction without residual deficits; Z88.1 Allergy status to other antibiotic agents; Z99.2 Dependence on renal dialysis; Z88.8 Allergy status to other drugs, medicaments and biological substances; Z79.4 Long term (current) use of insulin; Z79.899 Other long term (current) drug therapy; Z82.5 Family history of asthma and other chronic lower respiratory diseases; Z93.0 Tracheostomy status; Z68.27 Body mass index [BMI] 27.0-27.9, adult
CPT/HCPCS: 36415; 36600; 70450; 71045; 76604; 80048; 80053; 82140; 82150; 82803; 82948; 83036; 83605; 83690; 83735; 83880; 84100; 84436; 84439; 84443; 84479; 84484; 85025; 85610; 85730; 87040; 87081; 87186; 90935; 93880; 93925; 93970; 94640; 96365; 96375; 97116; 99285; A6248; C1751; J0360; J1815; J1885; J1956; J2270; J2543; J3370; J3490; J7030; J7042; J7060; J7620; Q0092

== ENCOUNTER 2018-09-13 14:20 | Inpatient (IN) | payer OTHER ==
[~2018-09-13] VITALS: Ht 175.3 cm; Wt 70.3 kg
[~2018-09-13 14:20] MED LIST changes: -ASCO-770 PO; -CRAN450T5 PO; -DOCU-299 PO; -INSU100I7 SQ; +INSU100S22 SUBQ; -LANTUS SUBQ; -METO5SOL24 IVP; +NAFC1SOL1 IV; -RAMI5CAP73 PO; -TOR30I IVP; -TRAM50TA1 PO
[2018-09-13 14:25] VITALS: BP 158/90
--- NOTE | 2018-09-13 14:25 | NUR ---
PATIENT BIB BLS TO ER BED 3.
--- NOTE | 2018-09-13 14:35 | NUR ---
PATIENT IS A 43 Y/O MALE BIB BLS WHO PRESENTS TO THE ED C/O ABNORMAL LABS. PER EMS PT WAS SENT TO ED FOR ABNORMAL HBG AND HCT REPORTS 7.3 AND 23.4 FROM FACILITY, THEN REPEAR TO 8 AND 24, THEN REPEAT TO 9.5 AND 29. PT DENIES PAIN AT THIS TIME. PT ANSWERING QUESTIONS APPROPRIATELY AT THIS TIME, MILD PALLOR NOTED AT THIS TIME. AMBULATED W ASSISTANCE TO BED. ER MD DR. MEADOWS NOTIFIED. WILL CONTINUE TO MONITOR. HX---LEGALLY BLIND, DM, HEMODIALYSIS, COPD, GI BLEED, PT ON DIALYSIS (T//SUN)
--- NOTE | 2018-09-13 15:55 | NUR ---
PT REFUSING LABS. EDUCATED PT ON REASON FOR DRAWING BLOOD IN RELATION TO HIS INITIAL COMPLAINT OF ABNORMAL LABS. PT AGREED TO LET LAB ATTEMPT TO DRAW BLOOD. PT STATES HE WANTS TO LEAVE. EDUCATED PT ON THE CARE WE ARE PROVIDING HIM AND THE RATIONAL BEHIND IT. PT IS STAYING IN BED FOR NOW.
--- NOTE | 2018-09-13 16:00 | NUR ---
PT DOES NOT PRODUCE URINE ANYMORE, DR. MEADOWS AWARE.
--- NOTE | 2018-09-13 16:10 | NUR ---
Sury jimenez in [facility] - 09/13/18 at 1612 by CESILIA LAB IS UNABLE TO DRAW BLOOD, PT REFUSES ANY MORE ATTEMPTS
--- NOTE | 2018-09-13 16:12 | NUR ---
LAB IS UNABLE TO DRAW BLOOD, PT REFUSES ANY MORE ATTEMPTS, DR. MEADOWS IS AWARE AND WILL GO TO SEE THE PT
[2018-09-13 16:50] LABS: BASOPHILS # (AUTO) 0.1 K/uL (0.00-0.22); BASOPHILS % (AUTO) 1.1 % (0.0-2.0); EOSINOPHILS # (AUTO) 0.1 K/uL (0-0.4); EOSINOPHILS % (AUTO) 2.4 % (0.0-4.0); HEMATOCRIT 25.2 % (36-52); HEMOGLOBIN 8.5 g/dL (12.0-18.0); LYMPHOCYTES # (AUTO) 0.6 K/uL (2.0-11.5); MEAN CORPUSCULAR HEMOGLOBIN 33 pg (27-31); MEAN CORPUSCULAR HGB CONC 34 g/dL (33-37); MONOCYTES # (AUTO) 0.6 K/uL (0.8-1.0); MONOCYTES % (AUTO) 11.4 % (1.7-9.3); NEUTROPHILS # (AUTO) 4.1 K/uL (1.8-7.7); NEUTROPHILS % (AUTO) 74.1 % (42.2-75.2); PLATELET COUNT (AUTO) 213 K/uL (140-450); RED CELL DISTRIBUTION WIDTH 15.8 % (11.6-13.7); WHITE BLOOD COUNT (AUTO) 5.6 K/uL (4.8-10.8)
[2018-09-13 17:02] LABS: ANION GAP 12.3 (8-16); POTASSIUM 4.3 mmol/L (3.5-5.1)
[2018-09-13 17:05] LABS: CREATININE 5.2 mg/dL (0.7-1.3); PROTHROMBIN TIME 12.1 secs (10.8-13.4)
[2018-09-13 17:10] LABS: ALBUMIN 2.7 g/dL (3.4-5.0); TOTAL BILIRUBIN 0.8 mg/dL (0.0-1.0)
--- NOTE | 2018-09-13 17:30 | NUR ---
ATTEMPTED TO INSERT EJ X 3 ---UNSUCCESSFUL 22GA IV LEFT UPPER CHESTWALL GOOD
[2018-09-13 17:46] LABS: MAGNESIUM 2.2 mg/dL (1.8-2.4); THYROID STIMULATING HORMONE 3.47 uIU/mL (0.34-3.74)
[2018-09-13] MEDS ORDERED: LEVOFLOXACIN 750 MG/D5W PREMIX 150 ML IV ONE (18:10)
[2018-09-13] MEDS ORDERED: NACL 0.9% 1,000 ML IV SCH (18:26)
[2018-09-13] MEDS ORDERED: ONDANSETRON 4 MG/2 ML VIAL IM/IVP PRN (18:30)
[2018-09-13] MEDS ORDERED: DOCUSATE SODIUM 100 MG GELCAP PO PRN (18:30)
[2018-09-13] MEDS ORDERED: MORPHINE SULFATE 2 MG/ML SYR IVP PRN (18:30)
[2018-09-13] MEDS ORDERED: HYDROcodone/APAP 7.5/325 MG 1 TAB PO PRN (18:30)
[2018-09-13] MEDS ORDERED: ACETAMINOPHEN 325 MG TAB PO PRN (18:30)
[2018-09-13] MEDS ORDERED: LORazepam 2 MG/ML VIAL IM/IVP PRN (18:30)
[2018-09-13 18:59] LABS: CHOL/HDL RATIO 1.6 (1-4.5); MAGNESIUM 2.1 mg/dL (1.8-2.4)
[2018-09-13] MEDS ORDERED: MECLIZINE 25 MG TAB PO PRN (19:30)
--- NOTE | 2018-09-13 19:34 | NUR ---
Patient will be admitted to care of DR. MENA. Admited to TELEMETRY. Will go to room 114. Belongings list completed. Report to KATHERIN BURGESS.
--- NOTE | 2018-09-13 19:34 | NUR ---
URINE NOT COLLECTED, PT IS ANURIC - ERMD AWARE
--- NOTE | 2018-09-13 19:35 | NUR ---
RECEIVED PT FROM ER NURSE, FELIPE. PT CAME IN [facility], ABLE TO AMBULATE TO [facility] BED. NO SOB OR RESPIRATORY DISTRESS NOTED AT THIS TIME ON RA. SKIN INTACT, WARM AND DRY TO TOUCH. DX: PNA, CHF, ANEMIA, HX: DM, ESRD, ANEMIA, CVA, HYPOTHYROID, HTN, EPILEPSY, CAD, AND LEGALLY BLIND. SEIZURE PRECAUTION IN PLACE. ORIENT ROOM TO PT. IV SITE L CHEST 22G. INTACT, PATENT, AND ASYMPTOMATIC. BED IN LOW POSITION, CALL LIGHT WITHIN REACH. WILL CONTINUE TO MONITOR. Addendum: 09/14/18 at 0053 by Catrachito Almanzar RN BP 182/99 NOTED. NOTIFIED TO WILL CONTINUE TO MONITOR.
[2018-09-13 20:00] VITALS: BP 182/99
[2018-09-13] MEDS ORDERED: GABA300C PO (20:29)
[2018-09-13] MEDS ORDERED: PHO667 PO (20:29)
[2018-09-13] MEDS ORDERED: MIRT30TA PO (20:29)
[2018-09-13] MEDS ORDERED: INSU100S22 SUBQ (20:29)
[2018-09-13] MEDS ORDERED: CLON0.1T42 PO (20:29)
[2018-09-13] MEDS ORDERED: SIMV40TA1 PO (20:29)
[2018-09-13] MEDS ORDERED: KEP500 PO (20:29)
[2018-09-13] MEDS ORDERED: HYDR100T79 PO (20:29)
[2018-09-13] MEDS ORDERED: TETRAHYDROZOLINE 0.05% OP 15 ML BTL OP PRN (20:40)
[2018-09-13] MEDS ORDERED: LACT100C5 PO (20:52)
[2018-09-13] MEDS ORDERED: DIVA125E1 GT/PO (20:55)
--- NOTE | 2018-09-13 20:58 | NUR ---
ALEXANDRA CHECKED, 34, GIVEN D50 ORDERED. PROVIDED SANDWICH AND APPLE JUICE. WILL CONTINUE TO MONITOR.
[2018-09-13] MEDS: INSULIN LANTUS 100 UNITS/ML 10 ML VIAL SUBQ SCH (21:00)
[2018-09-13] MEDS ORDERED: BLOOD GLUCOSE MONITORING 1 DEV DEV FS SCH (21:00)
[2018-09-13] MEDS ORDERED: cloNIDine 0.1 MG TAB PO SCH (21:00)
[2018-09-13] MEDS: DEXTROSE 50% 50 ML SYR IVP PRN (21:02)
[2018-09-13] MEDS ORDERED: DEXT 5% / NACL 0.45% 500 ML IV SCH (21:10)
[2018-09-13] MEDS ORDERED: ALBUTEROL SULFATE/IPRATROPIU 3 ML SOL IH PRN (21:35)
[2018-09-13] MEDS: GABAPENTIN 300 MG CAP PO SCH (21:38)
[2018-09-13] MEDS: MIRTAZAPINE 15 MG TAB PO SCH (21:40)
[2018-09-13] MEDS: ASCORBIC ACID 500 MG TAB PO SCH (21:41)
[2018-09-13] MEDS: SIMVASTATIN 40 MG TAB PO SCH (21:41)
[2018-09-13] MEDS: levETIRAcetam 500 MG TAB PO SCH (21:42)
[2018-09-13] MEDS: ISOSORBIDE MONONITRATE 30 MG TABER PO SCH (21:43)
--- NOTE | 2018-09-13 21:43 | NUR ---
RENE HELD D/T LOW BS. GIVEN SCHEDULE MEDS ORDERED. BS CHECKED AGAIN, 148. WILL CONTINUE TO MONITOR.
[2018-09-13] MEDS ORDERED: DIVALPROEX SPRINKLES 125 MG CAPDR GT/PO SCH (22:00)
--- NOTE | 2018-09-13 22:30 | NUR ---
BP CHECKED, 145/70 NOTED. WILL CONTINUE TO MONITOR.
[2018-09-14] VITALS: BP 146/75
[2018-09-14] MEDS ORDERED: BLOOD GLUCOSE MONITORING 1 DEV DEV FS SCH
--- NOTE | 2018-09-14 | NUR ---
CHECKED VS. 70% O2 SAT NOTED. APPLIED NC 4LPM, WENT TO 99% O2SAT. WILL CONTINUE TO MONITOR.
[2018-09-14] MEDS: INSULIN LISPRO SLIDING SCALE 100 UNITS/ML VIAL SUBQ PRN ×3 (00:14→21:23)
--- NOTE | 2018-09-14 00:14 | NUR ---
BS CHECKED, 314, GIVEN 8 UNITS OF INSULIN ORDERED. BED IN LOW POSITION, CALL LIGHT WITHIN REACH.
--- NOTE | 2018-09-14 02:30 | NUR ---
NOTIFIED CRITICAL LAB VALUE, ABG PO2 47.9, ABG O2SAT 79.8, OXYHEMOGLOBIN 78.4. TO RESIDENT ALSO REPORT PT'S CURRENT O2SAT 100% WITH O2 4LPM NC. NO ORDER CHANGED.
[2018-09-14 04:00] VITALS: BP 170/89
--- NOTE | 2018-09-14 04:00 | NUR ---
VS CHECKED, BP 170/89, NOTIFIED TO RESIDENT NO ORDER CHANGED. WILL CONTINUE TO MONITOR.
[2018-09-14] MEDS: DEXT 5% / NACL 0.9% 500 ML IV SCH (05:50)
--- NOTE | 2018-09-14 05:50 | NUR ---
GIVEN SYNTHROID, BS CHECKED, 21, GIVEN D50 ORDERED AND 3 PACKS OF ORANGE JUICE. NOTIFIED TO DR. CONWAY ORDERED D5NS @ 20MLS/MIN. GIVEN D5NS MD ORDERED. PT TOLERATED WELL. WILL CONTINUE TO MONITOR.
[2018-09-14] MEDS: LEVOTHYROXINE 0.025 MG TAB PO SCH (06:03)
[2018-09-14] MEDS: DEXTROSE 50% 50 ML SYR IVP PRN (06:11)
--- NOTE | 2018-09-14 06:21 | NUR ---
BS CHECKED AGAIN, 149. WILL CONTINUE TO MONITOR.
[2018-09-14] MEDS: ALBUTEROL SULFATE/IPRATROPIU 3 ML SOL IH SCH ×3 (07:23→20:12)
--- NOTE | 2018-09-14 07:26 | NUR ---
RECEIVED BEDSIDE REPORT FROM KATHERIN RIGGINS. PT STABLE, AWAKE, ALERT AND ORIENTED X4. NO SIGNS OF DISTRESS NOTED. DENIES PAIN OR SOB. ON 4L O2 VIA NC. NO REDNESS, SWELLING, OR INFLAMMATION NOTED ON IV SITE ON LEFT CHEST 22G. PT REFUSED TO TAKE OFF SWEATER, PULLING ON IV. CALL LEA WITHIN REACH. BED IN LOWEST POSITION, BED ALARM ON. SAFETY MEASURES IN PLACE. PLAN OF CARE REVIEWED. ON STRICT I&O AT 1,500ML/DAY.
--- NOTE | 2018-09-14 07:27 | NUR ---
ENDORSED PT TO DAY SHIFT NURSEHOMAR. PT IN STABLE CONDITION.
[2018-09-14 07:30] LABS: BASOPHILS # (AUTO) 0.1 K/uL (0.00-0.22); BASOPHILS % (AUTO) 1.1 % (0.0-2.0); EOSINOPHILS # (AUTO) 0.2 K/uL (0-0.4); HEMATOCRIT 23.1 % (36-52); HEMOGLOBIN 7.8 g/dL (12.0-18.0); LYMPHOCYTES # (AUTO) 0.9 K/uL (2.0-11.5); LYMPHOCYTES % (AUTO) 18.1 % (20.5-51.1); MEAN CORPUSCULAR HEMOGLOBIN 33 pg (27-31); MEAN CORPUSCULAR HGB CONC 34 g/dL (33-37); MEAN CORPUSCULAR VOLUME 97.5 fL (80-94); MONOCYTES # (AUTO) 0.5 K/uL (0.8-1.0); MONOCYTES % (AUTO) 11.6 % (1.7-9.3); NEUTROPHILS # (AUTO) 3.1 K/uL (1.8-7.7); NEUTROPHILS % (AUTO) 65.2 % (42.2-75.2); PLATELET COUNT (AUTO) 204 K/uL (140-450); RED BLOOD CELL COUNT(AUTO) 2.37 MIL/uL (4.20-6.10); RED CELL DISTRIBUTION WIDTH 15.8 % (11.6-13.7); WHITE BLOOD COUNT (AUTO) 4.7 K/uL (4.8-10.8)
[2018-09-14 07:45] LABS: ANION GAP 12.4 (8-16); POTASSIUM 4.4 mmol/L (3.5-5.1)
[2018-09-14 07:58] LABS: CREATININE 6.2 mg/dL (0.7-1.3)
[2018-09-14 08:00] VITALS: BP 165/92
[2018-09-14] MEDS: BLOOD GLUCOSE MONITORING 1 DEV DEV FS SCH ×4 (08:00→20:00)
[2018-09-14] MEDS: cloNIDine 0.1 MG TAB PO SCH ×3 (09:00→17:23)
[2018-09-14] MEDS: hydrALAZINE 25 MG TAB PO SCH ×3 (09:00→17:22)
[2018-09-14] MEDS ORDERED: DIVALPROEX SPRINKLES 125 MG CAPDR GT/PO SCH (09:00)
[2018-09-14] MEDS: ISOSORBIDE MONONITRATE 30 MG TABER PO SCH ×2 (09:00→21:15)
[2018-09-14] MEDS ORDERED: cloNIDine 0.1 MG TAB PO SCH (09:00)
[2018-09-14] MEDS: DOCUSATE SODIUM 250 MG GELCAP PO SCH (09:00)
[2018-09-14] MEDS: NIFEdipine 60 MG TABER PO SCH (09:00)
[2018-09-14] MEDS: ASCORBIC ACID 500 MG TAB PO SCH ×2 (09:52→21:15)
[2018-09-14] MEDS: CALCIUM ACETATE 667 MG TAB PO SCH ×3 (09:52→17:23)
[2018-09-14] MEDS: DIVALPROEX SPRINKLES 125 MG CAPDR GT/PO SCH ×2 (09:53→21:12)
[2018-09-14] MEDS: levETIRAcetam 500 MG TAB PO SCH ×2 (09:55→21:13)
--- NOTE | 2018-09-14 09:58 | NUR ---
HELD ALL BP MEDICATIONS DUE TO PT IS SCHEDULED FOR DIALYSIS TODAY, PT REFUSED SCHEDULED COLACE, ADMINISTERED ALL OTHER SCHEDULED MEDICATIONS. PT TOLERATED WELL. NO OTHER NEEDS AT THIS TIME.
--- NOTE | 2018-09-14 10:15 | NUR ---
DR LYMAN AT BEDSIDE TO ORDER FOR DIALYSIS. SPOKE WITH VERO GARZA TO SCHEDULE DIALYSIS TODAY.
[2018-09-14 12:00] VITALS: BP 162/83
--- NOTE | 2018-09-14 12:10 | NUR ---
VITAL SIGNS TAKEN, PT STABLE. BG CHECKED, 115, NO COVERAGE NEEDED.
[2018-09-14] MEDS ORDERED: metroNIDAZOLE 500 MG/NS PREMIX 100 ML IV SCH ×2 (13:00→15:30)
--- NOTE | 2018-09-14 13:07 | NUR ---
HELD SCHEDULED CLONIDINE, HYDRALAZINE, AND FLAGYL DUE TO DIALYSIS, ADMINISTERED ALL OTHER SCHEDULED MEDICATIONS. PT TOLERATED WELL. WILL CONTINUE TO MONITOR.
--- NOTE | 2018-09-14 15:25 | NUR ---
PT IS STILL ON DIALYSIS. INFORMED DR MILAN THAT DR LYMAN ORDERED PROCRIT FOR PT STARTING NEXT SUNDAY. PER DR MILAN, HE WILL CHANGE ORDER.
[2018-09-14] MEDS ORDERED: EPOETIN ALFA 10,000 UNITS/ML VIAL SUBQ SCH (15:30)
[2018-09-14 16:00] VITALS: BP 188/98
--- NOTE | 2018-09-14 16:50 | NUR ---
DIALYSIS JUST FINISHED, 4L OUTPUT PER MIXING PAN TENDER.
--- NOTE | 2018-09-14 17:30 | NUR ---
ADMINISTERED 2 UNITS HUMALOG FOR BG 196. ADMINISTERED SCHEDULED FLAGYL AND PROCRIT AFTER DIALYSIS, PT TOLERATED WELL. NO OTHER NEEDS AT THIS TIME.
--- NOTE | 2018-09-14 18:40 | NUR ---
BP AND HR RECHECKED, BP 128/71 HR 78. WILL CONTINUE TO MONITOR.
--- NOTE | 2018-09-14 19:15 | NUR ---
ENDORSED PT TO RN DOLORES FOR CONTINUITY OF CARE. PT STABLE.
--- NOTE | 2018-09-14 19:20 | NUR ---
RECEIVED FROM AM RN IN BED IN A SUPINE POSITION. DRESSING TO LEFT UPPER ARM HD SHUNT WITH DRESSING NOTED WITH A TINGE OF BLOOD. PER AM RN HD RN WRAPPED IT WELL RT HE WAS BLEEDING ON THAT SITE AND AT PRESENT HAS STOPPED ALREADY. PT. LEGALLY BLIND. ABLE TO VERBALIZE NEEDS WELL IN RWANDAN. CALL LIGHT WITH IN REACH AND BED ALARM ON. CARE PLANS FOR THE NIGHT DISCUSSED WITH HIM. IVF SITE TO LEFT UPPER CHEST #22 WITH A KVO RATE. PT. REMINDED TO BE VERY CAREFUL WITH IT RT HARD STICK. REFUSED TO BE ON HOSPITAL GOWN PER AM RN. WEARING A T-SHIRT. TELEMETRY MONITORING. DX. OF PNA, ANEMIA AND CHF. ON 02 AT 4LPM/NC.
[2018-09-14 19:23] VITALS: BP 160/88
[2018-09-14] MEDS: MIRTAZAPINE 15 MG TAB PO SCH (21:13)
[2018-09-14] MEDS: GABAPENTIN 300 MG CAP PO SCH (21:15)
[2018-09-14] MEDS: SIMVASTATIN 40 MG TAB PO SCH (21:16)
[2018-09-14] MEDS: metroNIDAZOLE 500 MG/NS PREMIX 100 ML IV SCH (21:16)
[2018-09-14] MEDS: INSULIN LANTUS 100 UNITS/ML 10 ML VIAL SUBQ SCH (21:22)
--- NOTE | 2018-09-14 21:59 | NUR ---
PROVIDED WITH SANDWICH REQUESTED BY PT. ALL P.O. MEDICATIONS TAKEN BY PT. CALL LIGHT WITH IN REACH. ENCOURAGED TO CALL FOR ANY HELP HE MAY NEED. DRESSING TO HD SITE INTACT AND NO ACTIVE BLEEDING NOTED. TELEMETRY MONITORING. DENIES PAIN AT THIS TIME. BREATHING TREATMENT PROVIDED BY RESPIRATORY THERAPIST.
--- NOTE | 2018-09-15 | NUR ---
PT. SLEEPING. NO COMPLAINTS DONE.
[2018-09-15] MEDS: BLOOD GLUCOSE MONITORING 1 DEV DEV FS SCH ×6 (00:53→20:00)
[2018-09-15] MEDS: INSULIN LISPRO SLIDING SCALE 100 UNITS/ML VIAL SUBQ PRN (00:55)
[2018-09-15 01:00] VITALS: BP 140/75
--- NOTE | 2018-09-15 02:00 | NUR ---
PT. AWAKE AND REQUESTED TO HAVE DIAPER CHANGED RT WITH BM. CLEANED UP BY CNAS. NO FURTHER COMPLAINTS DONE. DENIES PAIN AT THIS TIME.
--- NOTE | 2018-09-15 04:00 | NUR ---
SLEEPING WELL. NO RESTLESSNESS.
[2018-09-15 05:01] VITALS: BP 187/101
[2018-09-15] MEDS: LEVOTHYROXINE 0.025 MG TAB PO SCH (05:07)
[2018-09-15] MEDS: cloNIDine 0.1 MG TAB PO SCH ×3 (05:08→16:42)
[2018-09-15] MEDS: metroNIDAZOLE 500 MG/NS PREMIX 100 ML IV SCH ×3 (05:08→23:36)
[2018-09-15] MEDS: DEXT 5% / NACL 0.9% 500 ML IV SCH (05:08)
--- NOTE | 2018-09-15 05:10 | NUR ---
SLEPT WELL THIS SHIFT. LATEST BP 187/101. BS 101 PER FINGERSTICK FOR 4 AM. PER RESIDENT MD MIKE TO JUST GIVE AM MEDICATION CLONIDINE P.O. FOR NOW INSTEAD. MADE PT. AWARE OF IT. "OK"
[2018-09-15] MEDS: ALBUTEROL SULFATE/IPRATROPIU 3 ML SOL IH SCH ×2 (06:00→13:08)
--- NOTE | 2018-09-15 06:05 | NUR ---
PATIENT HAS BEEN SCREENED AND CATEGORIZED MODERATE NUTRITION RISK. PATIENT WILL BE SEEN WITHIN 3-5 DAYS OF ADMISSION. 09/15/18-09/17/18 CHELITA STONE MS, RDN
--- NOTE | 2018-09-15 06:24 | NUR ---
INFORMED RESIDENT MD AT THIS TIME THAT BP STILL SAME. "IT IS OK, LET US GIVE IT TIME"
--- NOTE | 2018-09-15 07:15 | NUR ---
RECEIVED PT REPORT FROM RESIDENTIAL SALES REP NURSE, PT IS ASLEEP, NO S/S OF ANY ACUTE DISTRESS NOTED. PT IS ON 2L O2 NC, SKIN IS INTACT. PT IS LEGALLY BLIND. FALL PRECAUTIONS ARE IN PLACE, EXCEPT PT IS REFUSING TO WEAR YELLOW GOWN. PT IS ON 1500 ML/DAY FLUID RESTRICTION. IV SITE IS ON THE L SIDE CHEST, 22 G, INFUSING D5NS 10 ML/HR. HD SHUNT IS NOTED ON THE LUE. ACCORDING TO RESIDENTIAL SALES REP RN, PT MAKES SOME URINE AND HAD 2 BM'S AT NIGHT. CALL LIGHT IS WITHIN REACH, WILL CONTINUE TO MONITOR.
--- NOTE | 2018-09-15 07:28 | NUR ---
PT. REFUSED TO HAVE LAB WORKS DONE AT THIS TIME. MADE CHARGE NURSE AWARE. SLEEPING AT THIS TIME. Addendum: 09/15/18 at 0732 by Lorrie Lorenzo RN ERROR ABOVE CHARTING. WRONG PT.
--- NOTE | 2018-09-15 07:32 | NUR ---
ABOVE CHARTING ERROR.
[2018-09-15 08:00] VITALS: BP 177/99
[2018-09-15 08:23] LABS: BASOPHILS # (AUTO) 0.1 K/uL (0.00-0.22); BASOPHILS % (AUTO) 2.1 % (0.0-2.0); EOSINOPHILS # (AUTO) 0.2 K/uL (0-0.4); EOSINOPHILS % (AUTO) 5.8 % (0.0-4.0); HEMATOCRIT 22.9 % (36-52); HEMOGLOBIN 7.7 g/dL (12.0-18.0); LYMPHOCYTES # (AUTO) 0.8 K/uL (2.0-11.5); LYMPHOCYTES % (AUTO) 21.7 % (20.5-51.1); MEAN CORPUSCULAR HEMOGLOBIN 33 pg (27-31); MEAN CORPUSCULAR HGB CONC 34 g/dL (33-37); MEAN CORPUSCULAR VOLUME 97.5 fL (80-94); MONOCYTES # (AUTO) 0.5 K/uL (0.8-1.0); MONOCYTES % (AUTO) 13.9 % (1.7-9.3); NEUTROPHILS # (AUTO) 2.1 K/uL (1.8-7.7); NEUTROPHILS % (AUTO) 56.5 % (42.2-75.2); PLATELET COUNT (AUTO) 197 K/uL (140-450); RED BLOOD CELL COUNT(AUTO) 2.34 MIL/uL (4.20-6.10); RED CELL DISTRIBUTION WIDTH 15.7 % (11.6-13.7); WHITE BLOOD COUNT (AUTO) 3.7 K/uL (4.8-10.8)
[2018-09-15] MEDS: CALCIUM ACETATE 667 MG TAB PO SCH ×3 (08:46→16:42)
[2018-09-15] MEDS: NIFEdipine 60 MG TABER PO SCH (08:47)
[2018-09-15] MEDS: ASCORBIC ACID 500 MG TAB PO SCH ×2 (08:47→20:29)
[2018-09-15] MEDS: DIVALPROEX SPRINKLES 125 MG CAPDR GT/PO SCH ×2 (08:47→20:27)
[2018-09-15] MEDS: hydrALAZINE 25 MG TAB PO SCH ×3 (08:47→16:41)
[2018-09-15] MEDS: ISOSORBIDE MONONITRATE 30 MG TABER PO SCH ×2 (08:48→20:27)
[2018-09-15] MEDS: DOCUSATE SODIUM 250 MG GELCAP PO SCH (08:48)
[2018-09-15] MEDS: levETIRAcetam 500 MG TAB PO SCH ×2 (08:48→20:29)
[2018-09-15] MEDS: DEXTROSE 50% 50 ML SYR IVP PRN (08:52)
--- NOTE | 2018-09-15 08:54 | NUR ---
PT'S BLOOD GLUCOSE IS CURRENTLY 49, IV DEXTROSE INJECTION GIVEN PER PROTOCOL. 120 ML BOX OF OJ GIVEN, PT DRINKING OJ. WILL RECHECK PT'S BLOOD GLUCOSE IN 20 MINUTES. PT REFUSED TO EAT HIS BREAKFAST, BUT IS WILLING TO EAT A SANDWICH. WILL GET A SANDWICH FOR PT AT THIS TIME. Addendum: 09/15/18 at 0904 by Faby Llamas RN PT EATING A TURKEY SANDWICH
[2018-09-15 09:17] LABS: PHOSPHORUS 4.2 mg/dL (2.5-4.9)
--- NOTE | 2018-09-15 09:21 | NUR ---
BLOOD GLUCOSE IS 142 AT THIS TIME
[2018-09-15 09:25] LABS: ANION GAP 17.8 (8-16); CARBON DIOXIDE 28.5 mmol/L (21-32); POTASSIUM 4.3 mmol/L (3.5-5.1)
[2018-09-15 09:46] LABS: CREATININE 5.1 mg/dL (0.7-1.3)
[2018-09-15 12:00] VITALS: BP 185/98
--- NOTE | 2018-09-15 12:30 | NUR ---
PT'S BLOOD GLUCOSE IS 203 AT THIS TIME. HE IS REFUSING TO HAVE THE HUMALOG INSULIN ORDERED PER PROTOCOL. HE SAYS THAT HIS BLOOD SUGAR "NEEDS TO BE ABOVE 200", BECAUSE IT TENDS TO DROP DOWN TOO LOW. DR MILAN IS AWARE, AND SAID TO HOLD THE INSULIN AT THIS TIME.
--- NOTE | 2018-09-15 13:08 | NUR ---
pt refused to be assessed for breathing tx does not want one and is very agitated yelling to leave him alone Addendum: 09/15/18 at 1311 by Abbey Bernstein RT arjun woods
--- NOTE | 2018-09-15 15:21 | NUR ---
PT ENDORSED TO KATHERIN BONDS, FOR CONTINUITY OF CARE.
[2018-09-15] MEDS ORDERED: ALBUTEROL SULFATE/IPRATROPIU 3 ML SOL IH PRN (15:25)
--- NOTE | 2018-09-15 15:30 | NUR ---
PATIENT WAS SLEEPING COMFORTABLY, EASILY AROUSABLE BY NAME. RESPIRATION EVEN, UNLABOR ON ROOM AIR. SKIN DRY AND WARM. IV PATENT AND INTACT. NO DISTRESS NOTED AT THIS TIME
[2018-09-15 16:00] VITALS: BP 132/78
--- NOTE | 2018-09-15 16:44 | NUR ---
PATIENT REFUSED TO HAVE INSULIN HUMALOG, STATED THAT HE CAN ONLY HAVE INSULIN WHEN BS ABOVE 200 PER HIS PCP. PATIENT ALSO REFUSED TO BE CHANGED AT THIS TIME
--- NOTE | 2018-09-15 18:22 | NUR ---
PATIENT WAS RESTING COMFORTABLY. RESPIRATION EVEN, UNLABOR ON ROOM AIR. IV PATENT AND INTACT. NO DISTRESS NOTED AT THIS TIME
--- NOTE | 2018-09-15 19:10 | NUR ---
ENDORSEMENT GIVEN TO GUITAR INSTRUCTOR NURSE. PATIENT IS STABLE AT THIS TIME.
--- NOTE | 2018-09-15 19:10 | NUR ---
RECEIVED BEDSIDE REPORT FROM DAY RN, PT IS ASLEEP, NO S/S OF ANY ACUTE DISTRESS NOTED. PT ON ROOM AIR,RESPIRATIONS ARE EQUAL AND UNLABORED. SKIN IS INTACT. PT IS LEGALLY BLIND. FALL PRECAUTIONS ARE IN PLACE, EXCEPT PT IS REFUSING TO WEAR YELLOW GOWN. PT IS ON 1500 ML/DAY FLUID RESTRICTION. IV SITE IS ON THE L SIDE CHEST, 22 G, INFUSING D5NS 10 ML/HR. HD SHUNT IS NOTED ON THE LUE. DIALYSIS YESTERDAY. CALL LIGHT IS WITHIN REACH. WILL ROUND FREQUENTLY.
[2018-09-15] MEDS ORDERED: LEVOFLOXACIN 500 MG/D5W PREMIX 100 ML IV SCH (20:00)
--- NOTE | 2018-09-15 20:26 | NUR ---
SCHEDULED MEDICATIONS GIVEN. ALL NEEDS MET AT THIS TIME. ASSIST PATIENT ON EATING SANDWICH. CALL LIGHT IS WITHIN REACH.
[2018-09-15] MEDS: GABAPENTIN 300 MG CAP PO SCH (20:27)
[2018-09-15] MEDS: SIMVASTATIN 40 MG TAB PO SCH (20:29)
[2018-09-15] MEDS: MIRTAZAPINE 15 MG TAB PO SCH (20:29)
--- NOTE | 2018-09-15 20:30 | NUR ---
PATIENT BEGAN COMPLAINING OF PAIN ON IV SITE NO S/S OF PHLEBITIS NO SWELLING OR REDNESS. PAIN WHEN FLUSHED 1 CC. IV REMOVED. IV CATH INTACT. WILL ATTEMPT TO INSERT NEW IV.
--- NOTE | 2018-09-15 21:16 | NUR ---
NEW IV ON R WRIST 24G CHARGE NURSE INSERTED ON 2ND ATTEMPT. ANTIBIOTICS NOW INFUSING PER ORDERS. WILL MONITOR CLOSELY.
--- NOTE | 2018-09-15 22:00 | NUR ---
PATIENT COMPLAIN OF PAIN ON IV SITE AGAIN. IV REMOVED IV CATH IS INTACT. CALLED ER TO TRY AND INSERT IV. WILL CONTINUE TO MONITOR.
--- NOTE | 2018-09-15 23:15 | NUR ---
HYDRAULIC PRESS OPERATOR ATTEMPT TO START IV X2 ON R AC AND R EJ WAS UNSUCCESSFUL. PATIENT REFUSING OTHER ATTEMPT AT THIS TIME EDUCATED PATIENT ON NEED FOR ANTIBIOTICS HE VERBALIZED UNDERSTANDING. DR WAS MADE AWARE OF NO IV ACCESS AT THIS TIME HE WILL F/U IF THERE WILL BE A NEED FOR PICC LINE. NO S/S OF DISTRESS. CALL LIGHT IS WITHIN REACH. WILL CONTINUE TO MONITOR.
[2018-09-16] VITALS: BP 124/76
--- NOTE | 2018-09-16 | NUR ---
VITAL SIGNS ARE WITHIN NORMAL LIMITS. DENIES PAIN AT THIS TIME. BLOOD SUGAR IS 123. SNACK AT BEDSIDE. CALL LIGHT IS WITHIN REACH. SAFETY MEASURES ON IN PLACE. WILL CONTINUE TO MONITOR.
[2018-09-16] MEDS: BLOOD GLUCOSE MONITORING 1 DEV DEV FS SCH ×6 (00:04→20:00)
--- NOTE | 2018-09-16 01:52 | NUR ---
PATIENT IS SLEEPING COMFORTABLY IN BED NO S/S OF DISTRESS. SAFETY MEASURES ARE IN PLACE. CALL LIGHT IS WITHIN REACH.
[2018-09-16] MEDS: DEXT 5% / NACL 0.9% 500 ML IV SCH (04:14)
[2018-09-16] MEDS: metroNIDAZOLE 500 MG/NS PREMIX 100 ML IV SCH ×3 (04:14→21:00)
--- NOTE | 2018-09-16 04:38 | NUR ---
BLOOD SUGAR IS 86 ASSISTED PATIENT ON DRINKING JUICE AND VANILLA PUDDING. NO S/S OF DISTRESS. WILL CONTINUE TO MONITOR.
[2018-09-16] MEDS: LEVOTHYROXINE 0.025 MG TAB PO SCH (06:29)
[2018-09-16 07:13] LABS: BASOPHILS # (AUTO) 0.1 K/uL (0.00-0.22); BASOPHILS % (AUTO) 2.3 % (0.0-2.0); EOSINOPHILS # (AUTO) 0.2 K/uL (0-0.4); EOSINOPHILS % (AUTO) 6.1 % (0.0-4.0); HEMATOCRIT 20.8 % (36-52); HEMOGLOBIN 7.1 g/dL (12.0-18.0); LYMPHOCYTES # (AUTO) 0.9 K/uL (2.0-11.5); LYMPHOCYTES % (AUTO) 23.7 % (20.5-51.1); MEAN CORPUSCULAR HEMOGLOBIN 34 pg (27-31); MEAN CORPUSCULAR HGB CONC 34 g/dL (33-37); MEAN CORPUSCULAR VOLUME 98.2 fL (80-94); MONOCYTES # (AUTO) 0.5 K/uL (0.8-1.0); NEUTROPHILS # (AUTO) 2.1 K/uL (1.8-7.7); NEUTROPHILS % (AUTO) 54.9 % (42.2-75.2); PLATELET COUNT (AUTO) 165 K/uL (140-450); RED BLOOD CELL COUNT(AUTO) 2.12 MIL/uL (4.20-6.10); RED CELL DISTRIBUTION WIDTH 15.6 % (11.6-13.7); WHITE BLOOD COUNT (AUTO) 3.8 K/uL (4.8-10.8)
--- NOTE | 2018-09-16 07:30 | NUR ---
RECEIVED BEDSIDE REPORT FROM KATHERIN MADSEN. PT STABLE, SLEEPING, BUT EASILY AROUSABLE. NO SIGNS OF DISTRESS NOTED. NO IV ACCESS DUE TO STAFF WAS UNABLE TO FIND ACCESS, MD AWARE. CALL LEA WITHIN REACH. BED IN LOWEST POSITION. SAFETY MEASURES IN PLACE. PLAN OF CARE REVIEWED.
[2018-09-16 07:53] LABS: ANION GAP 17.7 (8-16); CARBON DIOXIDE 26.5 mmol/L (21-32)
[2018-09-16 07:57] LABS: MAGNESIUM 1.9 mg/dL (1.8-2.4); PHOSPHORUS 5.7 mg/dL (2.5-4.9)
[2018-09-16 08:00] VITALS: BP 174/95
[2018-09-16 08:01] LABS: CREATININE 7.3 mg/dL (0.7-1.3); POTASSIUM 6.2 mmol/L (3.5-5.1)
[2018-09-16] MEDS ORDERED: PATIROMER CALCIUM SORBITEX 8.4 GM PKT PO SCH (09:00)
[2018-09-16] MEDS: DOCUSATE SODIUM 250 MG GELCAP PO SCH (09:00)
[2018-09-16] MEDS: NIFEdipine 60 MG TABER PO SCH (09:00)
[2018-09-16] MEDS: ISOSORBIDE MONONITRATE 30 MG TABER PO SCH ×2 (09:00→22:28)
[2018-09-16] MEDS: LISINOPRIL 10 MG TAB PO SCH (09:00)
[2018-09-16] MEDS: hydrALAZINE 25 MG TAB PO SCH ×3 (09:00→16:38)
--- NOTE | 2018-09-16 09:10 | NUR ---
PT STABLE, SLEEPING, BUT EASILY AROUSABLE. NO SIGNS OF DISTRESS NOTED.
[2018-09-16] MEDS: CALCIUM ACETATE 667 MG TAB PO SCH ×3 (10:12→16:36)
[2018-09-16] MEDS: cloNIDine 0.1 MG TAB PO SCH ×3 (10:12→16:38)
[2018-09-16] MEDS: ASCORBIC ACID 500 MG TAB PO SCH ×2 (10:13→22:25)
[2018-09-16] MEDS: levETIRAcetam 500 MG TAB PO SCH ×2 (10:13→22:26)
[2018-09-16] MEDS: DIVALPROEX SPRINKLES 125 MG CAPDR GT/PO SCH ×2 (10:13→22:28)
--- NOTE | 2018-09-16 10:24 | NUR ---
PT REFUSED SCHEDULED COLACE, HELD SCHEDULED IMDUR, NIFEDIPINE, LISINOPRIL, AND HYDRALAZINE FOR SCHEDULED DIALYSIS TODAY. DR SCHREIBER AWARE. ADMINISTERED ALL OTHER SCHEDULED MEDICATIONS, PT TOLERATED WELL. WILL CONTINUE TO MONITOR.
--- NOTE | 2018-09-16 12:30 | NUR ---
DIALYSIS NURSE AT THE BEDSIDE. MADE DR SCHREIBER AWARE OF BP AND BG 206. PER DR SCHREIBER, NO NEED TO GIVE ANY BP MEDICATION AND INSULIN. Addendum: 09/16/18 at 1522 by Marcelo Etienne RN BP RECHECKED, 180/91.
--- NOTE | 2018-09-16 13:04 | NUR ---
ADMINISTERED SCHEDULED PHOSLO, PT TOLERATED WELL. UNABLE TO GIVE SCHEDULED FLAGYL DUE TO PT DOES NOT HAVE IV ACCESS, DR SCHREIBER IS AWARE. PER DR SCHREIBER, HOLD FLAGYL AND SHE WILL PUT ORDER IN FOR PICC LINE INSERTION. HELD ALL SCHEDULED BP MEDICATIONS DUE TO DIALYSIS. WILL CONTINUE TO MONITOR.
--- NOTE | 2018-09-16 14:11 | NUR ---
09/16/18 RD INITIAL ASSESSMENT COMPLETED PLEASE REFER TO NUTRITION ASSESSMENT UNDER CARE ACTIVITY FOR ESTIMATED NUTRITIONAL NEEDS. 1. CONTINUE RENAL AND CCHO 60 GM DIET TOLERATED 2. ENCOURAGE INCREASING PO INTAKE 3. RD TO FOLLOW-UP 3-5 DAYS, MODERATE RISK ELIDA BADILLO, RD
--- NOTE | 2018-09-16 14:15 | NUR ---
RECEIVED CONSENT FROM PT'S MOTHER EDI FOR PICC LINE INSERTION PER PATIENT'S REQUEST.
--- NOTE | 2018-09-16 15:45 | NUR ---
DIALYSIS IS DONE, OUTPUT 3LITERS.
[2018-09-16 16:00] VITALS: BP 211/99
--- NOTE | 2018-09-16 16:00 | NUR ---
VITAL SIGNS TAKEN, PT'S BP IS 211/99. WILL ADMINISTER BP MEDICATIONS AND MONITOR VS.
--- NOTE | 2018-09-16 16:42 | NUR ---
ADMINISTERED SCHEDULED MEDICATIONS, PT TOLERATED WELL. WILL CONTINUE TO MONITOR.
--- NOTE | 2018-09-16 17:50 | NUR ---
BP RECHECKED, 225/104, MADE DR GOMEZ AWARE. PER DR GOMEZ, RECHECK BP AGAIN.
[2018-09-16 18:08] VITALS: BP 205/108
--- NOTE | 2018-09-16 18:15 | NUR ---
BP RECHECKED, 205/108. MADE DR LOPEZ AWARE. PER DR MARQUEZ, HE WILL PUT IN NEW ORDERS.
[2018-09-16] MEDS ORDERED: hydrALAZINE 20 MG/ML VIAL IVP SCH (18:30)
[2018-09-16] MEDS ORDERED: cloNIDine 0.1 MG TAB PO SCH (18:35)
--- NOTE | 2018-09-16 18:38 | NUR ---
PAGED DR NAPIER REGARDING PLACEMENT OF PICC LINE.
--- NOTE | 2018-09-16 18:48 | NUR ---
PER DR TERAN, DO NOT PUT PICC LINE AND TO TELL PICC LINE NURSE TO PUT MIDLINE INSTEAD. WILL FOLLOW UP WITH NICA PICC LINE NURSE.
--- NOTE | 2018-09-16 18:52 | NUR ---
BP RECHECKED, 224/95 HR 78. ADMINISTERED SCHEDULED CLONIDINE. WILL CONTINUE TO MONITOR.
--- NOTE | 2018-09-16 19:05 | NUR ---
ENDORSED PT TO KATHERIN VELASCO FOR CONTINUITY OF CARE. PT STABLE.
--- NOTE | 2018-09-16 19:05 | NUR ---
RECEIVED REPORT FROM AM SHIFT NURSE FOR CONTINUITY OF CARE. PATIENT IS LYING DOWN IN BED, AWAKE, ALERT, ORIENTED X 4. PATIENT IS ON OXYGEN 2L VIA NC, WITH LEFT AV SHUNT FOR DIALYSIS, NO PERIPHERAL IV AT THIS TIME, AWAITING FOR PICC LINE RN FOR MIDLINE INSERTION, BOAT PULLER, AND MD AWARE. SKIN IS INTACT. PATIENT AWARE OF SPUTUM AND STOOL OCCULT BLOOD SAMPLE, UNABLE TO COLLECT. CONTINUOUS BLOOD PRESSURE AND GLUCOSE MONITORING IN PLACE. PATIENT DENIES ANY PAIN AT THIS TIME. WILL MONITOR PATIENT THROUGHOUT THE SHIFT.
--- NOTE | 2018-09-16 19:38 | NUR ---
PATIENT IS ALERT AND ORIENTED. PATIENT IS UNABLE TO GIVE SPUTUM SAMPLE AT THIS TIME. PATIENTS BREATH SOUNDS ARE CLEAR
--- NOTE | 2018-09-16 20:00 | NUR ---
PATIENT REFUSED O2 2L NC. PATIENT SATURATION IS 97%. WILL CONTINUE TO MONITOR PATIENT.
--- NOTE | 2018-09-16 21:20 | NUR ---
PATIENT REFUSED TO START PERIPHERAL IV LINE. WOULD RATHER WAIT FOR THE PICC LINE NURSE TO COME. MADE AWARE.
[2018-09-16] MEDS: SIMVASTATIN 40 MG TAB PO SCH (22:26)
[2018-09-16] MEDS: GABAPENTIN 300 MG CAP PO SCH (22:26)
[2018-09-16] MEDS: MIRTAZAPINE 15 MG TAB PO SCH (22:27)
--- NOTE | 2018-09-16 22:28 | NUR ---
ADMINISTERED PO MEDICATIONS ORDERED. PATIENT TOLERATED THEM WELL. INFORMED PT FOR STOOL AND SPUTUM COLLECTION. PT STATES UNABLE TO COLLECT. RT AWARE. MEDICAL TRANSCRIPTION EDITOR MADE AWARE THAT WE ARE WAITING FOR PICC LINE NURSE TO START MIDLINE, PER DR. SCHREIBER. WILL CONTINUE TO MONITOR PATIENT.
[2018-09-16] MEDS: INSULIN LISPRO SLIDING SCALE 100 UNITS/ML VIAL SUBQ PRN (23:52)
[2018-09-17] VITALS: BP 206/100
--- NOTE | 2018-09-17 | NUR ---
VITAL SIGNS TAKEN AND CHARTED. PATIENT DENIES ANY PAIN AT THIS TIME. WILL CONTINUE TO MONITOR PATIENT.
--- NOTE | 2018-09-17 02:00 | NUR ---
MADE ROUNDS, PATIENT APPEARS TO BE ASLEEP WITH NO SIGNS OF DISTRESS.
[2018-09-17] MEDS: BLOOD GLUCOSE MONITORING 1 DEV DEV FS SCH ×6 (04:00→20:58)
--- NOTE | 2018-09-17 04:00 | NUR ---
BLOOD SUGAR CHECKED AND CHARTED. RESULT IS 58. GAVE APPLE JUICE AND SNACKS. WILL RE-CHECK BLOOD SUGAR. PATIENT DENIES ANY ABNORMALITIES.
[2018-09-17] MEDS: metroNIDAZOLE 500 MG/NS PREMIX 100 ML IV SCH (05:00)
--- NOTE | 2018-09-17 05:45 | NUR ---
RECHECKED BLOOD SUGAR. RESULT IS 122, NO COVERAGE NEEDED. ADMINISTERED SCHEDULED PO MEDICATION ORDERED. PATIENT TOLERATED IT WELL AND DENIES ANY PAIN AT THIS TIME.
[2018-09-17] MEDS: DEXT 5% / NACL 0.9% 500 ML IV SCH (05:46)
[2018-09-17] MEDS: LEVOTHYROXINE 0.025 MG TAB PO SCH (05:46)
[2018-09-17 07:15] LABS: ANION GAP 12.9 (8-16); CARBON DIOXIDE 30.8 mmol/L (21-32); POTASSIUM 3.7 mmol/L (3.5-5.1)
[2018-09-17 07:18] LABS: BASOPHILS # (AUTO) 0.1 K/uL (0.00-0.22); BASOPHILS % (AUTO) 1.1 % (0.0-2.0); EOSINOPHILS # (AUTO) 0.3 K/uL (0-0.4); EOSINOPHILS % (AUTO) 5.6 % (0.0-4.0); HEMATOCRIT 20.7 % (36-52); HEMOGLOBIN 7.1 g/dL (12.0-18.0); LYMPHOCYTES # (AUTO) 0.9 K/uL (2.0-11.5); LYMPHOCYTES % (AUTO) 19.5 % (20.5-51.1); MEAN CORPUSCULAR HEMOGLOBIN 34 pg (27-31); MEAN CORPUSCULAR HGB CONC 35 g/dL (33-37); MEAN CORPUSCULAR VOLUME 97.2 fL (80-94); MONOCYTES # (AUTO) 0.6 K/uL (0.8-1.0); MONOCYTES % (AUTO) 12.3 % (1.7-9.3); NEUTROPHILS % (AUTO) 61.5 % (42.2-75.2); PLATELET COUNT (AUTO) 173 K/uL (140-450); RED BLOOD CELL COUNT(AUTO) 2.13 MIL/uL (4.20-6.10); RED CELL DISTRIBUTION WIDTH 15.3 % (11.6-13.7); WHITE BLOOD COUNT (AUTO) 4.9 K/uL (4.8-10.8)
[2018-09-17 07:21] LABS: CREATININE 5.5 mg/dL (0.7-1.3)
--- NOTE | 2018-09-17 07:25 | NUR ---
ENDORSED PATIENT TO AM SHIFT NURSE FOR CONTINUITY OF CARE. PATIENT LYING DOWN, ASLEEP, WITH NO SIGNS OF DISTRESS.
[2018-09-17 07:26] LABS: MAGNESIUM 1.8 mg/dL (1.8-2.4); PHOSPHORUS 3.9 mg/dL (2.5-4.9)
--- NOTE | 2018-09-17 07:35 | NUR ---
LAB CALLED FOR CRITICAL VALUE OF CREAT LEVEL OF 5.5. DR. DUVAL AWARE, AND REQUESTED TO FOLLOW UP WITH PRIMARY CARE NURSE REGARDING NEPHRO CONSULT FOR MIDLINE INSERTION.
--- NOTE | 2018-09-17 07:35 | NUR ---
Report received from nurse Olson Pt awake a/o able to communicate needs and appropriate. Pt denies pain or sob. Call light and personal items within easy reach, no s/s of acute distress noted at this time, will continue to monitor.
[2018-09-17 08:00] VITALS: BP 166/86
--- NOTE | 2018-09-17 08:28 | NUR ---
called picc line nurse, and let them know that pt in 114 needs a midline. Stated that Jimy picc line nurse will come and do it. Gave [facility] phone number for shannon
[2018-09-17] MEDS: ISOSORBIDE MONONITRATE 30 MG TABER PO SCH ×2 (09:00→20:51)
[2018-09-17] MEDS: LISINOPRIL 10 MG TAB PO SCH (09:00)
[2018-09-17] MEDS: NIFEdipine 60 MG TABER PO SCH (09:00)
[2018-09-17] MEDS: hydrALAZINE 25 MG TAB PO SCH ×3 (09:00→17:27)
[2018-09-17] MEDS: DOCUSATE SODIUM 250 MG GELCAP PO SCH (09:00)
[2018-09-17] MEDS ORDERED: EPOETIN ALFA 10,000 UNITS/ML VIAL SUBQ SCH ×2 (09:00)
[2018-09-17] MEDS: cloNIDine 0.1 MG TAB PO SCH ×3 (09:00→17:36)
[2018-09-17] MEDS: CALCIUM ACETATE 667 MG TAB PO SCH ×3 (09:27→17:37)
[2018-09-17] MEDS: DIVALPROEX SPRINKLES 125 MG CAPDR GT/PO SCH ×2 (09:28→20:50)
[2018-09-17] MEDS: ASCORBIC ACID 500 MG TAB PO SCH ×2 (09:28→20:51)
[2018-09-17] MEDS: levETIRAcetam 500 MG TAB PO SCH ×2 (09:28→20:51)
--- NOTE | 2018-09-17 09:32 | NUR ---
0932 Pt awake a/o able to communicate need, refused insulin blood sugar 197, no s/s hyperglycemia noted, MD aware. No s/s of acute distress noted, call light and personal items within easy reach, safety and fall precautions remain in place. Will continue to monitor.
--- NOTE | 2018-09-17 10:30 | NUR ---
Pt remains awake a/o and appropriate able to communicate needs and appropriate. Pt denies pain or sob. Presently having HD treatments. Call light safety and fall precautions remain in place personal items within easy reach, no s/s of acute distress noted at this time, will continue to monitor.
--- NOTE | 2018-09-17 12:00 | NUR ---
HD complete w 3 liters out per HD nurse Pt appears comfortable, remains awake a/o able to communicate needs and appropriate. Pt denies pain or sob. Provided ice chips. Call light safety and fall precautions remain in place, personal items within easy reach, no s/s of acute distress noted at this time, will continue to monitor.
[2018-09-17] MEDS: INSULIN LISPRO SLIDING SCALE 100 UNITS/ML VIAL SUBQ PRN ×3 (12:24→21:05)
[2018-09-17] MEDS ORDERED: LEVOFLOXACIN 750 MG TAB PO SCH (13:00)
[2018-09-17] MEDS ORDERED: LEVOFLOXACIN 500 MG TAB PO SCH (13:00)
--- NOTE | 2018-09-17 13:00 | NUR ---
SPOKE WITH DR. SCHREIBER, STATED IT IS OK FOR PT NOT TO HAVE IV ACCESS, D/C PLANNING IS FOR TOMORROW. CALLED PICC LINE SERVICE AND SPOKE WITH BRANDY TO CANCEL MIDLINE INSERTION ORDERED. BRANDY STATED SHE WILL GIVE NICA RN A CALL.
--- NOTE | 2018-09-17 13:11 | NUR ---
PT HAS REFUSED TO GIVE SPUTUM SAMPLE
[2018-09-17 13:53] VITALS: BP 157/83
--- NOTE | 2018-09-17 15:00 | NUR ---
Pt remains awake a/o able to communicate needs and appropriate. Pt denies pain or sob. Provided w diet soda per request. Call light safety and fall precautions remain in place and personal items within easy reach, no s/s of acute distress noted at this time, will continue to monitor.
--- NOTE | 2018-09-17 17:26 | NUR ---
Pt awake a/o able to communicate need, refused insulin blood sugar 181, no s/s of hyperglycemia noted, MD aware. Pt denies pain or sob. BP elevated pt denies JUARES or distress, BP medication administered. Call light safety and fall precautions remain in place, personal items within easy reach, no s/s of acute distress noted at this time, will continue to monitor.
[2018-09-17] MEDS: metroNIDAZOLE 500 MG TAB PO SCH (17:31)
[2018-09-17 18:15] VITALS: BP 158/86
--- NOTE | 2018-09-17 18:15 | NUR ---
Pt awake, a/o resting comfortably, BP reassessed and improving, Call light safety and fall precautions remain in place and personal items within easy reach, no s/s of acute distress noted at this time, will continue to monitor.
--- NOTE | 2018-09-17 19:20 | NUR ---
Report endorsed to nurse Berry. Pt remains a/o appropriate, provided ice chips. No s/s of acute distress noted, call light and personal items within easy reach, safety and fall precautions remain in place.
--- NOTE | 2018-09-17 19:21 | NUR ---
REPORT RECEIVED FROM AM NURSE AT BEDSIDE. PT IN STABLE CONDITION. AAOX3-4. INTRODUCED SELF TO PT. BOARD UPDATED. NO COMPLAINTS OF PAIN. NO SOB. AFEBRILE. PT IS AMBULATORY. PT IS LEGALLY BLIND. PT BLOOD PRESSURE EXTREMELY ELEVATED AT 217/95. MD NOTIFIED. PT HAS NO IV ACCESS. MD AWARE. SKIN WARM, DRY, AND INTACT WITH NO OPEN WOUNDS. BED LOCKED IN LOW POSITION. CALL LEA WITHIN REACH. SAFETY PRECAUTION IN PLACE. ALL NEEDS MET AT THIS TIME.
[2018-09-17] MEDS: MIRTAZAPINE 15 MG TAB PO SCH (20:50)
[2018-09-17] MEDS: GABAPENTIN 300 MG CAP PO SCH (20:50)
--- NOTE | 2018-09-17 20:50 | NUR ---
DEPAKOTE, IMDUR, KEPPRA, NEURONTIN, REMERON, VITAMIN C, AND ZOCOR GIVEN PO. HEPARIN GIVEN SUBQ. BS 397. 10 UNITS OF HUMALOG GIVEN. PT TOLERATED WELL.
[2018-09-17] MEDS: SIMVASTATIN 40 MG TAB PO SCH (20:51)
[2018-09-17] MEDS ORDERED: cloNIDine 0.1 MG TAB PO PRN ×2 (21:25→23:35)
--- NOTE | 2018-09-17 22:00 | NUR ---
CATAPRES GIVEN FOR ELEVATED BP OF 217/98. PT TOLERATED WELL.
[2018-09-18] VITALS: BP 185/90
[2018-09-18] MEDS: BLOOD GLUCOSE MONITORING 1 DEV DEV FS SCH ×4 (01:00→12:31)
--- NOTE | 2018-09-18 01:00 | NUR ---
PT BLOOD PRESSURE ELEVATED@199/89 AND HR 66. NOTIFIED. ORDERED TO GIVE CATAPRES PO. PT TOLERATED WELL.
--- NOTE | 2018-09-18 01:00 | NUR ---
BS 25. CRITICALLY LOW. CHECKED AGAIN AND BS 20. PT GIVEN 2 JUICES, GRAM CRACKERS AND MILK THEN BS RECHECKED AND IS AT 22. MD NOTIFIED. MD IN TO SEE PATIENT. MD ORDER TO GIVE 2 MORE JUICES AND CHECK AGAIN IN 15 MINUTES. Addendum: 09/18/18 at 0158 by Jamal Valdez RN PT IS RESPONSIVE AND SHOWS NO S/S OF DISTRESS THROUGHOUT ALL BLOOD SUGAR CHECKS.
--- NOTE | 2018-09-18 01:15 | NUR ---
BS 42. NOTIFIED.
[2018-09-18] MEDS ORDERED: DEXTROSE ORAL 15 GM TUBE PO PRN (01:45)
--- NOTE | 2018-09-18 01:45 | NUR ---
MD ORDERED DEXTROSE GEL PRN AND ORDERED TO CHECK BS AGAIN IN 1 HOUR DUE TO PATIENT BS BEGINNING TO INCREASE.
--- NOTE | 2018-09-18 02:45 | NUR ---
BS 110. NO INSULIN COVERAGE NEEDED.
[2018-09-18] MEDS: DEXT 5% / NACL 0.9% 500 ML IV SCH (03:05)
[2018-09-18] MEDS ORDERED: GLUCAGON 1 MG VIAL IM PRN (03:40)
[2018-09-18] MEDS ORDERED: INSULIN LISPRO SLIDING SCALE 100 UNITS/ML VIAL SUBQ PRN (03:45)
--- NOTE | 2018-09-18 05:05 | NUR ---
PT SLEEPING COMFORTABLY BUT AROUSABLE. NO S/S OF DISTRESS NOTED. NO COMPLAINTS OF PAIN. NO SOB. AFEBRILE. WILL CONTINUE TO MONITOR.
[2018-09-18] MEDS: LEVOTHYROXINE 0.025 MG TAB PO SCH (05:34)
--- NOTE | 2018-09-18 05:34 | NUR ---
SYNTHROID GIVEN PO. PT TOLERATED WELL.
[2018-09-18 06:53] LABS: BASOPHILS # (AUTO) 0.1 K/uL (0.00-0.22); BASOPHILS % (AUTO) 2.3 % (0.0-2.0); EOSINOPHILS # (AUTO) 0.3 K/uL (0-0.4); EOSINOPHILS % (AUTO) 7.4 % (0.0-4.0); HEMATOCRIT 22.3 % (36-52); HEMOGLOBIN 7.5 g/dL (12.0-18.0); LYMPHOCYTES % (AUTO) 29.7 % (20.5-51.1); MEAN CORPUSCULAR HEMOGLOBIN 33 pg (27-31); MEAN CORPUSCULAR HGB CONC 33 g/dL (33-37); MEAN CORPUSCULAR VOLUME 97.4 fL (80-94); MONOCYTES # (AUTO) 0.5 K/uL (0.8-1.0); NEUTROPHILS # (AUTO) 1.6 K/uL (1.8-7.7); NEUTROPHILS % (AUTO) 46.6 % (42.2-75.2); PLATELET COUNT (AUTO) 170 K/uL (140-450); RED BLOOD CELL COUNT(AUTO) 2.29 MIL/uL (4.20-6.10); RED CELL DISTRIBUTION WIDTH 15.1 % (11.6-13.7); WHITE BLOOD COUNT (AUTO) 3.5 K/uL (4.8-10.8)
--- NOTE | 2018-09-18 07:22 | NUR ---
REPORT GIVEN TO AM NURSE AT BEDSIDE. PT IN STABLE CONDITION.
--- NOTE | 2018-09-18 07:23 | NUR ---
RECEIVED BED SIDE REPORT FROM TRUCK SPOTTER KATHERIN QUILES. PT IN STABLE CONDITION
[2018-09-18 08:00] VITALS: BP 193/91
[2018-09-18] MEDS: CALCIUM ACETATE 667 MG TAB PO SCH ×2 (08:32→12:22)
[2018-09-18] MEDS: cloNIDine 0.1 MG TAB PO SCH (08:33)
[2018-09-18] MEDS: ASCORBIC ACID 500 MG TAB PO SCH (08:34)
[2018-09-18] MEDS: hydrALAZINE 25 MG TAB PO SCH ×2 (08:34→12:22)
[2018-09-18] MEDS: NIFEdipine 60 MG TABER PO SCH (08:34)
[2018-09-18] MEDS: DOCUSATE SODIUM 250 MG GELCAP PO SCH (08:35)
[2018-09-18] MEDS: DIVALPROEX SPRINKLES 125 MG CAPDR GT/PO SCH (08:35)
[2018-09-18] MEDS: levETIRAcetam 500 MG TAB PO SCH (08:35)
[2018-09-18] MEDS: ISOSORBIDE MONONITRATE 30 MG TABER PO SCH (08:36)
[2018-09-18] MEDS: LISINOPRIL 10 MG TAB PO SCH (08:36)
[2018-09-18] MEDS: metroNIDAZOLE 500 MG TAB PO SCH ×2 (08:46→12:22)
[2018-09-18 08:50] LABS: ANION GAP 16.5 (8-16); CARBON DIOXIDE 24.7 mmol/L (21-32); POTASSIUM 4.2 mmol/L (3.5-5.1)
[2018-09-18 08:54] LABS: CREATININE 4.9 mg/dL (0.7-1.3)
[2018-09-18] MEDS ORDERED: METR500T1 PO (09:06)
[2018-09-18] MEDS ORDERED: LACT100C5 PO (09:06)
[2018-09-18] MEDS ORDERED: DIVA125E1 GT/PO (09:06)
[2018-09-18] MEDS ORDERED: INSU100S22 SUBQ (09:06)
[2018-09-18] MEDS ORDERED: LEVO500T2 PO (09:06)
[2018-09-18 10:03] VITALS: BP 143/76
--- NOTE | 2018-09-18 10:03 | NUR ---
RECHECKED PT'S BP, WENT DOWN TO 143/76, HR 62. AT 0800 IT WAS 193/91. GAVE BP MEDS. PT REFUSED COLACE EARLIER.
--- NOTE | 2018-09-18 12:01 | NUR ---
CONTACTED PATIENT FATHER DANIELLE BOOTH [phone] AND IS AGREEABLE FOR PATIENT TO RETURN TO [facility] [place]. HE WILL BE PICKING UP THE PATIENT AT 1500. PER KIM AT [facility], PATIENT WILL GO TO ROOM 9C UNDER DR. KEI LOPEZ. CHARGE NURSE SHASHA AND PRIMARY RN MIKE MADE AWARE.
--- NOTE | 2018-09-18 13:58 | NUR ---
CALLED TO GIVE REPORT TO [facility] TO RN AND SHE SAID THAT SHE DOES NOT FEEL COMFORTABLE RECEIVING PT WHEN HGB 7.5 EXPLAINED THAT WE HAVE BEEN GIVING FERROUS SULFATE DURING HOSPITAL STAY. YESTERDAY HGB WAS 7.1 SHE SAID THAT SHE WOULD CALL ME BACK. TALKED TO AND SHE SAID TO CALL AND ORDER A BLOOD TRANSFUSION TO BE DONE WHILE HE GETS HD TOMORROW THERE. WILL WAIT FOR CALL BACK FROM AND RN FROM [facility] [place]
--- NOTE | 2018-09-18 14:01 | NUR ---
BP 105/57, HR 74. WILL HOLD CATAPRESS THAT WAS SCHEDULED AT 1300
--- NOTE | 2018-09-18 14:34 | NUR ---
CALLED AKLYANI VEGA RN TO FINISH GIVIING REPORT. SHE SAID THAT THEY STILL WILL ACCEPT PT. PAGED BUT HE DID NOT ANSWER.
--- NOTE | 2018-09-18 14:55 | NUR ---
FATHER HERE TO PICK SON UP AND TAKE HIM TO [facility] [place]. GAVE DC INSTRUCTIONS TO PATIENT AND FATHER. EDUCATED ON THE IMPORTANCE OF TAKING FLAGYL AND LEVAQUIN FOR 5 DAYS MD ORDERED. BOTH VERBALIZED UNDERSTANDING. WRISTBAND TAKEN OFF. NO IV ACCESS. BP STABILIZED PRIOR TO LEAVING. PERSONAL BELONGINGS TAKEN WITH PT. SIRIA BRINK WHEELED PT OUT.
[2018-10-04] MEDS ORDERED: DOCU-300 PO (05:59)
[2018-10-04] MEDS ORDERED: DIVA125E1 (06:01)
[2018-10-04] MEDS ORDERED: ADA60 PO ×2 (08:37→08:40)
[2018-10-04] MEDS ORDERED: ISOS20TA11 PO (08:40)
== END 2018-09-18 14:55 | DRG 177 ==
LOC: MED 14:20 → MMU 18:32 → MTU 18:48
PROVIDERS: ADMIT General Practice; ATTEND General Practice
PROC: 5A1D70Z Performance of Urinary Filtration, Intermittent, Less than 6 Hours Per Day (ICD-10-PCS; principal; 2018-09-14)
PROC: 5A1D70Z Performance of Urinary Filtration, Intermittent, Less than 6 Hours Per Day (ICD-10-PCS; 2018-09-16)
PROC: 5A1D70Z Performance of Urinary Filtration, Intermittent, Less than 6 Hours Per Day (ICD-10-PCS; 2018-09-17)
DX: J69.0 Pneumonitis due to inhalation of food and vomit (principal); N17.0 Acute kidney failure with tubular necrosis; E43 Unspecified severe protein-calorie malnutrition; I50.43 Acute on chronic combined systolic (congestive) and diastolic (congestive) heart failure; J96.02 Acute respiratory failure with hypercapnia; J96.01 Acute respiratory failure with hypoxia; N18.6 End stage renal disease; I13.2 Hypertensive heart and chronic kidney disease with heart failure and with stage 5 chronic kidney disease, or end stage renal disease; J91.8 Pleural effusion in other conditions classified elsewhere; D68.59 Other primary thrombophilia; E87.1 Hypo-osmolality and hyponatremia; E87.5 Hyperkalemia; E83.39 Other disorders of phosphorus metabolism; E78.5 Hyperlipidemia, unspecified; H54.7 Unspecified visual loss; I25.10 Atherosclerotic heart disease of native coronary artery without angina pectoris; G40.909 Epilepsy, unspecified, not intractable, without status epilepticus; E11.40 Type 2 diabetes mellitus with diabetic neuropathy, unspecified; E11.319 Type 2 diabetes mellitus with unspecified diabetic retinopathy without macular edema; E11.43 Type 2 diabetes mellitus with diabetic autonomic (poly)neuropathy; E11.22 Type 2 diabetes mellitus with diabetic chronic kidney disease; I16.0 Hypertensive urgency; M62.50 Muscle wasting and atrophy, not elsewhere classified, unspecified site; F32.9 Major depressive disorder, single episode, unspecified; K31.84 Gastroparesis; D63.8 Anemia in other chronic diseases classified elsewhere; K21.9 Gastro-esophageal reflux disease without esophagitis; J44.9 Chronic obstructive pulmonary disease, unspecified; E03.9 Hypothyroidism, unspecified; Z68.24 Body mass index [BMI] 24.0-24.9, adult; Z82.5 Family history of asthma and other chronic lower respiratory diseases; Z99.2 Dependence on renal dialysis; Z82.49 Family history of ischemic heart disease and other diseases of the circulatory system; Z87.01 Personal history of pneumonia (recurrent); Z88.1 Allergy status to other antibiotic agents; Z88.8 Allergy status to other drugs, medicaments and biological substances; Z79.82 Long term (current) use of aspirin; Z79.899 Other long term (current) drug therapy; Z86.73 Personal history of transient ischemic attack (TIA), and cerebral infarction without residual deficits
CPT/HCPCS: 36415; 36600; 71045; 76604; 80048; 80053; 82728; 82803; 82948; 83540; 83605; 83735; 83880; 84100; 84134; 84443; 84484; 85025; 85610; 85730; 87040; 87081; 90935; 93005; 94640; 96365; 97110; 97112; 97116; 97161-GP; 97530; 99285; J0885; J1644; J1815; J1956; J2270; J3490; J7042; J7620; Q0092

== ENCOUNTER 2018-10-02 16:34 | Emergency (ER) | payer OTHER ==
[~2018-10-02] VITALS: Ht 167.6 cm; Wt 74.8 kg
[~2018-10-02 16:34] MED LIST changes: -ATI2I IVP; +DIVA125E1 GT/PO; +LACT100C5 PO; -LACT10SO11 PO; +LEVO500T2 PO; +METR500T1 PO; -NAFC1SOL1 IV; -PROC4I SUBQ; -SENN-74 PO
--- NOTE | 2018-10-02 16:35 | NUR ---
PT PLACED IN BED 10.
[2018-10-02 16:40] VITALS: BP 150/62
--- NOTE | 2018-10-02 17:05 | NUR ---
Dr. Saldana evaluating patient at bedside.
--- NOTE | 2018-10-02 17:15 | NUR ---
PT BIB FROM [facility] W/ C/O LOW BLOOD SUGAR. PER EMS, PT WAS FOUND LETHARGIC AND DIFFICULT TO AROUSE. FSBS READ "LOW". PT WAS GIVEN 3G GLUCAGON IM AT [facility] [place] AND RECHECK OF SUGAR WAS 120. PT AWAKE AND ALERT AT THIS TIME, HE IS ANSWERING QUESTIONS APPROPRIATELY. PT HAS 22G IV TO L ANKLE THAT WAS PLACED BY NURSE AT [facility] [place] PER EMS. PT IS LEGALLY BLIND, AND HAS A L ARM SHUNT FOR T/TH/SAT DIALYSIS. HX OF DM. BED IN LOW POSITION, PT ORIENTED TO ROOM. PROVIDED A BLANKET FOR PT COMFORT.
--- NOTE | 2018-10-02 17:30 | NUR ---
PT IS ANURIC, DR. SNOW AWARE
[2018-10-02 17:49] LABS: BASOPHILS # (AUTO) 0.1 K/uL (0.00-0.22); EOSINOPHILS # (AUTO) 0.2 K/uL (0-0.4); EOSINOPHILS % (AUTO) 2.5 % (0.0-4.0); HEMATOCRIT 27.3 % (36-52); LYMPHOCYTES # (AUTO) 0.5 K/uL (2.0-11.5); LYMPHOCYTES % (AUTO) 6.6 % (20.5-51.1); MEAN CORPUSCULAR HEMOGLOBIN 33 pg (27-31); MEAN CORPUSCULAR HGB CONC 33 g/dL (33-37); MONOCYTES # (AUTO) 0.8 K/uL (0.8-1.0); MONOCYTES % (AUTO) 9.9 % (1.7-9.3); NEUTROPHILS # (AUTO) 6.6 K/uL (1.8-7.7); PLATELET COUNT (AUTO) 212 K/uL (140-450); RED BLOOD CELL COUNT(AUTO) 2.73 MIL/uL (4.20-6.10); RED CELL DISTRIBUTION WIDTH 16.7 % (11.6-13.7); WHITE BLOOD COUNT (AUTO) 8.3 K/uL (4.8-10.8)
[2018-10-02 18:02] LABS: ALBUMIN 2.8 g/dL (3.4-5.0); ANION GAP 13.2 (8-16); CARBON DIOXIDE 30.6 mmol/L (21-32); POTASSIUM 3.8 mmol/L (3.5-5.1); TOTAL BILIRUBIN 0.6 mg/dL (0.0-1.0)
[2018-10-02 18:13] LABS: CREATININE 6.6 mg/dL (0.7-1.3)
--- NOTE | 2018-10-02 18:14 | NUR ---
PT AOX4, REQUESTING DINNER. PT MADE AWARE ORDER HAS BEEN PLACED.
--- NOTE | 2018-10-02 18:32 | NUR ---
Food tray provided, patient set up to eat. Pt eating well. Call light left within reach.
[2018-10-02] MEDS ORDERED: ISOS20TA11 PO (18:57)
--- NOTE | 2018-10-02 19:35 | NUR ---
Pt requested his father to pick him up. I spoke with pt father, Tammy. He stated he will be here to pick pt up around 8pm. [facility] transport cancelled.
[2018-10-02 19:37] VITALS: BP 124/71
--- NOTE | 2018-10-02 19:37 | NUR ---
Patient discharged with v/s stable. Written and verbal after care instructions given and explained. Patient verbalized understanding. Ambulatory with steady gait. All questions addressed prior to discharge. Advised to follow up with PMD.
--- NOTE | 2018-10-02 20:08 | NUR ---
DAD PICKED UP PT, PT AMBULATED WITH ASSISTANCE, VSS
[2018-10-04] MEDS ORDERED: DOCU-300 PO (05:59)
[2018-10-04] MEDS ORDERED: DIVA125E1 (06:01)
[2018-10-04] MEDS ORDERED: ADA60 PO ×2 (08:37→08:40)
[2018-10-04] MEDS ORDERED: ISOS20TA11 PO (08:40)
== END 2018-10-02 19:37 | disposition home or self-care (01) ==
LOC: MED 16:34 → MTU 18:37 → UNDOADMIN 18:37 → MED 19:37
DX: E11.649 Type 2 diabetes mellitus with hypoglycemia without coma (principal); I12.0 Hypertensive chronic kidney disease with stage 5 chronic kidney disease or end stage renal disease; E11.22 Type 2 diabetes mellitus with diabetic chronic kidney disease; N18.6 End stage renal disease; K21.9 Gastro-esophageal reflux disease without esophagitis; I51.7 Cardiomegaly; Z99.2 Dependence on renal dialysis; Z86.73 Personal history of transient ischemic attack (TIA), and cerebral infarction without residual deficits; Z86.69 Personal history of other diseases of the nervous system and sense organs; Z88.1 Allergy status to other antibiotic agents; Z88.8 Allergy status to other drugs, medicaments and biological substances; Z79.2 Long term (current) use of antibiotics; Z79.899 Other long term (current) drug therapy
CPT/HCPCS: 36415; 80053; 85025; 99285

== ENCOUNTER 2019-01-08 13:49 | Inpatient (IN) | payer OTHER ==
[~2019-01-08] VITALS: Ht 177.8 cm; Wt 57.2 kg
[~2019-01-08 13:49] MED LIST changes: -ACET-1182 PO; -ASCO500T45 PO; -D50SYR IVP; +DIVA125E1; -DIVA125E1 GT/PO; +DOCU-300 PO; -DOCU-463 PO; -GLUC-805 FS; -HUMSLIDE SUBQ; +ISOS20TA11 PO; -ISOS30TE68 PO; -LEVO500T2 PO; -METR500T1 PO; -MIRT30TA PO; -PHEN1OIN TP; -PRON INH
--- NOTE | 2019-01-08 13:50 | NUR ---
PATIENT BIBA TO BED 5 AT THIS TIME.
[2019-01-08 13:52] VITALS: BP 137/76
--- NOTE | 2019-01-08 14:00 | NUR ---
43/M LUCILA ALS FROM [facility] FOR C/O ALOC 2/2 HYPOGLYCEMIA 13 MG/DL TODAY. [facility] STAFF GAVE PT GLUCAGON 1 MG. EMS ESTABLISHED IV RT FA 20 AND STARTED D10 DRIP, RECHECK BS OF 123 MG/DL. PER EMS, PATIENT DID NOT EAT LUNCH. [facility] STAFF ADMINISTERED INSULIN IN THE MORNING, UNKNOWN DOSE AND TYPE OF INSULIN. PT AOX4 AT THIS TIME. NO PAIN. HX- ESRD ON DIALYSIS [id number], ANXIETY, DMII, LEGALLY BLIND BILATERALLY, HYPOTHYROIDISM RX- SEE LIST
--- NOTE | 2019-01-08 14:14 | NUR ---
PT 97% ON 2L NC. REMOVED NC AND PT DESAT TO 85% RA. PT DOES NOT WANT TO HOB UP AT THIS TIME. PLACED BACK ON 2L NC. DR. KIARRA GARCIAS.
--- NOTE | 2019-01-08 14:24 | NUR ---
CALLED [facility], ASKED THEM TO BRING ORDERED TRAY.
--- NOTE | 2019-01-08 14:52 | NUR ---
DR. PLUNKETT EVALUATING PT AT BEDSIDE.
--- NOTE | 2019-01-08 15:22 | NUR ---
SUPERVISOR MIXING AT BEDSIDE.
--- NOTE | 2019-01-08 15:37 | NUR ---
PER DR. PLUNKETT, PLACE PATIENT ON 2L O2.
[2019-01-08] MEDS ORDERED: LEVOFLOXACIN 750 MG/D5W PREMIX 150 ML IV ONE (15:40)
[2019-01-08 15:44] LABS: BASOPHILS # (AUTO) 0.1 K/uL (0.00-0.22); BASOPHILS % (AUTO) 0.6 % (0.0-2.0); EOSINOPHILS # (AUTO) 0.2 K/uL (0-0.4); EOSINOPHILS % (AUTO) 2.4 % (0.0-4.0); HEMATOCRIT 35.5 % (36-52); HEMOGLOBIN 11.5 g/dL (12.0-18.0); LYMPHOCYTES # (AUTO) 0.6 K/uL (2.0-11.5); LYMPHOCYTES % (AUTO) 7.3 % (20.5-51.1); MEAN CORPUSCULAR HEMOGLOBIN 31 pg (27-31); MEAN CORPUSCULAR HGB CONC 32 g/dL (33-37); MEAN CORPUSCULAR VOLUME 95.2 fL (80-94); MONOCYTES # (AUTO) 0.9 K/uL (0.8-1.0); MONOCYTES % (AUTO) 11.2 % (1.7-9.3); NEUTROPHILS # (AUTO) 6.2 K/uL (1.8-7.7); NEUTROPHILS % (AUTO) 78.5 % (42.2-75.2); PLATELET COUNT (AUTO) 150 K/uL (140-450); RED BLOOD CELL COUNT(AUTO) 3.73 MIL/uL (4.20-6.10); RED CELL DISTRIBUTION WIDTH 15.9 % (11.6-13.7); WHITE BLOOD COUNT (AUTO) 7.9 K/uL (4.8-10.8)
[2019-01-08 15:57] LABS: POTASSIUM 3.1 mmol/L (3.5-5.1)
[2019-01-08 15:58] LABS: ANION GAP 15.5 (8-16); CARBON DIOXIDE 30.6 mmol/L (21-32)
[2019-01-08 15:59] LABS: CREATININE 7.7 mg/dL (0.7-1.3)
--- NOTE | 2019-01-08 16:12 | NUR ---
PT REFUSED WOUND ASSESSMENT OF BACK/BUTTOCKS. EXPLAINED WHY WE DO WOUND CHECKS. PT CONTINUES TO REFUSE, STATES "I DON'T HAVE ANY WOUNDS, WHY WOULD I LET YOU SEE IF I DON'T HAVE ANY WOUNDS?"
[2019-01-08] MEDS ORDERED: BISA-213 RC (16:19)
[2019-01-08] MEDS ORDERED: ALBU-71 NEB (16:19)
[2019-01-08] MEDS ORDERED: MULT-1469 PO (16:19)
[2019-01-08] MEDS ORDERED: MIRT30TA PO (16:25)
[2019-01-08] MEDS ORDERED: HYDROcodone/APAP 5/325 MG 1 TAB TAB PO PRN (16:30)
[2019-01-08] MEDS ORDERED: ONDANSETRON 4 MG/2 ML VIAL IM/IVP PRN (16:30)
[2019-01-08] MEDS ORDERED: ACETAMINOPHEN 325 MG TAB PO PRN (16:30)
[2019-01-08] MEDS ORDERED: DOCUSATE SODIUM 100 MG GELCAP PO PRN (16:30)
[2019-01-08] MEDS ORDERED: LORazepam 2 MG/ML VIAL IM/IVP PRN ×2 (16:30→18:00)
--- NOTE | 2019-01-08 17:10 | NUR ---
Patient will be admitted to care of DR. MENA. Admited to TELE. Will go to room 114. Belongings list completed. Report to KATHERIN FLOREZ.
[2019-01-08 17:15] VITALS: BP 102/56
--- NOTE | 2019-01-08 17:15 | NUR ---
PATIENT ARRIVED UNIT VIA GURNEY ACCOMPANIED WITH FIONA MACE. PATIENT IS AAOX3, TO NAME, PLACE, TIME. RESPIRATION EVEN AND UNLABORED ON 2LPM VIA TX. DENIED PAIN, SOB, AND DIZZINESS. NO SIGNS OF DISTRESS NOTED. IV ON RFA 20G, CLEAN AND INTACT, SL. PATIENT'S GAIT IS UNSTEADY DUE TO WEAKNESS AND BILATERALLY BLINDNESS ON BOTH EYES. ORIENTED PATIENT TO THE ROOM, INSTRUCTED PATIENT ON HOW TO USE THE CALL LIGHT, TV REMOTE, AND BED REMOTE. VITAL SIGNS TAKEN AND MRSA NARES COLLECTED. PATIENT REFUSED TO CHANGE INTO HOSPITAL GOWN AND SOCKS, SAFETY EDUCATION PROVIDED TO PATIENT AND PATIENT INSISTED NOT WANTING TO CHANGE. APPLIED YELLOW FALL RISK BAND AND ALLERGY RED BAND. SEIZURE PRECAUTION APPLIED AND PADDED BOTH SIDE RAILS. FALL PECULATION APPLIED AND BED ALARM ACTIVATED. TELE MONITOR ATTACHED. BED IN LOW POSITION AND CALL LIGHT WITHIN REACH. INSTRUCTED PATIENT TO USE THE CALL LIGHT FOR ANY ASSISTANCE AND PATIENT WAS AWARE.
[2019-01-08] MEDS ORDERED: DEXTROSE 50% 50 ML SYR IVP PRN (17:30)
[2019-01-08 17:49] LABS: IRON, SERUM 30 ug/dl (50-175); TOTAL IRON BINDING CAPACITY 144 ug/dl (250-450)
[2019-01-08 17:52] LABS: PROTHROMBIN TIME 15.3 secs (10.8-13.4)
[2019-01-08] MEDS ORDERED: BISACODYL 10 MG SUPP RC PRN (18:00)
[2019-01-08] MEDS ORDERED: ALBUTEROL SULFATE/IPRATROPIU 3 ML SOL IH PRN (18:00)
--- NOTE | 2019-01-08 18:10 | NUR ---
PATIENT IS HAVING DINNER ON BED AT THIS TIME. NO SIGNS OF DISTRESS NOTED. SAFETY MEASURES IN PLACE. BED IN LOW POSITION AND CALL LIGHT WITHIN REACH. FALL RISK PROTOCOL IN PLACE AND BED ALARM ACTIVATED.
[2019-01-08 18:14] LABS: MAGNESIUM 2.2 mg/dL (1.8-2.4)
[2019-01-08 18:15] LABS: AMYLASE 32 U/L (25-115); LIPASE 61 U/L (73-393); THYROID STIMULATING HORMONE 6.44 uIU/mL (0.34-3.74)
--- NOTE | 2019-01-08 18:20 | NUR ---
EXPLAINED TO PATIENT THAT STOOL SAMPLE IS NEEDED, INSTRUCTED PATIENT TO USE THE CALL LIGHT FOR ASSISTANCE WHEN HE HAS BM, AND PATIENT WAS AWARE. SPECIMEN COLLECT SIGN POSTED BY DOOR. NO SIGNS OF DISTRESS NOTED. SAFETY MEASURES IN PLACE. BED IN LOW POSITION AND CALL LIGHT WITHIN REACH. BED ALARM ACTIVATED.
--- NOTE | 2019-01-08 19:14 | NUR ---
RECIEVED PT AAOX3 , POOR HISTORIAN , NID , V/S WNL , IV SITE INTACT AND PATENT , LEGALLY BLIND , WITH AV SHUNT ON LEFT ARM - INTACT , DENIES ANY PAIN AT THIS TIME . PLAN OF CARE DISCUSSED AND VERBALIZE UNDERSTANDING - CALL LIGHT WITHIN REACH , ON SAFETY / FALL PRECAUTION PROTOCOL - BED ALARM ON . WILL CONT. TO MONITOR.
--- NOTE | 2019-01-08 19:14 | NUR ---
ENDORSED PATIENT AT BEDSIDE TO ELECTRIC CUTTER OPERATOR NURSE FOR CONTINUITY OF CARE. PATIENT AWAKE AND RESTING ON BED AT THIS TIME. NO SIGNS OF DISTRESS NOTED. TELE MONITOR ATTACHED. SAFETY MEASURES IN PLACE. BED IN LOW POSITION AND CALL LIGHT WITHIN REACH. BED ALARM ACTIVATED.
[2019-01-08 20:00] VITALS: BP 119/69
[2019-01-08] MEDS: DOCUSATE SODIUM 250 MG GELCAP PO SCH (20:10)
[2019-01-08] MEDS: levETIRAcetam 500 MG TAB PO SCH (20:11)
[2019-01-08] MEDS: DIVALPROEX SPRINKLES 125 MG CAPDR PO SCH (20:11)
[2019-01-08] MEDS: GABAPENTIN 300 MG CAP PO SCH (20:12)
[2019-01-08] MEDS: MIRTAZAPINE 15 MG TAB PO SCH (20:12)
[2019-01-08] MEDS: BLOOD GLUCOSE MONITORING 1 DEV DEV FS SCH (20:36)
[2019-01-08] MEDS: INSULIN LISPRO SLIDING SCALE 100 UNITS/ML VIAL SUBQ PRN (20:42)
--- NOTE | 2019-01-08 21:30 | NUR ---
REFUSED HEAD CT SCAN - INFORMED RESIDENT. NO FURTHER ORDERS MADE.
--- NOTE | 2019-01-08 22:00 | NUR ---
MADE ROUNDS . NO SIGNS OF DISTRESS NOTED AT THIS TIME , CALL LIGHT WITHIN REACH , BED ALARM ON.
[2019-01-09] VITALS: BP 112/69
--- NOTE | 2019-01-09 | NUR ---
MADE ROUNDS , NO COMPLAIN MADE AT THIS TIME , REFUSED SERUM TROPONIN TEST - INFORMED RESIDENT DOCTOR. WILL CONT. TO MONITOR. - ON S2 PRECAUTION .STILL FOR SPUTUM COLLECTION . STILL FOR COLLECTION OF SPECIMEN FOR STOOL OCCULT BLOOD.
--- NOTE | 2019-01-09 02:56 | NUR ---
INFORM RESIDENT DOCTOR ABOUT THE POTASSIUM LEVEL OF 3.1 RESULT (01/08/19).
[2019-01-09 04:00] VITALS: BP 122/65
--- NOTE | 2019-01-09 06:00 | NUR ---
BP RE CHECKED 160/100 - REFER TO EFRAIN PICKETT - PT. HAS SCHEDULED BP MEDICINE THIS AM , GIVE IT AHEAD OF TIME WITH ONE HOUR APART , RE CHECK THE BP WELL BEFORE GIVE EACH BP MEDICATION.
[2019-01-09] MEDS: BLOOD GLUCOSE MONITORING 1 DEV DEV FS SCH ×4 (06:12→20:58)
[2019-01-09] MEDS: hydrALAZINE 10 MG TAB PO SCH ×3 (06:27→17:04)
[2019-01-09] MEDS ORDERED: LEVOTHYROXINE 0.025 MG TAB PO SCH (06:30)
--- NOTE | 2019-01-09 07:20 | NUR ---
RECEIVED REPORT FROM DESIGN SUPERVISOR KATHERIN GONZALEZ. PT IN BED, NO S/S OF DISTRESS ON 2L O2 NC. ON TELE MONITOR. IV ON RIGHT FA 20G, SL. FLUSHED, PATENT AND ASYMPTOMATIC. LEFT AV SHUNT NOTED, BRUIT AND THRILL PRESENT. PT IS LEGALLY BLIND, SIGN POSTED. SZ PRECAUTION IN PLACE. BED LOCKED IN LOWEST POSITION. SIDE RAILS UP X2. WILL CONTINUE TO MONITOR.
--- NOTE | 2019-01-09 07:30 | NUR ---
ENDORSED TO AM NURSE FOR CONTINUITY OF CARE , STILL FOR SPUTUM COLLECTION BECAUSE ACCORDING TO LAB STAFF THE SPUTUM SENT TO THEM IS NOT ENOUGH FOR EXAMINATION. I PAGED ALREADY DR. AMALIA NAPIER FOR HEMODIALYSIS ORDER -WAITING FOR RETURN CALL- STILL FOR CONSENT FOR HEMODIALYSIS.ENDORSED WITH LATEST BP 160/100.- FOR CLOSELY WATCH-ENDORSED.
--- NOTE | 2019-01-09 07:35 | NUR ---
PT HAS CALL LIGHT WITHIN REACH. PT IS AMBULATORY WITH ASSIST. FALL PRECAUTIONS IN PLACE. BED ALARM ON. PT REFUSED HOSP GOWN, REFUSED TO REMOVE PANTS. REFUSED CHUX, WANTS ONLY DIAPER. MADE PT AWARE OUR HOSP DO NOT SUPPLY DIAPER DURING THE STAY, WE HIGHLY RECOMMEND USING CHUX. PT STILL REFUSING.
[2019-01-09 08:00] VITALS: BP 202/90
[2019-01-09 08:14] LABS: FOLIC ACID > 20.00 ng/mL (>3.0)
[2019-01-09 08:27] LABS: BASOPHILS # (AUTO) 0.1 K/uL (0.00-0.22); BASOPHILS % (AUTO) 1.4 % (0.0-2.0); EOSINOPHILS # (AUTO) 0.2 K/uL (0-0.4); EOSINOPHILS % (AUTO) 3.2 % (0.0-4.0); HEMATOCRIT 31.7 % (36-52); HEMOGLOBIN 10.4 g/dL (12.0-18.0); LYMPHOCYTES # (AUTO) 0.9 K/uL (2.0-11.5); LYMPHOCYTES % (AUTO) 16.5 % (20.5-51.1); MEAN CORPUSCULAR HEMOGLOBIN 31 pg (27-31); MEAN CORPUSCULAR HGB CONC 33 g/dL (33-37); MONOCYTES # (AUTO) 0.6 K/uL (0.8-1.0); MONOCYTES % (AUTO) 11.7 % (1.7-9.3); NEUTROPHILS # (AUTO) 3.6 K/uL (1.8-7.7); NEUTROPHILS % (AUTO) 67.2 % (42.2-75.2); PLATELET COUNT (AUTO) 137 K/uL (140-450); RED BLOOD CELL COUNT(AUTO) 3.37 MIL/uL (4.20-6.10); RED CELL DISTRIBUTION WIDTH 15.7 % (11.6-13.7); WHITE BLOOD COUNT (AUTO) 5.4 K/uL (4.8-10.8)
[2019-01-09] MEDS: cloNIDine 0.1 MG TAB PO SCH ×3 (08:59→17:04)
[2019-01-09] MEDS: levETIRAcetam 500 MG TAB PO SCH ×2 (09:00→21:07)
[2019-01-09] MEDS: DOCUSATE SODIUM 250 MG GELCAP PO SCH ×3 (09:00→20:58)
[2019-01-09] MEDS: CALCIUM ACETATE 667 MG TAB PO SCH ×3 (09:00→17:04)
[2019-01-09] MEDS: DIVALPROEX SPRINKLES 125 MG CAPDR PO SCH ×2 (09:00→21:07)
[2019-01-09] MEDS ORDERED: POTASSIUM CHLORIDE 8 MEQ TABER PO SCH (09:00)
[2019-01-09] MEDS: ISOSORBIDE DINITRATE 20 MG TAB PO SCH ×3 (09:01→17:04)
[2019-01-09] MEDS: LACTOBACILLUS RHAMNOSUS GG 1 EACH CAP PO SCH (09:02)
[2019-01-09 09:19] LABS: ANION GAP 19.8 (8-16); CARBON DIOXIDE 27.3 mmol/L (21-32); POTASSIUM 5.1 mmol/L (3.5-5.1)
[2019-01-09 09:22] LABS: CREATININE 8.9 mg/dL (0.7-1.3)
[2019-01-09 09:24] LABS: MAGNESIUM 2.2 mg/dL (1.8-2.4); PHOSPHORUS 7.1 mg/dL (2.5-4.9)
[2019-01-09 09:25] LABS: CHOL/HDL RATIO 1.6 (1-4.5)
[2019-01-09] MEDS: NIFEdipine 60 MG TABER PO SCH (09:48)
[2019-01-09] MEDS: VIT-B COMP/VIT-C/FOLIC ACID 1 TAB PO SCH (09:48)
[2019-01-09] MEDS: LEVOFLOXACIN 750 MG/D5W PREMIX 150 ML IV SCH (10:00)
--- NOTE | 2019-01-09 10:30 | NUR ---
SPOKE WITH DR NAPIER, HD ORDERED. CONSENT OBTAINED FROM PT'S MOTHER. MADE MOTHER AWARE TO BRING MORE DIAPERS FOR PT IF HE INSISTS USING THEM.
--- NOTE | 2019-01-09 11:12 | NUR ---
PATIENT HAS BEEN SCREENED AND CATEGORIZED MODERATE NUTRITION RISK. PATIENT WILL BE SEEN WITHIN 3-5 DAYS OF ADMISSION. 01/12/19 01/14/[address]
[2019-01-09 12:00] VITALS: BP 212/105
[2019-01-09] MEDS: INSULIN LISPRO SLIDING SCALE 100 UNITS/ML VIAL SUBQ PRN (12:34)
--- NOTE | 2019-01-09 12:40 | NUR ---
HD NURSE CAME AND STARTING HD.
[2019-01-09 13:35] LABS: FERRITIN 782 ng/mL (30 - 400); TRANSFERRIN 134 mg/dL (200 - 370)
[2019-01-09 16:00] VITALS: BP 186/99
[2019-01-09] MEDS: FERROUS SULFATE 325 MG TABEC PO SCH (17:04)
--- NOTE | 2019-01-09 17:30 | NUR ---
MADE DR SCHREIBER AWARE PT IS VERY SENSITIVE TO HUMALOG. PT HAD SUGAR 328, 8UNIT HUMALOG WAS GIVEN PER SLIDING SCALE. PT BLOOD SUGAR DROPPED TO 53 AROUND 1700. D50 WAS GIVEN BROUGHT BLOOD SUGAR BACK TO 110. RECOMMEND TO CHANGE SLIDING SCALE. DR SCHREIBER AGREED.
--- NOTE | 2019-01-09 19:15 | NUR ---
REPORT GIVEN TO VISUAL SPECIALIST RN AT BEDSIDE. PT IS STABLE.
--- NOTE | 2019-01-09 19:16 | NUR ---
RECEIVED REPORT FROM DAY RN. PT IN BED, NO S/S OF DISTRESS ON 2L O2 NC. ON TELE MONITOR. PT IS AAOX4. IV ON RIGHT FA 20G, SL. FLUSHED, PATENT AND ASYMPTOMATIC. LEFT AV SHUNT NOTED, BRUIT AND THRILL PRESENT. HD 01/09 4L OUTPUT. NO EDEMA NOTED. SKIN IS INTACT AND WARM TO THE TOUCH. PT IS LEGALLY BLIND, SIGN POSTED. SZ PRECAUTION IN PLACE. BED LOCKED IN LOWEST POSITION. SIDE RAILS UP X2 AND PADDED. POC DISCUSSED WITH PT. CALL LIGHT IS WITHIN REACH. WILL CONTINUE TO MONITOR.
[2019-01-09 20:00] VITALS: BP 159/87
--- NOTE | 2019-01-09 20:42 | NUR ---
RECEIVED PT ON 2L NC, SP02 95%. BREATH SOUNDS: CLEAR. NO RESPIRATORY DISTRESS NOTED AT THIS TIME. WILL CONTINUE TO MONITOR PT
[2019-01-09] MEDS: GABAPENTIN 300 MG CAP PO SCH (21:07)
--- NOTE | 2019-01-09 21:07 | NUR ---
VITAL SIGNS ARE WITHIN NORMAL LIMITS. BLOOD SUGAR 128 NO COVERAGE NEEDED. DEBORAH MEDICATIONS GIVEN. PT REFUSED COLACE. SANDWICH PER REQUEST. CALL LIGHT IS WITHIN REACH. WILL CONTINUE TO MONITOR.
[2019-01-09] MEDS: MIRTAZAPINE 15 MG TAB PO SCH (21:08)
--- NOTE | 2019-01-09 22:30 | NUR ---
PATIENT IS SLEEPING COMFORTABLY IN BED. CHEST RISE AND FALL. CALL LIGHT IS WITHIN REACH. SAFETY MEASURES ARE IN PLACE.
[2019-01-10] VITALS (7 sets, daily range): BP systolic 140–216; BP diastolic 90–113
--- NOTE | 2019-01-10 00:20 | NUR ---
B/P ELEVATED 201/[address] MADE AWARE. WILL F/U NEW ORDERS.
[2019-01-10] MEDS: hydrALAZINE 20 MG/ML VIAL IVP PRN (00:46)
--- NOTE | 2019-01-10 00:46 | NUR ---
HYDRALAZINE IVP PRN GIVEN FOR B/P 201/99 HR 69. WILL RECHECK IN AN HOUR. CALL LIGHT IS WITHIN REACH
--- NOTE | 2019-01-10 01:49 | NUR ---
B/P TRENDING DOWN 175/90 HR 64. PT IS RESTING COMFORTABLY IN BED. SAFETY MEASURES ARE IN PLACE. CALL LIGHT IS WITHIN REACH. WILL CONTINUE TO MONITOR.
--- NOTE | 2019-01-10 04:00 | NUR ---
VSS. CALL LIGHT IS WITHIN REACH. WILL CONTINUE TO MONITOR.
[2019-01-10] MEDS: LEVOTHYROXINE 0.05 MG TAB PO SCH (05:33)
[2019-01-10 06:50] LABS: BASOPHILS # (AUTO) 0.1 K/uL (0.00-0.22); BASOPHILS % (AUTO) 2.1 % (0.0-2.0); EOSINOPHILS # (AUTO) 0.2 K/uL (0-0.4); EOSINOPHILS % (AUTO) 5.8 % (0.0-4.0); HEMATOCRIT 33.8 % (36-52); HEMOGLOBIN 10.9 g/dL (12.0-18.0); LYMPHOCYTES # (AUTO) 0.7 K/uL (2.0-11.5); LYMPHOCYTES % (AUTO) 19.3 % (20.5-51.1); MEAN CORPUSCULAR HEMOGLOBIN 30 pg (27-31); MEAN CORPUSCULAR HGB CONC 32 g/dL (33-37); MEAN CORPUSCULAR VOLUME 94.3 fL (80-94); MONOCYTES # (AUTO) 0.5 K/uL (0.8-1.0); MONOCYTES % (AUTO) 14.6 % (1.7-9.3); NEUTROPHILS # (AUTO) 2.1 K/uL (1.8-7.7); NEUTROPHILS % (AUTO) 58.2 % (42.2-75.2); PLATELET COUNT (AUTO) 147 K/uL (140-450); RED BLOOD CELL COUNT(AUTO) 3.59 MIL/uL (4.20-6.10); RED CELL DISTRIBUTION WIDTH 15.8 % (11.6-13.7); WHITE BLOOD COUNT (AUTO) 3.6 K/uL (4.8-10.8)
[2019-01-10] MEDS: hydrALAZINE 10 MG TAB PO SCH ×3 (06:53→17:00)
[2019-01-10] MEDS: INSULIN LISPRO SLIDING SCALE 100 UNITS/ML VIAL SUBQ PRN ×4 (06:55→22:05)
[2019-01-10] MEDS: BLOOD GLUCOSE MONITORING 1 DEV DEV FS SCH ×4 (06:55→21:39)
--- NOTE | 2019-01-10 07:23 | NUR ---
GAVE BEDSIDE REPORT. PT ENDORSED IN STABLE CONDITION
--- NOTE | 2019-01-10 07:24 | NUR ---
RECEIVED REPORT FROM COMPOUNDING SCALER NURSE. PATIENT LYING DOWN IN BED. NO DISTRESS NOTED. DENIES ANY PAIN. AAOX4, CALM, COOPERATIVE, SKIN COLOR APPROPRIATE TO ETHNICITY, WARM TO TOUCH. SKIN INTACT. IV SITE INTACT, PATENT, ON SALINE LOCK. ABDOMEN SOFT. LEFT UPPER AV SHUNT NOTED, INTACT, PATENT. RESPIRATIONS EVEN, UNLABORED, ON O2 2L/MIN VIA NC. REVIEWED PLAN OF CARE WITH PATIENT. PATIENT VERBALIZED UNDERSTANDING. SAFETY MEASURES IN PLACE, CALL LIGHT WITHIN REACH. WILL CONTINUE TO MONITOR.
[2019-01-10 07:33] LABS: ANION GAP 17.6 (8-16); CARBON DIOXIDE 26.8 mmol/L (21-32); POTASSIUM 5.4 mmol/L (3.5-5.1)
[2019-01-10 07:36] LABS: MAGNESIUM 2.1 mg/dL (1.8-2.4); PHOSPHORUS 6.3 mg/dL (2.5-4.9)
[2019-01-10] MEDS: DOCUSATE SODIUM 250 MG GELCAP PO SCH ×2 (09:00→21:36)
[2019-01-10] MEDS: CALCIUM ACETATE 667 MG TAB PO SCH ×3 (09:01→17:00)
[2019-01-10] MEDS: VIT-B COMP/VIT-C/FOLIC ACID 1 TAB PO SCH (09:01)
[2019-01-10] MEDS: DIVALPROEX SPRINKLES 125 MG CAPDR PO SCH ×2 (09:02→21:36)
[2019-01-10] MEDS: LACTOBACILLUS RHAMNOSUS GG 1 EACH CAP PO SCH (09:02)
[2019-01-10] MEDS: levETIRAcetam 500 MG TAB PO SCH ×2 (09:04→21:36)
[2019-01-10] MEDS: cloNIDine 0.1 MG TAB PO SCH ×3 (09:04→17:00)
[2019-01-10] MEDS: NIFEdipine 60 MG TABER PO SCH (09:05)
[2019-01-10] MEDS: ISOSORBIDE DINITRATE 20 MG TAB PO SCH ×3 (09:05→17:00)
[2019-01-10] MEDS: FERROUS SULFATE 325 MG TABEC PO SCH (09:06)
--- NOTE | 2019-01-10 09:13 | NUR ---
PATIENT LYING DOWN IN BED, NO DISTRESS NOTED. CONDITION UNCHANGED. SCHEDULED MEDICATIONS DUE GIVEN. WILL CONTINUE TO MONITOR.
--- NOTE | 2019-01-10 09:37 | NUR ---
CALLED MS. PHAM FOR HEMODIALYSIS ORDER FOR TODAY. MS. PHAM VERBALIZED UNDERSTANDING.
--- NOTE | 2019-01-10 11:30 | NUR ---
PATIENT LYING DOWN IN BED COMFORTABLY. NO DISTRESS NOTED. DENIES PAIN. WILL CONTINUE TO MONITOR.
--- NOTE | 2019-01-10 12:00 | NUR ---
BLOOD PRESSURE CONTINUES TO BE HIGH AT 214/107, 63 PULSE AFTER GIVING 0900 BP MEDICATIONS. HEMODIALYSIS NURSE ON UNIT TO PERFORM HEMODIALYSIS AFTER HE FINISES WITH PATIENT. PER HD NURSE HOLD 1300 BP MEDS FOR NOW UNTIL HE STARTS DIALYSIS AND HE WILL ASK ME TO GIVE BP MEDICATIONS IF NEEDED. WILL CONTINUE TO MONITOR
--- NOTE | 2019-01-10 13:38 | NUR ---
PATIENT LYING DOWN IN BED, NO DISTRESS NOTED. SCHEDULED MEDICATIONS DUE GIVEN. WILL CONTINUE TO MONITOR.
--- NOTE | 2019-01-10 15:36 | NUR ---
PRETRANSFUSION VITALS NOTED, WILL CONTINUE TO MONITOR V/S IN 15 MINS PATIENT LYING IN BED WITH SON EVER AT THE BED SIDE. NO DISTRESS NOTED. Addendum: 01/10/19 at 1541 by Michelle Lozano RN DOCUMENTATION MADE IN ERROR. NO BLOOD TRANSFUSION GIVEN TO PATIENT.
--- NOTE | 2019-01-10 16:00 | NUR ---
HEMODIALYSIS STARTED AT THIS TIME BY HEMODIALYSIS NURSE AT BEDSIDE.
--- NOTE | 2019-01-10 16:39 | NUR ---
GAVE REPORT TO KATHERIN FLOREZ FOR CONTINUITY OF CARE. PATIENT INS STABLE CONDITION.
--- NOTE | 2019-01-10 16:40 | NUR ---
RECEIVED BEDSIDE REPORT FROM JACOB PANDEY FOR CONTINUITY OF CARE. PATIENT IS IN DIALYSIS AT THIS TIME. SALT WASHER HARVESTING STATION BY BEDSIDE. NO SIGNS OF DISTRESS NOTED. SAFETY MEASURES IN PLACE.
--- NOTE | 2019-01-10 17:50 | NUR ---
PATIENT IS STILL IN DIALYSIS. HOLD 1700 BP MEDS. PATIENT IS AWAKE AND TALKING TO HEADING AND PRIMING OPERATOR AT BEDSIDE. NO SIGNS OF DISTRESS NOTED. SAFETY MEASURES IN PLACE. BED IN LOW POSITION AND CALL LIGHT WITHIN REACH. FALL RISK PROTOCOL IN PLACE AND BED ALARM ACTIVATED.
--- NOTE | 2019-01-10 18:04 | NUR ---
PATIENT GOT HIS DINNER TRAY. ADMINISTERED 2 UNITS OF HUMALOG FOR BLOOD GLUCOSE 237, PATIENT TOLERATED WELL. MED EDUCATION PROVIDED TO PATIENT AND PATIENT WAS AWARE. PATIENT IS EATING DINNER AND IN DIALYSIS. TRASHMAN BY BEDSIDE. NO SIGNS OF DISTRESS NOTED. SAFETY MEASURES IN PLACE. BED IN LOW POSITION AND CALL LIGHT WITHIN REACH. FALL RISK PROTOCOL IN PLACE AND BED ALARM ACTIVATED.
--- NOTE | 2019-01-10 19:10 | NUR ---
RECIEVED PT AAO 3 TO 4 - LEGALLY BLIND BOTH EYES , NID , REFUSED O2 INH - 02 SAT 95% , ON HD ON GOING HD NURSE ON BEDSIDE. IV SITE INTACT AND PATENT , AV SHUNT INTACT - AND PATENT - ON GOING HD . ON SAFETY / FALL PRECAUTION PRPTOCOL -CALL LIGHT WITHIN REACH , BED ALARM ON . PLAN OF CARE DISCUSSED AND VERBALIZED UNDERSTANDING. WILL CONT. TO MONITOR.
--- NOTE | 2019-01-10 19:10 | NUR ---
ENDORSED PATIENT AT BEDSIDE TO TOLL SETTLEMENT CLERK NURSE FOR CONTINUITY OF CARE. PATIENT AWAKE AND RESTING ON BED. DIALYSIS IS GOING AND INFORMATION SECURITY ASSOCIATE BY BEDSIDE. NO SIGNS OF DISTRESS NOTED. PATIENT IS IN STABLE CONDITION. SAFETY MEASURES IN PLACE. BED IN LOW POSITION AND CALL LIGHT WITHIN REACH. FALL RISK PROTOCOL IN PLACE AND BED ALARM ACTIVATED.
[2019-01-10] MEDS: MIRTAZAPINE 15 MG TAB PO SCH (21:37)
[2019-01-10] MEDS: GABAPENTIN 300 MG CAP PO SCH (21:37)
--- NOTE | 2019-01-10 22:00 | NUR ---
MADE ROUNDS . NO SIGNS OF DISTRESS NOTED AT THIS TIME - EATING .CALL LIGHT WITHIN REACH.
[2019-01-11] VITALS: BP 143/93
--- NOTE | 2019-01-11 | NUR ---
MADE ROUNDS . NO SIGNS OF DISTRESS NOTED AT TIME, WILL CONT. TO MONITOR. CALL LIGHT WITHIN REACH.
--- NOTE | 2019-01-11 00:19 | NUR ---
ASLEEP EASILY AWAKENS ALERT VERBALLY RESPONSIVE NO SOB NOTED PATIENT REFUSES TO USE SUPPLEMENTAL OXYGEN EXPLAINED TO PATIENT THAT HIS SATURATION LEVEL IS LOW ALONG WITH O2 PERCENTAGE ALONG THE BENEFITS OF USING THE SUPPLEMENTAL OXYGEN
[2019-01-11] MEDS: hydrALAZINE 20 MG/ML VIAL IVP PRN ×2 (02:29→06:43)
--- NOTE | 2019-01-11 02:29 | NUR ---
BP RE CHECKED 170/96 MMHG. FL 74 PER V/S MACHINE . NO COMPLAIN MADE AT THIS TIME . APRESOLINE TIV GIVEN ORDERED. WILL CONT. TO MONITOR . CALL LIGHT WITHIN REACH.
[2019-01-11 04:30] VITALS: BP 150/90
--- NOTE | 2019-01-11 04:30 | NUR ---
BP RE CHECKED 150 /90 - NO COMPLAIN MADE AT THIS TIME . WILL CONT. TO MONITOR. CALL LIGHT WITHIN REACH.
[2019-01-11] MEDS: INSULIN LISPRO SLIDING SCALE 100 UNITS/ML VIAL SUBQ PRN (06:34)
--- NOTE | 2019-01-11 06:43 | NUR ---
BP RE CHECKED 200/100 -APRESOLINE TIV GIVEN ORDERED BY EFRAIN.EFRAIN SAID GIVE NOW THE APRESOLINE STANDING ORDER [facility] LESS THAN 6HRS APART. WILL CONT. TO MONITOR.
[2019-01-11] MEDS: LEVOTHYROXINE 0.05 MG TAB PO SCH (06:48)
[2019-01-11 07:08] LABS: ANION GAP 14.6 (8-16); CARBON DIOXIDE 28.3 mmol/L (21-32); POTASSIUM 4.9 mmol/L (3.5-5.1)
[2019-01-11 07:15] LABS: CREATININE 5.5 mg/dL (0.7-1.3)
[2019-01-11 07:16] LABS: MAGNESIUM 1.8 mg/dL (1.8-2.4); PHOSPHORUS 5.5 mg/dL (2.5-4.9)
--- NOTE | 2019-01-11 07:23 | NUR ---
ENDORSED TO AM SHIFT FOR CONTINUITY OF CARE FOR HDSCHEDULED TODAY -CONFIRMED.
--- NOTE | 2019-01-11 07:25 | NUR ---
RECEIVED BEDSIDE REPORT FROM PULMONOLOGIST/INTENSIVIST NURSE, PT IS AWAKE AND ALERT LYING IN BED, NO S/S OF DISTRESS OR SOB. NO C/O PAIN. L AV FISTULA NOTED FOR HD. PT IS SCHEDULED TO HAVE HD TODAY, PHAM IS AWARE. IV SITE IS NOTED IN THE R FA 20 G, SALINE LOCK. PT ON ROOM AIR, SKIN INTACT. PT IS ON 1500 ML/DAY FLUID RESTRICTION. FALL PRECAUTIONS ARE IN PLACE, CALL LIGHT WITHIN REACH. WILL CONTINUE TO MONITOR.
[2019-01-11 07:46] LABS: BASOPHILS # (AUTO) 0.1 K/uL (0.00-0.22); BASOPHILS % (AUTO) 2.4 % (0.0-2.0); EOSINOPHILS # (AUTO) 0.3 K/uL (0-0.4); HEMOGLOBIN 10.1 g/dL (12.0-18.0); LYMPHOCYTES # (AUTO) 0.7 K/uL (2.0-11.5); LYMPHOCYTES % (AUTO) 19.6 % (20.5-51.1); MEAN CORPUSCULAR HEMOGLOBIN 31 pg (27-31); MEAN CORPUSCULAR HGB CONC 33 g/dL (33-37); MONOCYTES # (AUTO) 0.6 K/uL (0.8-1.0); MONOCYTES % (AUTO) 14.9 % (1.7-9.3); NEUTROPHILS # (AUTO) 2.1 K/uL (1.8-7.7); NEUTROPHILS % (AUTO) 55.1 % (42.2-75.2); PLATELET COUNT (AUTO) 143 K/uL (140-450); RED CELL DISTRIBUTION WIDTH 15.4 % (11.6-13.7); WHITE BLOOD COUNT (AUTO) 3.7 K/uL (4.8-10.8)
--- NOTE | 2019-01-11 07:49 | NUR ---
PT UNWILLING TO WEAR 02 SP02 .92 NO RESP DISTRESS NOTED
[2019-01-11 08:00] VITALS: BP 198/97
[2019-01-11] MEDS: BLOOD GLUCOSE MONITORING 1 DEV DEV FS SCH ×2 (08:02→11:49)
[2019-01-11] MEDS: NIFEdipine 60 MG TABER PO SCH (09:00)
[2019-01-11] MEDS: cloNIDine 0.1 MG TAB PO SCH ×2 (09:00→11:50)
[2019-01-11] MEDS: ISOSORBIDE DINITRATE 20 MG TAB PO SCH ×2 (09:00→11:50)
[2019-01-11] MEDS: hydrALAZINE 10 MG TAB PO SCH ×2 (09:00→11:50)
[2019-01-11] MEDS: VIT-B COMP/VIT-C/FOLIC ACID 1 TAB PO SCH (09:44)
[2019-01-11] MEDS: DIVALPROEX SPRINKLES 125 MG CAPDR PO SCH (09:44)
[2019-01-11] MEDS: levETIRAcetam 500 MG TAB PO SCH (09:44)
[2019-01-11] MEDS: DOCUSATE SODIUM 250 MG GELCAP PO SCH (09:45)
[2019-01-11] MEDS: LACTOBACILLUS RHAMNOSUS GG 1 EACH CAP PO SCH (09:45)
[2019-01-11] MEDS: CALCIUM ACETATE 667 MG TAB PO SCH (09:45)
--- NOTE | 2019-01-11 09:50 | NUR ---
AM MEDS ADMINISTERED, HELD THE COTTON MACHINE OPERATOR MEDS BECAUSE PT IS TO HAVE DIALYSIS TODAY.
--- NOTE | 2019-01-11 09:53 | NUR ---
GOT A CALL FROM DIALYSIS NURSE, SHE SAYS SHE WILL BE ABLE TO COME ADMINISTER DIALYSIS AROUND 1999 THIS PM. PT IS UPSET AND DEMANDING TO HAVE DIALYSIS SOONER, OR ELSE HE WILL GO AMA. WILL NOTIFY DR GONZALEZ.
[2019-01-11] MEDS: LEVOFLOXACIN 750 MG/D5W PREMIX 150 ML IV SCH (10:02)
--- NOTE | 2019-01-11 10:13 | NUR ---
DR GONZALEZ SEEING PT AT THIS TIME, PT IS ANGRY AND YELLING THAT HE DOES NOT WANT TO WAIT UNTIL EVENING TO GET DIALYSIS, THAT HE IS GOING TO LEAVE NO MATTER WHAT, AND THAT HE WILL "CRAWL" BACK [place] [facility] HAS TO.
[2019-01-11 11:50] VITALS: BP 198/97
--- NOTE | 2019-01-11 11:58 | NUR ---
PT'S BLOOD GLUCOSE IS 155 AT THIS TIME. WILL HOLD INSULIN COVERAGE AT THIS TIME, PT'S BLOOD GLUCOSE TENDS TO DROP DOWN VERY LOW. PT ALSO STATES THAT HE DOES NOT TAKE INSULIN FOR A BLOOD SUGAR OF LESS THAN 200.
--- NOTE | 2019-01-11 13:30 | NUR ---
PT HAS DECIDED TO LEAVE AMA, BECAUSE HE DOESN'T WANT TO WAIT UNTIL 20:00 TO [address] HIS DIALYSIS. DR GONZALEZ, JALEN SUP AND CHARGE NURSE ARE AWARE. SECURITY TRANSPORTED PT BACK [place] [facility] [place] GONZALEZ HAD AN EXTENSIVE DISCUSSION W/ PT REGARDING RISKS OF LEAVING AMA. PT STILL ANGRY AND DEMANDING TO BE LET GO. JALEN COPPOLA NOTIFIED [facility] OF PT'S RETURN. IV SITE AND WRIST BANDS WERE REMOVED. PT SIGNED THE AMA FORM. PT LEFT WITH ALL THE BELONGINGS HE CAME WITH.
--- NOTE | 2019-01-11 14:55 | NUR ---
AMANDA UNIQUE ID: [id number]
[2019-01-12] MEDS ORDERED: FERROUS SULFATE 325 MG TABEC PO SCH (09:00)
== END 2019-01-11 13:20 | disposition left against medical advice (07) | DRG 177 ==
LOC: MED 13:49 → MTU 16:28
PROVIDERS: ADMIT General Practice; ATTEND General Practice
PROC: 5A1D70Z Performance of Urinary Filtration, Intermittent, Less than 6 Hours Per Day (ICD-10-PCS; 2019-01-09)
PROC: 5A1D70Z Performance of Urinary Filtration, Intermittent, Less than 6 Hours Per Day (ICD-10-PCS; principal; 2019-01-10)
DX: J69.0 Pneumonitis due to inhalation of food and vomit (principal); I50.43 Acute on chronic combined systolic (congestive) and diastolic (congestive) heart failure; N18.6 End stage renal disease; N17.0 Acute kidney failure with tubular necrosis; I13.2 Hypertensive heart and chronic kidney disease with heart failure and with stage 5 chronic kidney disease, or end stage renal disease; E11.22 Type 2 diabetes mellitus with diabetic chronic kidney disease; E11.65 Type 2 diabetes mellitus with hyperglycemia; E03.9 Hypothyroidism, unspecified; E11.319 Type 2 diabetes mellitus with unspecified diabetic retinopathy without macular edema; E11.649 Type 2 diabetes mellitus with hypoglycemia without coma; G40.909 Epilepsy, unspecified, not intractable, without status epilepticus; E11.42 Type 2 diabetes mellitus with diabetic polyneuropathy; K21.9 Gastro-esophageal reflux disease without esophagitis; F41.9 Anxiety disorder, unspecified; H54.8 Legal blindness, as defined in USA; Z53.29 Procedure and treatment not carried out because of patient's decision for other reasons; E87.5 Hyperkalemia; E87.6 Hypokalemia; F32.9 Major depressive disorder, single episode, unspecified; D63.8 Anemia in other chronic diseases classified elsewhere; E78.5 Hyperlipidemia, unspecified; Z91.14 Patient's other noncompliance with medication regimen; Z99.2 Dependence on renal dialysis; Z79.4 Long term (current) use of insulin; Z88.1 Allergy status to other antibiotic agents; Z88.8 Allergy status to other drugs, medicaments and biological substances; Z86.73 Personal history of transient ischemic attack (TIA), and cerebral infarction without residual deficits
CPT/HCPCS: 36415; 36600; 71045; 80048; 82140; 82150; 82607; 82728; 82746; 82803; 82948; 83036; 83540; 83605; 83690; 83735; 83880; 84100; 84443; 84484; 85025; 85045; 85610; 85730; 87040; 87081; 93005; 96360; 97116; 99285; G0482; J0360; J1815; J1956; J7030; Q0092

== ENCOUNTER 2019-03-31 23:29 | Inpatient (IN) | payer OTHER ==
[~2019-03-31] VITALS: Ht 182.9 cm; Wt 68.0 kg
[~2019-03-31 23:29] MED LIST changes: -ADA60 PO; +ALBU-71 NEB; +BISA-213 RC; -GLU1I IM; -INSU100S22 SUBQ; -MECL-272 PO; +MIRT30TA PO; +MULT-1469 PO; +NIFE60TE74 PO; -SIMV40TA1 PO
[2019-03-31 23:37] VITALS: BP 153/85
--- NOTE | 2019-03-31 23:39 | NUR ---
PT LUCILA ALS. TAKEN TO BED 9
--- NOTE | 2019-03-31 23:39 | NUR ---
43 Y/O MALE PT BIBA BLS FROM [facility] C/O VOMITING AND HEADACHE X 3 HRS. PATIENT HAS DIALYSIS SHUNT ON THE LEFT ARM. 5L N/C 98%; LUNG SOUNDS CLEAR/DIMINISHED THROUGHOUT. +N/V; UNABLE TO AMBULATE. ERMD MADE AWARE OF STATUS. SIDE RAILSX1. PLACED ON MONITOR. WILL CONTINUE TO MONITOR. MEDHX: ESRD, DM, HTN;TBI; VENTRICULAR HYPERTROPHY RX:SEE MEDICATION RECORD ALLERGIES: SEE MEDICATION RECORD
[2019-03-31] MEDS ORDERED: VANCOMYCIN 1,000 MG in DEXTROSE 5% 250 ML IV ONE (23:40)
[2019-03-31] MEDS ORDERED: MEROPENEM 500 MG in NACL 0.9% 100 ML IV ONE (23:40)
[2019-03-31] MEDS ORDERED: MEROPENEM 500 MG VIAL IV ONE (23:50)
[2019-04-01 00:11] LABS: HEMOGLOBIN 10.6 g/dL (12.0-18.0); MEAN CORPUSCULAR HEMOGLOBIN 32 pg (27-31); MEAN CORPUSCULAR HGB CONC 33 g/dL (33-37); MEAN CORPUSCULAR VOLUME 95.2 fL (80-94); PLATELET COUNT (AUTO) 168 K/uL (140-450); RED BLOOD CELL COUNT(AUTO) 3.36 MIL/uL (4.20-6.10); RED CELL DISTRIBUTION WIDTH 15.1 % (11.6-13.7); WHITE BLOOD COUNT (AUTO) 5.3 K/uL (4.8-10.8)
[2019-04-01] MEDS ORDERED: VANCOMYCIN 1,000 MG VIAL ONE (00:24)
[2019-04-01 00:25] LABS: LYMPHOCYTES % (MANUAL) 11 % (20-46); MONOCYTES % (MANUAL) 6 % (5-12)
[2019-04-01 00:32] LABS: ALBUMIN 2.8 g/dL (3.4-5.0); ANION GAP 17.4 (8-16); CARBON DIOXIDE 29.5 mmol/L (21-32); POTASSIUM 4.9 mmol/L (3.5-5.1); TOTAL BILIRUBIN 0.6 mg/dL (0.0-1.0)
[2019-04-01 00:46] LABS: CREATININE 9.8 mg/dL (0.7-1.3)
[2019-04-01 01:04] LABS: PROTHROMBIN TIME 13.3 secs (10.8-13.4)
--- NOTE | 2019-04-01 01:09 | NUR ---
PT STATES HE DOES NOT PRODUCE URINE ANYMORE.
--- NOTE | 2019-04-01 02:00 | NUR ---
PATIENT IS RESTING WITH EYES CLOSED. NO SOB NOTED. WILL CONTINUE TO MONITOR.
[2019-04-01] MEDS ORDERED: ONDANSETRON 4 MG/2 ML VIAL IM/IVP PRN (02:45)
[2019-04-01] MEDS ORDERED: DEXTROSE 50% 50 ML SYR IVP PRN (02:45)
[2019-04-01] MEDS ORDERED: ACETAMINOPHEN 325 MG TAB PO PRN (02:45)
[2019-04-01] MEDS ORDERED: ALBUTEROL SULFATE/IPRATROPIU 3 ML SOL IH PRN (02:45)
[2019-04-01] MEDS ORDERED: BISACODYL 10 MG SUPP RC PRN (03:25)
[2019-04-01] MEDS ORDERED: HYDR100T79 PO (03:35)
[2019-04-01] MEDS ORDERED: CLON0.2T43 PO (03:35)
[2019-04-01] MEDS ORDERED: ISOS60TE3 PO (03:35)
[2019-04-01] MEDS ORDERED: GABA300C PO (03:35)
[2019-04-01] MEDS ORDERED: NIFE60TE79 PO (03:35)
[2019-04-01] MEDS ORDERED: SEVE800T6 PO (03:35)
[2019-04-01] MEDS ORDERED: LEVO0.029 PO (03:35)
[2019-04-01] MEDS ORDERED: KEP500 PO (03:35)
[2019-04-01] MEDS ORDERED: MULT-1469 PO (03:35)
[2019-04-01 03:36] LABS: IRON, SERUM 30 ug/dl (50-175); TOTAL IRON BINDING CAPACITY 146 ug/dl (250-450)
[2019-04-01 03:47] LABS: AMYLASE 36 U/L (25-115); FREE T4 (FREE THYROXINE) 0.85 ng/dL (0.76-1.46); LIPASE 87 U/L (73-393); MAGNESIUM 2.4 mg/dL (1.8-2.4); PHOSPHORUS 7.3 mg/dL (2.5-4.9); THYROID STIMULATING HORMONE 4.42 uIU/mL (0.34-3.74)
--- NOTE | 2019-04-01 04:20 | NUR ---
Admited to TELE. Will go to room 126 B. Belongings list completed. Report to KATHERIN PARRA .
--- NOTE | 2019-04-01 04:25 | NUR ---
RECEIVED BEDSIDE REPORT FROM RADHA RN. PATIENT IS AWAKE, ALERT, AND COOPERATIVE. ADMITTING DIAGNOSIS PNA. RESPIRATION EVEN UNLABORED ON 5L NC O2. NO DISTRESS NOTED. SKIN IS WARM AND DRY. AV SHUNT LEFT ARM NOTED +B/T. IV RIGHT HAND 24 G NOTED. HEART RATE REGULAR. S1&S2 NOTED. LUNGS SOUNDS DIMINISHED. BOWEL SOUNDS PRESENT IN ALL QUADRANT. ABDOMEN SOFT AND NON-TENDER. LAST BM 03/31/19. MRSA SCREEN DONE. VITALS WERE TAKEN. ORIENT PATIENT TO THE ROOM, STAFF, AND CALL LIGHT. ALL SAFETY MEASURES IN PLACE. BED IS AT LOW POSITION. CALL LIGHT WITHIN REACH AND VERBALIZES ITS USE. WILL CONTINUE TO MONITOR.
[2019-04-01 04:47] LABS: LACTATE DEHYDROGENASE 182 U/L (85-227)
[2019-04-01] MEDS: NACL 0.9% 1,000 ML IV SCH (04:47)
[2019-04-01 05:00] VITALS: BP 169/90
[2019-04-01] MEDS ORDERED: hydrALAZINE 25 MG TAB PO SCH (05:00)
--- NOTE | 2019-04-01 05:30 | NUR ---
ADMINISTERED MEDICATION PER ORDER. WILL CONTINUE TO MONITOR.
[2019-04-01] MEDS: hydrALAZINE 25 MG TAB PO SCH ×3 (05:36→20:26)
[2019-04-01] MEDS: LEVOTHYROXINE 0.025 MG TAB PO SCH (05:37)
[2019-04-01] MEDS ORDERED: PIPERACILLIN/TAZOBACTAM 2.25 GM VIAL IV ONE (06:00)
[2019-04-01] MEDS ORDERED: PIPERACILLIN/TAZOBACTAM 3.375 GM in DEXTROSE 5% 50 ML IV SCH (06:00)
[2019-04-01] MEDS: PIPERACILLIN/TAZOBACTAM 2.25 GM in DEXTROSE 5% 50 ML IV SCH ×3 (06:03→22:02)
[2019-04-01] MEDS: BLOOD GLUCOSE MONITORING 1 DEV DEV FS SCH ×4 (06:36→20:59)
[2019-04-01] MEDS: ALBUTEROL SULFATE/IPRATROPIU 3 ML SOL IH SCH ×2 (07:00→13:00)
[2019-04-01 07:02] LABS: MAGNESIUM 2.4 mg/dL (1.8-2.4); PHOSPHORUS 7.2 mg/dL (2.5-4.9)
[2019-04-01 07:09] LABS: POTASSIUM 4.9 mmol/L (3.5-5.1)
[2019-04-01 07:10] LABS: ANION GAP 20.9 (8-16)
[2019-04-01 07:11] LABS: CREATININE 10.1 mg/dL (0.7-1.3)
--- NOTE | 2019-04-01 07:15 | NUR ---
RECEIVED REPORT FROM NIGHT NURSE. PT IN STABLE CONDITION, AAOX4, NO DISTRESS NOTED, DENIES PAIN AT THIS TIME. SKIN INTACT. RESPIRATIONS EVEN AND UNLABORED ON O2 5L NC. IV IN R WRIST 24G PATENT AND ASYMPTOMATIC INFUSING PER ORDER. SINUS RHYTHM. SAFETY MEASURES IN PLACE. CALL LIGHT WITHIN REACH. BED IN LOW POSITION. WILL CONTINUE TO MONITOR.
--- NOTE | 2019-04-01 07:22 | NUR ---
ENDORSED PATIENT TO DAY SHIFT NURSE. PATIENT IN STABLE CONDITION.
[2019-04-01 08:00] VITALS: BP 129/78
[2019-04-01 08:06] LABS: BASOPHILS % (AUTO) 0.4 % (0.0-2.0); EOSINOPHILS # (AUTO) 0.2 K/uL (0-0.4); EOSINOPHILS % (AUTO) 4.6 % (0.0-4.0); HEMATOCRIT 32.9 % (36-52); HEMOGLOBIN 10.7 g/dL (12.0-18.0); LYMPHOCYTES # (AUTO) 0.5 K/uL (2.0-11.5); LYMPHOCYTES % (AUTO) 10.3 % (20.5-51.1); MEAN CORPUSCULAR HEMOGLOBIN 31 pg (27-31); MEAN CORPUSCULAR HGB CONC 33 g/dL (33-37); MEAN CORPUSCULAR VOLUME 95.7 fL (80-94); MONOCYTES # (AUTO) 0.6 K/uL (0.8-1.0); MONOCYTES % (AUTO) 12.2 % (1.7-9.3); NEUTROPHILS # (AUTO) 3.4 K/uL (1.8-7.7); NEUTROPHILS % (AUTO) 72.5 % (42.2-75.2); PLATELET COUNT (AUTO) 178 K/uL (140-450); RED BLOOD CELL COUNT(AUTO) 3.44 MIL/uL (4.20-6.10); RED CELL DISTRIBUTION WIDTH 15.3 % (11.6-13.7); WHITE BLOOD COUNT (AUTO) 4.8 K/uL (4.8-10.8)
--- NOTE | 2019-04-01 08:37 | NUR ---
PATIENT HAS BEEN SCREENED AND CATEGORIZED MODERATE NUTRITION RISK. PATIENT WILL BE SEEN WITHIN 3-5 DAYS OF ADMISSION. 04/03/19 04/05/[address]
[2019-04-01] MEDS ORDERED: OLOPATADINE HCL OP SCH (09:00)
--- NOTE | 2019-04-01 10:07 | NUR ---
MEDICATIONS ADMINISTERED PER ORDER. PT TOLERATED WELL, NO DISTRESS NOTED. SAFETY MEASURES IN PLACE, CALL LIGHT WITHIN REACH. WILL CONTINUE TO MONITOR.
[2019-04-01] MEDS: SEVELAMER CARBONATE 800 MG TAB PO SCH ×3 (10:25→17:00)
[2019-04-01] MEDS: ISOSORBIDE MONONITRATE 30 MG TABER PO SCH ×2 (10:30→20:25)
[2019-04-01] MEDS: cloNIDine 0.1 MG TAB PO SCH ×3 (10:30→17:00)
[2019-04-01] MEDS: LACTOBACILLUS RHAMNOSUS GG 1 EACH CAP PO SCH (10:30)
[2019-04-01] MEDS: NIFEdipine 60 MG TABER PO SCH (10:30)
[2019-04-01] MEDS: VIT-B COMP/VIT-C/FOLIC ACID 1 TAB PO SCH (10:31)
[2019-04-01] MEDS: levETIRAcetam 500 MG TAB PO SCH ×2 (10:31→20:25)
[2019-04-01] MEDS ORDERED: HYDRAGUARD CREAM TP ONE (11:35)
--- NOTE | 2019-04-01 11:48 | NUR ---
BLOOD GLUCOSE AND VITAL SIGNS MONITORED AT THIS TIME. PT IN STABLE CONDITION. SAFETY MEASURES IN PLACE. CALL LIGHT WITHIN REACH. WILL CONTINUE TO MONITOR.
[2019-04-01 12:00] VITALS: BP 191/91
[2019-04-01] MEDS: INSULIN LISPRO SLIDING SCALE 100 UNITS/ML VIAL SUBQ PRN ×2 (12:54→20:58)
--- NOTE | 2019-04-01 14:36 | NUR ---
PT IN BED ASLEEP. NO DISTRESS NOTED. BED IN LOW POSITION, SAFETY MEASURES IN PLACE. CALL LIGHT WITHIN REACH. WILL CONTINUE TO MONITOR.
--- NOTE | 2019-04-01 15:42 | NUR ---
PT STARTED HEMODIALYSIS AT THIS TIME. STABLE CONDITION. NO DISTRESS NOTED. DENIES PAIN. SAFETY MEASURES IN PLACE. CALL LIGHT WITHIN REACH. WILL CONTINUE TO MONITOR.
[2019-04-01 16:00] VITALS: BP 108/62
--- NOTE | 2019-04-01 17:55 | NUR ---
PT CONTINUES TO RECEIVE HEMODIALYSIS IN STABLE CONDITION. NO DISTRESS NOTED. DENIES PAIN. SAFETY MEASURES IN PLACE. WILL CONTINUE TO MONITOR.
--- NOTE | 2019-04-01 19:20 | NUR ---
REPORT GIVEN TO NIGHT NURSE FOR CONTINUITY OF CARE.
--- NOTE | 2019-04-01 19:30 | NUR ---
RECEIVED BEDSIDE REPORT FROM DAY SHIFT NURSE. PATIENT IS ALMOST DONE WITH DIALYSIS. RESPIRATION EVEN UNLABORED ON 5L NC O2. NO DISTRESS NOTED. SKIN IS WARM AND DRY. IV PATENT AND INTACT. AV SHUNT ON THE LEFT ARM NOTED. PLAN OF CARE WAS DISCUSSED. ALL SAFETY MEASURES IN PLACE. BED IS AT LOW POSITION. CALL LIGHT WITHIN REACH AND VERBALIZES ITS USE. WILL CONTINUE TO MONITOR.
[2019-04-01 19:59] VITALS: BP 159/78
--- NOTE | 2019-04-01 20:00 | NUR ---
INITIAL ASSESSMENT DONE. VITALS WERE TAKEN. PATIENT IN STABLE CONDITION. NO DISTRESS NOTED. WILL CONTINUE TO MONITOR.
[2019-04-01] MEDS: GABAPENTIN 300 MG CAP PO SCH (20:25)
--- NOTE | 2019-04-01 20:30 | NUR ---
ALL SCHEDULED MEDS WERE GIVEN PER ORDER. NO ASE NOTED. WILL CONTINUE TO MONITOR.
--- NOTE | 2019-04-01 21:30 | NUR ---
RECEIVED PATIENT ON 5L NASAL CANNULA, PULSE OX SAT 93%. PRN BREATHING TX ADMINISTERED. TOLERATED TX WELL WITHOUT ADVERSE SIDE EFFECTS. INCENTIVE SPIROMETER EDUCATION PROVIDED. PATIENT PERFORMED RETURN DEMONSTRATION WITH POOR EFFORT. DEEP COUGH EXERCISE EDUCATION PROVIDED. PATIENT DEMONSTRATED WEAK COUGH EFFORT; UNABLE TO OBTAIN SPUTUM SAMPLE AT THIS TIME. WILL CONTINUE TO ENCOURAGE DEEP BREATHING/COUGHING EXERCISES. PLACED ON 5L OXYMIZER TO IMPROVE OXYGENATION. PULSE OX SAT 96%. WILL TITRATE FIO2 TO MAINTAIN ADEQUATE OXYGENATION, SATS >90% PER ORDER. NO ACUTE RESPIRATORY DISTRESS NOTED AT THIS TIME. WILL CONTINUE TO MONITOR.
--- NOTE | 2019-04-01 22:02 | NUR ---
PATIENT ASKED FOR SANDWICH. SANDWICH PROVIDED. WILL CONTINUE TO MONITOR.
--- NOTE | 2019-04-01 23:55 | NUR ---
VITALS WERE TAKEN. PATIENT IN STABLE CONDITION. NO DISTRESS NOTED. WILL CONTINUE TO MONITOR.
[2019-04-02] VITALS: BP 128/59
--- NOTE | 2019-04-02 01:22 | NUR ---
CHECKED PATIENT. PATIENT SLEEPING RESPIRATION EVEN UNLABORED ON 5L OXIMYZER. NO DISTRESS NOTED. WILL CONTINUE TO MONITOR.
[2019-04-02 04:00] VITALS: BP 137/88
[2019-04-02] MEDS: NACL 0.9% 1,000 ML IV SCH (04:00)
--- NOTE | 2019-04-02 04:10 | NUR ---
VITALS WERE TAKEN. PATIENT IN STABLE CONDITION. NO DISTRESS NOTED. WILL CONTINUE TO MONITOR.
[2019-04-02] MEDS: LEVOTHYROXINE 0.025 MG TAB PO SCH (05:33)
[2019-04-02] MEDS: hydrALAZINE 25 MG TAB PO SCH ×3 (05:33→21:00)
[2019-04-02] MEDS: PIPERACILLIN/TAZOBACTAM 2.25 GM in DEXTROSE 5% 50 ML IV SCH ×3 (06:06→22:05)
[2019-04-02] MEDS: INSULIN LISPRO SLIDING SCALE 100 UNITS/ML VIAL SUBQ PRN ×2 (06:09→17:27)
[2019-04-02] MEDS: BLOOD GLUCOSE MONITORING 1 DEV DEV FS SCH ×4 (06:18→20:47)
[2019-04-02 06:25] LABS: BASOPHILS % (AUTO) 0.6 % (0.0-2.0); EOSINOPHILS # (AUTO) 0.4 K/uL (0-0.4); EOSINOPHILS % (AUTO) 9.3 % (0.0-4.0); HEMATOCRIT 29.7 % (36-52); HEMOGLOBIN 9.7 g/dL (12.0-18.0); LYMPHOCYTES # (AUTO) 0.5 K/uL (2.0-11.5); LYMPHOCYTES % (AUTO) 11.1 % (20.5-51.1); MEAN CORPUSCULAR HEMOGLOBIN 31 pg (27-31); MEAN CORPUSCULAR HGB CONC 33 g/dL (33-37); MONOCYTES # (AUTO) 0.7 K/uL (0.8-1.0); MONOCYTES % (AUTO) 15.5 % (1.7-9.3); NEUTROPHILS # (AUTO) 2.9 K/uL (1.8-7.7); NEUTROPHILS % (AUTO) 63.5 % (42.2-75.2); PLATELET COUNT (AUTO) 154 K/uL (140-450); RED CELL DISTRIBUTION WIDTH 15.1 % (11.6-13.7); WHITE BLOOD COUNT (AUTO) 4.6 K/uL (4.8-10.8)
[2019-04-02 07:08] LABS: ANION GAP 17.1 (8-16); CARBON DIOXIDE 27.2 mmol/L (21-32); POTASSIUM 4.3 mmol/L (3.5-5.1)
[2019-04-02 07:17] LABS: PHOSPHORUS 5.3 mg/dL (2.5-4.9)
[2019-04-02 07:18] LABS: CHOL/HDL RATIO 2.5 (1-4.5); CREATININE 6.9 mg/dL (0.7-1.3)
--- NOTE | 2019-04-02 07:22 | NUR ---
ENDORSED PATIENT TO DAY SHIFT NURSE. PATIENT IN STABLE CONDITION.
--- NOTE | 2019-04-02 07:25 | NUR ---
RECEIVED REPORT FROM NIGHT NURSE. PT IN STABLE CONDITION, WITH EYES CLOSED, AROUSABLE TO SPEECH, AAOX4. RESPIRATIONS EVEN AND UNLABORED ON 3L OXIMIZER. REDNESS ON GLUTES, RECEIVING HYDRAGUARD. IV IN PLACE PATENT AND ASYMPTOMATIC INFUSING PER ORDER IN R HAND 24G. SAFETY MEASURES IN PLACE. CALL LIGHT WITHIN REACH. BED IN LOW POSITION, WILL CONTINUE TO MONITOR.
[2019-04-02 08:00] VITALS: BP 161/84
[2019-04-02 08:10] LABS: FOLIC ACID 18.3 ng/mL (>3.0)
[2019-04-02] MEDS: NIFEdipine 60 MG TABER PO SCH (10:01)
[2019-04-02] MEDS: cloNIDine 0.1 MG TAB PO SCH ×3 (10:03→17:40)
[2019-04-02] MEDS: ISOSORBIDE MONONITRATE 30 MG TABER PO SCH ×2 (10:03→21:00)
[2019-04-02] MEDS: VIT-B COMP/VIT-C/FOLIC ACID 1 TAB PO SCH (10:04)
[2019-04-02] MEDS: LACTOBACILLUS RHAMNOSUS GG 1 EACH CAP PO SCH (10:04)
[2019-04-02] MEDS: levETIRAcetam 500 MG TAB PO SCH ×2 (10:04→20:41)
[2019-04-02] MEDS: SEVELAMER CARBONATE 800 MG TAB PO SCH ×3 (10:04→17:40)
--- NOTE | 2019-04-02 14:00 | NUR ---
Received report from RN caring for patient. On initial visit to patient eyes closed. On 02 High flow nasal cannula 6L per minute. No co pain. Patient with left arm AV shunt with good bruit. Abilio Fisher RN
--- NOTE | 2019-04-02 15:48 | NUR ---
DISCHARGE PLANNING: A 38 Y/O FEMALE PATIENT FROM [facility] [place], WHO CAME IN DUE TO SHORTNESS OF BREATH. PAST MEDICAL HISTORY INCLUDE ESRD ON DIALYSIS, BILATERAL BLINDNESS, DIABETIC RETINOPATHY, DIABETES, HYPERTENSION, HYPERLIPIDEMIA AND SEIZURE DISORDER. INITIAL DIAGNOSIS OF PNEUMONIA. CURRENT LABS INCLUDE WBC 4.6, H/H 9.7/29.7, BUN/CREA 47/6.9. ON ZOSYN. NEPHRO CONSULT IN PLACE. DC PLAN TO GO BACK TO [facility] [place] ONCE STABLE.
--- NOTE | 2019-04-02 18:00 | NUR ---
Patient BS 214, and received lispro insulin per do, see dosage on MAY. Patient BP increased, and given clonidine 2 mg PO per do. Abilio Fisher RN
--- NOTE | 2019-04-02 19:30 | NUR ---
RECEIVED BEDSIDE REPORT FROM [facility]. PATIENT IS AWAKE, ALERT, AND COOPERATIVE. RESPIRATION EVEN UNLABORED ON 3L O2 OXIMIZER. NO DISTRESS NOTED. SKIN IS WARM AND DRY. IV PATENT AND INTACT. LEFT AV SHUNT +T/B NOTED. PLAN OF CARE WAS DISCUSSED. ALL SAFETY MEASURES IN PLACE. BED IS AT LOW POSITION. CALL LIGHT WITHIN REACH AND VERBALIZES ITS USE. WILL CONTINUE TO MONITOR.
[2019-04-02 20:00] VITALS: BP 99/49
--- NOTE | 2019-04-02 20:05 | NUR ---
INITIAL ASSESSMENT DONE. VITALS WERE TAKEN. PATIENT IN STABLE CONDITION. WILL CONTINUE TO MONITOR.
--- NOTE | 2019-04-02 20:20 | NUR ---
ALL SCHEDULED MEDS WERE GIVEN PER ORDER. NO ASE NOTED. PATIENT BLOOD SUGAR 143. PATIENT BP 99/49 HR 68 HOLD BP MEDS PER PARAMETER. WILL CONTINUE TO MONITOR.
[2019-04-02] MEDS: GABAPENTIN 300 MG CAP PO SCH (20:41)
--- NOTE | 2019-04-02 21:30 | NUR ---
PATIENT ASKED FOR DIET SODA AND SANDWICH. DIET SODA AND SANDWICH PROVIDED. WILL CONTINUE TO MONITOR.
--- NOTE | 2019-04-02 23:59 | NUR ---
VITALS WERE TAKEN. PATIENT IN STABLE CONDITION. NO DISTRESS NOTED. WILL CONTINUE TO MONITOR.
[2019-04-03] VITALS: BP 124/73
--- NOTE | 2019-04-03 00:07 | NUR ---
ENDORSE PATIENT TO [facility]. PATIENT IN STABLE CONDITION. WILL CONTINUE TO MONITOR.
--- NOTE | 2019-04-03 00:08 | NUR ---
RECEIVED REPORT FROM NURSE PARRA FOR CONTINUITY OF CARE. PATIENT ALERT AND ORIENTED X3. NO APPARENT DISTRESS NOTED. ASLEEP AT THIS TIME. WITH LEFT AV SHUNT. PIV ON RIGHT HAND 25G. WILL CONTINUE TO MONITOR. Addendum: 04/03/19 at 0409 by Dakota Allen RN ERROR. 24 GAUGE.
--- NOTE | 2019-04-03 02:00 | NUR ---
PATIENT EATING A SANDWICH AT THIS TIME. NO APPARENT DISTRESS NOTED. WILL CONTINUE TO MONITOR.
--- NOTE | 2019-04-03 03:55 | NUR ---
PATIENT AWAKE IN BED, RESTING. NO APPARENT DISTRESS NOTED. VISIBLE CHEST RISE AND FALL NOTED. WILL CONTINUE TO MONITOR.
[2019-04-03] MEDS: NACL 0.9% 1,000 ML IV SCH (04:00)
[2019-04-03] MEDS: hydrALAZINE 25 MG TAB PO SCH ×3 (05:39→20:47)
[2019-04-03] MEDS: LEVOTHYROXINE 0.025 MG TAB PO SCH (05:39)
[2019-04-03] MEDS: INSULIN LISPRO SLIDING SCALE 100 UNITS/ML VIAL SUBQ PRN ×4 (05:40→20:43)
--- NOTE | 2019-04-03 05:50 | NUR ---
PATIENT ASLEEP IN BED. NO APPARENT DISTRESS NOTED. VISIBLE CHEST RISE AND FALL NOTED. WILL CONTINUE TO MONITOR.
[2019-04-03] MEDS: BLOOD GLUCOSE MONITORING 1 DEV DEV FS SCH ×5 (05:56→20:52)
[2019-04-03] MEDS: PIPERACILLIN/TAZOBACTAM 2.25 GM in DEXTROSE 5% 50 ML IV SCH ×3 (06:07→23:00)
[2019-04-03 06:16] LABS: BASOPHILS # (AUTO) 0.1 K/uL (0.00-0.22); BASOPHILS % (AUTO) 1.7 % (0.0-2.0); EOSINOPHILS # (AUTO) 0.5 K/uL (0-0.4); EOSINOPHILS % (AUTO) 10.8 % (0.0-4.0); HEMATOCRIT 32.8 % (36-52); HEMOGLOBIN 10.8 g/dL (12.0-18.0); LYMPHOCYTES # (AUTO) 0.8 K/uL (2.0-11.5); LYMPHOCYTES % (AUTO) 17.8 % (20.5-51.1); MEAN CORPUSCULAR HEMOGLOBIN 31 pg (27-31); MEAN CORPUSCULAR HGB CONC 33 g/dL (33-37); MEAN CORPUSCULAR VOLUME 95.1 fL (80-94); MONOCYTES # (AUTO) 0.7 K/uL (0.8-1.0); MONOCYTES % (AUTO) 15.5 % (1.7-9.3); NEUTROPHILS # (AUTO) 2.3 K/uL (1.8-7.7); NEUTROPHILS % (AUTO) 54.2 % (42.2-75.2); PLATELET COUNT (AUTO) 180 K/uL (140-450); RED BLOOD CELL COUNT(AUTO) 3.45 MIL/uL (4.20-6.10); RED CELL DISTRIBUTION WIDTH 15.4 % (11.6-13.7); WHITE BLOOD COUNT (AUTO) 4.3 K/uL (4.8-10.8)
[2019-04-03 06:58] LABS: MAGNESIUM 2.2 mg/dL (1.8-2.4); PHOSPHORUS 6.9 mg/dL (2.5-4.9)
--- NOTE | 2019-04-03 07:30 | NUR ---
ENDORSED TO AM SHIFT NURSE FOR CONTINUITY OF CARE.
[2019-04-03 08:00] VITALS: BP 115/80
[2019-04-03] MEDS: cloNIDine 0.1 MG TAB PO SCH ×3 (09:00→16:34)
[2019-04-03] MEDS: ISOSORBIDE MONONITRATE 30 MG TABER PO SCH ×2 (09:00→20:47)
[2019-04-03] MEDS: NIFEdipine 60 MG TABER PO SCH (09:00)
[2019-04-03] MEDS: LACTOBACILLUS RHAMNOSUS GG 1 EACH CAP PO SCH (09:44)
[2019-04-03] MEDS: VIT-B COMP/VIT-C/FOLIC ACID 1 TAB PO SCH (09:45)
[2019-04-03] MEDS: levETIRAcetam 500 MG TAB PO SCH ×2 (10:30→20:47)
--- NOTE | 2019-04-03 10:30 | NUR ---
Holding all bp meds due to patient having hemodialysis today. He is awake and alert and eating breakfast with good appetite. Requesting diet soda and dietary called. Abilio Fisher RN
--- NOTE | 2019-04-03 11:07 | NUR ---
EDUCATION PROVIDED FOR INCENTIVE SPIROMETRY AND SPUTUM CULTURE OBTAINMENT (CUP AT BEDSIDE) TOLERATED INCENTIVE SPIROMETRY THERAPY WELL WITHOUT ADVERSE REACTIONS NOTED ENCOURAGED PATIENT TO USE INCENTIVE SPIROMETRY EVERY 1-2 HOURS WHILE AWAKE
[2019-04-03 12:00] VITALS: BP 148/76
--- NOTE | 2019-04-03 12:00 | NUR ---
BS 165 at noon and patient covered with insulin per sliding scale per do. Abilio Fisher RN
[2019-04-03] MEDS: SEVELAMER CARBONATE 800 MG TAB PO SCH ×2 (13:07→16:35)
--- NOTE | 2019-04-03 14:30 | NUR ---
Hemodialysis complete and 4 liters removed and received report from the dialysis nurse. Abilio Fisher RN
[2019-04-03 16:00] VITALS: BP 190/92
--- NOTE | 2019-04-03 17:20 | NUR ---
Patient BS 218, and patient refused insulin per sliding scale per do, saying he does not take insulin at home unless under his pmd orders. Abilio Fisher RN
--- NOTE | 2019-04-03 18:00 | NUR ---
Found patient with IV out, and unable to give dose of Zosyn due earlier, patient refused med after HD. His systolic bp 180, and received dose of clonidine as scheduled med. Abilio Fisher RN
--- NOTE | 2019-04-03 19:30 | NUR ---
RECEIVED BEDSIDE REPORT FROM [facility]. PATIENT IS AWAKE, ALERT, AND COOPERATIVE. HAS INTERMITTENT CONFUSION. RESPIRATION EVEN UNLABORED ON 3L O2 OXIMIZER. NO DISTRESS NOTED. SKIN IS WARM AND DRY. HAS NO IV ACCESS AND NOW REFUSING WILL INFORM LEFT AV SHUNT +T/B NOTED. HD 04/03 WITH 4L OUTPUT PER RN. PT IS LEGALLY BLIND. PLAN OF CARE WAS DISCUSSED. ALL SAFETY MEASURES IN PLACE. BED IS AT LOW POSITION. CALL LIGHT WITHIN REACH AND VERBALIZES ITS USE. WILL CONTINUE TO MONITOR.
--- NOTE | 2019-04-03 20:44 | NUR ---
DEBORAH MEDICATIONS GIVEN PER ORDERS. B/P HIGH 203/106 HR 75 ALL HTN MEDS GIVEN. BLOOD SUGAR 297 COVERAGE GIVEN PER ORDERS. SNACK AT BEDSIDE. CALL LIGHT IS WITHIN REACH. WILL CONTINUE TO MONITOR.
[2019-04-03] MEDS: GABAPENTIN 300 MG CAP PO SCH (20:47)
--- NOTE | 2019-04-03 23:18 | NUR ---
PT REFUSING NEW IV ACCESS. ZOSYN CANNOT BE GIVEN AWARE.
[2019-04-04] VITALS: BP 190/94
[2019-04-04] MEDS ORDERED: hydrALAZINE 20 MG/ML VIAL IVP SCH (00:45)
--- NOTE | 2019-04-04 00:55 | NUR ---
ADMINISTERED APRESOLINE PO X1 FOR B/P 190/94 HR 75. WILL CONTINUE TO MONITOR.
[2019-04-04] MEDS ORDERED: hydrALAZINE 25 MG TAB PO SCH (01:00)
[2019-04-04 02:00] VITALS: BP 156/91
--- NOTE | 2019-04-04 02:00 | NUR ---
B/P 156/91 HR 76. WILL CONTINUE TO MONITOR.
--- NOTE | 2019-04-04 02:23 | NUR ---
PATIENT IS SLEEPING COMFORTABLY IN BED. CHEST RISE AND FALL. CALL LIGHT IS WITHIN REACH. WILL CONTINUE TO MONITOR.
[2019-04-04] MEDS: NACL 0.9% 1,000 ML IV SCH (02:58)
[2019-04-04] MEDS: hydrALAZINE 25 MG TAB PO SCH ×2 (04:13→12:10)
[2019-04-04] MEDS: PIPERACILLIN/TAZOBACTAM 2.25 GM in DEXTROSE 5% 50 ML IV SCH ×2 (05:24→12:56)
[2019-04-04] MEDS: LEVOTHYROXINE 0.025 MG TAB PO SCH (05:30)
[2019-04-04] MEDS: INSULIN LISPRO SLIDING SCALE 100 UNITS/ML VIAL SUBQ PRN (06:32)
[2019-04-04] MEDS: BLOOD GLUCOSE MONITORING 1 DEV DEV FS SCH ×3 (06:33→17:10)
--- NOTE | 2019-04-04 06:33 | NUR ---
BLOOD SUGAR 301 ADMINISTERED INSULIN PER SLIDING SCALE. PT TOLERATED WELL. SNACK AT BEDSIDE. CALL LIGHT IS WITHIN REACH. WILL CONTINUE TO MONITOR.
--- NOTE | 2019-04-04 07:25 | NUR ---
GAVE BEDSIDE REPORT TO DAY RN. PT ENDORSED IN STABLE CONDITION.
--- NOTE | 2019-04-04 07:26 | NUR ---
RECEIVED BEDSIDE REPORT FROM POLE LIFT OPERATOR NURSE FOR CONTINUITY OF CARE. PATIENT IS ASLEEP COMFORTABLY ON 2L O2 VIA OXYMIZER. PER REPORT, PT HAS INTERMITTENT CONFUSION. RESPIRATION EVEN UNLABORED. NO DISTRESS NOTED. SKIN IS WARM AND DRY. HAS NO IV ACCESS, PATIENT REFUSED NEW INSERTION. LEFT AV SHUNT +T/B NOTED. HD 04/03 WITH 4L OUTPUT PER RN. PT IS LEGALLY BLIND. PLAN OF CARE WAS DISCUSSED. HE VERBALIZED UNDERSTANDING. ALL SAFETY MEASURES IN PLACE. BED IS AT LOW POSITION WITH ALARM AND BRAKES ON. CALL LIGHT WITHIN REACH. WILL CONTINUE TO MONITOR PATIENT.
[2019-04-04 08:00] VITALS: BP 189/102
--- NOTE | 2019-04-04 08:25 | NUR ---
PATIENT UNRESPONSIVE, HARD TO AWAKEN. CALLED DR. HINES. DR. HINES AT BEDSIDE TO ASSESS THE PATIENT. HR 63, O2 100% ON 2L O2 VIA NC, BP 89/60, TEMP 97.6. PATIENT FLINCHES TO NANCY. FAMILY AT BEDSIDE. WILL WAIT FOR NEW ORDERS. Addendum: 04/04/19 at 0838 by Filiberto Das RN WRONG PATIENT.
--- NOTE | 2019-04-04 08:35 | NUR ---
OFFERED PATIENT MORNING MEDICATIONS. PATIENT DECLINED. REQUESTING TO EAT BREAKFAST AND TAKE PILLS WHEN HE IS MORE AWAKE. PATIENT AWARE OF DISCHARGE ORDER. PATIENT HAS NO COMPLAINTS AT THIS TIME. SAFETY PRECAUTIONS IN PLACE, CALL LIGHT WITHIN REACH, WILL CONTINUE TO MONITOR PATIENT.
[2019-04-04] MEDS ORDERED: INSULIN LANTUS 100 UNITS/ML 10 ML VIAL SUBQ SCH (09:00)
--- NOTE | 2019-04-04 09:14 | NUR ---
SCREEN FOR LOW VINAY SCALE AT RISK, CONTINUE TO FOLLOW PRESSURE ULCER PREVENTION INTERVENTIONS. -TURN AND REPOSITION PATIENT Q2H, ASSIST IF NEEDED -ASSESS AND MONITOR SKIN CONDITION DURING POSITION CHANGES -OFFLOAD BILATERAL HEELS BY PLACING PILLOWS UNDER CALVES AT ALL TIMES, UNLESS OTHERWISE CONTRAINDICATED -KEEP SKIN CLEAN AND DRY AT ALL TIMES.
[2019-04-04] MEDS: cloNIDine 0.1 MG TAB PO SCH ×3 (09:35→17:45)
[2019-04-04] MEDS: NIFEdipine 60 MG TABER PO SCH (09:35)
[2019-04-04] MEDS: levETIRAcetam 500 MG TAB PO SCH (09:35)
[2019-04-04] MEDS: ISOSORBIDE MONONITRATE 30 MG TABER PO SCH (09:35)
[2019-04-04] MEDS: LACTOBACILLUS RHAMNOSUS GG 1 EACH CAP PO SCH (09:35)
[2019-04-04] MEDS: SEVELAMER CARBONATE 800 MG TAB PO SCH ×3 (09:36→17:44)
--- NOTE | 2019-04-04 09:36 | NUR ---
ORDERED MEDICATIONS GIVEN. PATIENT TOLERATING THEM WELL. NO COMPLAINTS AT THIS TIME. PATIENT AWARE OF PENDING DISCHARGE. CALL LIGHT WITHIN REACH, WILL CONTINUE TO MONITOR PATIENT.
[2019-04-04] MEDS: VIT-B COMP/VIT-C/FOLIC ACID 1 TAB PO SCH (09:47)
[2019-04-04] MEDS ORDERED: cloNIDine 0.1 MG TAB PO PRN (10:10)
[2019-04-04] MEDS ORDERED: PIPE1PDS39 IV (10:11)
[2019-04-04] MEDS ORDERED: LANTUS SUBQ (10:11)
[2019-04-04 11:00] LABS: BASOPHILS # (AUTO) 0.2 K/uL (0.00-0.22); BASOPHILS % (AUTO) 3.6 % (0.0-2.0); EOSINOPHILS # (AUTO) 0.6 K/uL (0-0.4); EOSINOPHILS % (AUTO) 12.3 % (0.0-4.0); HEMOGLOBIN 12.1 g/dL (12.0-18.0); LYMPHOCYTES # (AUTO) 1.1 K/uL (2.0-11.5); LYMPHOCYTES % (AUTO) 21.1 % (20.5-51.1); MEAN CORPUSCULAR HEMOGLOBIN 31 pg (27-31); MEAN CORPUSCULAR HGB CONC 33 g/dL (33-37); MEAN CORPUSCULAR VOLUME 94.8 fL (80-94); MONOCYTES # (AUTO) 0.7 K/uL (0.8-1.0); MONOCYTES % (AUTO) 14.1 % (1.7-9.3); NEUTROPHILS # (AUTO) 2.6 K/uL (1.8-7.7); NEUTROPHILS % (AUTO) 48.9 % (42.2-75.2); PLATELET COUNT (AUTO) 233 K/uL (140-450); RED BLOOD CELL COUNT(AUTO) 3.91 MIL/uL (4.20-6.10); RED CELL DISTRIBUTION WIDTH 15.2 % (11.6-13.7); WHITE BLOOD COUNT (AUTO) 5.2 K/uL (4.8-10.8)
[2019-04-04 11:10] LABS: ANION GAP 14.4 (8-16); CARBON DIOXIDE 29.4 mmol/L (21-32); POTASSIUM 4.8 mmol/L (3.5-5.1)
[2019-04-04 11:14] LABS: MAGNESIUM 2.2 mg/dL (1.8-2.4)
--- NOTE | 2019-04-04 11:15 | NUR ---
BLOOD SUGAR 110, NO COVERAGE NEEDED. VS WNL. PATIENT ASKING ABOUT DISCHARGE PROCESS. UPDATED HIM WITH PLAN, HE VERBALIZED UNDERSTANDING. SAFETY PRECAUTIONS IN PLACE, CALL LIGHT WITHIN REACH, WILL CONTINUE TO MONITOR PATIENT.
[2019-04-04 11:30] VITALS: BP 103/62
[2019-04-04 11:47] LABS: CREATININE 7.4 mg/dL (0.7-1.3)
--- NOTE | 2019-04-04 12:15 | NUR ---
CALLED MOTHER'S PHONE # [phone] LEFT VOICE MESSAGE AND PHONE NUMBER TO CALL US BACK.
--- NOTE | 2019-04-04 12:19 | NUR ---
CALLED ON PHONE #[phone]. SPOKE TO THE FATHER DANIELLE BOOTH SR REGARDING THE ADMITTING PAPER THAT NEEDS TO BE SIGN BY HIM OR HIS . INFORMED THAT HE CAN STOP BY ADMITTING OR LOBBY AND SIGN THE PAPERS. FATHER SAID HE WILL BE HERE LATER AFTERNOON TODAY AND SIGN THE PAPERS.
--- NOTE | 2019-04-04 13:53 | NUR ---
Entry Level Note: I faxed patient's clinical information to [facility]. Per Gertrudis from [facility], patient may return to room 53C anytime today, accepting MD is Sadiq Portillo, patient's nurse made aware. She stated patient would like to contact his mother for transportation.
--- NOTE | 2019-04-04 15:16 | NUR ---
RECEIVED CALL BACK FROM MOTHER. MADE AWARE THAT EITHER SHE OR HER HAS TO SIGN THE ADMITTING PAPERS. ALSO MADE AWARE THAT I SPOKE TO HER REGARDING THIS EARLIER. SHE SAID OKAY.
--- NOTE | 2019-04-04 15:45 | NUR ---
CALLED [facility], GAVE REPORT TO KALYN PANDEY, PATIENT WILL BE GOING TO ROOM 53C AND WILL BE UNDER DR. KEI LOPEZ. PATIENT AWARE OF DISCHARGE INFORMATION. WILL CONTINUE TO MONITOR PATIENT.
[2019-04-04 16:00] VITALS: BP 180/101
--- NOTE | 2019-04-04 16:00 | NUR ---
CALLED PATIENT'S MOM TO UPDATE HER ON PATIENT'S DISCHARGE AND ABOUT HER ARRIVAL TO TAKE PATIENT TO [facility] [place]. PATIENT'S MOTHER EDI, STATED THAT AGAINST ORIGINAL PLAN, SHE IS NOT IN THE AREA AND NEITHER IS HER , SO THEY CANNOT TAKE PATIENT BACK TO [facility] [place], TRANSPORTATION WILL NEED TO ME ARRANGED. NEWSPAPER CORRESPONDENT LATASHA GARCIAS. CALLED RAFA, COMMUNITY RELATIONS MANAGER, TO UPDATE HER ABOUT THIS INFORMATION. WAITING FOR HER TO CALL BACK.
--- NOTE | 2019-04-04 16:45 | NUR ---
PER PATIENT'S MOTHER, TRANSPORTATION SERVICE CAN CALL HER TO GET HER CREDIT CARD INFORMATION TO PAY FOR TRANSPORTATION SERVICES. RAFA INCOME TAX AUDITOR GAVE NUMBER TO [facility]. LATASHA PANDEY CALLED [facility] TO ARRANGE FOR TRANSPORTATION FOR PATIENT. PATIENT WILL BE PICKED UP AT 2200 TO BE TRANSFERRED TO [facility] [place]. PATIENT AWARE AND AGREEABLE. CALLED [facility] TO UPDATE THEM ABOUT THIS INFORMATION, THEY VERBALIZED UNDERSTANDING.
--- NOTE | 2019-04-04 17:10 | NUR ---
BLOOD SUGAR 179, PER PATIENT, 'I DON'T NEED INSULIN IF MY BLOOD SUGAR IS UNDER 200'. EDUCATED PATIENT ABOUT HOSPITAL POLICY, HE VERBALIZED UNDERSTANDING BUT REFUSED THE SLIDING SCALE COVERAGE. SAFETY PRECAUTIONS IN PLACE, CALL LIGHT WITHIN REACH, WILL CONTINUE TO MONITOR PATIENT.
[2019-04-04 19:05] VITALS: BP 122/65
--- NOTE | 2019-04-04 19:30 | NUR ---
REPORT GIVEN TO BUNGY JUMP MASTER NURSE AT BEDSIDE FOR CONTINUITY OF CARE. PATIENT IN STABLE CONDITION, AWARE OF DISCHARGE BACK TO [facility] AT 2200.
--- NOTE | 2019-04-04 19:35 | NUR ---
RECEIVED FROM ROCK RN IN BED SLEEPING. FOR TRANSFER TO [facility]. ALL PAPER WORKS DONE AND REPORT TO SNF GIVEN BY ROCK RN.
--- NOTE | 2019-04-04 21:09 | NUR ---
ENDORSED TO NEXT RN FOR CONTINUITY OF CARE. AWAKE AT THIS TIME. NEXT RN ATTENDING TO HIM.
--- NOTE | 2019-04-04 21:10 | NUR ---
RECEIVED BEDSIDE REPORT FROM [facility]OLOR[facility]. PT IN STABLE CONDITION. WAITING FOR TRANSPORTATION.
--- NOTE | 2019-04-04 22:11 | NUR ---
NAME BAND REMOVED. PT LEFT BY WHEEL CHAIR WITH TRANSPORTATION TEAM.
== END 2019-04-04 22:11 | DRG 193 ==
LOC: MED 23:29 → MMU 04-01 03:04
PROVIDERS: ADMIT General Practice; ATTEND General Practice
PROC: 5A1D70Z Performance of Urinary Filtration, Intermittent, Less than 6 Hours Per Day (ICD-10-PCS; principal; 2019-04-01)
PROC: 5A1D70Z Performance of Urinary Filtration, Intermittent, Less than 6 Hours Per Day (ICD-10-PCS; 2019-04-03)
DX: J18.9 Pneumonia, unspecified organism (principal); J96.02 Acute respiratory failure with hypercapnia; N18.6 End stage renal disease; E43 Unspecified severe protein-calorie malnutrition; I50.30 Unspecified diastolic (congestive) heart failure; D68.9 Coagulation defect, unspecified; E87.1 Hypo-osmolality and hyponatremia; I13.2 Hypertensive heart and chronic kidney disease with heart failure and with stage 5 chronic kidney disease, or end stage renal disease; E11.22 Type 2 diabetes mellitus with diabetic chronic kidney disease; E11.40 Type 2 diabetes mellitus with diabetic neuropathy, unspecified; K21.9 Gastro-esophageal reflux disease without esophagitis; G40.909 Epilepsy, unspecified, not intractable, without status epilepticus; E11.319 Type 2 diabetes mellitus with unspecified diabetic retinopathy without macular edema; E87.8 Other disorders of electrolyte and fluid balance, not elsewhere classified; E03.9 Hypothyroidism, unspecified; I20.9 Angina pectoris, unspecified; E78.5 Hyperlipidemia, unspecified; D63.1 Anemia in chronic kidney disease; E83.39 Other disorders of phosphorus metabolism; Z99.2 Dependence on renal dialysis; Z68.20 Body mass index [BMI] 20.0-20.9, adult; Z88.1 Allergy status to other antibiotic agents; Z88.8 Allergy status to other drugs, medicaments and biological substances; Z79.899 Other long term (current) drug therapy; Z86.73 Personal history of transient ischemic attack (TIA), and cerebral infarction without residual deficits; Z87.891 Personal history of nicotine dependence
CPT/HCPCS: 36415; 36600; 71045; 76604; 80048; 80053; 82140; 82150; 82607; 82728; 82746; 82803; 82948; 83036; 83540; 83605; 83615; 83690; 83735; 83880; 84100; 84134; 84439; 84443; 84484; 85025; 85045; 85610; 85730; 87040; 87081; 93005; 94640; 96365; 96368; 97112; 97116; 97161-GP; 97530; 99291; G0482; J1644; J1815; J2185; J2543; J3370; J7030; J7060; J7620; Q0092

== ENCOUNTER 2019-04-27 10:19 | Emergency (ER) | payer OTHER ==
[~2019-04-27] VITALS: Ht 182.9 cm; Wt 72.6 kg
[~2019-04-27 10:19] MED LIST changes: -CLON0.1T42 PO; +CLON0.2T43 PO; -DIVA125E1; -DOCU-300 PO; -ISOS20TA11 PO; +ISOS60TE3 PO; -LACT100C5 PO; +LANTUS SUBQ; -LEVO0.0211 PO; +LEVO0.029 PO; -MIRT30TA PO; -NIFE60TE74 PO; +NIFE60TE79 PO; -PHO667 PO; +PIPE1PDS39 IV; +SEVE800T6 PO
--- NOTE | 2019-04-27 10:19 | NUR ---
Patient BIBA BLS from [facility], transferred to bed 4. RN evaluating patient at bedside.
[2019-04-27 10:26] VITALS: BP 200/103
--- NOTE | 2019-04-27 10:35 | NUR ---
ED MD BEDSIDE TO EXAMIN PT.
[2019-04-27] MEDS ORDERED: KETOROLAC 30 MG/ML VIAL IVP ONE (10:45)
--- NOTE | 2019-04-27 11:00 | NUR ---
PT DOSN'T WANT TO IV SL ESTABLISH. TORADOL 30MG IM GIVEN PER DR. CRABTREE AGREE. PT REFUSED CHEST XRAY. DR. CRABTREE WAS NOTIFIED. CLAYTON GAUTHIER WENT TO BEDSIDE AND TALKED WITH PT.
--- NOTE | 2019-04-27 11:01 | NUR ---
PT REFUSING IV INSERTION AND ALL XRAYS. DR CRABTREE AWARE. DR CRABTREE TO D/C PATIENT.
--- NOTE | 2019-04-27 11:40 | NUR ---
PT WAS DECIDED TO D/C HOME BY DR. CRABTREE. PT'S DAD WAS CALLED TO PICKUP PT. BUT NO ONE PICKUP PHONE. PT SAID HIS DAD IN [place] NOW. IRIN, SECRATORY WILL TRY LATER.
--- NOTE | 2019-04-27 12:20 | NUR ---
RENAL DIET WAS ORDERED AND OFFERED TO PT PER PT REQUEST AND MD ORDERED.
--- NOTE | 2019-04-27 12:50 | NUR ---
DAD WAS CALLED AND CAME TO PICK PT. PT WAS W/C'D OUT ED TO DAD'S CAR.
[2019-04-27 12:54] VITALS: BP 134/75
== END 2019-04-27 12:50 ==
LOC: MED 10:19
DX: M54.32 Sciatica, left side (principal); E11.22 Type 2 diabetes mellitus with diabetic chronic kidney disease; I12.0 Hypertensive chronic kidney disease with stage 5 chronic kidney disease or end stage renal disease; N18.6 End stage renal disease; K21.9 Gastro-esophageal reflux disease without esophagitis; Z79.4 Long term (current) use of insulin; Z86.73 Personal history of transient ischemic attack (TIA), and cerebral infarction without residual deficits; Z79.899 Other long term (current) drug therapy; Z88.1 Allergy status to other antibiotic agents; Z88.8 Allergy status to other drugs, medicaments and biological substances; W01.0XXA Fall on same level from slipping, tripping and stumbling without subsequent striking against object, initial encounter; Y93.89 Activity, other specified; Y92.89 Other specified places as the place of occurrence of the external cause; Y99.8 Other external cause status
CPT/HCPCS: 93005; 96372; 99283; J1885

== ENCOUNTER 2019-05-03 11:15 | Inpatient (IN) | payer OTHER ==
[~2019-05-03] VITALS: Ht 182.9 cm; Wt 68.0 kg
--- NOTE | 2019-05-03 11:15 | NUR ---
PATIENT BIBA TO BED 09 AT THIS TIME.
[2019-05-03 11:23] VITALS: BP 138/74
--- NOTE | 2019-05-03 11:52 | NUR ---
PATIENT TAKEN FOR CT SCAN VIA [facility] AT THIS TIME.
--- NOTE | 2019-05-03 11:59 | NUR ---
43 [place]O [place] [facility] [place] GENERALIZED WEAK[place] AND ALTERED LOC SINCE THIS AM. PT HAS NOT GONE TO DIALYSIS FOR 4 DAYS. PT ALSO COMPLAINS OF LEFT LEG PAIN S/P FALL X 3 WEEKS. IN ER, VSS. GCS 15, AOX2. PT IS BLIND ON BOTH EYES. NORMAL RATE REG RHYTHM. CLEAR BREATH SOUNDS. PT RESTING COMFORTABLY IN BED. RAISA SAW PT AT BEDSIDE.
[2019-05-03 12:05] LABS: BASOPHILS # (AUTO) 0.1 K/uL (0.00-0.22); BASOPHILS % (AUTO) 1.4 % (0.0-2.0); EOSINOPHILS # (AUTO) 0.7 K/uL (0-0.4); EOSINOPHILS % (AUTO) 12.3 % (0.0-4.0); HEMATOCRIT 22.9 % (36-52); HEMOGLOBIN 7.7 g/dL (12.0-18.0); LYMPHOCYTES # (AUTO) 0.6 K/uL (2.0-11.5); LYMPHOCYTES % (AUTO) 10.1 % (20.5-51.1); MEAN CORPUSCULAR HEMOGLOBIN 31 pg (27-31); MEAN CORPUSCULAR HGB CONC 34 g/dL (33-37); MEAN CORPUSCULAR VOLUME 92.6 fL (80-94); MONOCYTES # (AUTO) 0.6 K/uL (0.8-1.0); MONOCYTES % (AUTO) 11.5 % (1.7-9.3); NEUTROPHILS # (AUTO) 3.6 K/uL (1.8-7.7); NEUTROPHILS % (AUTO) 64.7 % (42.2-75.2); PLATELET COUNT (AUTO) 186 K/uL (140-450); RED BLOOD CELL COUNT(AUTO) 2.47 MIL/uL (4.20-6.10); RED CELL DISTRIBUTION WIDTH 16.6 % (11.6-13.7); WHITE BLOOD COUNT (AUTO) 5.6 K/uL (4.8-10.8)
--- NOTE | 2019-05-03 12:12 | NUR ---
INFORMED DR LÓPEZ PT IS ANURIC. NO NEED FOR URINE SAMPLE AT THIS TIME.
--- NOTE | 2019-05-03 12:16 | NUR ---
PT REFUSING IV INSERTION, AWARE.
[2019-05-03 12:54] LABS: ALBUMIN 2.5 g/dL (3.4-5.0); ANION GAP 19.1 (8-16); ASPARTATE AMINOTRANSFERASE 29 U/L (15-37); CARBON DIOXIDE 27.5 mmol/L (21-32); CHLORIDE 88 mmol/L (98-107); GFR ARICAN-AMERICAN 6 mL/min (>90); GLUCOSE 220 mg/dL (74-106); POTASSIUM 5.6 mmol/L (3.5-5.1); SODIUM SERUM 129 mmol/L (136-145); TOTAL BILIRUBIN 0.4 mg/dL (0.0-1.0)
[2019-05-03 12:57] LABS: ACETAMINOPHEN < 0.5 ug/ml (10-30); CREATININE 11.4 mg/dL (0.6-1.3); SALICYLATE < 2.8 mg/dL (2.8-20.0); UREA NITROGEN, BLOOD 111 mg/dL (7-18)
[2019-05-03] MEDS ORDERED: ALBUTEROL 0.083% 2.5 MG/3 ML NEBU INH ONE (13:20)
[2019-05-03] MEDS: NACL 0.9% 1,000 ML IV SCH (13:26)
[2019-05-03] MEDS ORDERED: ONDANSETRON 4 MG/2 ML VIAL IM/IVP PRN (13:30)
[2019-05-03] MEDS ORDERED: ACETAMINOPHEN 325 MG TAB PO PRN (13:30)
[2019-05-03] MEDS ORDERED: MORPHINE SULFATE 2 MG/ML SYR IVP PRN (13:30)
[2019-05-03] MEDS ORDERED: INSU100V6 SQ (13:39)
[2019-05-03] MEDS ORDERED: DIVA125E1 (13:39)
[2019-05-03] MEDS ORDERED: DOCU-299 PO (13:39)
[2019-05-03] MEDS ORDERED: HYDR-5092 PO (13:39)
--- NOTE | 2019-05-03 13:45 | NUR ---
PT REFUSED RX DR ALMANZA AWARE
[2019-05-03] MEDS ORDERED: DEXTROSE 50% 50 ML SYR IVP PRN (13:50)
--- NOTE | 2019-05-03 14:08 | NUR ---
RECEIVED PT FROM ER NURSE, PT STABLE, PT CONFUSED, RE-ORIENTED PT TO ROOM, INTRODUCE ROOM TO PT, CHANGED PT INTO GOWN, PT SKIN IS INTACT, CALL LIGHT WITHIN REACH, SAFETY MEASURES IN PLACE, WILL CONTINUE TO MONITOR.
--- NOTE | 2019-05-03 14:09 | NUR ---
Patient will be admitted to care of DR MENA. Admited to TELEMETRY. Will go to room 113. Belongings list completed. Report to KATHERIN DAVIS.
[2019-05-03 14:15] LABS: CHOL/HDL RATIO 2.3 (1-4.5); FREE T4 (FREE THYROXINE) 0.81 ng/dL (0.76-1.46); MAGNESIUM 2.8 mg/dL (1.8-2.4); PHOSPHORUS 8.4 mg/dL (2.5-4.9); THYROID STIMULATING HORMONE 3.76 uIU/mL (0.34-3.74)
[2019-05-03 15:14] LABS: PROTHROMBIN TIME 13.8 secs (10.8-13.4)
--- NOTE | 2019-05-03 16:05 | NUR ---
INFORMED DR HINES, PT IS REFUSING IV INSERTION
[2019-05-03 16:30] VITALS: BP 134/81
[2019-05-03] MEDS: BLOOD GLUCOSE MONITORING 1 DEV DEV FS SCH ×2 (16:30→20:28)
[2019-05-03] MEDS: cloNIDine 0.1 MG TAB PO SCH (17:00)
[2019-05-03] MEDS: SEVELAMER CARBONATE 800 MG TAB PO SCH (18:20)
--- NOTE | 2019-05-03 18:20 | NUR ---
GAVE PT LISPRO FOR BLOOD GLUCOSE OF 217, PT EDUCATION GIVEN, PT TOLERATED WELL, PT VERBALIZED UNDERSTANDING, CALL LIGHT WITHIN REACH.
[2019-05-03] MEDS: INSULIN LISPRO SLIDING SCALE 100 UNITS/ML VIAL SUBQ PRN ×2 (18:21→20:53)
--- NOTE | 2019-05-03 19:20 | NUR ---
PT STABLE, GAVE REPORT TO NIGHT NURSE FOR CONTINUITY OF CARE.
--- NOTE | 2019-05-03 19:21 | NUR ---
RECEIVED PT FROM BRIAN, AM SHIFT RN, AO X 2, PT CONFUSED NOT HIS BASELINE . PT FALL RISK, FALL RISK PROTOCOL IN PLACE. SEIZURE PRECAUTION. NO IVF PER ENDORSEMENT, PATIENT REFUSED, DR. HINES AWARE PER KATHERIN TORRES. WILL CONTINUE TO MONITOR. Addendum: 05/03/19 at 2233 by Fela Russell RN AWAKE, ALERT ORIENTED X 3, WAS ABLE TO ANSWER WHERE HE IS
[2019-05-03 20:00] VITALS: BP 109/66
[2019-05-03] MEDS: ISOSORBIDE DINITRATE 20 MG TAB PO SCH (21:00)
--- NOTE | 2019-05-03 21:00 | NUR ---
HOLD OFF ISOSORBIDE PER DR. CANTU; ONGOING DIALYSIS
--- NOTE | 2019-05-03 21:05 | NUR ---
STILL ONGOING DIALYSIS, WILL ADMINISTER MEDS LATER
--- NOTE | 2019-05-03 22:32 | NUR ---
CHECKED ON PATIENT STILL UNDERGOING DIALYSIS
--- NOTE | 2019-05-03 23:10 | NUR ---
INFORMED DR. CANTU THAT HOLD OFF MEDS UNTIL DIALYSIS DONE. DR. CANTU CAN ADMINISTER NOW; WILL ADMINISTER ALL 2100 MEDS EXCEPT FOR ORDERS TO HOLD ISORDIL. WILL CARRY OUT ORDERS
[2019-05-03] MEDS: DOCUSATE SODIUM 100 MG GELCAP PO SCH (23:12)
[2019-05-03] MEDS: DIVALPROEX 250 MG TABEC PO SCH (23:13)
[2019-05-03] MEDS: levETIRAcetam 500 MG TAB PO SCH (23:14)
[2019-05-04] VITALS: BP 152/85
--- NOTE | 2019-05-04 02:11 | NUR ---
INFORMED DR. CANTU THAT BP 1S 167/90 HR 61; SAID TO GIVE THE ISORDIL THAT WAS SUPPOSED TO BE FOR 2100;
[2019-05-04] MEDS: ISOSORBIDE DINITRATE 20 MG TAB PO SCH ×3 (02:18→21:40)
[2019-05-04 04:00] VITALS: BP 158/81
--- NOTE | 2019-05-04 04:00 | NUR ---
RECHECKED BP AFTER GIVING THE ISORDIL 158/81; HR 71
[2019-05-04] MEDS: BLOOD GLUCOSE MONITORING 1 DEV DEV FS SCH ×4 (05:36→21:32)
--- NOTE | 2019-05-04 06:35 | NUR ---
CHECK ON PATIENT OFFERED FOOD BS=89; PT REFUSED TO DRINK JUICE NOR EAT CANDY. WILL INFORM NEXT SHIFT ON THE BS LEVEL
--- NOTE | 2019-05-04 06:37 | NUR ---
PT A A O X 3; W/ CONFUSION;AND FORGETFULNESS; PT HAD DIALYSIS AND FINISHED IT EARLIER FROM [id number], UNSTABLE HAS HIGH BP; BS= WNL ALTHOUGH LOW NORMAL 989 MG/DL). FOR MONITORING
--- NOTE | 2019-05-04 07:20 | NUR ---
RECEIVED BEDSIDE REPORT FROM NIGHT NURSE, PT ASLEEP IN BED, PT HAS NO IV ACCESS, PT STABLE, UPDATE WHITEBOARD, SAFETY MEASURES IN PLACE, CALL LIGHT WITHIN REACH. WILL CONTINUE TO MONITOR.
[2019-05-04 07:41] LABS: BASOPHILS # (AUTO) 0.1 K/uL (0.00-0.22); BASOPHILS % (AUTO) 1.5 % (0.0-2.0); EOSINOPHILS # (AUTO) 0.6 K/uL (0-0.4); EOSINOPHILS % (AUTO) 10.7 % (0.0-4.0); HEMATOCRIT 23.3 % (36-52); HEMOGLOBIN 7.9 g/dL (12.0-18.0); LYMPHOCYTES # (AUTO) 0.4 K/uL (2.0-11.5); MEAN CORPUSCULAR HEMOGLOBIN 31 pg (27-31); MEAN CORPUSCULAR HGB CONC 34 g/dL (33-37); MONOCYTES # (AUTO) 0.7 K/uL (0.8-1.0); MONOCYTES % (AUTO) 13.6 % (1.7-9.3); NEUTROPHILS # (AUTO) 3.4 K/uL (1.8-7.7); NEUTROPHILS % (AUTO) 66.2 % (42.2-75.2); PLATELET COUNT (AUTO) 189 K/uL (140-450); RED BLOOD CELL COUNT(AUTO) 2.53 MIL/uL (4.20-6.10); RED CELL DISTRIBUTION WIDTH 16.4 % (11.6-13.7); WHITE BLOOD COUNT (AUTO) 5.2 K/uL (4.8-10.8)
[2019-05-04 07:46] LABS: ANION GAP 17.1 (8-16); CARBON DIOXIDE 27.5 mmol/L (21-32); POTASSIUM 4.6 mmol/L (3.5-5.1)
[2019-05-04 07:50] LABS: CREATININE 7.2 mg/dL (0.6-1.3)
[2019-05-04 07:51] LABS: PHOSPHORUS 6.3 mg/dL (2.5-4.9)
[2019-05-04 08:00] VITALS: BP 220/101
[2019-05-04] MEDS: levETIRAcetam 500 MG TAB PO SCH ×2 (08:32→21:43)
[2019-05-04] MEDS: SEVELAMER CARBONATE 800 MG TAB PO SCH ×3 (08:32→17:29)
[2019-05-04] MEDS: LACTOBACILLUS RHAMNOSUS GG 1 EACH CAP PO SCH (08:32)
[2019-05-04] MEDS: VIT-B COMP/VIT-C/FOLIC ACID 1 TAB PO SCH (08:33)
[2019-05-04] MEDS: cloNIDine 0.1 MG TAB PO SCH ×3 (08:33→17:29)
[2019-05-04] MEDS: DIVALPROEX 250 MG TABEC PO SCH ×2 (08:34→21:42)
[2019-05-04] MEDS: NIFEdipine 60 MG TABER PO SCH (08:34)
[2019-05-04] MEDS ORDERED: cloNIDine 0.1 MG TAB ONE (08:43)
[2019-05-04] MEDS ORDERED: ISOSORBIDE DINITRATE 20 MG TAB ONE (08:44)
[2019-05-04] MEDS ORDERED: DIVALPROEX 250 MG TABEC PO ONE (08:44)
[2019-05-04] MEDS: DOCUSATE SODIUM 100 MG GELCAP PO SCH ×2 (08:51→21:37)
[2019-05-04] MEDS ORDERED: LORazepam 2 MG/ML VIAL IM/IVP PRN (09:30)
[2019-05-04] MEDS ORDERED: hydrALAZINE 25 MG TAB PO PRN (11:25)
--- NOTE | 2019-05-04 11:29 | NUR ---
PT REFUSING IV ACCESS, DR HINES NOTIFIED, PT IS CURRENTLY DOING HEMODIALYSIS.
--- NOTE | 2019-05-04 11:34 | NUR ---
GAVE PT APRESOLINE FOR BP 238/114, PULSE OF 74, EDUCATION GIVEN, PT VERBALIZED UNDERSTANDING, PT ON HEMODIALYSIS, CALL LIGHT WITHIN REACH.
[2019-05-04 12:00] VITALS: BP 238/114
[2019-05-04] MEDS: HYDROcodone/APAP 7.5/325 MG 1 TAB PO PRN ×2 (12:11→22:33)
--- NOTE | 2019-05-04 12:11 | NUR ---
GAVE PT NORCO FOR PAIN OF 6/10 ON LEFT LEG, PT STATES IT HURTS AND WANTS PAIN MEDICATION, PT EDUCATION GIVEN, PT VERBALIZED UNDERSTANDING, PT TOLERATED WELL, PT STABLE, CALL LIGHT WITHIN REACH
--- NOTE | 2019-05-04 13:00 | NUR ---
PT FINISHED HEMODIALYSIS, TOOK OUT 2.8 LITERS, PT STABLE, CALL LIGHT WITHIN REACH.
[2019-05-04] MEDS: NACL 0.9% 1,000 ML IV SCH (13:10)
[2019-05-04 16:00] VITALS: BP 128/71
--- NOTE | 2019-05-04 17:30 | NUR ---
GAVE PT HUMALOG FOR A BLOOD SUGAR OF 230, PT EDUCATION GIVEN, PT VERBALIZED UNDERSTANDING, PT TOLERATED WELL, PT STABLE, CALL LIGHT WITHIN REACH.
[2019-05-04] MEDS: INSULIN LISPRO SLIDING SCALE 100 UNITS/ML VIAL SUBQ PRN ×2 (17:34→21:35)
--- NOTE | 2019-05-04 19:00 | NUR ---
PT IS STABLE, GAVE REPORT TO NIGHT NURSE FOR CONTINUITY OF CARE
--- NOTE | 2019-05-04 19:01 | NUR ---
RECEIVED BEDSIDE REPORT FROM AM SHIFT NURSE, PT ASLEEP IN BED, PT HAS NO IV ACCESS,DR. CANTU SAID NEED TO START AN IV, WILL CARRY OUT ORDERS. PT STABLE, UPDATE WHITEBOARD, SAFETY MEASURES IN PLACE, CALL LIGHT WITHIN REACH. WILL CONTINUE TO MONITOR.
[2019-05-04 20:00] VITALS: BP_SYST 134; BP_SYST 154; BP_DIAS 77; BP_DIAS 85
--- NOTE | 2019-05-04 20:00 | NUR ---
STARTED IN ON THE RIGHT HAND G 20, SALINE LOCK. PATENT. PT TOLERATED ON PROCEDURE.
--- NOTE | 2019-05-04 20:45 | NUR ---
ASKED DR. CANTU, PATIENT REQUESTED TO DRINK 1 BOTTLE OF DIET SODA, AGREED LONG THE IVF IS INSERTED. PATIENT HAS MENTAL DISORDER.
[2019-05-04] MEDS: MINOXIDIL 2.5 MG TAB PO SCH (21:43)
[2019-05-05] VITALS: BP 154/85
--- NOTE | 2019-05-05 | NUR ---
CHECKED ON PATIENT, BLOOD PRESSURE 154/85 ; HR 62, NO NEW ORDERS FROM DR. CANTU
[2019-05-05 05:30] VITALS: BP 179/96
[2019-05-05] MEDS: BLOOD GLUCOSE MONITORING 1 DEV DEV FS SCH ×4 (05:30→20:26)
--- NOTE | 2019-05-05 05:30 | NUR ---
CHECKED ON PTS BP 179/96(114); 64 HR; 98.0 F ; 98 % @2 LPM [address] CANTU SHE SIAD TO GIVE THE CLONIDINE FOR 0900AM NOW. WILL CARRY OUT ORDERS
--- NOTE | 2019-05-05 05:43 | NUR ---
BP IS HIGH AT 179/96 9114) HR -89; INFORMED DR. CANTU AND SHE SAID TO GIVE THE CLONIDINE EARLY Addendum: 05/05/19 at 0545 by Fela Russell RN 117/96 MAP-114; HR 89
[2019-05-05] MEDS: cloNIDine 0.1 MG TAB PO SCH ×3 (05:46→21:00)
--- NOTE | 2019-05-05 07:15 | NUR ---
PT A, A, O X 4, ON BEDREST, PT'S BP STILL HIGH AFTER GIVING THE CLONIDINE 214/ 94; HR 61; INFORMED THE AM SHIFT NURSE, SARKIS. PT IS DUE FOR DIALYSIS TODAY
--- NOTE | 2019-05-05 07:25 | NUR ---
RECEIVED REPORT FROM SUPERVISOR EVAPORATOR NURSE. PT IS SLEEPING, NO SIGNS OF DISTRESS. PT HAS IV AT RIGHT ARM SALINE LOCK. PT IS SCHEDULED FOR DIALYSIS TODAY. PT HAS LEFT UPPER IJ. PT IS ON RENAL DIET. SKIN INTACT. FULL CODE. WILL CONTINUE TO MONITOR.
[2019-05-05 08:00] VITALS: BP 189/72
[2019-05-05 08:37] LABS: BASOPHILS # (AUTO) 0.1 K/uL (0.00-0.22); BASOPHILS % (AUTO) 2.4 % (0.0-2.0); EOSINOPHILS # (AUTO) 0.7 K/uL (0-0.4); EOSINOPHILS % (AUTO) 15.4 % (0.0-4.0); HEMATOCRIT 25.5 % (36-52); HEMOGLOBIN 8.7 g/dL (12.0-18.0); LYMPHOCYTES # (AUTO) 0.7 K/uL (2.0-11.5); MEAN CORPUSCULAR HEMOGLOBIN 31 pg (27-31); MEAN CORPUSCULAR HGB CONC 34 g/dL (33-37); MEAN CORPUSCULAR VOLUME 91.8 fL (80-94); MONOCYTES # (AUTO) 0.7 K/uL (0.8-1.0); MONOCYTES % (AUTO) 15.2 % (1.7-9.3); NEUTROPHILS # (AUTO) 2.5 K/uL (1.8-7.7); PLATELET COUNT (AUTO) 206 K/uL (140-450); RED BLOOD CELL COUNT(AUTO) 2.78 MIL/uL (4.20-6.10); RED CELL DISTRIBUTION WIDTH 16.4 % (11.6-13.7); WHITE BLOOD COUNT (AUTO) 4.8 K/uL (4.8-10.8)
[2019-05-05 08:53] LABS: MAGNESIUM 2.1 mg/dL (1.8-2.4); PHOSPHORUS 5.6 mg/dL (2.5-4.9)
[2019-05-05 08:58] LABS: CARBON DIOXIDE 29.4 mmol/L (21-32); POTASSIUM 4.4 mmol/L (3.5-5.1)
[2019-05-05 09:00] LABS: CREATININE 6.5 mg/dL (0.6-1.3)
--- NOTE | 2019-05-05 09:01 | NUR ---
HERMES FROM LAB CALLED FROM CRITICAL VALUE: BUN 50, CREATININE 6.5, TROPONIN 0.198
[2019-05-05] MEDS: NIFEdipine 60 MG TABER PO SCH (09:15)
[2019-05-05] MEDS: SEVELAMER CARBONATE 800 MG TAB PO SCH ×3 (09:15→17:00)
--- NOTE | 2019-05-05 09:15 | NUR ---
SPOKE TO DR. MIKE REGARDING REGARDING CRITICAL LAB VALUES.
[2019-05-05] MEDS: DOCUSATE SODIUM 100 MG GELCAP PO SCH ×2 (09:16→20:35)
[2019-05-05] MEDS: LACTOBACILLUS RHAMNOSUS GG 1 EACH CAP PO SCH (09:17)
[2019-05-05] MEDS: ISOSORBIDE DINITRATE 20 MG TAB PO SCH ×2 (09:18→21:00)
[2019-05-05] MEDS: DIVALPROEX 250 MG TABEC PO SCH ×2 (09:18→20:34)
[2019-05-05] MEDS: levETIRAcetam 500 MG TAB PO SCH ×2 (09:18→20:34)
[2019-05-05] MEDS: MINOXIDIL 2.5 MG TAB PO SCH ×2 (09:19→21:00)
[2019-05-05] MEDS: VIT-B COMP/VIT-C/FOLIC ACID 1 TAB PO SCH (09:20)
--- NOTE | 2019-05-05 09:30 | NUR ---
MORNING SCHEDULED MEDS GIVEN. WILL CONTINUE TO MONITOR.
--- NOTE | 2019-05-05 11:31 | NUR ---
GLUCOSE CHECKED= 202. MEDICATION EDUCATION AND SIDE EFFECTS GIVEN. PT REFUSED INSULIN BUT HE SAID HE'S OK TAKING RENVELA. PT TOLERATED RENVELA WELL. WILL CONTINUE TO MONITOR
[2019-05-05 12:00] VITALS: BP 170/91
--- NOTE | 2019-05-05 12:03 | NUR ---
DISCHARGE PLANNING: THIS IS A 43 YEAR OLD MALE PATIENT FROM [facility] [place], WHO WAS BROUGHT IN DUE TO ABNORMAL LABS AND DYSPNEA. PAST MEDICAL HISTORY INCLUDE ESRD ON DIALYSIS T--SUN, SEIZURE DISORDER, BILATERAL BLINDNESS, DIABETIC RETINOPATHY, DIABETES, HTN AND HYPERLIPIDEMIA. INITIAL DIAGNOSIS OF UREMIA. CURRENT LABS INCLUDE WBC 4.8, H/H 8.7/25.5, NA/K 136/4.4, BUN/CREA 50/6.5, TROP 0.198. PSYCHE, PULMO AND NEPHRO CONSULTS IN PLACE. DC PLAN BACK TO [facility] [place] ONCE STABLE. Addendum: 05/06/19 at 0908 by Christine Calero CM DC PLANNING: SEEN BY ROVING DEPARTMENT END FINDER SARAH TODAY AND ADDED [place]AN 25 MG PO , HIGH LIFT MULE OPERATOR DR ALTMAN EVALUATED PT WAITING FOR ECHO RESULT. CONTINUE HOME MEDS DC PLAN TO GO BACK TO [facility] [place] WHEN STABLE. CM TO FOLLOW.
--- NOTE | 2019-05-05 12:33 | NUR ---
BP= 170/91, P64, R 19, T 97.9. SPOKE TO DR. MIKE REGARDING CLONIDINE AND SHE SAID TO GIVE CLONIDINE. SCHEDULED MEDS GIVEN. PT TOLERATED WELL. INFORMED DR. MIKE THAT PT REFUSED INSULIN. WILL CONTINUE MONITORING
--- NOTE | 2019-05-05 13:18 | NUR ---
05/05/19 RD INITIAL ASSESSMENT COMPLETED PLEASE REFER TO NUTRITION ASSESSMENT UNDER CARE ACTIVITY FOR ESTIMATED NUTRITIONAL NEEDS. 1. RECOMMEND CCHO 60GM AND RENAL DIET WITH NEPRO BID TOLERATED 2. ENCOURAGE PO INTAKE 3. RD TO FOLLOW-UP 3-5 DAYS, MODERATE RISK ELIDA BADILLO, RD
[2019-05-05] MEDS: NACL 0.9% 1,000 ML IV SCH (13:26)
[2019-05-05] MEDS: LOSARTAN 25 MG TAB PO SCH (13:30)
--- NOTE | 2019-05-05 13:45 | NUR ---
HEMODIALYSIS STARTED BY VERO
[2019-05-05 16:00] VITALS: BP 120/69
--- NOTE | 2019-05-05 17:15 | NUR ---
HD DONE. 4L OUTPUT. BP 120/69
--- NOTE | 2019-05-05 19:33 | NUR ---
RECEIVED PATIENT IN STABLE CONDITION FROM AM SHIFT NURSE FOR CONTINUITY OF CARE. ABLE TO MAKE NEEDS KNOWN. PATIENT IS FINISHING UP HIS DINNER. RESPIRATIONS EVEN, UNLABORED. CONTINUES ON O2 2L NC. IV SITE TO RIGHT HAND 22G PATENT/INTACT, FLUSHES WELL. AV FISTULA NOTED TO LEFT ARM. NO C/O PAIN. NO S/SX ACUTE DISTRESS. CALL LIGHT WITHIN REACH. WILL CONTINUE TO MONITOR.
--- NOTE | 2019-05-05 19:33 | NUR ---
REPORT GIVEN TO TINNER AUTOMATIC NURSE FOR CONTINUITY OF CARE. CALL LIGHT WITHIN PT'S REACH. PT IS STABLE.
[2019-05-05 20:00] VITALS: BP 109/63
[2019-05-05] MEDS: INSULIN LISPRO SLIDING SCALE 100 UNITS/ML VIAL SUBQ PRN (20:40)
--- NOTE | 2019-05-05 21:00 | NUR ---
MADE ROUNDS. PATIENT AWAKE AND IN STABLE CONDITION. NO C/O PAIN. NO S/SX ACUTE DISTRESS. CALL LIGHT WITHIN REACH. WILL CONTINUE TO MONITOR.
--- NOTE | 2019-05-05 22:44 | NUR ---
PATIENT IN BED WITH EYES CLOSED AND IN STABLE CONDITION. NO C/O PAIN. NO S/SX ACUTE DISTRESS. CALL LIGHT WITHIN REACH. WILL CONTINUE TO MONITOR.
[2019-05-06] VITALS: BP 132/76
--- NOTE | 2019-05-06 | NUR ---
PATIENT ASLEEP IN BED. NO C/O PAIN. NO S/SX ACUTE DISTRESS. CALL LIGHT WITHIN REACH. WILL CONTINUE TO MONITOR.
[2019-05-06] MEDS: NACL 0.9% 1,000 ML IV SCH (01:59)
--- NOTE | 2019-05-06 02:00 | NUR ---
MADE ROUNDS. PATIENT IS ASLEEP IN BED. NO C/O PAIN. NO S/SX ACUTE DISTRESS. CALL LIGHT WITHIN REACH. WILL CONTINUE TO MONITOR.
[2019-05-06 04:00] VITALS: BP 150/81
--- NOTE | 2019-05-06 04:10 | NUR ---
PATIENT ASLEEP IN BED AND IN STABLE CONDITION. NO C/O PAIN. NO S/SX ACUTE DISTRESS. CALL LIGHT WITHIN REACH. WILL CONTINUE TO MONITOR.
[2019-05-06] MEDS: cloNIDine 0.1 MG TAB PO SCH ×3 (05:27→20:57)
[2019-05-06] MEDS: INSULIN LISPRO SLIDING SCALE 100 UNITS/ML VIAL SUBQ PRN ×4 (05:30→20:51)
--- NOTE | 2019-05-06 06:10 | NUR ---
PATIENT C/O ACHING THIGH PAIN 08/19. MEDICATED ORDERED. PATIENT REPOSITIONED FOR COMFORT. CALL LIGHT WITHIN REACH. WILL CONTINUE TO MONITOR.
[2019-05-06] MEDS: HYDROcodone/APAP 7.5/325 MG 1 TAB PO PRN ×2 (06:12→20:59)
[2019-05-06] MEDS: BLOOD GLUCOSE MONITORING 1 DEV DEV FS SCH ×4 (06:41→20:50)
[2019-05-06 07:19] LABS: BASOPHILS # (AUTO) 0.1 K/uL (0.00-0.22); EOSINOPHILS # (AUTO) 0.5 K/uL (0-0.4); EOSINOPHILS % (AUTO) 12.6 % (0.0-4.0); HEMATOCRIT 26.7 % (36-52); HEMOGLOBIN 8.6 g/dL (12.0-18.0); LYMPHOCYTES # (AUTO) 0.7 K/uL (2.0-11.5); LYMPHOCYTES % (AUTO) 16.3 % (20.5-51.1); MEAN CORPUSCULAR HEMOGLOBIN 31 pg (27-31); MEAN CORPUSCULAR HGB CONC 32 g/dL (33-37); MEAN CORPUSCULAR VOLUME 95.6 fL (80-94); MONOCYTES # (AUTO) 0.5 K/uL (0.8-1.0); MONOCYTES % (AUTO) 12.6 % (1.7-9.3); NEUTROPHILS # (AUTO) 2.4 K/uL (1.8-7.7); NEUTROPHILS % (AUTO) 56.5 % (42.2-75.2); PLATELET COUNT (AUTO) 222 K/uL (140-450); RED BLOOD CELL COUNT(AUTO) 2.79 MIL/uL (4.20-6.10); RED CELL DISTRIBUTION WIDTH 16.2 % (11.6-13.7); WHITE BLOOD COUNT (AUTO) 4.3 K/uL (4.8-10.8)
[2019-05-06 07:21] LABS: ANION GAP 15.1 (8-16); CARBON DIOXIDE 25.9 mmol/L (21-32)
[2019-05-06 07:23] LABS: MAGNESIUM 1.9 mg/dL (1.8-2.4); PHOSPHORUS 5.2 mg/dL (2.5-4.9)
--- NOTE | 2019-05-06 07:28 | NUR ---
ENDORSED PATIENT IN STABLE CONDITION TO AM SHIFT NURSE FOR CONTINUITY OF CARE.
--- NOTE | 2019-05-06 07:36 | NUR ---
RECEIVED REPORT FROM AUTO PARTS PROFESSIONAL NURSE FOR CONTINUITY OF CARE. PT IS AAOX3, ABLE TO MAKE NEEDS KNOWN. RESPIRATIONS EVEN, UNLABORED. CONTINUES ON O2 2L NC. IV SITE TO RIGHT HAND 22G PATENT/INTACT, FLUSHES WELL. AV FISTULA NOTED TO LEFT ARM. NO C/O PAIN. NO S/SX ACUTE DISTRESS. CALL LIGHT WITHIN REACH. DISCUSSED POC TO PT. PT VERBALIZED UNDERSTANDING. BOARD UPDATED WILL MONITOR PT CLOSELY.
[2019-05-06 08:00] VITALS: BP 161/80
[2019-05-06 08:31] LABS: CREATININE 4.7 mg/dL (0.6-1.3)
--- NOTE | 2019-05-06 08:40 | NUR ---
ADMINISTERED MORNING MEDS TO PT. PT TOLERATED WELL. WILL CONTINUE TO ROUND FREQUENTLY ON PT. PT TO HAVE HD TODAY. PT HAS SCHEDULED BP MEDS. PT BP 161/80. JOSE DIALYSIS NURSE STATED TO GIVE BP MEDS.
[2019-05-06] MEDS: VIT-B COMP/VIT-C/FOLIC ACID 1 TAB PO SCH (08:41)
[2019-05-06] MEDS: levETIRAcetam 500 MG TAB PO SCH ×2 (08:41→20:54)
[2019-05-06] MEDS: LOSARTAN 25 MG TAB PO SCH (08:41)
[2019-05-06] MEDS: SEVELAMER CARBONATE 800 MG TAB PO SCH ×3 (08:41→17:00)
[2019-05-06] MEDS: ISOSORBIDE DINITRATE 20 MG TAB PO SCH ×2 (08:42→20:54)
[2019-05-06] MEDS: NIFEdipine 60 MG TABER PO SCH (08:42)
[2019-05-06] MEDS: MINOXIDIL 2.5 MG TAB PO SCH ×2 (08:42→20:54)
[2019-05-06] MEDS: DULoxetine 30 MG CAPDR PO SCH (08:42)
[2019-05-06] MEDS: LACTOBACILLUS RHAMNOSUS GG 1 EACH CAP PO SCH (08:43)
[2019-05-06] MEDS: DOCUSATE SODIUM 100 MG GELCAP PO SCH ×2 (08:43→20:54)
[2019-05-06] MEDS: DIVALPROEX 250 MG TABEC PO SCH ×2 (08:52→20:59)
[2019-05-06] MEDS ORDERED: EPOETIN ALFA 4,000 UNITS/ML VIAL SUBQ SCH (09:00)
--- NOTE | 2019-05-06 10:24 | NUR ---
PT RESTING IN BED. HD IN PROCESS. WILL CONTINUE TO ROUND FREQUENTLY ON PT.
[2019-05-06 12:00] VITALS: BP 142/84
--- NOTE | 2019-05-06 12:47 | NUR ---
PT REFUSING INSULIN AT THIS TIME. HE STATED THAT HE USES INSULIN WITH BS ABOVE 200. CURRENT BS IS 191.
[2019-05-06 16:00] VITALS: BP 150/80
--- NOTE | 2019-05-06 16:42 | NUR ---
PT SLEEPING. ALL NEEDS MET. WILL CONTINUE TO ROUND FREQUENTLY ON PT. NO DISTRESS NOTED. ALL NEEDS MET.
--- NOTE | 2019-05-06 17:14 | NUR ---
PT REFUSING INSULIN AGAIN. PER PT, HE DOES NOT TAKE INSULIN UNLESS BS IS OVER 200. Addendum: 05/06/19 at 1714 by Sonia Serrano RN BS CURRENTLY 180.
--- NOTE | 2019-05-06 19:22 | NUR ---
RECEIVED PATIENT FROM AM SHIFT NURSE IN STABLE CONDITION FOR CONTINUITY OF CARE. ABLE TO MAKE NEEDS KNOWN. RESPIRATIONS EVEN, UNLABORED. NO C/O PAIN. NO S/SX ACUTE DISTRESS. IV SITE TO RIGHT HAND 22G PATENT/INTACT, INFUSING FLUIDS WELL. DIALYSIS ACCESS TO LEFT UPPER ARM. PATIENT IS CLEAN/DRY. CALL LIGHT WITHIN REACH. WILL CONTINUE TO MONITOR.
--- NOTE | 2019-05-06 19:36 | NUR ---
ENDORSED PT TO CIGAR HEAD PUNCHER FOR CONTINUITY OF CARE. PT IN STABLE CONDITION AT THIS TIME.
[2019-05-06 20:00] VITALS: BP 160/84
--- NOTE | 2019-05-06 20:59 | NUR ---
PATIENT C/O ACHING THIGH PAIN 08/19. MEDICATED ORDERED. CALL LIGHT WITHIN REACH. WILL CONTINUE TO MONITOR.
--- NOTE | 2019-05-06 21:59 | NUR ---
REASSESSED PAIN LEVEL, PATIENT IS ASLEEP. CALL LIGHT WITHIN REACH. WILL CONTINUE TO MONITOR.
--- NOTE | 2019-05-06 23:43 | NUR ---
MADE ROUNDS. PATIENT IS ASLEEP AND IN STABLE CONDITION. NO C/O PAIN. NO S/SX ACUTE DISTRESS. CALL LIGHT WITHIN REACH. WILL CONTINUE TO MONITOR.
[2019-05-07] VITALS: BP 112/70
--- NOTE | 2019-05-07 01:08 | NUR ---
PATIENT IS ASLEEP AND IN STABLE CONDITION. NO C/O PAIN. NO S/SX ACUTE DISTRESS. CALL LIGHT WITHIN REACH. WILL CONTINUE TO MONITOR.
--- NOTE | 2019-05-07 03:01 | NUR ---
MADE ROUNDS. PATIENT IS ASLEEP AND CONTINUES IN STABLE CONDITION. NO C/O PAIN. NO S/SX ACUTE DISTRESS. CALL LIGHT WITHIN REACH. WILL CONTINUE TO MONITOR.
[2019-05-07 04:00] VITALS: BP 103/53
[2019-05-07] MEDS: cloNIDine 0.1 MG TAB PO SCH ×2 (05:00→12:37)
--- NOTE | 2019-05-07 05:10 | NUR ---
PER MD, HOLD CLONIDINE DUE TO BLOOD PRESSURE 103/53 HR 68. PATIENT IS IN STABLE CONDITION. NO C/O PAIN. NO S/SX ACUTE DISTRESS. CALL LIGHT WITHIN REACH. WILL CONTINUE TO MONITOR.
[2019-05-07] MEDS ORDERED: NACL 0.9% 500 ML IV SCH (05:55)
--- NOTE | 2019-05-07 06:26 | NUR ---
PATIENT AWAKE AND IN STABLE CONDITION. NO C/O PAIN. NO S/SX ACUTE DISTRESS. CALL LIGHT WITHIN REACH. WILL CONTINUE TO MONITOR.
--- NOTE | 2019-05-07 06:30 | NUR ---
BLOOD GLUCOSE 93 MG/DL. NO COVERAGE NEEDED. PATIENT IS IN STABLE CONDITION. NO C/O PAIN. NO S/SX ACUTE DISTRESS. CALL LIGHT WITHIN REACH. WILL CONTINUE TO MONITOR.
[2019-05-07] MEDS: BLOOD GLUCOSE MONITORING 1 DEV DEV FS SCH ×2 (06:31→12:24)
--- NOTE | 2019-05-07 07:10 | NUR ---
RECEIVED REPORT FROM NIGHT NURSE, PT STABLE, PT HAS RH 22G RUNNING NS AT 10 ML/H, PT HAS LEFT AV SHUNT FOR HD, PT ON 2L NC O2, SAFETY MEASURES IN PLACE, CALL LIGHT WITHIN REACH, UPDATE WHITEBOARD.
--- NOTE | 2019-05-07 07:23 | NUR ---
ENDORSED PATIENT TO AM SHIFT IN STABLE CONDITION FOR CONTINUITY OF CARE.
[2019-05-07 07:47] LABS: BASOPHILS # (AUTO) 0.1 K/uL (0.00-0.22); BASOPHILS % (AUTO) 3.1 % (0.0-2.0); EOSINOPHILS # (AUTO) 0.5 K/uL (0-0.4); EOSINOPHILS % (AUTO) 12.4 % (0.0-4.0); HEMATOCRIT 25.1 % (36-52); HEMOGLOBIN 8.6 g/dL (12.0-18.0); LYMPHOCYTES # (AUTO) 0.7 K/uL (2.0-11.5); LYMPHOCYTES % (AUTO) 17.4 % (20.5-51.1); MEAN CORPUSCULAR HEMOGLOBIN 31 pg (27-31); MEAN CORPUSCULAR HGB CONC 34 g/dL (33-37); MEAN CORPUSCULAR VOLUME 90.9 fL (80-94); MONOCYTES # (AUTO) 0.6 K/uL (0.8-1.0); MONOCYTES % (AUTO) 14.7 % (1.7-9.3); NEUTROPHILS # (AUTO) 2.2 K/uL (1.8-7.7); NEUTROPHILS % (AUTO) 52.4 % (42.2-75.2); PLATELET COUNT (AUTO) 231 K/uL (140-450); RED BLOOD CELL COUNT(AUTO) 2.76 MIL/uL (4.20-6.10); RED CELL DISTRIBUTION WIDTH 15.8 % (11.6-13.7); WHITE BLOOD COUNT (AUTO) 4.2 K/uL (4.8-10.8)
[2019-05-07 07:53] LABS: ANION GAP 15.7 (8-16); CARBON DIOXIDE 27.5 mmol/L (21-32); POTASSIUM 4.2 mmol/L (3.5-5.1)
[2019-05-07 07:55] LABS: MAGNESIUM 1.9 mg/dL (1.8-2.4); PHOSPHORUS 5.3 mg/dL (2.5-4.9)
[2019-05-07 08:00] VITALS: BP 134/75
[2019-05-07 08:24] LABS: CREATININE 4.5 mg/dL (0.6-1.3)
[2019-05-07] MEDS: SEVELAMER CARBONATE 800 MG TAB PO SCH ×2 (08:36→12:37)
[2019-05-07] MEDS: NIFEdipine 60 MG TABER PO SCH (08:36)
[2019-05-07] MEDS: LACTOBACILLUS RHAMNOSUS GG 1 EACH CAP PO SCH (08:37)
[2019-05-07] MEDS: LOSARTAN 25 MG TAB PO SCH (08:37)
[2019-05-07] MEDS: DOCUSATE SODIUM 100 MG GELCAP PO SCH (08:37)
[2019-05-07] MEDS ORDERED: LOSA25TA32 PO (08:38)
[2019-05-07] MEDS: ISOSORBIDE DINITRATE 20 MG TAB PO SCH (08:38)
[2019-05-07] MEDS: DULoxetine 30 MG CAPDR PO SCH (08:38)
[2019-05-07] MEDS ORDERED: LON2.5 PO (08:38)
[2019-05-07] MEDS ORDERED: DULO30EC PO (08:38)
[2019-05-07] MEDS: DIVALPROEX 250 MG TABEC PO SCH (08:38)
[2019-05-07] MEDS: levETIRAcetam 500 MG TAB PO SCH (08:38)
[2019-05-07] MEDS: VIT-B COMP/VIT-C/FOLIC ACID 1 TAB PO SCH (08:39)
[2019-05-07] MEDS: MINOXIDIL 2.5 MG TAB PO SCH (08:39)
[2019-05-07] MEDS ORDERED: METOPROLOL 50 MG TAB PO SCH (09:00)
--- NOTE | 2019-05-07 10:48 | NUR ---
CALLED PT FATHER AND MOTHER AND LEFT A MESSAGE FOR A CALL BACK.
[2019-05-07 12:00] VITALS: BP 176/91
--- NOTE | 2019-05-07 13:00 | NUR ---
PT RESTING IN BED, NO SIGNS OF DISTRESS NOTED, PT IS STABLE, CALL LIGHT WITHIN REACH.
[2019-05-07 14:07] VITALS: BP 121/71
--- NOTE | 2019-05-07 15:00 | NUR ---
PT RESTING IN BED, PT IS STABLE, CALL LIGHT WITHIN REACH.
--- NOTE | 2019-05-07 16:22 | NUR ---
PT DISCHARGED TO [facility] VIA WHEELCHAIR TRANSPORTATION, PT STABLE, PT FLU- 0CT 2019, PNA- 2018, REPORT GIVEN TO [facility], NURSE MASSIEL, PT WILL GO UNDER THE CARE OF DR LOPEZ.
== END 2019-05-07 16:22 | DRG 682 ==
LOC: MED 11:15 → EEVIPCON 13:29 → MTU 13:29
PROVIDERS: ADMIT General Practice; ATTEND General Practice
PROC: 5A1D70Z Performance of Urinary Filtration, Intermittent, Less than 6 Hours Per Day (ICD-10-PCS; principal; 2019-05-03)
PROC: 5A1D70Z Performance of Urinary Filtration, Intermittent, Less than 6 Hours Per Day (ICD-10-PCS; 2019-05-04)
PROC: 5A1D70Z Performance of Urinary Filtration, Intermittent, Less than 6 Hours Per Day (ICD-10-PCS; 2019-05-05)
PROC: 5A1D70Z Performance of Urinary Filtration, Intermittent, Less than 6 Hours Per Day (ICD-10-PCS; 2019-05-06)
PROC: 5A1D70Z Performance of Urinary Filtration, Intermittent, Less than 6 Hours Per Day (ICD-10-PCS; 2019-05-07)
DX: N17.0 Acute kidney failure with tubular necrosis (principal); G93.41 Metabolic encephalopathy; E43 Unspecified severe protein-calorie malnutrition; I21.A1 Myocardial infarction type 2; I12.0 Hypertensive chronic kidney disease with stage 5 chronic kidney disease or end stage renal disease; E87.1 Hypo-osmolality and hyponatremia; F32.9 Major depressive disorder, single episode, unspecified; F41.9 Anxiety disorder, unspecified; K21.9 Gastro-esophageal reflux disease without esophagitis; H54.7 Unspecified visual loss; E87.5 Hyperkalemia; E11.21 Type 2 diabetes mellitus with diabetic nephropathy; D64.9 Anemia, unspecified; E11.319 Type 2 diabetes mellitus with unspecified diabetic retinopathy without macular edema; N18.6 End stage renal disease; E78.5 Hyperlipidemia, unspecified; I16.0 Hypertensive urgency; G40.909 Epilepsy, unspecified, not intractable, without status epilepticus; E11.22 Type 2 diabetes mellitus with diabetic chronic kidney disease; G89.29 Other chronic pain; R45.850 Homicidal ideations; Z53.20 Procedure and treatment not carried out because of patient's decision for unspecified reasons; Z68.20 Body mass index [BMI] 20.0-20.9, adult; Z99.2 Dependence on renal dialysis; Z87.820 Personal history of traumatic brain injury; Z88.1 Allergy status to other antibiotic agents; Z88.8 Allergy status to other drugs, medicaments and biological substances; Z79.899 Other long term (current) drug therapy; Z91.14 Patient's other noncompliance with medication regimen
CPT/HCPCS: 36415; 70450; 71045; 80048; 80053; 82550; 82728; 82948; 83036; 83540; 83605; 83735; 83880; 84100; 84439; 84443; 84484; 85025; 85610; 85730; 87081; 93005; 93970; 99285; G0480; G0482; J1644; J1815; J2060; J2405; J7030; J7613; Q0092

== ENCOUNTER 2019-05-10 10:14 | Inpatient (IN) | payer OTHER ==
[~2019-05-10] VITALS: Ht 182.9 cm; Wt 63.7 kg
[~2019-05-10 10:14] MED LIST changes: -ALBU-71 NEB; -BISA-213 RC; +DIVA125E1; +DOCU-299 PO; +DULO30EC PO; -GABA300C PO; +HYDR-5092 PO; -HYDR100T79 PO; +INSU100V6 SQ; -LANTUS SUBQ; -LEVO0.029 PO; +LON2.5 PO; +LOSA25TA32 PO; -PIPE1PDS39 IV
[2019-05-10 10:26] VITALS: BP 186/98
--- NOTE | 2019-05-10 10:26 | NUR ---
43 Y/O M [facility] C/C POSTERIOR LLE PAIN ,9/10 PAIN, SHARP X 2 WEEKS. PT FURTHER COMPLAINTS OF DIZZINESS PER PT "ALL THE TIME". PER FACILITY PT SENT TO ER DUE TO LOW H/H. PT ON DIALYSIS X 3 TIMES A WEEK; REFUSED TREATMENT TODAY. SHUNT ON LUE. PT A/OX4; BLIND BILATERAL. PT ALLERGIES CLINDAYMYCIN, PLASTIC TAPE. HX RENAL FAILURE, HTN, DM. SIDE RAIL X1. INFORMATION FROM FACILITY ON PACKET --- SEE CHART.
--- NOTE | 2019-05-10 10:44 | NUR ---
PT REFUSING IV PLACEMENT , ERMD NOTIFIED
[2019-05-10] MEDS ORDERED: PIPERACILLIN/TAZOBACTAM 3.375 GM in DEXTROSE 5% 50 ML IV ONE (10:45)
--- NOTE | 2019-05-10 10:48 | NUR ---
PT REFUSED IV PLACEMENT AND IV MEDICATIONS ERMD NOTIFIED
[2019-05-10 10:50] LABS: BASOPHILS # (AUTO) 0.1 K/uL (0.00-0.22); EOSINOPHILS # (AUTO) 0.2 K/uL (0-0.4); EOSINOPHILS % (AUTO) 6.7 % (0.0-4.0); HEMATOCRIT 21.9 % (36-52); HEMOGLOBIN 7.6 g/dL (12.0-18.0); LYMPHOCYTES # (AUTO) 0.6 K/uL (2.0-11.5); LYMPHOCYTES % (AUTO) 15.7 % (20.5-51.1); MEAN CORPUSCULAR HEMOGLOBIN 32 pg (27-31); MEAN CORPUSCULAR HGB CONC 35 g/dL (33-37); MEAN CORPUSCULAR VOLUME 90.4 fL (80-94); MONOCYTES # (AUTO) 0.6 K/uL (0.8-1.0); MONOCYTES % (AUTO) 16.4 % (1.7-9.3); NEUTROPHILS % (AUTO) 57.2 % (42.2-75.2); PLATELET COUNT (AUTO) 170 K/uL (140-450); RED BLOOD CELL COUNT(AUTO) 2.42 MIL/uL (4.20-6.10); RED CELL DISTRIBUTION WIDTH 15.4 % (11.6-13.7); WHITE BLOOD COUNT (AUTO) 3.5 K/uL (4.8-10.8)
[2019-05-10 10:59] LABS: PROTHROMBIN TIME 13.5 secs (10.8-13.4)
[2019-05-10 11:01] LABS: ALBUMIN 2.9 g/dL (3.4-5.0); ANION GAP 14.2 (8-16); CARBON DIOXIDE 30.6 mmol/L (21-32); POTASSIUM 3.8 mmol/L (3.5-5.1); TOTAL BILIRUBIN 0.6 mg/dL (0.0-1.0)
[2019-05-10] MEDS ORDERED: HYDROcodone/APAP 5/325 MG 1 TAB TAB PO PRN (12:30)
[2019-05-10] MEDS ORDERED: DOCUSATE SODIUM 100 MG GELCAP PO PRN (12:30)
[2019-05-10] MEDS ORDERED: FAMOTIDINE 20 MG/2 ML VIAL IV PRN (12:30)
[2019-05-10] MEDS ORDERED: ACETAMINOPHEN 325 MG TAB PO PRN (12:30)
[2019-05-10] MEDS ORDERED: ONDANSETRON 4 MG/2 ML VIAL IM/IVP PRN (12:30)
--- NOTE | 2019-05-10 12:31 | NUR ---
PT RESTING IN BED, SIDE RAIL X1
--- NOTE | 2019-05-10 12:55 | NUR ---
Patient will be admitted to care of [facility]. Admited to TELEMETRY. Will go to room 114. Belongings list completed. Report to KATHERIN GUZMAN.
--- NOTE | 2019-05-10 13:00 | NUR ---
RECEIVED PT FROM ER NURSE FOR CONTINUITY OF CARE. PT IS AAOX4, ABLE TO MAKE NEEDS KNOWN. PT ON BEDREST. PT ON 2L O2 DUE TO SOB. PT SATING 98% ON 2L O2 VIA NC. PT SKIN INTACT. PT HAS LEFT UPPER ARM AV SHUNT FOR HD ACCESS. PT HAS HD ON T, TH, SAT. PT TO HAVE HD TODAY. PT REFUSING IV SITE. 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 MRSA SWAB TAKEN. DISCUSSED POC WITH PT, PT VERBALIZED UNDERSTANDING. SAFETY MEASURES IN PLACE. CALL LIGHT WITHIN REACH. BED IN LOWEST POSITION. WILL ROUND FREQUENTLY ON PT THROUGHOUT SHIFT.
[2019-05-10] MEDS ORDERED: traMADol 50 MG TAB PO PRN (13:15)
[2019-05-10 13:19] LABS: CHOL/HDL RATIO 2.4 (1-4.5); FREE T4 (FREE THYROXINE) 1.2 ng/dL (0.76-1.46); MAGNESIUM 2.2 mg/dL (1.8-2.4); PHOSPHORUS 5.1 mg/dL (2.5-4.9); THYROID STIMULATING HORMONE 5.05 uIU/mL (0.34-3.74)
[2019-05-10] MEDS ORDERED: DEXTROSE 50% 50 ML SYR IVP PRN (13:25)
[2019-05-10] MEDS ORDERED: GLUCAGON 1 MG VIAL IVP PRN (13:25)
[2019-05-10] MEDS ORDERED: PIPERACILLIN/TAZOBACTAM 2.25 GM in DEXTROSE 5% 50 ML IV SCH (13:39)
[2019-05-10] MEDS ORDERED: POLYVINYL ALCOHOL 1.4% OP 15 ML SOL OP PRN (13:40)
[2019-05-10] MEDS ORDERED: ALBUTEROL SULFATE/IPRATROPIU 3 ML SOL IH PRN (14:40)
--- NOTE | 2019-05-10 15:14 | NUR ---
PT RESTING IN BED. ALL NEEDS MET. WILL CONTINUE TO ROUND FREQUENTLY ON PT.
[2019-05-10 16:00] VITALS: BP 134/80
[2019-05-10] MEDS: BLOOD GLUCOSE MONITORING 1 DEV DEV FS SCH ×2 (16:52→21:17)
[2019-05-10] MEDS: SEVELAMER CARBONATE 800 MG TAB PO SCH (17:00)
[2019-05-10] MEDS: cloNIDine 0.1 MG TAB PO SCH (17:00)
--- NOTE | 2019-05-10 17:30 | NUR ---
PT REFUSING RENVELA AND INSULIN AT THIS TIME. PT STATES THAT HE WANTS TO WAIT UNTIL AFTER DIALYSIS TO HAVE DINNER AND TO HAVE HIS MEDS.
[2019-05-10] MEDS: INSULIN LISPRO SLIDING SCALE 100 UNITS/ML VIAL SUBQ PRN (17:32)
--- NOTE | 2019-05-10 17:51 | NUR ---
SPOKE WITH NICA PICC LINE NURSE. TOLD HIM HD WAS STARTING NOW AND DURATION IS 3 1/2 HRS. PER NICA, HE WILL BE HERE AROUND 2100 FOR PICC LINE INSERTION.
--- NOTE | 2019-05-10 19:30 | NUR ---
ENDORSED PT TO PYTHON WEB DEVELOPER FOR CONTINUITY OF CARE. PT IN STABLE CONDITION AT THIS TIME.
--- NOTE | 2019-05-10 19:31 | NUR ---
RECD. RESTING IN BED, AWAKE, A/OX4, BLIND. RESPIRATION EVEN AND UNLABORED. NO IV ACCESS, FOR PICC LINE PLACEMENT TONIGHT. DIALYSIS ON GOING, LEFT UPPER ARM AV SHUNT. SAFETY MEASURES ENFORCED. BED IN THE LOWEST POSITION. SIDE RAILS UP. BED ON ALARM. PLAN OF CARE DISCUSSED. NEEDS REINFORCEMENT. DENIES PAIN 0/10.
[2019-05-10 20:00] VITALS: BP 133/75
[2019-05-10] MEDS: DOCUSATE SODIUM 100 MG GELCAP PO SCH (21:00)
[2019-05-10] MEDS: PIPERACILLIN/TAZOBACTAM 2.25 GM in DEXTROSE 5% 50 ML IV SCH ×2 (21:00→21:18)
--- NOTE | 2019-05-10 21:00 | NUR ---
DIALYSIS FINISHED PER DIALYIS NURSE REPORT ABLE TO TAKE OUT 2 LITERS OF FLUID.
--- NOTE | 2019-05-10 21:00 | NUR ---
UNABLE TO ADMINISTER ZOSYN DUE TO NO ACCESS. MD AWARE. NO S/SX ACUTE DISTRESS. CALL LIGHT WITHIN REACH. WILL CONTINUE TO MONITOR.
--- NOTE | 2019-05-10 21:15 | NUR ---
ENCOURAGED PATIENT TO EAT HIS DINNER AT THE BEDSIDE. ATE ONLY THREE TABLESPOONFUL AND STATED THAT HE WILL EAT LATER.
[2019-05-10] MEDS: levETIRAcetam 500 MG TAB PO SCH (21:17)
[2019-05-10] MEDS: EPOETIN ALFA 10,000 UNITS/ML VIAL SUBQ SCH ×2 (21:20→21:26)
[2019-05-10] MEDS: DIVALPROEX SPRINKLES 125 MG CAPDR PO SCH (21:28)
[2019-05-10] MEDS: MINOXIDIL 2.5 MG TAB PO SCH (21:39)
--- NOTE | 2019-05-10 22:00 | NUR ---
PICC LINE NURSE CAME, CHARGE NURSE THOMAS INFORMED ULTRA SOUND TECH TO COME.
--- NOTE | 2019-05-10 22:20 | NUR ---
SET UP PICC LINE KIT ON THE BEDSIDE TABLE. ULTRA SOUND TECH ARRIVED BUT PATIENT REFUSED TO HAVE PICC LINE PLACE TONIGHT, EVEN THOUGH A LOT OF EXPLANATION AND ENCOURAGEMENT GIVEN TO PATIENT. STATED HE WAS TIRED AND HE DOES NOT WANT TO BE POKED ANYMORE, WANTS PROCEDURE TO BE DONE TOMORROW. INFORMED CHARGE NURSE THOMAS, HOSPITAL SECURITY OFFICER MELIZA AND DR. GLYNN.
[2019-05-10] MEDS: HYDROcodone/APAP 10/325 MG 1 TAB TAB PO PRN (22:43)
--- NOTE | 2019-05-10 23:45 | NUR ---
REFUSED VITAL SIGN TO BE TAKEN. HAS SOME ATTITUDE REGARDING TO CARE GIVEN BY NURSES. IRRITABLE AT TIMES.
--- NOTE | 2019-05-11 | NUR ---
SLEEPING COMFORTABLY IN BED.
--- NOTE | 2019-05-11 02:00 | NUR ---
REQUESTED FOR ICE CHIPS, ENCOURAGED TO EAT BUT STATED HE DOES NOT FEEL HUNGRY.
[2019-05-11 04:00] VITALS: BP 169/75
[2019-05-11] MEDS: PIPERACILLIN/TAZOBACTAM 2.25 GM in DEXTROSE 5% 50 ML IV SCH ×3 (05:00→21:31)
--- NOTE | 2019-05-11 06:00 | NUR ---
REFUSED HUMALOG INSULIN COVERAGE, STATED LATER BECAUSE I WILL EAT MY BREAKFAST DURING LUNCH TIME.
[2019-05-11 07:00] LABS: BASOPHILS # (AUTO) 0.1 K/uL (0.00-0.22); BASOPHILS % (AUTO) 2.5 % (0.0-2.0); EOSINOPHILS # (AUTO) 0.1 K/uL (0-0.4); EOSINOPHILS % (AUTO) 3.4 % (0.0-4.0); HEMATOCRIT 21.7 % (36-52); HEMOGLOBIN 7.6 g/dL (12.0-18.0); LYMPHOCYTES # (AUTO) 0.3 K/uL (2.0-11.5); MEAN CORPUSCULAR HEMOGLOBIN 32 pg (27-31); MEAN CORPUSCULAR HGB CONC 35 g/dL (33-37); MEAN CORPUSCULAR VOLUME 90.1 fL (80-94); MONOCYTES # (AUTO) 0.5 K/uL (0.8-1.0); NEUTROPHILS # (AUTO) 2.1 K/uL (1.8-7.7); PLATELET COUNT (AUTO) 148 K/uL (140-450); RED BLOOD CELL COUNT(AUTO) 2.41 MIL/uL (4.20-6.10); RED CELL DISTRIBUTION WIDTH 15.5 % (11.6-13.7); WHITE BLOOD COUNT (AUTO) 3.1 K/uL (4.8-10.8)
[2019-05-11 07:05] LABS: ANION GAP 11.5 (8-16); CARBON DIOXIDE 31.9 mmol/L (21-32); POTASSIUM 3.4 mmol/L (3.5-5.1)
[2019-05-11 07:10] LABS: MAGNESIUM 1.8 mg/dL (1.8-2.4); PHOSPHORUS 3.8 mg/dL (2.5-4.9)
[2019-05-11 07:28] LABS: CREATININE 4.6 mg/dL (0.6-1.3)
--- NOTE | 2019-05-11 07:28 | NUR ---
CONDITION REMAIN STABLE. ENDORSED TO AM SHIFT NURSE FOR CONTINUITY OF CARE.
--- NOTE | 2019-05-11 07:29 | NUR ---
RECEIVED BEDSIDE REPORT FROM PM RN PT AWAKE IN BED PT APPEARS STABLE AND IN NO APPARENT DISTRESS. ALL SAFETY MEASURES ARE IN PLACE. WILL CONTINUE TO MONITOR
[2019-05-11] MEDS: BLOOD GLUCOSE MONITORING 1 DEV DEV FS SCH ×4 (07:52→21:24)
[2019-05-11] MEDS: HYDROcodone/APAP 10/325 MG 1 TAB TAB PO PRN ×3 (08:15→17:54)
--- NOTE | 2019-05-11 08:20 | NUR ---
PT TAKEN OFF THE UNIT TO RADIOLOGY FOR XRAY.
[2019-05-11 08:25] LABS: LYMPHOCYTES % (AUTO) 8.5 % (20.5-51.1); MONOCYTES % (AUTO) 16.6 % (1.7-9.3)
--- NOTE | 2019-05-11 08:32 | NUR ---
PT ARRIVED BACK ON THE UNIT FROM RADIOLOGY. CALL LIGHT WITHIN REACH ALL SAFETY MEASURES ARE IN PLACE.
[2019-05-11 08:35] VITALS: BP 178/79
[2019-05-11] MEDS: cloNIDine 0.1 MG TAB PO SCH ×3 (09:38→17:53)
[2019-05-11] MEDS: LACTOBACILLUS RHAMNOSUS GG 1 EACH CAP PO SCH (09:38)
[2019-05-11] MEDS: levETIRAcetam 500 MG TAB PO SCH ×2 (09:38→21:32)
[2019-05-11] MEDS: DOCUSATE SODIUM 100 MG GELCAP PO SCH ×2 (09:39→21:00)
[2019-05-11] MEDS: LOSARTAN 25 MG TAB PO SCH (09:39)
[2019-05-11] MEDS: SEVELAMER CARBONATE 800 MG TAB PO SCH ×3 (09:39→17:52)
[2019-05-11] MEDS: MINOXIDIL 2.5 MG TAB PO SCH ×2 (09:39→21:00)
[2019-05-11] MEDS: DULoxetine 30 MG CAPDR PO SCH (09:39)
[2019-05-11] MEDS: NIFEdipine 60 MG TABER PO SCH (09:39)
[2019-05-11] MEDS: ISOSORBIDE MONONITRATE 30 MG TABER PO SCH (09:40)
[2019-05-11] MEDS: VIT-B COMP/VIT-C/FOLIC ACID 1 TAB PO SCH (09:40)
[2019-05-11] MEDS: DIVALPROEX SPRINKLES 125 MG CAPDR PO SCH ×2 (09:43→21:32)
--- NOTE | 2019-05-11 11:10 | NUR ---
NICA PICC LINE NURSE IS AT BEDSIDE. BEDSIDE TIME OUT IS COMPLETE NICA WILL BEGIN PLACING PICC LINE
[2019-05-11 12:30] VITALS: BP 189/84
--- NOTE | 2019-05-11 12:40 | NUR ---
FINGERSTICK BLOOD GLUCOSE 193 2 UNITS HUMALOG GIVEN PER SLIDING SCALE ORDER. PT AWAKE IN BED PT APPEARS STABLE AND IN NO APPARENT DISTRESS. ALL SAFETY MEASURES ARE IN PLACE. PT STATED HE WILL EAT LUNCH SOON. WILL CONTINUE TO MONITOR.
[2019-05-11] MEDS: INSULIN LISPRO SLIDING SCALE 100 UNITS/ML VIAL SUBQ PRN (12:47)
--- NOTE | 2019-05-11 15:04 | NUR ---
FREQUENT ROUNDING ON PT PT APPEARS STABLE AND IN NO APPARENT DISTRESS. ALL SAFETY MEASURES ARE IN PLACE WILL CONTINUE TO MONITOR.
--- NOTE | 2019-05-11 17:03 | NUR ---
PT REFUSED AFTERNOON VITALS
--- NOTE | 2019-05-11 19:34 | NUR ---
ENDORSED PT TO PM RN PT AWAKE IN BED PT APPEARS STABLE AND IN NO APPARENT DISTRESS. ALL SAFETY MEASURES ARE IN PLACE
--- NOTE | 2019-05-11 19:35 | NUR ---
RECEIVED BEDSIDE REPORT FROM DAY RN. PT IS SLEEPING COMFORTABLY IN BED. CHEST RISE AND FALL NOTED. PT IS ON ROOM AIR. HAS PICC ON TRISTAN. AV SHUNT ON ISABELLA. LAS HD 2L OUTPUT. SKIN IS INTACT. BEDREST. PT IS LEGALLY BLIND ON FALL PRECAUTION. POC DISCUSSED WITH PT. CALL LIGHT IS WITHIN REACH.
[2019-05-11 20:00] VITALS: BP 74/32
--- NOTE | 2019-05-11 21:31 | NUR ---
PATIENT B/P LOW 74/32 HR 72 MD MADE AWARE NO NEW ORDERS AT THIS TIME. WILL RECHECK IN AN HOUR. HELD B/P MEDS AND PT REFUSED COLACE BG 181 HELD INSULIN D/T DECREASE PO INTAKE WILL RECHECK IN THE AM. ALL OTHER MEDICATIONS GIVEN PER ORDERS. Addendum: 05/12/19 at 0115 by Rafaela Gonzalez RN PATIENT IS ASYMPTOMATIC HYPOTENSIVE. DX FLUID OVERLOAD.
--- NOTE | 2019-05-11 22:00 | NUR ---
B/P NOW 100/40 HR 66. PT DENIES ANY PAIN OR DISCOMFORT. SAFETY MEASURES ARE IN PLACE. CALL LIGHT IS WITHIN EACH. WILL CONTINUE TO MONITOR.
[2019-05-12] VITALS: BP 114/43
--- NOTE | 2019-05-12 | NUR ---
VITAL SIGNS ARE WITHIN NORMAL LIMITS. ALL SAFETY MEASURES ARE IN PLACE. WILL CONTINUE TO MONITOR,
--- NOTE | 2019-05-12 02:31 | NUR ---
PATIENT IS SLEEPING COMFORTABLY IN BED WITH EYES CLOSED. CHEST RISE AND FALL NOTED. SAFETY MEASURES ARE IN PLACE. CALL LIGHT IS WITHIN REACH. WILL CONTINUE TO MONITOR.
[2019-05-12 04:00] VITALS: BP 139/35
--- NOTE | 2019-05-12 04:00 | NUR ---
VITAL SIGNS ARE WITHIN NORMAL LIMITS. ALL NEEDS MET AT THIS TIME.
[2019-05-12] MEDS: PIPERACILLIN/TAZOBACTAM 2.25 GM in DEXTROSE 5% 50 ML IV SCH ×3 (04:24→20:12)
[2019-05-12 06:49] LABS: ANION GAP 13.3 (8-16); CARBON DIOXIDE 31.5 mmol/L (21-32); POTASSIUM 3.8 mmol/L (3.5-5.1)
[2019-05-12 07:07] LABS: BASOPHILS # (AUTO) 0.1 K/uL (0.00-0.22); BASOPHILS % (AUTO) 1.2 % (0.0-2.0); EOSINOPHILS # (AUTO) 0.1 K/uL (0-0.4); EOSINOPHILS % (AUTO) 2.1 % (0.0-4.0); HEMATOCRIT 21.5 % (36-52); HEMOGLOBIN 7.5 g/dL (12.0-18.0); LYMPHOCYTES # (AUTO) 0.4 K/uL (2.0-11.5); LYMPHOCYTES % (AUTO) 8.7 % (20.5-51.1); MEAN CORPUSCULAR HEMOGLOBIN 32 pg (27-31); MEAN CORPUSCULAR HGB CONC 35 g/dL (33-37); MEAN CORPUSCULAR VOLUME 91.6 fL (80-94); MONOCYTES # (AUTO) 0.8 K/uL (0.8-1.0); MONOCYTES % (AUTO) 17.6 % (1.7-9.3); NEUTROPHILS # (AUTO) 3.2 K/uL (1.8-7.7); NEUTROPHILS % (AUTO) 70.4 % (42.2-75.2); PLATELET COUNT (AUTO) 170 K/uL (140-450); RED BLOOD CELL COUNT(AUTO) 2.34 MIL/uL (4.20-6.10); RED CELL DISTRIBUTION WIDTH 15.1 % (11.6-13.7); WHITE BLOOD COUNT (AUTO) 4.5 K/uL (4.8-10.8)
--- NOTE | 2019-05-12 07:30 | NUR ---
GAVE BEDSIDE REPORT TO DAY RN. PT ENDORSED IN STABLE CONDITION.
--- NOTE | 2019-05-12 07:31 | NUR ---
RECEIVED REPORT FROM LITERACY SPECIALIST NURSE. PATIENT LYING DOWN IN BED SLEEPING, AROUSABLE BY VOICE. NO DISTRESS NOTED. DENIES ANY PAIN. AAOX3, CALM, COOPERATIVE, BLIND ON BOTH EYES. RESPIRATIONS EVEN, UNLABORED, ON ROOM AIR. SKIN INTACT. RUARM PICC LINE INTACT, PATENT, ON TKO. ABDOMEN SOFT, NON-DISTENDED. NO BM YET FOR OCCULT BLOOD COLLECTION. REVIEWED PLAN OF CARE WITH PATIENT. PATIENT VERBALIZED UNDERSTANDING. SAFETY MEASURES IN PLACE, CALL LIGHT WITHIN REACH. WILL CONTINUE TO MONITOR.
[2019-05-12 07:37] LABS: CREATININE 6.6 mg/dL (0.6-1.3)
[2019-05-12] MEDS: BLOOD GLUCOSE MONITORING 1 DEV DEV FS SCH ×4 (07:53→21:02)
[2019-05-12 07:56] LABS: PHOSPHORUS 5.9 mg/dL (2.5-4.9)
[2019-05-12 08:00] VITALS: BP 115/52
[2019-05-12 08:50] LABS: TRANSFERRIN 132 mg/dL (200 - 370)
[2019-05-12] MEDS: MINOXIDIL 2.5 MG TAB PO SCH ×2 (09:00→20:55)
[2019-05-12] MEDS: cloNIDine 0.1 MG TAB PO SCH ×3 (09:00→18:08)
[2019-05-12] MEDS: NIFEdipine 60 MG TABER PO SCH (09:00)
[2019-05-12] MEDS: LOSARTAN 25 MG TAB PO SCH (09:00)
[2019-05-12] MEDS: ISOSORBIDE MONONITRATE 30 MG TABER PO SCH (09:00)
--- NOTE | 2019-05-12 09:03 | NUR ---
PATIENT HAS BEEN SCREENED AND CATEGORIZED HIGH NUTRITION RISK. PATIENT WILL BE SEEN WITHIN 1-2 DAYS OF ADMISSION. 05/12/[address]
[2019-05-12 09:08] LABS: FERRITIN 1565 ng/mL (30 - 400)
[2019-05-12] MEDS: DULoxetine 30 MG CAPDR PO SCH (10:14)
[2019-05-12] MEDS: LACTOBACILLUS RHAMNOSUS GG 1 EACH CAP PO SCH (10:14)
[2019-05-12] MEDS: DIVALPROEX SPRINKLES 125 MG CAPDR PO SCH ×2 (10:14→20:54)
[2019-05-12] MEDS: levETIRAcetam 500 MG TAB PO SCH ×2 (10:14→20:56)
[2019-05-12] MEDS: SEVELAMER CARBONATE 800 MG TAB PO SCH ×3 (10:14→18:07)
[2019-05-12] MEDS: DOCUSATE SODIUM 100 MG GELCAP PO SCH ×2 (10:14→20:56)
[2019-05-12] MEDS: VIT-B COMP/VIT-C/FOLIC ACID 1 TAB PO SCH (10:14)
--- NOTE | 2019-05-12 10:22 | NUR ---
SCHEDULED MEDICATIONS DUE GIVEN. WILL CONTINUE TO MONITOR.
--- NOTE | 2019-05-12 11:19 | NUR ---
Density Control Puncher Note: Basic Screen: Yes High Risk DC Screen [place]: DANIELLE BOOTH SR. Home Relationship: FATHER Pre-Admission Living Arrangements: SNF Other: [facility] Prior ADL Needs Assistance Current Home Health Name/Tel: N/A Current DME/02 Name/Tel: [employer] Current Hospice Name/Tel: N/A Current Dialysis Name/Tel: N/A Healthcare Decision Maker: Patient Advance Directive No Physician Orders for Life Sustaining Treatment Form No Patient/Family Have Educational Needs No Discipline: Case Mgt/Social Svcs Tentative Discharge Plan/Destination: SNF/ECF Will require assistance post discharge: No Referred to Optometrist Assistant: No Tentative Discharge Plan Summary: Patient is a 43-year-old male admitted for fluid overload. Patient has PMHX of ESRD on hemodialysis, diabetic retinopathy w/ bilateral blindness, diabetes mellitis, hypertension, hyperlipedemia, seizure disorder, depression, and impulse disorder. Patient was admitted from [facility]. SW contacted Oziel from admissions at [facility] [phone]. Per Oziel, patient is a assisted patient on a current bed hold. Patient is self-responsible with no advanced directive. Patient is wheelchair bound and requires limited assistance with ADLs. Patient is alert/oriented x4 at baseline. Tentative discharge plan is for patient to return to [facility]. No further needs identified. Signature: YUMI De La Torre Date: May 12, 2019 Time: 11:18
--- NOTE | 2019-05-12 11:57 | NUR ---
DC PLANNIN YRS OLD MALE PATIENT WAS ADMITTED FROM [facility] WITH A DX OF FLUID OVERLOAD AND ANEMIA. PT HAS A HX OF HEMODIALYSIS TTHS WITH DR AMALIA RUELAS, LEGALLY BLIND , C-XRAY SHOWED SMALL PLEURAL EFFUSION .STARTED ON IV ABX DAMARISSYNima PULMO CONSULT WITH DR GARCIA RECOMMENDED CONTINUE WITH OXYGEN, BREATHING TREATMENT AND ABX . DC PLAN TO GO BACK TO [facility] WHEN STABLE CM TO FOLLOW. Addendum: 05/13/19 at 1521 by Christine Calero CM DC PLANNING: SEEN BY DR HOLLAND HEMODIALYSIS RN , PT HAS HD TODAY AND WILL CONTINUE TTHS , STILL ADMITS TO CHRONIC DIZZINESS WELL BILATERAL KNEE PAIN AND RT LEG PAIN . HAD A DISCISSION RE NON COMPLIANCE, PT VERBALIZED UNDERSTANDING WITHOUT DIALYSIS HE MAY . DC PLAN TO GO BACK TO [facility] WHEN STABLE CM TO FOLLOW. Addendum: 05/14/19 at 1155 by Christine Calero CM DC PLANNING: PATIENT HAS A DC ORDER TO GO BACK TO [facility] , PT AND FAMILY AGREED TO GO BACK TO [facility] , FAXED ALL THE PAPERWORK TO [facility] , SPOKE WITH KIM AT [facility] RECEIVED THE CLINICALS AND PROVIDE THE ROOM NUMBER. PT CAN GO TO ROOM 53C # TO GIVE REPORT [phone] ,SPOKE WITH KENA PT'S MOTHER [phone] WILL PAY FOR THE TRANSPORT. CALLED [employer]SP[employer] POLE FRAMER MACHINE TIME 1 PM NOTIFIED ESTER PANDEY.
[2019-05-12 12:00] VITALS: BP 115/59
--- NOTE | 2019-05-12 12:39 | NUR ---
CALLED MS. PHAM, HD NURSE AND NOTIFIED HER OF HD ORDER TOMORROW. Jann VERO VERBALIZED COMPLETE UNDERSTANDING. WILL CONTINUE TO MONITOR.
[2019-05-12] MEDS: INSULIN LISPRO SLIDING SCALE 100 UNITS/ML VIAL SUBQ PRN ×2 (12:58→18:11)
--- NOTE | 2019-05-12 13:11 | NUR ---
PATIENT LYING DOWN IN BED. NO DISTRESS NOTED. REFUSES LUNCH AT THIS TIME D/T NO APPETITE. REFUSED INSULIN COVERAGE AT THIS TIME. OTHER SCHEDULED MEDICATIONS DUE GIVEN. WILL CONTINUE TO MONITOR.
--- NOTE | 2019-05-12 14:28 | NUR ---
05/12/19 RD INITIAL ASSESSMENT COMPLETED PLEASE REFER TO NUTRITION ASSESSMENT UNDER CARE ACTIVITY FOR ESTIMATED NUTRITIONAL NEEDS. 1. CONTINUE RENAL AND CCHO 60GM DIET TOLERATED 2. RECOMMEND NEPRO BID 3. ENCOURAGE INCREASING PO INTAKE 4. RD TO FOLLOW-UP 2-3 DAYS, HIGH RISK ELIDA BADILLO, RD
[2019-05-12 16:00] VITALS: BP 139/79
--- NOTE | 2019-05-12 18:14 | NUR ---
DUE MEDICATIONS GIVEN. 4 UNITS HUMALOG GIVEN PER SCALE.
--- NOTE | 2019-05-12 19:25 | NUR ---
GAVE REPORT TO WIND PLANT MANAGER NURSE FOR CONTINUITY OF CARE. PATIENT IN STABLE CONDITION
--- NOTE | 2019-05-12 19:26 | NUR ---
RECEIVED BEDSIDE REPORT FROM AM SHIFT NURSE. PATIENT IS LYING IN BED AWAKE AND ALERT. NO SOB OR DISTRESS NOTED. ON ROOM AIR. PATIENT NOTED WITH RIGHT UPPER ARM PICC LINE AND LEFT UPPER ARM AV SHUNT. SKIN IS INTACT. INITIAL ASSESSMENT DONE. BED IN LOW, SAFETY MEASURES IN PLACE. CALL LIGHT PLACED WITHIN PATIENT REACH. WILL CONTINUE TO MONITOR PATIENT.
[2019-05-12 20:00] VITALS: BP 129/73
--- NOTE | 2019-05-12 20:16 | NUR ---
PATIENT HAS A BLOOD GLUCOSE RESULT OF 164. PATIENT IS REFUSING THE 2 UNITS OF REGULAR HUMALOG INSULIN COVERAGE. EDUCATED THE PATIENT ON INSULIN COVERAGE AND PATIENT IS STILL REFUSING COVERAGE. WILL CONTINUE TO MONITOR PATIENT.
--- NOTE | 2019-05-12 22:10 | NUR ---
ROUNDS DONE. VISIBLE CHEST RISE AND FALL NOTED. CALL LIGHT WITHIN PATIENT REACH. WILL CONTINUE TO MONITOR PATIENT.
[2019-05-13 00:05] VITALS: BP 139/62
--- NOTE | 2019-05-13 00:05 | NUR ---
VITALS TAKEN AT THIS TIME. NO DISTRESS NOTED. WILL CONTINUE TO MONITOR PATIENT.
[2019-05-13] MEDS: HYDROcodone/APAP 10/325 MG 1 TAB TAB PO PRN ×2 (00:48→05:28)
--- NOTE | 2019-05-13 00:48 | NUR ---
PRN NORCO ADMINISTERED AT THIS TIME FOR SEVERE PAIN PER PATIENT REQUEST. WILL CONTINUE TO MONITOR PATIENT.
--- NOTE | 2019-05-13 02:37 | NUR ---
ROUNDS DONE. VISIBLE CHEST RISE AND FALL NOTED. CALL LIGHT WITHIN PATIENT REACH. WILL CONTINUE TO MONITOR PATIENT.
[2019-05-13 04:00] VITALS: BP 114/59
[2019-05-13] MEDS: PIPERACILLIN/TAZOBACTAM 2.25 GM in DEXTROSE 5% 50 ML IV SCH ×3 (05:28→20:52)
--- NOTE | 2019-05-13 05:28 | NUR ---
PRN NORCO GIVEN AT THIS TIME PER PATIENT REQUEST FOR SEVERE PAIN. WILL CONTINUE TO MONITOR PATIENT.
--- NOTE | 2019-05-13 06:48 | NUR ---
PATIENT HAD A BLOOD GLUCOSE RESULT OF 164. PATIENT REFUSED INSULIN COVERAGE. HE STATES THAT HE DOES NOT WANT INSULIN UNLESS HIS BLOOD GLUCOSE IS OVER 200. MD MADE AWARE. WILL CONTINUE TO MONITOR PATIENT.
--- NOTE | 2019-05-13 06:49 | NUR ---
PATIENT IN STABLE CONDITION. CALL LIGHT WITHIN PATIENT REACH. WILL ENDORSE TO AM SHIFT NURSE FOR CONTINUITY OF CARE.
[2019-05-13] MEDS: BLOOD GLUCOSE MONITORING 1 DEV DEV FS SCH ×4 (06:59→21:29)
--- NOTE | 2019-05-13 07:10 | NUR ---
RECEIVED PT FROM NIGHT NURSE. PT IN STABLE CONDITION, ASLEEP, NO DISTRESS NOTED. RESPIRATIONS EVEN AND UNLABORED ON ROOM AIR, CLEAR BREATH SOUNDS. R UA PICC IN PLACE PATENT AND ASYMPTOMATIC SALINE LOCKED. L UA AV SHUNT IN PLACE. SKIN INTACT. SAFETY MEASURES IN PLACE. CALL LIGHT WITHIN REACH, WILL CONTINUE TO MONITOR.
[2019-05-13 07:56] LABS: BASOPHILS # (AUTO) 0.1 K/uL (0.00-0.22); BASOPHILS % (AUTO) 1.7 % (0.0-2.0); EOSINOPHILS # (AUTO) 0.3 K/uL (0-0.4); EOSINOPHILS % (AUTO) 6.2 % (0.0-4.0); HEMATOCRIT 21.1 % (36-52); HEMOGLOBIN 7.3 g/dL (12.0-18.0); LYMPHOCYTES # (AUTO) 0.7 K/uL (2.0-11.5); LYMPHOCYTES % (AUTO) 15.6 % (20.5-51.1); MEAN CORPUSCULAR HEMOGLOBIN 32 pg (27-31); MEAN CORPUSCULAR HGB CONC 34 g/dL (33-37); MEAN CORPUSCULAR VOLUME 91.9 fL (80-94); MONOCYTES # (AUTO) 0.9 K/uL (0.8-1.0); MONOCYTES % (AUTO) 19.8 % (1.7-9.3); NEUTROPHILS # (AUTO) 2.5 K/uL (1.8-7.7); NEUTROPHILS % (AUTO) 56.7 % (42.2-75.2); PLATELET COUNT (AUTO) 190 K/uL (140-450); RED CELL DISTRIBUTION WIDTH 15.8 % (11.6-13.7); WHITE BLOOD COUNT (AUTO) 4.4 K/uL (4.8-10.8)
[2019-05-13 08:00] VITALS: BP 118/57
[2019-05-13 08:02] LABS: MAGNESIUM 2.1 mg/dL (1.8-2.4); PHOSPHORUS 6.3 mg/dL (2.5-4.9)
[2019-05-13 09:35] LABS: ANION GAP 18.1 (8-16); CARBON DIOXIDE 26.9 mmol/L (21-32)
[2019-05-13 09:40] LABS: CREATININE 8.5 mg/dL (0.6-1.3)
[2019-05-13] MEDS: LACTOBACILLUS RHAMNOSUS GG 1 EACH CAP PO SCH (09:45)
[2019-05-13] MEDS: SEVELAMER CARBONATE 800 MG TAB PO SCH ×3 (09:45→17:21)
[2019-05-13] MEDS: EPOETIN ALFA 10,000 UNITS/ML VIAL SUBQ SCH (09:45)
[2019-05-13] MEDS: levETIRAcetam 500 MG TAB PO SCH ×2 (09:46→21:24)
[2019-05-13] MEDS: VIT-B COMP/VIT-C/FOLIC ACID 1 TAB PO SCH (09:46)
[2019-05-13] MEDS: MINOXIDIL 2.5 MG TAB PO SCH ×2 (09:46→21:25)
[2019-05-13] MEDS: ISOSORBIDE MONONITRATE 30 MG TABER PO SCH (09:46)
[2019-05-13] MEDS: DOCUSATE SODIUM 100 MG GELCAP PO SCH ×2 (09:47→21:24)
[2019-05-13] MEDS: LOSARTAN 25 MG TAB PO SCH (09:47)
[2019-05-13] MEDS: DULoxetine 30 MG CAPDR PO SCH (09:47)
[2019-05-13] MEDS: DIVALPROEX SPRINKLES 125 MG CAPDR PO SCH ×2 (09:47→21:24)
[2019-05-13] MEDS: NIFEdipine 60 MG TABER PO SCH (09:47)
[2019-05-13] MEDS: cloNIDine 0.1 MG TAB PO SCH ×3 (09:48→17:00)
--- NOTE | 2019-05-13 09:59 | NUR ---
ADMINISTERED MEDICATIONS PER ORDER. PT TOLERATED ALL MEDICATIONS WELL. PT IS ALERT WITH NO COMPLAINTS OF ANY PAIN. PRECAUTIONS IN PLACE, BED LOWERED AND CALL LIGHT WITHIN REACH.
--- NOTE | 2019-05-13 11:22 | NUR ---
BLOOD GLUCOSE MONITORED AT THIS TIME. BLOOD SUGAR IS 181. INSULIN COVERAGE WAS NOT GIVEN, PT REFUSES INSULIN WHEN BLOOD SUGAR IS BELOW 200. WILL CONTINUE TO MONITOR.
[2019-05-13 12:00] VITALS: BP 105/60
--- NOTE | 2019-05-13 12:29 | NUR ---
PT RECEIVING HD AT THIS TIME, WILL HOLD 1300 MEDICATIONS UNTIL HD IS FINISHED. PT IN STABLE CONDITION.
--- NOTE | 2019-05-13 15:01 | NUR ---
PATIENT IS AWAKE, ALERT AND LAYING IN BED. MEDICATIONS ADMINISTERED PER ORDER. PT DOES NOT COMPLAIN OF PAIN. SAFETY MEASURES IN PLACE AND WILL CONTINUE TO MONITOR.
[2019-05-13 16:00] VITALS: BP 133/61
--- NOTE | 2019-05-13 17:09 | NUR ---
PT IN BED, AWAKE, NO DISTRESS NOTED, DENIES PAIN. RESPIRATIONS EVEN AND UNLABORED ON ROOM AIR. SAFETY MEASURES IN PLACE, CALL LIGHT WITHIN REACH, WILL CONTINUE TO MONITOR.
--- NOTE | 2019-05-13 19:05 | NUR ---
PT ENDORSED TO ARTIFICIAL LOG MACHINE OPERATOR FOR CONTINUITY OF CARE.
--- NOTE | 2019-05-13 19:05 | NUR ---
RECEIVED BEDSIDE REPORT FROM AM SHIFT NURSE. PATIENT IS LYING IN BED, RESTING WITH EYES CLOSED. VISIBLE CHEST RISE AND FALL NOTED. NO SOB OR DISTRESS NOTED. ON ROOM AIR. PATIENT NOTED WITH RIGHT UPPER ARM PICC LINE, PATENT AND INTACT. PATIENT ALSO HAS A LEFT AV SHUNT. SKIN IS INTACT. BED IN LOW, SAFETY MEASURES IN PLACE. INITIAL ASSESSMENT DONE. CALL LIGHT PLACED WITHIN PATIENT REACH. WILL CONTINUE TO MONITOR PATIENT.
--- NOTE | 2019-05-13 20:30 | NUR ---
RECEIVED PATIENT ON ROOM AIR, PULSE OX SAT 96%. FAMILY AT BEDSIDE. PT DENIES SOB. PT MADE AWARE OF ORDERED MEDICATION FREQUENCY AND INSTRUCTED TO CALL NEEDED FOR SOB. NO ACUTE RESPIRATORY DISTRESS NOTED AT THIS TIME. WILL CONTINUE TO MONITOR.
[2019-05-13] MEDS: PANTOPRAZOLE 40 MG TABEC PO SCH (21:25)
[2019-05-13] MEDS: INSULIN LISPRO SLIDING SCALE 100 UNITS/ML VIAL SUBQ PRN (21:28)
--- NOTE | 2019-05-13 21:28 | NUR ---
PATIENT HAD A BLOOD GLUCOSE RESULT OF 223 WITH 4 UNITS OF REGULAR HUMALOG INSULIN ADMINISTERED SUBQ. WILL CONTINUE TO MONITOR PATIENT.
--- NOTE | 2019-05-13 22:51 | NUR ---
ROUNDS DONE. VISIBLE CHEST RISE AND FALL NOTED. CALL LIGHT WITHIN PATIENT REACH. WILL CONTINUE TO MONITOR PATIENT.
--- NOTE | 2019-05-14 00:14 | NUR ---
PATIENT REFUSED MIDNIGHT VITAL SIGNS. WILL CONTINUE TO MONITOR PATIENT.
--- NOTE | 2019-05-14 02:06 | NUR ---
ROUNDS DONE. VISIBLE CHEST RISE AND FALL NOTED. CALL LIGHT WITHIN PATIENT REACH. WILL CONTINUE TO MONITOR PATIENT.
[2019-05-14] MEDS: PIPERACILLIN/TAZOBACTAM 2.25 GM in DEXTROSE 5% 50 ML IV SCH (05:51)
[2019-05-14] MEDS: BLOOD GLUCOSE MONITORING 1 DEV DEV FS SCH ×2 (06:24→11:50)
--- NOTE | 2019-05-14 06:25 | NUR ---
PATIENT HAD A BLOOD GLUCOSE RESULT OF 168. PATIENT REFUSED INSULIN COVERAGE. EDUCATED PATIENT ON INSULIN COVERAGE AND PATIENT STILL REFUSES. WILL CONTINUE TO MONITOR PATIENT.
--- NOTE | 2019-05-14 06:27 | NUR ---
PATIENT IN STABLE CONDITION. CALL LIGHT WITHIN PATIENT REACH. WILL ENDORSE TO AM SHIFT NURSE FOR CONTINUITY OF CARE.
--- NOTE | 2019-05-14 07:05 | NUR ---
RECEIVED PATIENT FROM THE PUBLIC SAFETY DIRECTOR NURSE, TARN, FOR CONTINUITY OF CARE. PATIENT IS SLEEPING AT THIS TIME, RESPIRATIONS EVEN AND UNLABORED, ROOM AIR. VISIBLE CHEST RISE NOTED. MED-SURG. ABDOMEN SOFT AND NONTENDER. SKIN WARM, DRY, AND INTACT. RIGHT UPPER PICC LINE, SALINE LOCK. DIALYSIS ACCESS IN THE LEFT UPPER ARM AV SHUNT. IV PATENT AND INTACT. PATIENT IS CONTINENT, USES URINAL, AMBULATES WITH ASSIST TO THE BATHROOM. FALL PRECAUTIONS IN PLACE. BED IN LOW POSITION. CALL LIGHT IS WITHIN REACH. WILL CONTINUE TO MONITOR.
[2019-05-14 07:43] LABS: BASOPHILS # (AUTO) 0.1 K/uL (0.00-0.22); BASOPHILS % (AUTO) 2.1 % (0.0-2.0); EOSINOPHILS # (AUTO) 0.5 K/uL (0-0.4); EOSINOPHILS % (AUTO) 10.8 % (0.0-4.0); HEMATOCRIT 20.7 % (36-52); HEMOGLOBIN 7.3 g/dL (12.0-18.0); LYMPHOCYTES # (AUTO) 0.6 K/uL (2.0-11.5); LYMPHOCYTES % (AUTO) 15.4 % (20.5-51.1); MEAN CORPUSCULAR HEMOGLOBIN 32 pg (27-31); MEAN CORPUSCULAR HGB CONC 35 g/dL (33-37); MEAN CORPUSCULAR VOLUME 90.9 fL (80-94); MONOCYTES # (AUTO) 0.8 K/uL (0.8-1.0); NEUTROPHILS # (AUTO) 2.2 K/uL (1.8-7.7); NEUTROPHILS % (AUTO) 52.7 % (42.2-75.2); PLATELET COUNT (AUTO) 218 K/uL (140-450); RED BLOOD CELL COUNT(AUTO) 2.28 MIL/uL (4.20-6.10); RED CELL DISTRIBUTION WIDTH 15.6 % (11.6-13.7); WHITE BLOOD COUNT (AUTO) 4.2 K/uL (4.8-10.8)
[2019-05-14 07:58] LABS: MAGNESIUM 1.8 mg/dL (1.8-2.4); PHOSPHORUS 3.9 mg/dL (2.5-4.9)
[2019-05-14 08:00] VITALS: BP 133/64
--- NOTE | 2019-05-14 08:12 | NUR ---
PATIENT REFUSED VITAL SIGNS TO BE CHECKED. WILL TRY AGAIN LATER
--- NOTE | 2019-05-14 08:16 | NUR ---
DR. MENA AND THE RESIDENT DOCTORS MADE ROUNDS.
[2019-05-14] MEDS: DOCUSATE SODIUM 100 MG GELCAP PO SCH (09:00)
[2019-05-14] MEDS: VIT-B COMP/VIT-C/FOLIC ACID 1 TAB PO SCH (09:12)
[2019-05-14] MEDS: PANTOPRAZOLE 40 MG TABEC PO SCH (09:12)
[2019-05-14] MEDS: DIVALPROEX SPRINKLES 125 MG CAPDR PO SCH (09:13)
[2019-05-14] MEDS: SEVELAMER CARBONATE 800 MG TAB PO SCH (09:13)
--- NOTE | 2019-05-14 09:13 | NUR ---
GIVEN MORNING MEDICATIONS PO. REFUSED COLACE. GIVEN MEDICATION EDUCATION. PATIENT VERBALIZED UNDERSTANDING. WILL CONTINUE TO MONITOR
[2019-05-14] MEDS: LACTOBACILLUS RHAMNOSUS GG 1 EACH CAP PO SCH (09:14)
[2019-05-14] MEDS: levETIRAcetam 500 MG TAB PO SCH (09:14)
[2019-05-14] MEDS: DULoxetine 30 MG CAPDR PO SCH (09:14)
[2019-05-14] MEDS: cloNIDine 0.1 MG TAB PO SCH (09:15)
[2019-05-14] MEDS: LOSARTAN 25 MG TAB PO SCH (09:15)
[2019-05-14] MEDS: ISOSORBIDE MONONITRATE 30 MG TABER PO SCH (09:16)
[2019-05-14] MEDS: NIFEdipine 60 MG TABER PO SCH (09:17)
[2019-05-14] MEDS: MINOXIDIL 2.5 MG TAB PO SCH (09:17)
[2019-05-14 09:21] LABS: ANION GAP 14.4 (8-16); CARBON DIOXIDE 26.9 mmol/L (21-32); POTASSIUM 3.3 mmol/L (3.5-5.1)
[2019-05-14] MEDS ORDERED: TRAM50TA3 PO (09:22)
[2019-05-14] MEDS ORDERED: LACT10CA PO (09:22)
[2019-05-14] MEDS ORDERED: PANT40EC28 PO (09:22)
[2019-05-14] MEDS ORDERED: PIPE50SO5 IV (09:22)
--- NOTE | 2019-05-14 09:23 | NUR ---
CRITICAL LAB: CREATININE 5.4, BUN: 33. WILL INFORM RESIDENT DOCTOR
[2019-05-14 09:25] LABS: CREATININE 5.4 mg/dL (0.6-1.3)
[2019-05-14 10:14] VITALS: BP 133/64
--- NOTE | 2019-05-14 10:14 | NUR ---
TOLERATED FOLLOW UP INCENTIVE THERAPY WELL WITHOUT INCIDENT EDUCATION PROVIDED ENCOURAGED PATIENT TO USE INCENTIVE SPIROMETRY EVERY 1-2 HOURS WHILE AWAKE
--- NOTE | 2019-05-14 10:22 | NUR ---
CALLED MOTHER OF THE PATIENT, EDI BEGUM. WILL WAIT FOR CALL BACK
[2019-05-14 10:45] VITALS: BP 132/68
--- NOTE | 2019-05-14 11:03 | NUR ---
PATIENT IS SLEEPING AT THIS TIME. NO SIGNS OF DISTRESS NOTED. BED IN LOW POSITION. CALL LIGHT IS WITHIN REACH. WILL CONTINUE TO MONITOR
--- NOTE | 2019-05-14 11:30 | NUR ---
BLOOD GLUCOSE CHECK: 193. WILL GIVE INSULIN COVERAGE
--- NOTE | 2019-05-14 11:50 | NUR ---
PER CM, PATIENT WILL BE BUILD TECHNICIAN AT 1300. HE WILL BE AT ROOM 53-C AT [facility]. PATIENT IS AWARE
[2019-05-14] MEDS: INSULIN LISPRO SLIDING SCALE 100 UNITS/ML VIAL SUBQ PRN (12:11)
--- NOTE | 2019-05-14 12:11 | NUR ---
REFUSED INSULIN SUBQ
--- NOTE | 2019-05-14 12:31 | NUR ---
GIVEN REPORT TO KATHERIN JENKINS, AT [facility]. EXPLAINED THAT PATIENT WILL NEED ANTIBIOTIC ZOSYN Q8H FOR 5 DAYS. GIVEN LATEST VS, LABS. NO FURTHER QUESTIONS.
--- NOTE | 2019-05-14 12:45 | NUR ---
GIVEN DISCHARGE INSTRUCTIONS. EXPLAINED THAT HE WILL GET ANTIBIOTIC FOR 5 DAYS. PATIENT IS UP TO DATE WITH HIS FLU AND PNA VACCINES.
--- NOTE | 2019-05-14 12:55 | NUR ---
DISCHARGED PATIENT VIA WHEELCHAIR. PATIENT DENIES ANY PAIN. NO SOB. PATIENT IS IN STABLE CONDITION
--- NOTE | 2019-05-14 12:58 | NUR ---
REMOVED ID BAND. PATIENT IS GOING TO [facility] WITH PICC LINE FOR IV ANTIBIOTIC
== END 2019-05-14 12:55 | DRG 682 ==
LOC: MED 10:14 → MTU 12:25
PROVIDERS: ADMIT General Practice; ATTEND General Practice
PROC: 5A1D70Z Performance of Urinary Filtration, Intermittent, Less than 6 Hours Per Day (ICD-10-PCS; 2019-05-10)
PROC: 02HV33Z Insertion of Infusion Device into Superior Vena Cava, Percutaneous Approach (ICD-10-PCS; principal; 2019-05-11)
PROC: B548ZZA Ultrasonography of Superior Vena Cava, Guidance (ICD-10-PCS; 2019-05-11)
PROC: 5A1D70Z Performance of Urinary Filtration, Intermittent, Less than 6 Hours Per Day (ICD-10-PCS; 2019-05-13)
DX: N17.0 Acute kidney failure with tubular necrosis (principal); J18.9 Pneumonia, unspecified organism; E43 Unspecified severe protein-calorie malnutrition; J96.01 Acute respiratory failure with hypoxia; Z68.1 Body mass index [BMI] 19.9 or less, adult; I12.0 Hypertensive chronic kidney disease with stage 5 chronic kidney disease or end stage renal disease; J98.11 Atelectasis; E87.1 Hypo-osmolality and hyponatremia; E87.6 Hypokalemia; N18.6 End stage renal disease; D63.8 Anemia in other chronic diseases classified elsewhere; H54.7 Unspecified visual loss; G89.29 Other chronic pain; G40.909 Epilepsy, unspecified, not intractable, without status epilepticus; E83.39 Other disorders of phosphorus metabolism; E11.51 Type 2 diabetes mellitus with diabetic peripheral angiopathy without gangrene; E87.8 Other disorders of electrolyte and fluid balance, not elsewhere classified; E02 Subclinical iodine-deficiency hypothyroidism; F32.9 Major depressive disorder, single episode, unspecified; E11.22 Type 2 diabetes mellitus with diabetic chronic kidney disease; F63.9 Impulse disorder, unspecified; I16.0 Hypertensive urgency; E11.21 Type 2 diabetes mellitus with diabetic nephropathy; H10.10 Acute atopic conjunctivitis, unspecified eye; K21.9 Gastro-esophageal reflux disease without esophagitis; E78.5 Hyperlipidemia, unspecified; E11.319 Type 2 diabetes mellitus with unspecified diabetic retinopathy without macular edema; Z91.19 Patient's noncompliance with other medical treatment and regimen; Z99.2 Dependence on renal dialysis; Z91.15 Patient's noncompliance with renal dialysis; Z83.3 Family history of diabetes mellitus; Z82.5 Family history of asthma and other chronic lower respiratory diseases; Z88.1 Allergy status to other antibiotic agents; Z88.8 Allergy status to other drugs, medicaments and biological substances; Z79.899 Other long term (current) drug therapy; Z86.73 Personal history of transient ischemic attack (TIA), and cerebral infarction without residual deficits
CPT/HCPCS: 36415; 71045; 71046; 80048; 80053; 82150; 82272; 82607; 82728; 82746; 82948; 83036; 83540; 83605; 83690; 83735; 83880; 84100; 84439; 84443; 84484; 84550; 85025; 85045; 85610; 85730; 87040; 87081; 90935; 93005; 99285; C1751; J0885; J1644; J2405; J2543; J7030; J7060; Q0092

== ENCOUNTER 2019-08-06 14:08 | Inpatient (IN) | payer OTHER, SELFPAY ==
[~2019-08-06] VITALS: Ht 182.9 cm; Wt 67.6 kg
[~2019-08-06 14:08] MED LIST changes: +LACT10CA PO; +PANT40EC28 PO; +PIPE50SO5 IV; +TRAM50TA3 PO
--- NOTE | 2019-08-06 14:08 | NUR ---
Patient BIBA BLS from [facility], transferred to bed 1. RN evaluating patient at bedside.
[2019-08-06 14:20] VITALS: BP 110/66
--- NOTE | 2019-08-06 14:41 | NUR ---
Dr. Lainez is evaluating the patient at bedside.
--- NOTE | 2019-08-06 14:50 | NUR ---
XRAY AT BEDSIDE.
[2019-08-06 15:15] LABS: BASOPHILS # (AUTO) 0.1 K/uL (0.00-0.22); BASOPHILS % (AUTO) 1.7 % (0.0-2.0); EOSINOPHILS # (AUTO) 0.1 K/uL (0-0.4); EOSINOPHILS % (AUTO) 3.1 % (0.0-4.0); HEMATOCRIT 37.5 % (36-52); HEMOGLOBIN 12.5 g/dL (12.0-18.0); LYMPHOCYTES # (AUTO) 0.6 K/uL (2.0-11.5); LYMPHOCYTES % (AUTO) 16.8 % (20.5-51.1); MEAN CORPUSCULAR HEMOGLOBIN 31 pg (27-31); MEAN CORPUSCULAR HGB CONC 33 g/dL (33-37); MEAN CORPUSCULAR VOLUME 93.8 fL (80-94); MONOCYTES # (AUTO) 0.5 K/uL (0.8-1.0); MONOCYTES % (AUTO) 15.1 % (1.7-9.3); NEUTROPHILS # (AUTO) 2.2 K/uL (1.8-7.7); NEUTROPHILS % (AUTO) 63.3 % (42.2-75.2); PLATELET COUNT (AUTO) 119 K/uL (140-450); RED CELL DISTRIBUTION WIDTH 14.3 % (11.6-13.7); WHITE BLOOD COUNT (AUTO) 3.5 K/uL (4.8-10.8)
[2019-08-06 15:29] LABS: ANION GAP 12.5 (8-16); CARBON DIOXIDE 33.2 mmol/L (21-32); POTASSIUM 4.7 mmol/L (3.5-5.1)
--- NOTE | 2019-08-06 15:30 | NUR ---
44 y/o male BIBA W C/O L LEG PAIN 8/10 PAIN . PT STATES HE FELL WALKING TO RESTROOM. [facility] STATED XRAY WAS DONE AND PT HAS AN ACUTE FRACTURE TO PROXIMAL L FIBULA W/O DISPLACEMENT. PT DENIES SOB , 02 SAT 87% . PT PLACED ON 2LPM NC, STATES HE OCCASIONALLY USES O2 PRN, MOSTLY AT NIGHT. PT STATES HE CAN'T BEAR WEIGHT ON L LEG, MILD SWELLING NOTED TO LLE. PT ABLE TO MOVE TOES ON L LEG. PT LAYING IN BED IN LOWEST POSITION, HOB ELEVATED , SIDE RAILS X2 FOR PT SAFETY. HX: RENAL FAILURE (LUE SHUNT T//SUN DIALYSIS - LAST 08/05/19), DM, BILAT BLINDNESS RX: SEE MED REC
[2019-08-06 15:35] LABS: ALBUMIN 2.9 g/dL (3.4-5.0); TOTAL BILIRUBIN 0.5 mg/dL (0.0-1.0)
--- NOTE | 2019-08-06 15:39 | NUR ---
CRITICAL LAB VALUE BUN 59 AND CREATININE 7.0 RECEIVED FROM LAB, DR. CRABTREE MADE AWARE.
[2019-08-06] MEDS ORDERED: KETOROLAC 30 MG/ML VIAL IVP ONE (15:50)
[2019-08-06 15:59] LABS: PROTHROMBIN TIME 13.2 secs (10.8-13.4)
--- NOTE | 2019-08-06 16:30 | NUR ---
PT RESTING IN BED AT LOWEST POSITION, HOB ELEVATED , SIDE RAILS X2 FOR PT SAFETY.
[2019-08-06 16:37] LABS: C-REACTIVE PROTEIN QUANT 1.2 mg/dL (0.0-0.9); LACTATE DEHYDROGENASE 170 U/L (85-227)
[2019-08-06 16:42] LABS: RSV NEGATIVE (NEGATIVE)
--- NOTE | 2019-08-06 17:00 | NUR ---
PT PROVIDED WATER FOR COMFORT.
[2019-08-06] MEDS ORDERED: NACL 0.9% 1,000 ML IV SCH (17:06)
[2019-08-06] MEDS ORDERED: DOCUSATE SODIUM 100 MG GELCAP PO PRN (17:10)
[2019-08-06] MEDS ORDERED: HYDROcodone/APAP 7.5/325 MG 1 TAB PO PRN (17:10)
[2019-08-06] MEDS ORDERED: ACETAMINOPHEN 325 MG TAB PO PRN (17:10)
[2019-08-06] MEDS ORDERED: ONDANSETRON 4 MG/2 ML VIAL IM/IVP PRN (17:10)
[2019-08-06] MEDS ORDERED: MORPHINE SULFATE 2 MG/ML SYR IVP PRN (17:10)
[2019-08-06] MEDS ORDERED: ALBUTEROL HFA MDI 90 MCG/ACTUATION 8 GM INH PRN (17:35)
[2019-08-06 17:52] LABS: MAGNESIUM 2.1 mg/dL (1.8-2.4); PHOSPHORUS 4.8 mg/dL (2.5-4.9); THYROID STIMULATING HORMONE 12.54 uIU/mL (0.34-3.74)
--- NOTE | 2019-08-06 18:00 | NUR ---
Patient will be admitted to care of DR. MENA. Admited to TELEMETRY. Will go to room 129. Belongings list completed. Report to MD BETHEL.
--- NOTE | 2019-08-06 18:10 | NUR ---
RECEIVED PT. FROM ER NURSE, NIGEL, VIA ANDRAE. AAOX4, ABLE TO FOLLOW COMMANDS AND MAKE NEEDS KNOWN. V/S TAKEN AND WITHIN NORMAL LIMITS. IV ON THE RIGHT FOREARM 22G SALINE LOCK. PT. IS ON 2LPM O2 VIA NC WITH O2 STAT OF 97%. SAFETY PRECAUTIONS IN PLACE. DROPLET ISOLATION IN PLACE. PLAN OF CARE DISCUSSED WITH PATIENT. BED ALARM ON, CALL LIGHT WITHIN REACH. WILL CONTINUE TO MONITOR.
[2019-08-06] MEDS ORDERED: HYDR100T79 PO (18:12)
[2019-08-06] MEDS ORDERED: DULO30EC PO (18:12)
[2019-08-06] MEDS ORDERED: hydrALAZINE 25 MG TAB PO PRN (18:15)
[2019-08-06] MEDS ORDERED: DEXTROSE 50% 50 ML SYR IVP PRN (18:20)
--- NOTE | 2019-08-06 18:40 | NUR ---
DINNER GIVEN. MRSA SWAB TAKEN. PT. IS IN BED AND AWAKE. WILL CONTINUE TO MONITOR.
--- NOTE | 2019-08-06 19:20 | NUR ---
ENDORSED TO WATER TAXI CAPTAIN NURSE, FREIDS, FOR CONTINUITY OF CARE.
--- NOTE | 2019-08-06 19:30 | NUR ---
RECEIVED PT IN STABLE CONDITION FROM AM NURSE. AWAKEA,LERT AND ORIENTED X4. PT IS A NEW ADMIT. ON TELE MONITOR. WITH O22L/NC. NO RESPIRATORY DISTRESS NOTED. O2 SAT 97%/ WITH NO C/O ANY DISCOMFORT NOR PAIN NOTED. ON DROPLET PRECAUTION DUE TO POSS COVID. PT HAS JENNIFER BLINDNESS DUE TO DIABETIC RETINOPATHY. HAS ESRD . WITH LEFT UPPER ARM AV SHUNT. ON BED REST. BED ON LOWEST POSITION. SIDE RAILS UP X2 ,PADDED FOR SEIZURE PRECAUTION. [place]IA LIGHT PLACED WITHIN EASY REACH. INSTRUCTED TO CALL FOR ANY ASSISTANCE. WILL CONTINUE TO MONITOR.
[2019-08-06 20:00] VITALS: BP 133/78
[2019-08-06] MEDS: NIFEdipine 60 MG TABER PO SCH ×2 (20:00→20:49)
[2019-08-06] MEDS: DOCUSATE SODIUM 100 MG GELCAP PO SCH (20:47)
[2019-08-06] MEDS: BLOOD GLUCOSE MONITORING 1 DEV DEV FS SCH (20:47)
[2019-08-06] MEDS: DIVALPROEX SPRINKLES 125 MG CAPDR PO SCH (20:48)
[2019-08-06] MEDS: ISOSORBIDE MONONITRATE 30 MG TABER PO SCH (20:50)
[2019-08-06] MEDS: MINOXIDIL 2.5 MG TAB PO SCH (20:51)
[2019-08-06] MEDS: PANTOPRAZOLE 40 MG TABEC PO SCH (20:57)
[2019-08-06] MEDS: INSULIN LISPRO SLIDING SCALE 100 UNITS/ML VIAL SUBQ PRN (21:02)
--- NOTE | 2019-08-06 21:02 | NUR ---
BLOOD SUGAR WAS CHECKED RESULT 218. INSULIN COVERAGE GIVEN. PT SAID OK JUST 2 UNITS HUMALOG COVERAGE. HAD SOME DIET SODA. WILL CONTINUE TO MONITOR.
[2019-08-06] MEDS: levETIRAcetam 500 MG TAB PO SCH (21:25)
--- NOTE | 2019-08-06 23:00 | NUR ---
CHECKED ON PT. ASLEEP. NO S/S OF ANY DISTRESS NOR DISCOMFORT NOTED.
[2019-08-07] VITALS: BP 121/71
--- NOTE | 2019-08-07 02:00 | NUR ---
CHECKED ON PT. SLEEPING. O2 SAT 96% ON O22L/NC.
--- NOTE | 2019-08-07 04:57 | NUR ---
URINE NOT COLLECTED FOR PT IS ANURIC- HD PT.
[2019-08-07 05:00] VITALS: BP 131/78
[2019-08-07 06:05] LABS: BASOPHILS # (AUTO) 0.1 K/uL (0.00-0.22); BASOPHILS % (AUTO) 2.3 % (0.0-2.0); EOSINOPHILS # (AUTO) 0.2 K/uL (0-0.4); EOSINOPHILS % (AUTO) 5.3 % (0.0-4.0); HEMATOCRIT 33.6 % (36-52); HEMOGLOBIN 11.4 g/dL (12.0-18.0); LYMPHOCYTES % (AUTO) 27.1 % (20.5-51.1); MEAN CORPUSCULAR HEMOGLOBIN 32 pg (27-31); MEAN CORPUSCULAR HGB CONC 34 g/dL (33-37); MEAN CORPUSCULAR VOLUME 93.3 fL (80-94); MONOCYTES # (AUTO) 0.7 K/uL (0.8-1.0); MONOCYTES % (AUTO) 19.2 % (1.7-9.3); NEUTROPHILS # (AUTO) 1.7 K/uL (1.8-7.7); NEUTROPHILS % (AUTO) 46.1 % (42.2-75.2); PLATELET COUNT (AUTO) 106 K/uL (140-450); RED BLOOD CELL COUNT(AUTO) 3.61 MIL/uL (4.20-6.10); RED CELL DISTRIBUTION WIDTH 14.1 % (11.6-13.7); WHITE BLOOD COUNT (AUTO) 3.6 K/uL (4.8-10.8)
[2019-08-07] MEDS: BLOOD GLUCOSE MONITORING 1 DEV DEV FS SCH ×4 (06:06→20:35)
--- NOTE | 2019-08-07 06:06 | NUR ---
BLOOD SUGAR WAS CHECKED THIS AM RESULT 93. OFFERED SOMETHING TO EAT BUT REFUSED .
[2019-08-07 06:20] LABS: CHOL/HDL RATIO 1.9 (1-4.5)
[2019-08-07 06:28] LABS: PHOSPHORUS 5.3 mg/dL (2.5-4.9)
[2019-08-07 06:34] LABS: ANION GAP 12.8 (8-16); POTASSIUM 4.8 mmol/L (3.5-5.1)
[2019-08-07 06:42] LABS: CREATININE 7.8 mg/dL (0.6-1.3)
--- NOTE | 2019-08-07 07:15 | NUR ---
ENDORSED PT IN STABLE CONDITION TO AM NURSE FOR CONTINUITY OF CARE.
--- NOTE | 2019-08-07 07:17 | NUR ---
RECEIVED REPORT FROM NECK BAND MAKER RN. PT SPEAKS HUNGARIAN IS RESTING ON BED WITH 2 LPM O2 VIA NC. NO ACUTE DISTRESS WITH VISIBLE CHEST RISE AND FALL NOTED. PT HAS IV ACCESS ON RIGHT FOREARM SALINE LOCKED 22G. SKIN IS DRY AND INTACT. BED IN LOW POSITION, BED LOCKED. TELE MONITOR ATTACHED. SAFETY MEASURES IN PLACE. CALL LIGHT WITHIN REACH. WILL CONTINUE TO MONITOR PATIENT.
--- NOTE | 2019-08-07 07:22 | NUR ---
CHECKED ON PT. RESTING COMFORTABLE, NO SIGN OF DISTRESS AT THIS TIME. [id number] HR [id number].
[2019-08-07 08:00] VITALS: BP 133/81
--- NOTE | 2019-08-07 08:47 | NUR ---
PATIENT HAS BEEN SCREENED AND CATEGORIZED MODERATE NUTRITION RISK. PATIENT WILL BE SEEN WITHIN 3-5 DAYS OF ADMISSION. 08/09/19 08/11/[address]
[2019-08-07] MEDS: MINOXIDIL 2.5 MG TAB PO SCH ×2 (09:00→20:37)
[2019-08-07] MEDS: SEVELAMER CARBONATE 800 MG TAB PO SCH ×3 (09:00→17:45)
[2019-08-07] MEDS: cloNIDine 0.1 MG TAB PO SCH ×3 (09:00→17:52)
[2019-08-07] MEDS: NIFEdipine 60 MG TABER PO SCH (09:00)
[2019-08-07] MEDS: LOSARTAN 25 MG TAB PO SCH (09:00)
[2019-08-07] MEDS: PANTOPRAZOLE 40 MG TABEC PO SCH ×2 (09:43→20:36)
[2019-08-07] MEDS: ISOSORBIDE MONONITRATE 30 MG TABER PO SCH ×2 (09:43→20:36)
[2019-08-07] MEDS: levETIRAcetam 500 MG TAB PO SCH ×2 (09:44→20:35)
[2019-08-07] MEDS: DIVALPROEX SPRINKLES 125 MG CAPDR PO SCH ×2 (09:44→20:36)
[2019-08-07] MEDS: VIT-B COMP/VIT-C/FOLIC ACID 1 TAB PO SCH (09:45)
[2019-08-07] MEDS: DOCUSATE SODIUM 100 MG GELCAP PO SCH ×2 (09:45→20:36)
[2019-08-07] MEDS: DULoxetine 30 MG CAPDR PO SCH (09:46)
--- NOTE | 2019-08-07 09:58 | NUR ---
ADMINISTERED MEDS PER MD ORDER, HOLD ALL BP MEDS DUE TO HD ON SUNDAY: NIFEDIPINE, SEVELAMER CARBONATE, MINOXIDIL LONITEN, PANTOPRAZOLE, ISOSORBIDE MONONITRATE, RETURNED ABOVE BP MEDS TO OMNICELL, PT TOLERATED PO MEDS WELL. COVID-19 SPECIMEN TAKEN AND DELIVERED TO LAB. PT IS RESTING ON BED AT THIS TIME. NO SIGNS OF ACUTE DISTRESS NOTED. TELE MONITOR ATTACHED. SAFETY MEASURES IN PLACE. SEIZURE PRECAUTION, BOTH RAILS PADDED. FALL RISJ PRECAUTION, BED IN LOW POSITION, CALL LIGHT WITHIN REACH, BED ALARM ACTIVATED AND BED LOCKED.
--- NOTE | 2019-08-07 10:12 | NUR ---
DISCHARGE PLANNING: THIS IS A 44 Y/O MALE PATIENT FROM [facility], WHO CAME IN DUE TO LEFT LEG PAIN. PAST MEDICAL HISTORY INCLUDE ESRD ON HD, DIABETIC RETINOPATHY WITH BILATERAL BLINDNESS, DM, HTN, HYPERLIPIDEMIA, SEIZURE DISORDER, DEPRESSION AND IMPULSE DISORDER. INITIAL DIAGNOSIS OF HYPOXIA, POSSIBLE COVID, FLUID OVERLOAD AND ESRD. CURRENT LABS INCLUDE WBC 3.6, H/H 11.4/33.6, NA/K 133/4.8, BUN/CREA 74/7.8, TSH 12.54. COVID 19 TEST PENDING. NEGATIVE FOR INF A AND B AND RSV ANTIGEN. PULMO, NEPHRO AND ORTHO CONSULTS IN PLACE. MRSA AND BLOOD CS PENDING. CXR ON ADMISSION SHOWED MILD BIBASILAR EDEMA VS INFILTRATE, GREATER ON THE RIGHT, SUSPECTED TRACE RIGHT PLEURAL EFFUSION. TIBIA/FIBULA X RAY SHOWED ACUTE NON DISPLACED FRACTURE OF THE LEFT PROXIMAL FIBULAR DIAPHYSIS. SOFT TISSUE EDEMA OF THE LATERAL LOWER EXTREMITY AND DIFFUSE ATHEROSCLEROTIC DISEASE. LEFT ANKLE X RAY SHOWED NO EVIDENCE OF DISPLACED ACUTE FRACTURE OR DISLOCATION OF THE LEFT ANKLE, DECREASED BONE MINERALIZATION AND ATHEROSCLEROTIC DISEASE. DC PLAN BACK TO [facility] ONCE STABLE. Addendum: 08/08/19 at 1435 by Ileana Mayer RECEIVED AN ORDER FOR CAM BOOT. CONTACTED KRISTA AT LINE AT [phone], ABLE TO SPEAK TO MECCA. SHE STATED THEY ARE NOT DELEGATED TO PROVIDE AUTH FOR DME'S AND IT HAS TO GO THROUGH MEDICARE PART A. CONTACTED LACI OF [facility], HE STATED THEY DO NOT CARRY CAM BOOT. PER XIN [facility], THEY DO NOT CARRY CAM BOOT. PER HARJINDER OF [facility], THEY DO NOT CARRY THE SAID DME, HOWEVER SHE RECOMMENDED [facility] TO [facility] AT [phone]. CONTACTED THE PROVIDED NUMBER AND MEGHAN CONFIRMED THAT THEY CARRY CAM BOOT. HE STATED TO GO AHEAD FAX THE ORDER, FACE SHEET AND NOTES FROM THE DOC TO [phone]. PAPERWORKS SENT TO THE PROVIDED FAX NUMBER. [phone]: RECEIVED A CALL FROM MEGHAN OF [facility] TO [facility], STATING THAT THEY ARE ABLE TO DELIVER THE CAM BOOT AT [address]. DR. MILAN MADE AWARE.
--- NOTE | 2019-08-07 10:42 | NUR ---
DR KIM IS AT WINDOW-SIDE.
--- NOTE | 2019-08-07 11:13 | NUR ---
ATTENDED TO CALL LIGHT, PT COMPLAINED HE DOESN'T LIKE HIS BREAKFAST AND REQUESTED FOR TURKEY SANDWICH AND DIET SODA, PROVIDED AND DELIVERED TO PT'S ROOM. VITAL SIGNS TAKEN AND BLOOD GLUCOSE CHECK, RECEIVED 86. PT IS EATING SANDWICH NOW. EXPLAINED THAT MD HAS ORDER HD DIALYSIS AND PT WAS AWARE. CONSENT OBTAINED. NO SIGNS OF DISTRESS NOTED. TELE MONITOR ATTACHED. SAFETY MEASURES IN PLACE. BED IN LOW POSITION AND CALL LIGHT WITHIN REACH. BED ALARM ACTIVATED.
--- NOTE | 2019-08-07 11:42 | NUR ---
ATTENDED TO CALL LIGHT, PT REQUESTED GRILLED CHICKEN WITH [facility] FOR LUNCH. CALLED DIETITIAN AND LUIS APPROVED. FOOD WILL COME WITH THE LUNCH TRAY.
[2019-08-07 12:00] VITALS: BP 143/84
--- NOTE | 2019-08-07 12:06 | NUR ---
CALLED PT'S FATHER CLAUDE PER PT REQUESTED, NOTIFIED THAT PT WAS ADMITTED TO [facility] FLOOR IN ROOM 129A, CLAUDE WAS AWARE. ALSO EXPLAINED THAT THE EYE DROP PT HAS BEEN USING IS NOT AVAILABLE AT HOSPITAL AND ASKED HIM TO DROP IT OFF. CLAUDE WAS AWARE AND SAID "OK, I WILL GET IT."
--- NOTE | 2019-08-07 12:47 | NUR ---
PT REQUESTED FOR A DIET SODA. DELIVERED TO ROOM. PT IS EATING LUNCH AT THIS TIME. NO SIGNS OF DISTRESS NOTED. TELE MONITOR ATTACHED. SAFETY MEASURES IN PLACE. BED ALARM ACTIVATED.
--- NOTE | 2019-08-07 13:51 | NUR ---
PT IS RESTING ON THE BED HAVING HEMODIALYSIS. RESPIRATION EVEN AND UNLABORED WITHOUT ANY SIGN AND SYMPTOMS OF ACUTE DISTRESS. DIALYSIS NURSE AT THE BEDSIDE. TELE MONITOR ATTACHED. CELL LIGHT WITHIN PT'S REACH. ALL SAFETY MEASURE IN PLACE. WILL CONTINUE TO MONITOR PT.
--- NOTE | 2019-08-07 14:04 | NUR ---
HOME LIGHTING ADVISER NOTE: Basic Screen: Yes High Risk DC Screen [place]: DANIELLE BOOTH SR. Home Relationship: FATHER Pre-Admission Living Arrangements: SNF Other: [facility] Prior ADL Independent Current Home Health Name/Tel: N/A Current DME/02 Name/Tel: [facility] Current Hospice Name/Tel: N/A Current Dialysis Name/Tel: N/A Healthcare Decision Maker: Next of Kin Other: FATHER - DANIELLE BOOTH Advance Directive No Physician Orders for Life Sustaining Treatment Form No Patient/Family Have Educational Needs No Discipline: Case Mgt/Social Svcs Tentative Discharge Plan/Destination: SNF/ECF Other: [facility] Tentative Discharge Plan Summary: PATIENT IS A 44-YEAR-OLD MAEL ADMITTED FOR HYPOXIA AND POSSIBLE COVID. PATIENT HAS PMHX OF ESRD ON HEMO DIALYSIS, DM, HYPERTENSION, HYPERLIPEDEMIA, AND SEIZURE DISORDER. PATIENT WAS ADMITTED FROM [facility]. SW CONTACTED KIM [phone]. PER KIM, PATIENT IS ALERT/ORIENTED AT BASELINE. KIM STATED PATIENT IS SHELTER AND ON BED HOLD. KIM REPORTED THAT PATIENT'S HEALTHCARE DECISION MAKER IS FATHER DANIELLE BOOTH [phone] AND THAT PATIENT IS INDEPENDENT WITH ADLS. TENTATIVE DISCHARGE PLAN IS FOR PATIENT TO RETURN TO [facility]. NO FURTHER NEEDS IDENTIFIED. Signature: YUMI OGLESBY Date: August 07, 2019 Time: 14:04
--- NOTE | 2019-08-07 14:30 | NUR ---
RECEIVED AND PICKED UP EYE DROP FROM THE FAMILY IN THE LOBBY. DELIVERED EYE DROP TO THE PHARMACY. STICKER PICKED UP FROM THE PHARMACY AND PLACED IT ON THE FOLDER.
--- NOTE | 2019-08-07 15:30 | NUR ---
PT IS ASLEEP AT THIS TIME. RESPIRATION EVEN AND UNLABORED ON 2LPM O2 VIA NC. PT IS AROUSABLE TO VOICE, PT IS STILL IN DIALYSIS. NO SIGNS OF ACUTE DISTRESS NOTED. CALL LIGHT WITHIN REACH. TELE MONITOR ATTACHED. ALL SAFETY MEASURE IN PLACE.
[2019-08-07 16:00] VITALS: BP 149/91
--- NOTE | 2019-08-07 16:32 | NUR ---
CHECKED BG AND RECEIVED 184, EXPLAINED TO THAT HIS GLUCOSE IS HIGH AND 2 UNITS OF HUMALOG WILL BE ADMINISTERED ONCE HIS DINNER IS HERE. PT REFUSED INSULIN SUBQ AND SAID, " I WILL ONLY GET INSULIN WHEN MY BLOOD GLUCOSE IS ABOVE 200 IN THE RETIREMENT. I DON'T WANT ANY INJECTION." MED EDUCATION PROVIDED AND PT WAS INSISTING NOT WANT ANY INSULIN. PT AWAKE AND RESTING ON BED AT THIS TIME. NO SIGNS OF ACUTE DISTRESS NOTED. TELE MONITOR ATTACHED. SAFETY MEASURES IN PLACE. BED ALARM ACTIVATED AND BED LOCKED.
--- NOTE | 2019-08-07 17:52 | NUR ---
CHECKED BP PRIOR TO MED ADMINISTERED, BP 129/93 PULSE 85. ADMINISTERED MEDS PER MD ORDER, MEDS EDUCATION PROVIDED, PT TOLERATED PO MED WELL. PT IS EATING DINNER AT THIS TIME. REFUSED INSULIN COVERAGE, EDUCATION PROVIDED AND INSISTED NOT WANTING IT. NO SIGNS OF DISTRESS NOTED. TELE MONITOR ATTACHED. SAFETY MEASURES IN PLACE. BED ALARM ACTIVATED.
--- NOTE | 2019-08-07 19:12 | NUR ---
ENDORSED PT TO [facility]. PT IS IN STABLE CONDITION. TELE MONITOR ATTACHED. ALL SAFETY MEASURE IN PLACE.
--- NOTE | 2019-08-07 19:13 | NUR ---
RECEIVED BEDSIDE REPORT FROM DAY RN. PT IS AAOX4. RESPIRATIONS ARE EQUAL AND UNLABORED ON 2L O2 VIA NC. SKIN IS INTACT. C/C HYPOXIA. DX:HYPOXIA, R/O COVID STILL PENDING. FLUID . HX ESRD HD T,TH,SAT LAST HD TODAY WITH 3L OUTPUT. ISABELLA AV SHUNT. IV ON R FA 22G SL. SKIN IS INTACT. SKIN WARM AND DRY. COLOR IS APPROPRIATE FOR ETHNICITY. PT IS LEGALLY BLIND SIGN AT DOOR. PT IS ANURIC WITH UA TO BE COLLECTED WILL NOTIFY MF. POC DISCUSSED WITH PT. CALL LIGHT WITHIN REACH. WILL CONTINUE TO MONITOR.
[2019-08-07 20:00] VITALS: BP 120/87
--- NOTE | 2019-08-07 20:36 | NUR ---
VSS. DEBORAH MEDICATIONS GIVEN PER ORDERS. BG 200 PT REFUSED INSULIN STATES HE ONLY TAKES IF GREATER THAN 200 D/T INSULIN SENSITIVITY. GAVE SANDWICH PER REQUEST. ALL NEEDS MET. WILL CONTINUE TO MONITOR.
--- NOTE | 2019-08-07 22:09 | NUR ---
PT IS SLEEPING COMFORTABLY IN BED WITH EYES CLOSED. CHEST RISE AND FALL NOTED. CALL LIGHT IS WITHIN REACH.
--- NOTE | 2019-08-07 23:57 | NUR ---
VITAL SIGNS ARE WITHIN NORMAL LIMITS. CHECKED BG UPON REQUEST 250 WILL NOT GIVE COVERAGE PER PT BLOOD SUGAR TENDS TO DROP DURING NIGHT WILL RECHECK IN AM. SNACK AT BEDSIDE. ALL SAFETY MEASURES ARE IN PLACE. CALL LIGHT IS WITHIN REACH.
[2019-08-08] VITALS: BP 143/87
--- NOTE | 2019-08-08 01:57 | NUR ---
PATIENT IS SLEEPING COMFORTABLY IN BED WITH EYES CLOSED. CHEST RISE AND FALL NOTED. CALL LIGHT IS WITHIN REACH.
[2019-08-08 04:00] VITALS: BP 155/89
--- NOTE | 2019-08-08 04:00 | NUR ---
VITAL SIGNS ARE WITHIN NORMAL LIMITS. ALL SAFETY MEASURES ARE IN PLACE. WILL CONTINUE TO MONITOR.
[2019-08-08 06:31] LABS: BASOPHILS # (AUTO) 0.1 K/uL (0.00-0.22); BASOPHILS % (AUTO) 2.5 % (0.0-2.0); EOSINOPHILS # (AUTO) 0.2 K/uL (0-0.4); EOSINOPHILS % (AUTO) 6.2 % (0.0-4.0); HEMATOCRIT 35.9 % (36-52); HEMOGLOBIN 12.1 g/dL (12.0-18.0); LYMPHOCYTES # (AUTO) 0.8 K/uL (2.0-11.5); LYMPHOCYTES % (AUTO) 20.9 % (20.5-51.1); MEAN CORPUSCULAR HEMOGLOBIN 32 pg (27-31); MEAN CORPUSCULAR HGB CONC 34 g/dL (33-37); MEAN CORPUSCULAR VOLUME 93.5 fL (80-94); MONOCYTES # (AUTO) 0.5 K/uL (0.8-1.0); MONOCYTES % (AUTO) 13.2 % (1.7-9.3); NEUTROPHILS # (AUTO) 2.1 K/uL (1.8-7.7); NEUTROPHILS % (AUTO) 57.2 % (42.2-75.2); PLATELET COUNT (AUTO) 98 K/uL (140-450); RED BLOOD CELL COUNT(AUTO) 3.84 MIL/uL (4.20-6.10); RED CELL DISTRIBUTION WIDTH 13.9 % (11.6-13.7); WHITE BLOOD COUNT (AUTO) 3.7 K/uL (4.8-10.8)
[2019-08-08] MEDS: LEVOTHYROXINE 0.025 MG TAB PO SCH (06:31)
[2019-08-08] MEDS: INSULIN LISPRO SLIDING SCALE 100 UNITS/ML VIAL SUBQ PRN ×2 (06:32→20:11)
[2019-08-08] MEDS: BLOOD GLUCOSE MONITORING 1 DEV DEV FS SCH ×4 (06:32→20:10)
[2019-08-08 06:42] LABS: ANION GAP 10.6 (8-16); CARBON DIOXIDE 30.6 mmol/L (21-32); POTASSIUM 4.2 mmol/L (3.5-5.1)
[2019-08-08 06:47] LABS: MAGNESIUM 1.8 mg/dL (1.8-2.4); PHOSPHORUS 4.9 mg/dL (2.5-4.9)
--- NOTE | 2019-08-08 07:14 | NUR ---
GAVE BEDSIDE REPORT FROM DAY RN. PT ENDORSED IN STABLE CONDITION.
--- NOTE | 2019-08-08 07:15 | NUR ---
RECEIVED REPORT FROM HOB MACHINE OPERATOR NURSE CALE FOR CONTINUITY OF CARE. PATIENT IN STABLE CONDITION. RESPIRATIONS EVEN AND UNLABORED, 2LPM VIA NC. IV INTACT AND PATENT. SAFETY MEASURES IN PLACE. BED IN LOW POSITION. BED ALARM ON. CALL LIGHT AT BEDSIDE. WILL CONTINUE TO MONITOR.
--- NOTE | 2019-08-08 07:51 | NUR ---
CRITICAL LAB CREAT 6.3 MARCELINO FERRERA INFORMED AT THIS TIME. NO CHANGE IN ORDERS.
[2019-08-08 07:52] LABS: CREATININE 6.3 mg/dL (0.6-1.3)
[2019-08-08 08:00] VITALS: BP 137/86
[2019-08-08] MEDS: SEVELAMER CARBONATE 800 MG TAB PO SCH ×3 (09:30→17:25)
[2019-08-08] MEDS: DIVALPROEX SPRINKLES 125 MG CAPDR PO SCH ×2 (09:32→20:23)
[2019-08-08] MEDS: cloNIDine 0.1 MG TAB PO SCH ×3 (09:32→17:25)
[2019-08-08] MEDS: ISOSORBIDE MONONITRATE 30 MG TABER PO SCH ×2 (09:32→20:27)
[2019-08-08] MEDS: NIFEdipine 60 MG TABER PO SCH (09:32)
[2019-08-08] MEDS: LOSARTAN 25 MG TAB PO SCH (09:33)
[2019-08-08] MEDS: MINOXIDIL 2.5 MG TAB PO SCH ×3 (09:33→20:29)
[2019-08-08] MEDS: DULoxetine 30 MG CAPDR PO SCH (09:33)
[2019-08-08] MEDS: VIT-B COMP/VIT-C/FOLIC ACID 1 TAB PO SCH (09:33)
[2019-08-08] MEDS: PANTOPRAZOLE 40 MG TABEC PO SCH ×2 (09:34→20:22)
[2019-08-08] MEDS: levETIRAcetam 500 MG TAB PO SCH ×2 (09:34→20:22)
[2019-08-08] MEDS: DOCUSATE SODIUM 100 MG GELCAP PO SCH ×2 (09:34→20:22)
[2019-08-08] MEDS: OLOPATADINE HCL OP SCH (09:36)
--- NOTE | 2019-08-08 09:43 | NUR ---
GAVE ORDERED DUE MEDICATIONS AT THIS TIME. PATIENT TOLERATED WELL. BED IN LOW POSITION. BED ALARM ON. CALL LIGHT AT BEDSIDE. WILL CONTINUE TO MONITOR.
[2019-08-08 12:00] VITALS: BP 143/89
--- NOTE | 2019-08-08 12:32 | NUR ---
GRACE CARBONE AT BEDSIDE FOR ASSESSMENT AT THIS TIME. PATIENT IN STABLE CONDITION. BED IN LOW POSITION. BED ALARM ON. CALL LIGHT AT BEDSIDE. WILL CONTINUE TO MONITOR.
--- NOTE | 2019-08-08 14:38 | NUR ---
PATIENT SLEEPING AT THIS TIME. BED IN LOW POSITION. BED ALARM ON. CALL LIGHT WITHIN REACH. WILL CONTINUE TO MONITOR.
[2019-08-08 16:00] VITALS: BP 119/74
--- NOTE | 2019-08-08 16:25 | NUR ---
PATIENT IN STABLE CONDITION. BED IN LOW POSITION. BED ALARM ON. CALL LIGHT WITHIN REACH. WILL CONTINUE TO MONITOR.
--- NOTE | 2019-08-08 19:10 | NUR ---
GAVE REPORT TO COLLECTIONS MANAGER NURSE RAKAN FOR CONTINUITY OF CARE. PATIENT IN STABLE CONDITION.
--- NOTE | 2019-08-08 19:23 | NUR ---
RECEIVED PATIENT IN STABLE CONDITION FROM AM SHIFT NURSE FOR CONTINUITY OF CARE. RESPIRATIONS EVEN, UNLABORED. SKIN WARM, DRY. SALINE LOCK TO RIGHT FOREARM 22G PATENT/INTACT. NO C/O PAIN. NO S/S ACUTE DISTRESS. CALL LIGHT WITHIN REACH. WILL CONTINUE TO MONITOR.
[2019-08-08 20:00] VITALS: BP 92/57
--- NOTE | 2019-08-08 21:00 | NUR ---
PATIENT AWAKE AND IN STABLE CONDITION. NO C/O PAIN. NO S/S ACUTE DISTRESS. CALL LIGHT WITHIN REACH. WILL CONTINUE TO MONITOR.
--- NOTE | 2019-08-08 23:00 | NUR ---
PATIENT ASLEEP. NO S/S ACUTE DISTRESS. CALL LIGHT WITHIN REACH. WILL CONTINUE TO MONITOR.
[2019-08-09] VITALS: BP_SYST 117; BP_SYST 92; BP_DIAS 55; BP_DIAS 66
--- NOTE | 2019-08-09 01:30 | NUR ---
MADE ROUNDS. PATIENT CONTINUES IN STABLE CONDITION. NO C/O PAIN. NO S/S ACUTE DISTRESS. CALL LIGHT WITHIN REACH. WILL CONTINUE TO MONITOR.
--- NOTE | 2019-08-09 03:00 | NUR ---
PROVIDED EDUCATION REGARDING WEARING NASAL CANNULA TO KEEP OXYGEN LEVELS AT AN OPTIMAL LEVEL. PATIENT VERBALIZED UNDERSTANDING. NO C/O PAIN. NO S/S ACUTE DISTRESS. CALL LIGHT WITHIN REACH. WILL CONTINUE TO MONITOR.
[2019-08-09 04:00] VITALS: BP 94/57
--- NOTE | 2019-08-09 05:36 | NUR ---
PATIENT RESTING QUIETLY IN BED. NO C/O PAIN. NO S/S ACUTE DISTRESS. CALL LIGHT WITHIN REACH. WILL CONTINUE TO MONITOR.
[2019-08-09] MEDS: LEVOTHYROXINE 0.025 MG TAB PO SCH (05:41)
[2019-08-09] MEDS: BLOOD GLUCOSE MONITORING 1 DEV DEV FS SCH ×4 (06:30→21:09)
--- NOTE | 2019-08-09 06:31 | NUR ---
INCONTINENT CARE PROVIDED BY QA REVIEWER. PATIENT IN STABLE CONDITION. NO C/O PAIN. NO S/S ACUTE DISTRESS. CALL LIGHT WITHIN REACH. WILL CONTINUE TO MONITOR.
--- NOTE | 2019-08-09 07:15 | NUR ---
RECEIVED REPORT FROM NIGHT NURSE FOR CONTINUITY OF CARE, PT IS STABLE, PT ASLEEP, RESPIRATIONS ARE EVEN AND UNLABORED ON 2L NASAL CANNULA OXYGEN, PT HAS AV SHUNT ON LEFT ARM, PT HAS RIGHT FA 22G SALINE LOCK, SKIN INTACT, BED IN LOW POSITION, SAFETY MEASURES IN PLACE, CALL LIGHT WITHIN REACH, WILL INTRODUCE SELF, AND UPDATE WHITEBOARD, WILL CONTINUE TO MONITOR.
[2019-08-09 08:00] VITALS: BP 108/66
[2019-08-09] MEDS: SEVELAMER CARBONATE 800 MG TAB PO SCH ×3 (09:00→18:10)
[2019-08-09] MEDS: NIFEdipine 60 MG TABER PO SCH (09:00)
[2019-08-09] MEDS: MINOXIDIL 2.5 MG TAB PO SCH ×2 (09:00→20:49)
[2019-08-09] MEDS: cloNIDine 0.1 MG TAB PO SCH ×4 (09:00→18:10)
[2019-08-09] MEDS: LOSARTAN 25 MG TAB PO SCH (09:00)
[2019-08-09] MEDS: ISOSORBIDE MONONITRATE 30 MG TABER PO SCH ×2 (09:14→20:48)
[2019-08-09] MEDS: DIVALPROEX SPRINKLES 125 MG CAPDR PO SCH ×2 (09:14→20:48)
[2019-08-09] MEDS: DOCUSATE SODIUM 100 MG GELCAP PO SCH ×2 (09:15→20:48)
[2019-08-09] MEDS: PANTOPRAZOLE 40 MG TABEC PO SCH ×2 (09:16→20:49)
[2019-08-09] MEDS: levETIRAcetam 500 MG TAB PO SCH ×2 (09:16→20:49)
[2019-08-09] MEDS: VIT-B COMP/VIT-C/FOLIC ACID 1 TAB PO SCH (09:16)
[2019-08-09] MEDS: DULoxetine 30 MG CAPDR PO SCH (09:16)
[2019-08-09] MEDS: OLOPATADINE HCL OP SCH (09:17)
--- NOTE | 2019-08-09 09:21 | NUR ---
ADMINISTERED NORCO FOR LEG PAIN OF 6/10, PT STATES IT IS SHARP PAIN. ADMINISTERED SCHEDULED MEDICATION, MEDICATION EDUCATION GIVEN, PT VERBALIZED UNDERSTANDING, PT TOLERATED MEDICATION WELL. HELP BLOOD PRESSURE MEDICATION PER DIALYSIS. PT IS STABLE, PT CURRENTLY ON DIALYSIS, DIALYSIS NURSE AT BEDSIDE.
--- NOTE | 2019-08-09 11:07 | NUR ---
PT IS DOING DIALYSIS, DIALYSIS NURSE AT BEDSIDE, PT IS STABLE, NO SIGNS OF DISTRESS NOTED, RESPIRATIONS ARE EVEN AND UNLABORED ON ROOM AIR, WILL CONTINUE TO MONITOR.
[2019-08-09 12:00] VITALS: BP 121/64
--- NOTE | 2019-08-09 12:30 | NUR ---
HEMODIALYSIS FINISH, OUTPUT 3.2L, PT BP: 124/74, HR 64, PT IS STABLE, CALL LIGHT WITHIN REACH.
--- NOTE | 2019-08-09 13:49 | NUR ---
ADMINISTERED SCHEDULED MEDICATION, MEDICATION EDUCATION GIVEN, PT VERBALIZED UNDERSTANDING, PT TOLERATED MEDICATION WELL, PT IS STABLE, NO SIGNS OF DISTRESS NOTED, CALL LIGHT WITHIN REACH.
--- NOTE | 2019-08-09 15:01 | NUR ---
PT RESTING IN BED, NO SIGNS OF DISTRESS NOTED, RESPIRATIONS ARE EVEN AND UNLABORED ON 2L NASAL CANNULA OXYGEN, PT IS STABLE, CALL LIGHT WITHIN REACH.
[2019-08-09 16:00] VITALS: BP 129/77
[2019-08-09] MEDS: INSULIN LISPRO SLIDING SCALE 100 UNITS/ML VIAL SUBQ PRN ×2 (18:13→21:01)
--- NOTE | 2019-08-09 18:13 | NUR ---
ADMINISTERED SCHEDULED MEDICATION, MEDICATION EDUCATION GIVEN, PT VERBALIZED UNDERSTANDING, PT TOLERATED WELL, PT IS STABLE, NO SIGNS OF DISTRESS NOTED, CALL LIGHT WITHIN REACH.
--- NOTE | 2019-08-09 19:15 | NUR ---
GAVE REPORT TO NIGHT NURSE FOR CONTINUITY OF CARE, PT IS STABLE
--- NOTE | 2019-08-09 19:51 | NUR ---
RECEIVED BESIDE REPORT FROM AM RN REGARDING THE PATIENT FOR CONTINUITY OF CARE. PATIENT A/A/OX3, LAYING IN BED,NO SIGN AND SYMPTOMS OF DISTRESS NOTED. NO COMPLAIN AT THIS TIME.FALL PRECAUTION IMPLEMENTED.INSTRUCTED TO CALL FOR ASSISTANCE AT ALL TIMES. PT VERBALIZED UNDERSTANDING WITH THE POC. CALL LIGHT WITHIN REACH. WILL CONTINUE POC AND MONITORING.
[2019-08-09 20:00] VITALS: BP 119/65
--- NOTE | 2019-08-09 21:50 | NUR ---
ASSESSED PATIENT AND GAVE SCHEDULED MEDICATIONS ORDERED. BLOOD SUGAR CHECKED 207, 4 UNITS SS COVERAGE GIVEN ORDERED. 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 PT DENIES ANY PAIN,CHEST PAIN AND SOB AT THIS TIME, SATING 96% ON 2L/NC. PATIENT ALSO REQUESTED TO CHECK HIS BLOOD SUGAR @ 0000,0300 & 0600. DISCUSSED POC WITH THE PATIENT AND VERBALIZED UNDERSTANDING. FALL PRECAUTION IMPLEMENTED. INSTRUCTED TO CALL FOR ASSISTANCE AT ALL TIMES. CALL LIGHT WITHIN REACH. WILL CONTINUE SURVEILLANCE AND MONITORING.
[2019-08-09] MEDS ORDERED: LEVOFLOXACIN 250 MG/D5 PREMIX 50 ML IV SCH (22:25)
--- NOTE | 2019-08-09 22:59 | NUR ---
CALLED THE PHARMACY TO ASK IF THEY CAN VERIFY THE NEW ANTIBIOTIC LEVAQUIN ORDERED. SPOKE WITH ALANIS AND STATED HE WILL RELAY THE MESSAGE TO THE PHARMACY.
[2019-08-10] VITALS (8 sets, daily range): BP systolic 95–128; BP diastolic 52–79
--- NOTE | 2019-08-10 00:10 | NUR ---
CHECKED PATIENT BLOOD SUGAR PER PATIENT REQUESTS. BLOOD SUGAR IS 102, PATIENT GIVEN SMALL SNACK.
--- NOTE | 2019-08-10 01:17 | NUR ---
PATIENT SLEEPING AT THIS TIME. NO S/SX OF DISTRESS NOTED. CALL LIGHT WITHIN REACH. WILL CONTINUE POC AND MONITORING.
--- NOTE | 2019-08-10 03:15 | NUR ---
RE CHECKED PATIENT BLOOD SUGAR PER PATIENT REQUEST. BLOOD SUGAR IS 62. PATIENT DENIES ANY SYMPTOMS OF LOW BLOOD SUGAR. GAVE PATIENT HALF A SANDWICH AND ORANGE JUICE. WILL RECHECK PATIENT BLOOD SUGAR LATER. CALL LIGHT WITHIN REACH.
--- NOTE | 2019-08-10 05:30 | NUR ---
PT ASLEEP AND NO COMPLAIN AT THIS TIME. CALL LIGHT WITHIN REACH. WILL CONTINUE MONITORING AND POC.
[2019-08-10] MEDS: LEVOTHYROXINE 0.025 MG TAB PO SCH (06:35)
[2019-08-10] MEDS: BLOOD GLUCOSE MONITORING 1 DEV DEV FS SCH ×3 (06:35→16:47)
--- NOTE | 2019-08-10 06:44 | NUR ---
BLOOD SUGAR CHECKED. BS IS 89. NO COVERAGE GIVEN AND NEEDED. PATIENT SLEEPING AT THIS TIME. NOT IN ANY DISTRESS. NO COMPLAIN AT THIS TIME. ALL NEEDS ATTENDED. CALL LIGHT WITHIN REACH. WILL ENDORSE THE PATIENT TO THE ONCOMING RN FOR CONTINUITY OF CARE.
--- NOTE | 2019-08-10 07:12 | NUR ---
RECEIVED REPORT FROM CEO AND FOUNDER NURSE FOR CONTINUITY OF CARE. AA&OX4; SWEDISH SPEAKING. RESPIRATIONS ARE EVEN AND UNLABORED, BREATHING TO 2L NASAL CANULA. R FOREARM 20G IV IS PATENT AND INTACT, SALINE LOCK. L FOREARM DIALYSIS SHUNT. L LEG FRACTURE. CCHO 60G DIET. REVIEWED PLAN OF CARE WITH PT; PLAN IS TO TRANSFER PT BACK TO [facility] TODAY. TELE MONITOR ATTACHED. SAFETY MEASURES IN PLACE; CALL LIGHT WITHIN REACH, BED IN LOW POSITION. WILL CONTINUE TO MONITOR.
[2019-08-10] MEDS: OLOPATADINE HCL OP SCH (09:00)
[2019-08-10] MEDS: DIVALPROEX SPRINKLES 125 MG CAPDR PO SCH (09:00)
[2019-08-10] MEDS: VIT-B COMP/VIT-C/FOLIC ACID 1 TAB PO SCH (09:37)
[2019-08-10] MEDS: PANTOPRAZOLE 40 MG TABEC PO SCH (09:37)
[2019-08-10] MEDS: NIFEdipine 60 MG TABER PO SCH (09:38)
[2019-08-10] MEDS: levETIRAcetam 500 MG TAB PO SCH (09:40)
[2019-08-10] MEDS: DOCUSATE SODIUM 100 MG GELCAP PO SCH (09:41)
[2019-08-10] MEDS: cloNIDine 0.1 MG TAB PO SCH ×3 (09:42→17:00)
[2019-08-10] MEDS: LOSARTAN 25 MG TAB PO SCH (09:43)
[2019-08-10] MEDS: SEVELAMER CARBONATE 800 MG TAB PO SCH ×3 (09:43→17:00)
[2019-08-10] MEDS: DULoxetine 30 MG CAPDR PO SCH (09:44)
[2019-08-10] MEDS: ISOSORBIDE MONONITRATE 30 MG TABER PO SCH (09:45)
[2019-08-10] MEDS: MINOXIDIL 2.5 MG TAB PO SCH (09:46)
--- NOTE | 2019-08-10 09:56 | NUR ---
SCHEDULED MEDICATIONS GIVEN. PT TOLERATED PO MEDICATION WELL. PT REFUSED EYE DROP MEDICATION. MEDICATION EDUCATION PROVIDED. NO ACUTE DISTRESS NOTED. TELE MONITOR ATTACHED. SAFETY MEASURES IN PLACE. WILL CONTINUE TO MONITOR.
--- NOTE | 2019-08-10 12:17 | NUR ---
BLOOD SUGAR CHECKED; BGL: 210. COVERAGE GIVEN. PT IS GETTING READY TO EAT LUNCH. NO DISTRESS NOTED.
[2019-08-10] MEDS: INSULIN LISPRO SLIDING SCALE 100 UNITS/ML VIAL SUBQ PRN (12:23)
--- NOTE | 2019-08-10 15:46 | NUR ---
REPORT FOR TRANSFER GIVEN TO SIMONE AT [facility]. PER SIMONE, THERE WILL BE NO ADMITTING NURSE UNTIL BETWEEN 7:30 AND 8:00 P.M. TRANSPORTATION FOR TRANSFER TO BE ARRANGED FOR 7;30 P.M.
--- NOTE | 2019-08-10 16:47 | NUR ---
DISCHARGE PAPERWORK SIGNED. BLOOD SUGAR CHECKED. BGL: 163. PT REFUSED INSULIN. PT STATED THAT HE GETS 2 UNITS OF INSULIN FOR BGL 0F 200 OR HIGHER, AND HE REFUSES TO TAKE INSULIN FOR ANY LEVEL BELOW 200 BECAUSE THE LEVELS, " JUMP AROUND, AND ALWAYS HAS." WILL CONTINUE TO MONITOR PATIENT.
--- NOTE | 2019-08-10 18:52 | NUR ---
RECEIVED A CALL FROM ELINOR, FROM [facility]; PER ELINOR, TRANSPORT WILL BE 90 MINUTES LATE.
--- NOTE | 2019-08-10 19:22 | NUR ---
PT IS TO TRANSFER TO [facility] WHEN [facility] TRANSPORTATION ARRIVES. DISCHARGE PAPERWORK SIGNED. ENDORSED TO BANKRUPTCY JUDGE NURSE. PT IS IN STABLE CONDITION.
--- NOTE | 2019-08-10 19:30 | NUR ---
RECEIVED BEDSIDE REPORT FROM KATHERIN DOYLE THAT THE PATIENT IS BEING DISCHARGE TO [facility]. PATIENT A/A/OX4, NOT IN ANY DISTRESS. DENIES ANY CHEST PAIN,SOB AND ANY PAIN. 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 KATHERIN DOYLE GAVE REPORT TO THE RECEIVING KATHERIN NICHOLS FROM [facility]. AWAITING FOR AMBULANCE TO [facility] ARCHITECT THE PATIENT AND PER KTAHERIN DOYLE THE AMBULANCE WILL BE 90 MINUTES LATE. PATIENT MADE AWARE THAT THE AMBULANCE WILL BE 90 MINUTES LATE. PATIENT VERBALIZED UNDERSTANDING. CALL LIGHT WITHIN REACH. WILL CONTINUE POC AND MONITORING.
--- NOTE | 2019-08-10 20:30 | NUR ---
PATIENT BP IS RUNNING 95/55 AND O2SAT IS 82% ON RA. PATIENT USED 2L/NC BASELINE. INSTRUCTED THE PATIENT TO PUT HIS O2 BACK ON BUT THE PATIENT REFUSED. PATIENT IS NOT HAPPY AT THIS TIME BECAUSE HIS BELONGINGS,WHITE SHIRT AND HIS RIGHT SIDE SHOE (VANS) PATIENT STATED ARE MISSING AND UNABLE TO FIND IT IN THE PATIENT ROOM AND THE PREVIOUS ROOM 129A WHERE HE WAS BEFORE. NOTIFIED THE MANAGER EMERGENCY ROY AND THE MANAGER TECHNICAL SUPPORT GALLITO AND ALSO CALLED THE SECURITY TO CHECK IT ON THEIR LOST AND FOUND ITEM. NOTIFIED DR ABAD WITH THE PATIENT VS AND MD WENT TO THE PATIENT ROOM AND WAS ABLE TO CONVINCED THE PATIENT TO PUT HIS O2 BACK ON. PATIENT IS NOW SATING 95% ON 2L/NC. AMBULANCE [facility] CAME AND WAITING OUTSIDE THE PATIENT ROOM.
--- NOTE | 2019-08-10 20:45 | NUR ---
DR ABAD AWARE OF THE PATIENT VS AND OK'D TO DISCHARGE THE PATIENT BACK TO [facility]. PER RN YANIRA DON'T DC THE PATIENT IV PER [facility] KATHERIN NICHOLS. PATIENT LEFT THE UNIT IN STABLE CONDITION A/A/OX4. VSS UPON D/C. NOT IN ANY DISTRESS AND NO COMPLAIN OF PAIN. PATIENT ALSO MADE AWARE THAT THE SUIT ATTENDANT ROY FILLED UP A MISSING VALUABLE REPORT. RETURNED PT OTHER BELONGINGS LIKE CELLPHONE AND NO SURGERY TEACHER PER PT, CAM BOOTS & EYE DROP. PATIENT LEFT THE UNIT ACCOMPANIED BY 2 [facility] STAFF.
== END 2019-08-10 20:45 | DRG 291 ==
LOC: MED 14:08 → EEVIPCON 14:08 → MMU 16:39 → MTU 08-08 21:36
PROVIDERS: ADMIT General Practice; ATTEND General Practice
DX: I13.2 Hypertensive heart and chronic kidney disease with heart failure and with stage 5 chronic kidney disease, or end stage renal disease (principal); N17.0 Acute kidney failure with tubular necrosis; I50.43 Acute on chronic combined systolic (congestive) and diastolic (congestive) heart failure; J96.01 Acute respiratory failure with hypoxia; N18.6 End stage renal disease; E44.0 Moderate protein-calorie malnutrition; E11.22 Type 2 diabetes mellitus with diabetic chronic kidney disease; Z68.20 Body mass index [BMI] 20.0-20.9, adult; Z88.1 Allergy status to other antibiotic agents; Z88.8 Allergy status to other drugs, medicaments and biological substances; J45.909 Unspecified asthma, uncomplicated; E87.70 Fluid overload, unspecified; E11.319 Type 2 diabetes mellitus with unspecified diabetic retinopathy without macular edema; H54.8 Legal blindness, as defined in USA; G40.909 Epilepsy, unspecified, not intractable, without status epilepticus; E78.5 Hyperlipidemia, unspecified; F32.9 Major depressive disorder, single episode, unspecified; Z99.2 Dependence on renal dialysis; E11.21 Type 2 diabetes mellitus with diabetic nephropathy; S82.402A Unspecified fracture of shaft of left fibula, initial encounter for closed fracture; X58.XXXA Exposure to other specified factors, initial encounter; D63.8 Anemia in other chronic diseases classified elsewhere; E03.9 Hypothyroidism, unspecified; Z03.818 Encounter for observation for suspected exposure to other biological agents ruled out; Y93.89 Activity, other specified; Y92.89 Other specified places as the place of occurrence of the external cause; Y99.8 Other external cause status
CPT/HCPCS: 36415; 71045; 73562; 73590; 73610; 80048; 80053; 82550; 82728; 82948; 83036; 83605; 83615; 83735; 83880; 84100; 84443; 84484; 85025; 85379; 85384; 85610; 85730; 86140; 87040; 87081; 87420; 87804; 90935; 93005; 96374; 99285; J1815; J1885; J1956; J2270; J7030; Q0092; U0003-CS

== ENCOUNTER 2019-08-16 14:45 | Inpatient (IN) | payer OTHER, SELFPAY ==
[~2019-08-16] VITALS: Ht 182.9 cm; Wt 68.0 kg
[2019-08-16 14:45] VITALS: BP 174/93
[~2019-08-16 14:45] MED LIST changes: -DIVA125E1; +DIVA125E1 PO; +HYDR100T79 PO; -LACT10CA PO; -PIPE50SO5 IV; -TRAM50TA3 PO
--- NOTE | 2019-08-16 14:46 | NUR ---
BIBA TAKEN TO BED 9
--- NOTE | 2019-08-16 14:47 | NUR ---
PT PLACED ON 3 LEAD ECG AND PULSE OX.
--- NOTE | 2019-08-16 14:55 | NUR ---
PT HAD 3 EPISODES OF EMESIS. EMESIS APPEARS COFFEE GROUND, DR. SALGADO MADE AWARE.
[2019-08-16] MEDS ORDERED: ACET-2619 PO (15:11)
[2019-08-16] MEDS ORDERED: NA P133E RC (15:11)
[2019-08-16] MEDS ORDERED: [UNRECOGNIZED DRUG - CODE] PO (15:11)
[2019-08-16] MEDS ORDERED: MAGN400S60 PO (15:11)
[2019-08-16] MEDS ORDERED: ONDA4TAB PO (15:11)
--- NOTE | 2019-08-16 15:29 | NUR ---
44 Y/M [place] [facility] [place]ALUATION OF VOMITING OVER 10 EPISODES PER FACILITY RN, PT ALSO REFUSED DIALYSIS TODAY HE WASNT FEELING WELL.; LAST TX WAS SUNDAY. SHUNT TO L FOREARM. PT REPORTS LOSS OF APPETITE, CENTRALIZED ABD PAIN 10/19. PT DENIES ANY COUGH, FEVER, OR DIARRHEA. PT REPORTS HE IS ANURIC. RR EVEN. PITTING 1+ EDEMA TO LLE. RLE IN CAMBOOT DUE TO FX. PT BEGAN TO DESAT TO 80% S/P VOMITING EPISODE, PT PLACED ON 4L NC O2 AND NOW SATTING AT 98% HX DIALYSIS (//SUN), DM, HTN, EPILEPSY, GERD, LEGALLY BLIND, END STAGE RENAL DISEASE
--- NOTE | 2019-08-16 15:37 | NUR ---
DR. SALGADO AT BEDSIDE.
[2019-08-16] MEDS ORDERED: NACL 0.9% 1,000 ML IV ONE (15:49)
[2019-08-16] MEDS ORDERED: ONDANSETRON 4 MG/2 ML VIAL IVP ONE (15:50)
[2019-08-16] MEDS ORDERED: MORPHINE SULFATE 4 MG/ML SYR IVP ONE (15:50)
--- NOTE | 2019-08-16 16:15 | NUR ---
Patient taken to CT via gurney.
--- NOTE | 2019-08-16 16:25 | NUR ---
Patient returned from CT and placed back in bed 9.
[2019-08-16] MEDS ORDERED: METOCLOPRAMIDE 10 MG/2 ML INJ VIAL IVP ONE ×2 (16:50→22:20)
[2019-08-16] MEDS ORDERED: diphenhydrAMINE 50 MG/ML VIAL IVP ONE (16:50)
--- NOTE | 2019-08-16 16:51 | NUR ---
DR. SALGADO MADE AWARE OF PTS ELEVATED BP.
[2019-08-16 17:01] LABS: BASOPHILS % (AUTO) 0.8 % (0.0-2.0); EOSINOPHILS % (AUTO) 0.3 % (0.0-4.0); HEMATOCRIT 34.7 % (36-52); HEMOGLOBIN 11.6 g/dL (12.0-18.0); LYMPHOCYTES # (AUTO) 0.3 K/uL (2.0-11.5); LYMPHOCYTES % (AUTO) 4.7 % (20.5-51.1); MEAN CORPUSCULAR HEMOGLOBIN 31 pg (27-31); MEAN CORPUSCULAR HGB CONC 34 g/dL (33-37); MEAN CORPUSCULAR VOLUME 92.1 fL (80-94); MONOCYTES # (AUTO) 0.4 K/uL (0.8-1.0); NEUTROPHILS # (AUTO) 4.6 K/uL (1.8-7.7); NEUTROPHILS % (AUTO) 86.2 % (42.2-75.2); PLATELET COUNT (AUTO) 91 K/uL (140-450); RED BLOOD CELL COUNT(AUTO) 3.77 MIL/uL (4.20-6.10); RED CELL DISTRIBUTION WIDTH 13.3 % (11.6-13.7); WHITE BLOOD COUNT (AUTO) 5.4 K/uL (4.8-10.8)
[2019-08-16 17:11] LABS: ALBUMIN 3.1 g/dL (3.4-5.0); ANION GAP 12.8 (8-16); CARBON DIOXIDE 35.4 mmol/L (21-32); POTASSIUM 4.2 mmol/L (3.5-5.1); TOTAL BILIRUBIN 0.6 mg/dL (0.0-1.0)
[2019-08-16 17:13] LABS: CREATININE 8.6 mg/dL (0.6-1.3)
--- NOTE | 2019-08-16 17:14 | NUR ---
CRITICAL LAB RESULT RECEIVED BUN-83, CREAT 8.6 DR. SALGADO MADE AWARE.
--- NOTE | 2019-08-16 18:23 | NUR ---
RECEIVED REPORT FROM ER NURSE FOR CONTINUITY OF CARE, PT IS AA0X4, PT IS STABLE, PT IS VOMITING, PT HAS RIGHT AC 20G SALINE LOCK, PT ON 3L NASAL CANNULA, PT HAS A LEG BRACE ON LEFT FOOT, PT IS LEGALLY BLIND, BED IN LOW POSITION, INTRODUCE PT TO THE ROOM, BED ALARM ON, ALL NEEDS MET, WILL CONTINUE TO MONITOR, CALL LIGHT WITHIN REACH.
--- NOTE | 2019-08-16 18:23 | NUR ---
Patient will be admitted to care of DR. MENA. Admited to TELE. Will go to room 114. Belongings list completed. Report to KATHERIN TORRES.
[2019-08-16 18:30] VITALS: BP 228/137
[2019-08-16] MEDS ORDERED: hydrALAZINE 20 MG/ML VIAL IVP PRN (18:35)
--- NOTE | 2019-08-16 18:45 | NUR ---
NOTIFIED DR GONSALES PT HAS ELEVATED BP OF 228/137, SAID TO GIVE HYDRALAZINE, WAITING FOR PHARMACY TO VERIFY MEDICATION AND WILL ADMINISTERED.
[2019-08-16] MEDS ORDERED: GLUCAGON 1 MG VIAL IVP PRN (19:10)
[2019-08-16] MEDS ORDERED: DOCUSATE SODIUM 100 MG GELCAP PO PRN (19:10)
[2019-08-16] MEDS ORDERED: HYDROcodone/APAP 7.5/325 MG 1 TAB PO PRN (19:10)
[2019-08-16] MEDS ORDERED: INSULIN LISPRO SLIDING SCALE 100 UNITS/ML VIAL SUBQ PRN (19:10)
[2019-08-16] MEDS ORDERED: ACETAMINOPHEN 325 MG TAB PO PRN (19:10)
[2019-08-16] MEDS ORDERED: LORazepam 2 MG/ML VIAL IM/IVP PRN (19:10)
[2019-08-16] MEDS ORDERED: DEXTROSE 50% 50 ML SYR IVP PRN (19:10)
--- NOTE | 2019-08-16 19:10 | NUR ---
ADMINISTERED HYDRALAZINE FOR ELEVATED PRESSURE BP OF 228/137, HR 96. MEDICATION EDUCATION GIVEN, PT VERBALIZED UNDERSTANDING, PT TOLERATED WELL, PT IS STABLE, CALL LIGHT WITHIN REACH.
--- NOTE | 2019-08-16 19:18 | NUR ---
GAVE REPORT TO NIGHT NURSE FOR CONTINUITY OF CARE
--- NOTE | 2019-08-16 19:18 | NUR ---
RECEIVED BEDSIDE REPORT FROM AM SHIFT NURSE. PATIENT IS LYING SUPINE IN BED, NO SOB OR DISTRESS ON 3LPM VIA NASAL CANNULA. IV ACCESS ON RIGHT AC 20 GAUGE, PATENT AND INTACT. PATIENT NOTED WITH LEFT UPPER ARM AV SHUNT. PATIENT IS LEGALLY BLIND. PATIENT IS NOTED WITH LEFT FOOT FRACTURE WITH A LEG BRACE. INITIAL ASSESSMENT DONE. PATIENT REFUSED SKIN ASSESSMENT BUT SAID HIS SKIN IS INTACT. BED IN LOW, BED LOCKED. SAFETY MEASURES IN PLACE. CALL LIGHT WITHIN PATIENT REACH. WILL CONTINUE TO MONITOR PATIENT.
[2019-08-16] MEDS ORDERED: AZITHROMYCIN 500 MG in DEXTROSE 5% 250 ML IV ONE (19:20)
[2019-08-16] MEDS ORDERED: ALBUTEROL HFA MDI 90 MCG/ACTUATION 8 GM INH PRN (19:40)
[2019-08-16] MEDS: ASCORBIC ACID 500 MG TAB PO SCH (19:45)
[2019-08-16] MEDS: ZINC SULF 220 MG CAP PO SCH (19:45)
[2019-08-16] MEDS ORDERED: HYDROcodone/APAP 10/325 MG 1 TAB TAB PO PRN (19:50)
[2019-08-16] MEDS ORDERED: MAGNESIUM HYDROXIDE 2400 MG/30 ML UDC PO PRN (19:50)
[2019-08-16] MEDS ORDERED: METOCLOPRAMIDE 10 MG/2 ML INJ VIAL IVP PRN (19:50)
[2019-08-16] MEDS ORDERED: SODIUM PHOSPHATE 118 ML ENEM RC PRN (19:50)
[2019-08-16 20:10] LABS: D-DIMER 524 ng/ml (0-400)
[2019-08-16 20:14] LABS: CHOL/HDL RATIO 2.1 (1-4.5); FREE T4 (FREE THYROXINE) 0.96 ng/dL (0.76-1.46); MAGNESIUM 2.3 mg/dL (1.8-2.4); PHOSPHORUS 4.6 mg/dL (2.5-4.9); THYROID STIMULATING HORMONE 20.19 uIU/mL (0.34-3.74)
[2019-08-16 20:15] LABS: PROTHROMBIN TIME 12.7 secs (10.8-13.4)
[2019-08-16 20:25] LABS: FIBRINOGEN 496 mg/dL (200-400)
[2019-08-16] MEDS ORDERED: AZITHROMYCIN 500 MG INJ VIAL IV ONE (20:29)
--- NOTE | 2019-08-16 20:30 | NUR ---
PATIENT VOMITING. NOTIFIED MD FOR ORDERS FOR NAUSEA/VOMITING.
--- NOTE | 2019-08-16 20:50 | NUR ---
PRN METOCLOPRAMIDE GIVEN FOR NAUSEA/ VOMITING. WILL CONTINUE TO MONITOR PATIENT. PATIENT HAS INCREASED BP BUT MEDS ARE HELD AT THIS TIME PER MD ORDER. WILL GIVE WHEN PATIENT CALMS DOWN.
[2019-08-16] MEDS: BLOOD GLUCOSE MONITORING 1 DEV DEV FS SCH (21:00)
[2019-08-16] MEDS: PIPERACILLIN/TAZOBACTAM 2.25 GM in DEXTROSE 5% 50 ML IV SCH (21:00)
[2019-08-16] MEDS: DOCUSATE SODIUM 100 MG GELCAP PO SCH (21:00)
[2019-08-16] MEDS: hydrALAZINE 25 MG TAB PO SCH (21:00)
[2019-08-16] MEDS: PANTOPRAZOLE 40 MG TABEC PO SCH (21:00)
--- NOTE | 2019-08-16 21:30 | NUR ---
PATIENT STILL VOMITING. MD MADE AWARE. MD WILL PUT IN ORDERS FOR ZOFRAN. WILL CONTINUE TO MONITOR PATIENT.
[2019-08-16] MEDS ORDERED: PIPERACILLIN/TAZOBACTAM 2.25 GM VIAL IV ONE (21:36)
[2019-08-16] MEDS: ONDANSETRON 4 MG/2 ML VIAL IM/IVP PRN (21:47)
--- NOTE | 2019-08-16 21:47 | NUR ---
PRN ZOFRAN ADMINISTERED FOR VOMITING. WILL CONTINUE TO MONITOR PATIENT.
--- NOTE | 2019-08-16 22:00 | NUR ---
DR. GONSALES NOTIFIED THAT PATIENT STARTED TO VOMIT AGAIN AND THAT PATIENTS BP MEDS HAVE NOT YET BEEN ADMINISTERED. PATIENT HAS INCREASED BP OF 190/105, HR 89. HE WILL PUT IN ORDERS FOR ONE TIME ZOFRAN AND PROCHLORPERAZINE.
[2019-08-16] MEDS ORDERED: PROCHLORPERAZINE 5 MG TAB PO PRN (22:15)
[2019-08-16] MEDS ORDERED: PROCHLORPERAZINE 10 MG/2 ML VIAL IVP PRN (22:20)
--- NOTE | 2019-08-16 22:25 | NUR ---
ONE TIME ZOFRAN AND PROCHLORPERAZINE ADMINISTERED FOR NAUSEA AND VOMITING. WILL CONTINUE TO MONITOR PATIENT. Addendum: 08/17/19 at 0638 by eLticia Loomis RN EDIT- METOCLOPRAMIDE AND PROCHLORPERAZINE WERE ADMINISTERED. NOT ZOFRAN.
--- NOTE | 2019-08-16 22:47 | NUR ---
RT COMPLETED STAT EKG AND GAVE RESULTS TO ON-CALL DOCTOR (Lauren SOLOMON) PT STABLE ON 4 LNC [id number] HEART RATE 110.
--- NOTE | 2019-08-16 23:15 | NUR ---
PATIENT HAD A BP OF 172/87, HR 98. PATIENT STATES THAT HE STILL CANNOT HOLD ANY FOOD OR LIQUIDS DOWN. DR. GONSALES AWARE AND SAID TO OFFER BP MEDICATION AGAIN.
[2019-08-16] MEDS ORDERED: BISACODYL 10 MG SUPP RC ONE (23:25)
--- NOTE | 2019-08-16 23:26 | NUR ---
DR. GONSALES ORDERED [employer] SUPPOSITORY FOR CONSTIPATION. ADMINISTERED WITH HELP OF [employer]. WILL CONTINUE TO MONITOR PATIENT.
--- NOTE | 2019-08-16 23:30 | NUR ---
PATIENT HAD A BLOOD GLUCOSE RESULT OF 226 FOR 4 UNITS OF REGULAR HUMALOG INSULIN ADMINISTERED. DR. GONSALES SAID TO HOLD INSULIN FOR NOW. WILL CONTINUE TO MONITOR PATIENT.
[2019-08-16] MEDS: ISOSORBIDE MONONITRATE 30 MG TABER PO SCH (23:54)
[2019-08-16] MEDS: MINOXIDIL 2.5 MG TAB PO SCH (23:54)
[2019-08-17] MEDS: hydrALAZINE 25 MG TAB PO SCH ×4 (00:22→20:34)
[2019-08-17] MEDS: SENNA 8.6 MG TAB PO SCH ×2 (00:22→08:53)
[2019-08-17] MEDS: levETIRAcetam 500 MG TAB PO SCH ×3 (00:22→20:36)
[2019-08-17] MEDS: DIVALPROEX SPRINKLES 125 MG CAPDR PO SCH ×3 (00:23→21:00)
[2019-08-17 00:30] VITALS: BP 196/99
[2019-08-17] MEDS ORDERED: PHENIRAMINE OP PRN (02:35)
[2019-08-17] MEDS ORDERED: NAPHAZOLINE OP PRN (02:35)
--- NOTE | 2019-08-17 04:09 | NUR ---
VITALS DONE. NO DISTRESS NOTED. WILL CONTINUE TO MONITOR PATIENT.
[2019-08-17 04:15] VITALS: BP 166/89
--- NOTE | 2019-08-17 04:45 | NUR ---
AM CARE ATTEMPTED. PATIENT REFUSED TO BE TURNED AND REFUSED LINEN CHANGE. PATIENT SAID IT HURTS TO TURN HIM BUT REFUSES PAIN MEDICATION.
[2019-08-17] MEDS ORDERED: PIPERACILLIN/TAZOBACTAM 2.25 GM VIAL IV ONE (04:50)
[2019-08-17] MEDS: METOCLOPRAMIDE 10 MG/2 ML INJ VIAL IVP SCH ×3 (04:57→20:31)
[2019-08-17] MEDS: PIPERACILLIN/TAZOBACTAM 2.25 GM in DEXTROSE 5% 50 ML IV SCH ×2 (04:58→12:32)
--- NOTE | 2019-08-17 05:25 | NUR ---
CALLED PICC LINE NURSE [phone] AND LEFT MESSAGE.
--- NOTE | 2019-08-17 06:00 | NUR ---
PATIENT REFUSED WARM WATER ENEMA. REFUSED TO BE TURNED. DR. GONSALES AWARE. WILL CONTINUE TO MONITOR PATIENT.
--- NOTE | 2019-08-17 06:05 | NUR ---
PATIENT HAD A BLOOD GLUCOSE RESULT OF 173. PATIENT REFUSED INSULIN. DR. GONSALES AWARE. WILL CONTINUE TO MONITOR PATIENT.
--- NOTE | 2019-08-17 06:44 | NUR ---
PATIENT RESTING WITH EYES CLOSED. VISIBLE CHEST RISE AND FALL NOTED. NO SOB OR DISTRESS. WILL ENDORSE TO AM SHIFT NURSE FOR CONTINUITY OF CARE.
[2019-08-17 06:47] LABS: BASOPHILS % (AUTO) 0.6 % (0.0-2.0); EOSINOPHILS % (AUTO) 0.6 % (0.0-4.0); HEMATOCRIT 30.7 % (36-52); HEMOGLOBIN 10.5 g/dL (12.0-18.0); LYMPHOCYTES # (AUTO) 0.6 K/uL (2.0-11.5); LYMPHOCYTES % (AUTO) 7.7 % (20.5-51.1); MEAN CORPUSCULAR HEMOGLOBIN 31 pg (27-31); MEAN CORPUSCULAR HGB CONC 34 g/dL (33-37); MEAN CORPUSCULAR VOLUME 91.5 fL (80-94); MONOCYTES # (AUTO) 0.7 K/uL (0.8-1.0); MONOCYTES % (AUTO) 9.8 % (1.7-9.3); NEUTROPHILS # (AUTO) 6.1 K/uL (1.8-7.7); NEUTROPHILS % (AUTO) 81.3 % (42.2-75.2); PLATELET COUNT (AUTO) 90 K/uL (140-450); RED BLOOD CELL COUNT(AUTO) 3.35 MIL/uL (4.20-6.10); RED CELL DISTRIBUTION WIDTH 13.1 % (11.6-13.7); WHITE BLOOD COUNT (AUTO) 7.5 K/uL (4.8-10.8)
[2019-08-17] MEDS: BLOOD GLUCOSE MONITORING 1 DEV DEV FS SCH ×4 (06:53→21:14)
[2019-08-17 07:09] LABS: ALBUMIN 2.6 g/dL (3.4-5.0); CARBON DIOXIDE 31.3 mmol/L (21-32); MAGNESIUM 2.3 mg/dL (1.8-2.4); PHOSPHORUS 4.7 mg/dL (2.5-4.9); POTASSIUM 4.3 mmol/L (3.5-5.1); TOTAL BILIRUBIN 0.5 mg/dL (0.0-1.0)
--- NOTE | 2019-08-17 07:10 | NUR ---
RECEIVED REPORT FROM HYDROGEN PLANT OPERATOR NURSE. PT IN BED. AOX4, NO C/O PAIN, NO SOB, RESPIRATIONS ARE EVEN AND UNLABORED. ON 3LPM O2 VIA NC. WITH IV ON RAC 20G SL. WITH SKIN INTACT. SAFETY MEASURES IN PLACE. CALL LIGHT WITHIN PATIENT REACH. WILL CONTINUE TO MONITOR.
[2019-08-17 07:22] LABS: CREATININE 9.4 mg/dL (0.6-1.3)
--- NOTE | 2019-08-17 07:29 | NUR ---
CALLED [facility] FOR PT'S [email or web address] AT 0300PM TO DO THAT INFORMED AM RN.
--- NOTE | 2019-08-17 07:56 | NUR ---
PATIENT HAS BEEN SCREENED AND CATEGORIZED MODERATE NUTRITION RISK. PATIENT WILL BE SEEN WITHIN 3-5 DAYS OF ADMISSION. 08/19/19-08/21/19 CHELITA STONE MS, RDN
[2019-08-17 08:00] VITALS: BP 127/72
[2019-08-17] MEDS: ONDANSETRON 4 MG/2 ML VIAL IM/IVP PRN (08:30)
--- NOTE | 2019-08-17 08:30 | NUR ---
WITH C/O NAUSEA. ZOFRAN GIVEN ORDERED. OTHER DUE MEDS GIVEN. PT REFUSED BREAKFAST. PT SAID THAT HE IS NOT HUNGRY
[2019-08-17] MEDS: DOCUSATE SODIUM 100 MG GELCAP PO SCH ×2 (08:52→20:35)
[2019-08-17] MEDS: SEVELAMER CARBONATE 800 MG TAB PO SCH ×3 (08:52→16:56)
[2019-08-17] MEDS: NIFEdipine 60 MG TABER PO SCH (08:52)
[2019-08-17] MEDS: LOSARTAN 25 MG TAB PO SCH (08:52)
[2019-08-17] MEDS: LACTULOSE 20 GM/30 ML UDC PO SCH (08:52)
[2019-08-17] MEDS: DULoxetine 30 MG CAPDR PO SCH (08:53)
[2019-08-17] MEDS: PANTOPRAZOLE 40 MG TABEC PO SCH ×2 (08:53→20:36)
[2019-08-17] MEDS: ZINC SULF 220 MG CAP PO SCH (08:53)
[2019-08-17] MEDS: MINOXIDIL 2.5 MG TAB PO SCH ×2 (08:53→20:37)
[2019-08-17] MEDS: LACTOBACILLUS RHAMNOSUS GG 1 EACH CAP PO SCH (08:53)
[2019-08-17] MEDS: ISOSORBIDE MONONITRATE 30 MG TABER PO SCH (08:53)
[2019-08-17] MEDS: VIT-B COMP/VIT-C/FOLIC ACID 1 TAB PO SCH (08:53)
[2019-08-17] MEDS: POLYETHYLENE GLYCOL 17 GM/PKT PO SCH (08:53)
[2019-08-17] MEDS: ASCORBIC ACID 500 MG TAB PO SCH (08:53)
[2019-08-17] MEDS ORDERED: LACTOBACILLUS RHAMNOSUS GG 1 EACH CAP PO SCH (09:00)
--- NOTE | 2019-08-17 10:00 | NUR ---
CONSENT OBTAINED FOR PICC LINE OBTAINED FROM DANIELLE BOOTH SR. THE PT'S FATHER. VERIFIED BY 2 RN
--- NOTE | 2019-08-17 11:30 | NUR ---
BLOOD SUGAR 141. NO COVERAGE NEEDED
[2019-08-17 12:00] VITALS: BP 148/89
--- NOTE | 2019-08-17 12:45 | NUR ---
PT IN BED. AWAKE WITH EYES CLOSED. EASILY AROUSED BY NAME. NO C/O PAIN, NO SOB, V/S WNL, WEAK IN APPEARANCE. REFUSED LUNCH. PT SAID THAT HE DOESN'T FEEL HUNGRY
--- NOTE | 2019-08-17 14:50 | NUR ---
PICC LINE INSERTED ON TRISTAN BY PICC LINE NURSE
--- NOTE | 2019-08-17 15:22 | NUR ---
PICC LINE PLACEMENT CONFIRMED VIA XRAY
[2019-08-17 16:00] VITALS: BP 148/63
[2019-08-17] MEDS ORDERED: LEVOFLOXACIN 750 MG/D5W PREMIX 150 ML IV SCH (17:25)
--- NOTE | 2019-08-17 18:26 | NUR ---
STILL ON HEMODIALYSIS. NO C/O PAIN, NO SOB, AFEBRILE, NO C/O N/V
--- NOTE | 2019-08-17 18:55 | NUR ---
WILL ENDORSE TO NEXT SHIFT FOR CONTINUITY OF CARE. IN STABLE CONDITION AT THIS TIME
--- NOTE | 2019-08-17 19:00 | NUR ---
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
[2019-08-17] MEDS ORDERED: AZITHROMYCIN 250 MG in DEXTROSE 5% 250 ML IV SCH (19:20)
--- NOTE | 2019-08-17 19:50 | NUR ---
HD END AND 3 LTS OUT PT STABLE NOT DISTRESS NOTED
[2019-08-17 20:00] VITALS: BP 137/67
[2019-08-17] MEDS: LEVOFLOXACIN 500 MG/D5W PREMIX 100 ML IV SCH (20:30)
[2019-08-17] MEDS: cloNIDine 0.1 MG TAB PO SCH (20:35)
[2019-08-17] MEDS: ISOSORBIDE DINITRATE 20 MG TAB PO SCH (20:36)
--- NOTE | 2019-08-17 21:30 | NUR ---
BLOOD SUGAR TEST 164 PT REFUSED COVERAGE AND POOR APPETITE
[2019-08-17] MEDS ORDERED: DIVALPROEX SPRINKLES 125 MG CAPDR ONE ×2 (21:56→22:00)
--- NOTE | 2019-08-17 22:45 | NUR ---
DR CHAVIRA IS HERE AND SEE THE PT
--- NOTE | 2019-08-17 23:00 | NUR ---
MALE INFERTILITY SPECIALIST IS HERE AND PT AFTER 2 BM PASTE CONSISTENCY IN THE MORNING AND ONE BOWEL MOVEMENT RIGHT NOW PT REFUSED KUB DR GONSALES RESIDENT WAS NOTIFY
[2019-08-18] VITALS: BP 109/55
--- NOTE | 2019-08-18 01:30 | NUR ---
SECOND SWAB NARES FOR COVI 19 IS TAKEN AND SENT TO LAB, PT SLEEPOING WELL AND NOT DISTRESS NOTED
--- NOTE | 2019-08-18 04:00 | NUR ---
SPONGE BATH GIVEN LINEN CHANGED PT REMAIN QUIET AND DENIES ANY PAIN ON TELEMETRY SR, [id number]
[2019-08-18 04:49] VITALS: BP 156/80
[2019-08-18] MEDS ORDERED: LEVOTHYROXINE 0.05 MG TAB ONE (05:23)
[2019-08-18] MEDS: hydrALAZINE 25 MG TAB PO SCH ×3 (05:28→21:00)
[2019-08-18] MEDS: METOCLOPRAMIDE 10 MG/2 ML INJ VIAL IVP SCH ×3 (05:28→21:04)
[2019-08-18] MEDS: cloNIDine 0.1 MG TAB PO SCH ×3 (05:29→21:00)
[2019-08-18] MEDS: LEVOTHYROXINE 0.05 MG TAB PO SCH (05:29)
[2019-08-18] MEDS: BLOOD GLUCOSE MONITORING 1 DEV DEV FS SCH ×4 (05:44→21:01)
[2019-08-18 07:00] LABS: BASOPHILS % (AUTO) 0.6 % (0.0-2.0); EOSINOPHILS # (AUTO) 0.1 K/uL (0-0.4); EOSINOPHILS % (AUTO) 2.8 % (0.0-4.0); HEMATOCRIT 31.1 % (36-52); HEMOGLOBIN 10.5 g/dL (12.0-18.0); LYMPHOCYTES # (AUTO) 0.4 K/uL (2.0-11.5); LYMPHOCYTES % (AUTO) 8.3 % (20.5-51.1); MEAN CORPUSCULAR HEMOGLOBIN 31 pg (27-31); MEAN CORPUSCULAR HGB CONC 34 g/dL (33-37); MEAN CORPUSCULAR VOLUME 92.2 fL (80-94); MONOCYTES # (AUTO) 0.2 K/uL (0.8-1.0); MONOCYTES % (AUTO) 4.7 % (1.7-9.3); NEUTROPHILS # (AUTO) 4.2 K/uL (1.8-7.7); NEUTROPHILS % (AUTO) 83.6 % (42.2-75.2); PLATELET COUNT (AUTO) 84 K/uL (140-450); RED BLOOD CELL COUNT(AUTO) 3.38 MIL/uL (4.20-6.10); RED CELL DISTRIBUTION WIDTH 13.3 % (11.6-13.7)
--- NOTE | 2019-08-18 07:00 | NUR ---
PT REMAIN STABLE ON BED , SR ON TELEMETRY , NOT DISTRESS NOTED , PT WILL BE ENDORSED TO DAY SHIFT NURSE FOR CONTINUE OF CARE
--- NOTE | 2019-08-18 07:07 | NUR ---
RECEIVED BEDSIDE REPORT FROM NIGHTSHIFT NURSE. PT RESTING IN BED. ABLE TO MAKE NEEDS KNOWN. RESPIRATIONS EVEN AND UNLABORED WITH NO SOB OR RESPIRATORY DISTRESS. SKIN WARM AND DRY TO TOUCH. PICC LINE IN RIGHT UPPER ARM IS CLEAN, DRY, AND INTACT. SAFETY MEASURES IN PLACE. WILL CONTINUE TO MONITOR
[2019-08-18 07:15] LABS: CARBON DIOXIDE 30.6 mmol/L (21-32); POTASSIUM 3.6 mmol/L (3.5-5.1)
[2019-08-18 07:19] LABS: MAGNESIUM 1.9 mg/dL (1.8-2.4); PHOSPHORUS 3.8 mg/dL (2.5-4.9)
--- NOTE | 2019-08-18 07:28 | NUR ---
RECEIVED CRITICAL LAB FROM CHEMISTRY. CR 5.8. AWARE AND TRENDING DOWN. SAFETY MEASURES IN PLACE. WILL CONTINUE TO MONITOR
[2019-08-18 07:29] LABS: CREATININE 5.8 mg/dL (0.6-1.3)
--- NOTE | 2019-08-18 07:53 | NUR ---
RECEIVED CRITICAL LAB FROM CHEMISTRY. PT TROPONIN 1.13. AWARE AND TRENDING DOWN. SAFETY MEASURES IN PLACE. WILL CONTINUE TO MONITOR
[2019-08-18 08:00] VITALS: BP 136/74
[2019-08-18] MEDS: SEVELAMER CARBONATE 800 MG TAB PO SCH ×3 (08:00→16:11)
[2019-08-18] MEDS: LACTULOSE 20 GM/30 ML UDC PO SCH (09:00)
[2019-08-18] MEDS: ZINC SULF 220 MG CAP PO SCH (09:05)
[2019-08-18] MEDS: ASCORBIC ACID 500 MG TAB PO SCH (09:05)
[2019-08-18] MEDS: VIT-B COMP/VIT-C/FOLIC ACID 1 TAB PO SCH (09:05)
[2019-08-18] MEDS: LACTOBACILLUS RHAMNOSUS GG 1 EACH CAP PO SCH (09:06)
[2019-08-18] MEDS: DOCUSATE SODIUM 100 MG GELCAP PO SCH ×2 (09:06→21:05)
[2019-08-18] MEDS: levETIRAcetam 500 MG TAB PO SCH ×2 (09:06→21:05)
[2019-08-18] MEDS: SENNA 8.6 MG TAB PO SCH (09:07)
[2019-08-18] MEDS: DULoxetine 30 MG CAPDR PO SCH (09:07)
[2019-08-18] MEDS: ISOSORBIDE DINITRATE 20 MG TAB PO SCH ×2 (09:08→21:06)
[2019-08-18] MEDS: POLYETHYLENE GLYCOL 17 GM/PKT PO SCH (09:08)
[2019-08-18] MEDS: DIVALPROEX SPRINKLES 125 MG CAPDR PO SCH ×2 (09:08→21:05)
[2019-08-18] MEDS: MINOXIDIL 2.5 MG TAB PO SCH ×2 (09:09→21:06)
[2019-08-18] MEDS: PANTOPRAZOLE 40 MG TABEC PO SCH ×2 (09:09→21:05)
[2019-08-18] MEDS: LOSARTAN 25 MG TAB PO SCH (09:09)
--- NOTE | 2019-08-18 09:10 | NUR ---
ADMINISTERED SCHED MED PRESCRIBED PER MD ORDER. PT TOLERATED WELL. MEDICATION EDUCATION PERFORMED. PT RETURN DEMONSTRATION. SAFETY MEASURES IN PLACE. WILL CONTINUE TO MONITOR
[2019-08-18] MEDS: NIFEdipine 60 MG TABER PO SCH (09:24)
--- NOTE | 2019-08-18 10:39 | NUR ---
BROACHING MACHINE SET UP OPERATOR NOTE: Basic Screen: Yes High Risk DC Screen [place]: DANIELLE BOOTH [place] Relationship: FATHER Pre-Admission Living Arrangements: SNF Other: [facility] Prior ADL Needs Assistance Current Home Health Name/Tel: N/A Current DME/02 Name/Tel: [employer] Current Hospice Name/Tel: N/A Current Dialysis Name/Tel: N/A Healthcare Decision Maker: Patient Advance Directive No Physician Orders for Life Sustaining Treatment Form No Patient/Family Have Educational Needs No Discipline: Case Mgt/Social Svcs Tentative Discharge Plan/Destination: SNF/ECF Other: [facility] Will require assistance post discharge: No Referred to Customer Service Advisor: No Tentative Discharge Plan Summary: PATIENT IS A 44-YEAR-OLD MALE ADMITTED FOR ENTERITIS AND FLUID OVERLOAD. PATIENT HAS PMHX OF ESRD ON HEMODIALYSIS, DM, HYPERTENSION, HYPERLIPEDEMIA, AND SEIZURE DISORDER. PATIENT WAS ADMITTED FROM [facility]. SW CONTACTED DORA FROM [facility] [phone]. PER DORA, PATIENT IS RESIDENTIAL AND IS ON A BEDHOLD. DORA STATED THAT PATIENT IS ALERT/ORIENTED AT BASELINE AND THAT FATHER IS HEALTHCARE DECISION MAKER. TENTATIVE DISCHARGE PLAN IS FOR PATIENT TO RETURN TO [facility]. NO FURTHER NEEDS IDENTIFIED. Signature: YUMI OGLESBY Date: Aug 18, 2019 Time: 10:39
[2019-08-18] MEDS: ONDANSETRON 4 MG/2 ML VIAL IM/IVP PRN (11:18)
--- NOTE | 2019-08-18 11:30 | NUR ---
ADMINISTERED SCHED MED PRESCRIBED PER MD ORDER. PT TOLERATED WELL. MEDICATION EDUCATION PERFORMED. PT RETURN DEMONSTRATION. PT BLOOD SUGAR 171. PT STATED THAT HE DOES NOT WANT INSULIN UNLESS HIS BLOOD SUGAR IS OVER 200. SAFETY MEASURES IN PLACE. WILL CONTINUE TO MONITOR
[2019-08-18 12:00] VITALS: BP 115/75
--- NOTE | 2019-08-18 12:18 | NUR ---
DC PLANNIN YRS OLD MALE PATIENT WAS ADMITTED FROM [facility] WITH A DX OF ENTERITIS , FLUID OVERLOAD . PT HAS A HX OF ESRD HEMODIALYSIS M-W-F, DIABETIC RETINOPATHY WITH BILATERAL BLONDENESS HTN, SEIZURE, ,DEPRESSION, IMPULSE DISORDER AND ANEMIA . CXR SHOWED STABLE INFILTRATE SUSPICIOUS FOR PNEUMONIA STABLE SMALL RIGHT PLEURAL EFFUSION. CT CHEST SHOWED PATCHY OPACITIES OF THE RIGHT MIDDLE AND RIGHT LOWER AMANDA . ADMINISTERED IV ABX WITH ZOSYN ,AZITHROMYCIN . CONSULTED WITH PULMO AND LOGISTICS OFFICER DC PLAN TO GO BACK TO [facility] WHEN STABLE CM TO FOLLOW. Addendum: 08/19/19 at 1257 by Christine Calero CM DC PLANNING SEEN BY BELTRAN, MARGARITO, CARDIO AND LOGISTICS OFFICER CONTINUE HEMODIALYSIS . CONTINUE IV ABX AND CURRENT THERAPY DC PLAN TO GO BACK TO [facility] TOMORROW 08/20/19 . CM TO FOLLOW Addendum: 08/20/19 at 1055 by Christine Calero CM DC PLANNING: PATIENT HAS A DC ORDER FAXED TO [facility] AWAITING FOR THE RESPONSE CM TO FOLLOW Addendum: 08/20/19 at 1343 by Christine Calero CM DC PLANNING: PT IS ACCEPTED AT [facility] CAN GO TO ROOM 128A # TO GIVE REPORT [phone] . ARRANGED TRANSPORT WITH [employer] TIME 4:30 PM FOR THE TRANSPORT BILL PT'S MOTHER KALLI WILL PAY PROVIDE KALLI'S NUMBER [phone] TO [employer]. CM TO FOLLOW Addendum: 08/20/19 at 1548 by Christine Calero CM DC PLANNING ARRANGED TRANSPORT WITH [facility] TRANSPORT MATERIAL CHASER TIME WILL BE WITH IN 2 HRS. REF # [id number] NOTIFIED CARLOS PANDEY .
--- NOTE | 2019-08-18 13:27 | NUR ---
ADMINISTERED SCHED MED PRESCRIBED PER MD ORDER. PT TOLERATED WELL. MEDICATION EDUCATION PERFORMED. PT RETURN DEMONSTRATION. SAFETY MEASURES IN PLACE. WILL CONTINUE TO MONITOR
--- NOTE | 2019-08-18 15:38 | NUR ---
HOURLY ROUNDING. ASSISTED SERVICE STATION OPERATOR WITH CHANGING, TURNING, AND REPOSITIONING PATIENT. PT TOLERATED WELL. SAFETY MEASURES IN PLACE. WILL CONTINUE TO MONITOR
[2019-08-18 16:00] VITALS: BP 105/62
--- NOTE | 2019-08-18 16:22 | NUR ---
ADMINISTERED SCHED MED PRESCRIBED PER MD ORDER. PT TOLERATED WELL. MEDICATION EDUCATION PERFORMED. PT RETURN DEMONSTRATION. SAFETY MEASURES IN PLACE. WILL CONTINUE TO MONITOR
--- NOTE | 2019-08-18 16:30 | NUR ---
PT BLOOD SUGAR IS 171. PT REFUSED INSULIN. PT SAID, "I DON'T WANT INSULIN UNLESS MY SUGAR IS OVER 200." SAFETY MEASURES IN PLACE. WILL CONTINUE TO MONITOR
--- NOTE | 2019-08-18 18:15 | NUR ---
PT RESTING IN BED. ABLE TO MAKE NEEDS KNOWN. RESPIRATIONS EVEN AND UNLABORED WITH NO SOB OR RESPIRATORY DISTRESS. WILL CONTINUE TO MONITOR
--- NOTE | 2019-08-18 19:25 | NUR ---
ENDORSED AT BEDSIDE TO NIGHTSHIFT NURSE FOR CONTINUITY OF CARE. PT IS STABLE
--- NOTE | 2019-08-18 19:26 | NUR ---
RECEIVED BEDSIDE REPORT FROM AM SHIFT NURSE, CHELA. AO X 3. W/ SOME PERIODS OF CONFUSION. PT RESTING IN BED. ABLE TO MAKE NEEDS KNOWN. RESPIRATIONS EVEN AND UNLABORED WITH NO SOB OR RESPIRATORY DISTRESS. SKIN WARM AND DRY TO TOUCH. PICC LINE IN RIGHT UPPER ARM CLEAN, DRY, INTACT & SALINE LOCK. WITH L UPPER ARM AV SHUNT FOR HEMODIALYSIS, ENDORSED TO HAVE DIALYSIS TO. W/ CONSENT. SEIZURE PRECAUTIONS AND FALL RISK IN PLACE. WILL CONTINUE TO MONITOR
[2019-08-18 20:00] VITALS: BP 125/78
--- NOTE | 2019-08-18 20:15 | NUR ---
DR. ABAD AWARE OF COVID NEGATIVE
--- NOTE | 2019-08-18 20:18 | NUR ---
[facility] RELAYED, NEGATIVE COVID
--- NOTE | 2019-08-18 21:00 | NUR ---
APRESOLINE AND CATAPRESS HELD BEC BP. 125/ 78; 20; 75 HR; 98. 6; 95% O2
--- NOTE | 2019-08-18 21:02 | NUR ---
PATIENT REFUSED INSULIN, DR. ABAD AWARE, EXPLAINED THE BENEFITS AND RISKS OF REFUSAL. PT SAID THAT HE HAS HX OF HYPOGLYCEMIA, PT REFUSED THE INSULIN SHOT
--- NOTE | 2019-08-18 23:55 | NUR ---
PATIEN'T BP IS 88/48; HR 68, DR. ABAD AWARE WILL ORDER FOR BOLUS, AWAITING FOR HIS ORDERS
[2019-08-19] MEDS ORDERED: NACL 0.9% 500 ML IV ONE
[2019-08-19 01:48] VITALS: BP 110/58
--- NOTE | 2019-08-19 01:48 | NUR ---
PATIENT BP AFTER THE BOLUS IS 110/ 58; 78; 98% 98.8 TEMP' 0/10 PAIN Addendum: 08/19/19 at 0157 by Fela Russell RN DR. ABAD AWARE ABOVE VITAL SIGNS
[2019-08-19 04:00] VITALS: BP 134/61
--- NOTE | 2019-08-19 04:00 | NUR ---
PT VITAL SIGNS = 134/61; 74 HR; 98.6 TEMP; 18; 0/10 PAIN. PATIENTS; APRESOLINE AND CATAPRES NON -ADMINISTERED WAS GIVEN BOLUS EARLIER FOR LOW BLOOD PRESSURE. DR. ABAD AWARE THAT MEDS NOT ADMINISTERED.
[2019-08-19] MEDS: cloNIDine 0.1 MG TAB PO SCH ×3 (05:00→20:58)
[2019-08-19] MEDS: hydrALAZINE 25 MG TAB PO SCH ×3 (05:00→21:01)
--- NOTE | 2019-08-19 05:00 | NUR ---
PATIENT SLEEPING NOW, NO COMPLAINTS AT THIS TIME. VITAL SIGNS ARE STABLE
[2019-08-19] MEDS: METOCLOPRAMIDE 10 MG/2 ML INJ VIAL IVP SCH ×3 (05:42→21:02)
[2019-08-19] MEDS: LEVOTHYROXINE 0.05 MG TAB PO SCH (05:42)
--- NOTE | 2019-08-19 06:08 | NUR ---
PATIENT STABLE AT THIS TIME FOR HEMODIALYSIS, WILL ENDORSE TO NEXT SHIFT, HAD HIS LAST DIALYSIS LAST SAT. (TTHSAT SCHED)
[2019-08-19 06:26] LABS: ANION GAP 12.5 (8-16); CARBON DIOXIDE 29.6 mmol/L (21-32); POTASSIUM 4.1 mmol/L (3.5-5.1)
[2019-08-19 06:30] LABS: CREATININE 6.9 mg/dL (0.6-1.3)
[2019-08-19 06:32] LABS: BASOPHILS % (AUTO) 0.9 % (0.0-2.0); EOSINOPHILS # (AUTO) 0.1 K/uL (0-0.4); EOSINOPHILS % (AUTO) 1.9 % (0.0-4.0); HEMATOCRIT 22.7 % (36-52); HEMOGLOBIN 7.9 g/dL (12.0-18.0); LYMPHOCYTES # (AUTO) 0.5 K/uL (2.0-11.5); LYMPHOCYTES % (AUTO) 9.8 % (20.5-51.1); MEAN CORPUSCULAR HEMOGLOBIN 32 pg (27-31); MEAN CORPUSCULAR HGB CONC 35 g/dL (33-37); MEAN CORPUSCULAR VOLUME 92.1 fL (80-94); MONOCYTES # (AUTO) 0.4 K/uL (0.8-1.0); MONOCYTES % (AUTO) 8.5 % (1.7-9.3); NEUTROPHILS # (AUTO) 3.9 K/uL (1.8-7.7); NEUTROPHILS % (AUTO) 78.9 % (42.2-75.2); PLATELET COUNT (AUTO) 77 K/uL (140-450); RED BLOOD CELL COUNT(AUTO) 2.47 MIL/uL (4.20-6.10); RED CELL DISTRIBUTION WIDTH 13.2 % (11.6-13.7)
--- NOTE | 2019-08-19 06:32 | NUR ---
CREATINE 6.9 VERBALIZED BY [facility]
[2019-08-19] MEDS: BLOOD GLUCOSE MONITORING 1 DEV DEV FS SCH ×4 (07:00→21:16)
--- NOTE | 2019-08-19 07:00 | NUR ---
PT REFUSED INSULIN SHOT. EXPLAINED THE RISK AND BENEFITS;PT VERBALIZED UNDERSTANDING
--- NOTE | 2019-08-19 07:20 | NUR ---
RECEIVED BEDSIDE REPORT FROM NIGHTSHIFT NURSE. PT RESTING IN BED. ABLE TO MAKE NEEDS KNOWN. RESPIRATIONS EVEN AND UNLABORED WITH NO SOB OR RESPIRATORY DISTRESS. SKIN WARM AND DRY TO TOUCH. PICC LINE IN R UPPER ARM IS CLEAN, DRY, AND INTACT. SAFETY MEASURES IN PLACE. WILL CONTINUE TO MONITOR
[2019-08-19 08:00] VITALS: BP 111/68
[2019-08-19] MEDS: NIFEdipine 60 MG TABER PO SCH (09:00)
[2019-08-19] MEDS: LOSARTAN 25 MG TAB PO SCH (09:00)
[2019-08-19] MEDS: MINOXIDIL 2.5 MG TAB PO SCH ×2 (09:00→21:00)
[2019-08-19] MEDS: POLYETHYLENE GLYCOL 17 GM/PKT PO SCH (09:03)
[2019-08-19] MEDS: LACTULOSE 20 GM/30 ML UDC PO SCH (09:03)
[2019-08-19] MEDS: ISOSORBIDE DINITRATE 20 MG TAB PO SCH ×2 (09:04→20:56)
[2019-08-19] MEDS: SENNA 8.6 MG TAB PO SCH (09:04)
[2019-08-19] MEDS: DIVALPROEX SPRINKLES 125 MG CAPDR PO SCH ×2 (09:04→20:55)
[2019-08-19] MEDS: LACTOBACILLUS RHAMNOSUS GG 1 EACH CAP PO SCH (09:04)
[2019-08-19] MEDS: SEVELAMER CARBONATE 800 MG TAB PO SCH ×3 (09:04→16:39)
[2019-08-19] MEDS: ZINC SULF 220 MG CAP PO SCH (09:05)
[2019-08-19] MEDS: PANTOPRAZOLE 40 MG TABEC PO SCH ×2 (09:05→20:57)
[2019-08-19] MEDS: DOCUSATE SODIUM 100 MG GELCAP PO SCH ×3 (09:05→21:00)
[2019-08-19] MEDS: DULoxetine 30 MG CAPDR PO SCH (09:05)
[2019-08-19] MEDS: levETIRAcetam 500 MG TAB PO SCH ×2 (09:05→20:56)
[2019-08-19] MEDS: ASCORBIC ACID 500 MG TAB PO SCH (09:05)
[2019-08-19] MEDS: VIT-B COMP/VIT-C/FOLIC ACID 1 TAB PO SCH (09:06)
--- NOTE | 2019-08-19 09:15 | NUR ---
ADMINISTERED SCHED MED PRESCRIBED PER MD ORDER. PT TOLERATED WELL. MEDICATION EDUCATION PERFORMED. SAFETY MEASURES IN PLACE. WILL CONTINUE TO MONITOR
--- NOTE | 2019-08-19 10:15 | NUR ---
HD NURSE IS HERE. REPORT GIVEN AT BEDSIDE. PT IS GOING TO RECIEVED HD. SAFETY MEASURES IN PLACE. WILL CONTINUE TO MONITOR
--- NOTE | 2019-08-19 11:30 | NUR ---
PT BLOOD SUGAR 180. PT SAID HE DOES NOT WANT INSULIN UNLESS SUGAR IS OVER 200. EDUCATED PT ON RISKS AND BENEFITS OF RECEIVING INSULIN. PT REFUSED. SAFETY MEASURES IN PLACE. WILL CONTINUE TO MONITOR
--- NOTE | 2019-08-19 11:57 | NUR ---
ADMINISTERED SCHED MED PRESCRIBED PER MD ORDER. PT TOLERATED WELL. MEDICATION EDUCATION PERFORMED. SAFETY MEASURES IN PLACE. WILL CONTINUE TO MONITOR
[2019-08-19 12:00] VITALS: BP 135/42
--- NOTE | 2019-08-19 12:45 | NUR ---
PT RESTING IN BED. ABLE TO MAKE NEEDS KNOWN. RESPIRATIONS EVEN AND UNLABORED WITH NO SOB OR RESPIRATORY DISTRESS. SKIN WARM AND DRY TO TOUCH. SAFETY MEASURES IN PLACE. WILL CONTINUE TO MONITOR
--- NOTE | 2019-08-19 13:15 | NUR ---
HD IS COMPLETE. HD NURSE GOT OUT 2L OF FLUID. PT TOLERATED WELL. SAFETY MEASURES IN PLACE. WILL CONTINUE TO MONITOR
--- NOTE | 2019-08-19 15:27 | NUR ---
BED ALARM GOING OFF. PT SITTING ON THE SIDE OF THE BED. ASKED PT WHAT WAS GOING ON AND PT SAID, "I WANTED TO SIT ON THE SIDE OF THE BED BUT THE SUPERVISOR SHIPPING ROOM SAID IT WAS GONNA TAKE A MINUTE SO I DID NOT FEEL LIKE WAITING." INSTRUCTED PT TO CALL NURSE BUTTON WHEN NEEDING ASSISTANCE. PT VERBALIZED UNDERSTANDING. SAFETY MEASURES IN PLACE. WILL CONTINUE TO MONITOR
[2019-08-19 16:00] VITALS: BP 112/52
--- NOTE | 2019-08-19 16:30 | NUR ---
PT BLOOD SUGAR 191. PT SAID HE DOES NOT WANT INSULIN UNLESS SUGAR IS OVER 200. EDUCATED PT ON RISKS AND BENEFITS OF RECEIVING INSULIN. PT REFUSED. SAFETY MEASURES IN PLACE. WILL CONTINUE TO MONITOR
[2019-08-19] MEDS: LEVOFLOXACIN 500 MG/D5W PREMIX 100 ML IV SCH (16:40)
[2019-08-19] MEDS: ONDANSETRON 4 MG/2 ML VIAL IM/IVP PRN (17:13)
--- NOTE | 2019-08-19 17:20 | NUR ---
PT COMPLAINED OF NAUSEA. PRN [place]SEA MEDICATION ADMINISTERED PRESCRIBED PER MD ORDER. PT TOLERATED WELL. MEDICATION EDUCATION PERFORMED. PT VERBALIZED UNDERSTANDING. SAFETY MEASURES IN PLACE. WILL CONTINUE TO MONITOR
--- NOTE | 2019-08-19 19:20 | NUR ---
ENDORSED AT BEDSIDE TO NIGHTSHIFT NURSE FOR CONTINUITY OF CARE. PT IS STABLE
--- NOTE | 2019-08-19 19:25 | NUR ---
RECEIVED ENDORSEMENT FROM AM SHIFT RN. PATIENT IS LYING IN BED. RESPIRATION EVEN AND UNLABORED. DENIES PAIN. CHLORINE CELL TENDER IS CLEANING THE PATIENT. WITH IV SITE AT TRISTAN PICC LINE. INTACT. LEFT FOOT BRACE NOTED. FALL RISK PROTOCOL IN PLACE. PATIENT IS FULL CODE. ON HD EVERY T, , SUN. WITH LEFT AV FISTULA NOTED, WITH BRUIT AND THRILL. THEY TOOK OUT 2 LITERS PER ENDORSEMENT. PLAN OF CARE WAS DISCUSSED. CALL LIGHT WITHIN REACH. WILL CONTINUE TO MONITOR.
[2019-08-19 20:00] VITALS: BP 104/49
--- NOTE | 2019-08-19 21:22 | NUR ---
ADMINISTERED DUE MEDS ORDERED. MED EDUCATION PROVIDED. PATIENT REFUSED HUMALOG SQ FOR HIS BS OF 234 AND SAID WILL RE-CHECK AGAIN AT MIGNIGHT AND WILL GET THE HUMALOG SQ AT MIDNIGHT. INFORMED RESIDENT AND SAID IT'S OK. WILL CONTINUE TO MONITOR.
[2019-08-20] VITALS: BP 141/73
--- NOTE | 2019-08-20 00:10 | NUR ---
BS CHECKED AGAIN. IT WAS BS 242 WITH HUMALOG 4 UNITS COV. GIVEN. TOLERATED WELL. WILL CONTINUE TO MONITOR
--- NOTE | 2019-08-20 02:00 | NUR ---
PATIENT ASLEEP. NO SOB. WILL CONTINUE TO MONITOR.
[2019-08-20 04:00] VITALS: BP 120/69
[2019-08-20] MEDS: cloNIDine 0.1 MG TAB PO SCH ×2 (05:41→12:16)
[2019-08-20] MEDS: hydrALAZINE 25 MG TAB PO SCH ×2 (05:43→12:16)
--- NOTE | 2019-08-20 05:43 | NUR ---
DUE MEDS GIVEN ORDERED. TOLERATED WELL. WILL CONTINUE TO MONITOR.
[2019-08-20] MEDS: METOCLOPRAMIDE 10 MG/2 ML INJ VIAL IVP SCH ×2 (05:47→12:15)
[2019-08-20] MEDS: LEVOTHYROXINE 0.05 MG TAB PO SCH (06:56)
[2019-08-20] MEDS: BLOOD GLUCOSE MONITORING 1 DEV DEV FS SCH ×2 (06:56→12:09)
--- NOTE | 2019-08-20 06:57 | NUR ---
BS CHECKED 53. ORANGE JUICE PO GIVEN. AND D50 IVP GIVEN FOR BS LESS THAN 50. TOLERATED WELL. MED EDUCATION PROVIDED. WILL CONTINUE TO MONITOR.
[2019-08-20 07:04] LABS: BASOPHILS % (AUTO) 1.5 % (0.0-2.0); EOSINOPHILS # (AUTO) 0.1 K/uL (0-0.4); EOSINOPHILS % (AUTO) 4.4 % (0.0-4.0); HEMATOCRIT 22.5 % (36-52); HEMOGLOBIN 7.7 g/dL (12.0-18.0); LYMPHOCYTES # (AUTO) 0.5 K/uL (2.0-11.5); MEAN CORPUSCULAR HEMOGLOBIN 31 pg (27-31); MEAN CORPUSCULAR HGB CONC 34 g/dL (33-37); MEAN CORPUSCULAR VOLUME 91.2 fL (80-94); MONOCYTES # (AUTO) 0.4 K/uL (0.8-1.0); MONOCYTES % (AUTO) 12.6 % (1.7-9.3); NEUTROPHILS # (AUTO) 1.9 K/uL (1.8-7.7); NEUTROPHILS % (AUTO) 63.5 % (42.2-75.2); PLATELET COUNT (AUTO) 91 K/uL (140-450); RED BLOOD CELL COUNT(AUTO) 2.47 MIL/uL (4.20-6.10)
--- NOTE | 2019-08-20 07:05 | NUR ---
ENDORSED PATIENT AT BEDSIDE TO AM SHIFT RN FOR CONTINUITY OF CARE. AM NURSE MADE AWARE THAT SHE WILL RECHECK THE BS AND RE-ASSESS THE BP TOO.
--- NOTE | 2019-08-20 07:10 | NUR ---
RECEIVED REPORT FROM TECHNICAL SUPPORT ANALYST NURSE. PT IS CURRENTLY ALERT, AWAKE, AND LAYING DOWN IN BED. PT IS IN NO SIGNS OF DISTRESS OR COMPLAINTS OF PAIN AT THIS TIME. RESPIRATIONS ARE EVEN AND UNLABORED ON ROOM AIR. SKIN IS INTACT WITH IV ASYMPTOMATIC PATENT AND INFUSING PER ORDER. NURSE GAVE D50 FOR A BLOOD SUGAR OF 53 WELL JUICE. WILL RECHECK BLOOD SUGAR CLOSELY. SAFETY MEASURES IN PLACE, BED IS IN LOW SEMI-FOWLERS POSITION, AND WILL CONTINUE TO MONITOR.
[2019-08-20 07:52] LABS: ANION GAP 11.7 (8-16); CARBON DIOXIDE 30.4 mmol/L (21-32); POTASSIUM 4.1 mmol/L (3.5-5.1)
[2019-08-20 07:54] LABS: CREATININE 5.3 mg/dL (0.6-1.3)
[2019-08-20] MEDS ORDERED: LEVO750T2 PO (07:58)
[2019-08-20] MEDS ORDERED: ASPI81EC98 PO (07:59)
[2019-08-20 08:00] VITALS: BP 110/51
[2019-08-20] MEDS: SEVELAMER CARBONATE 800 MG TAB PO SCH ×2 (08:32→12:14)
[2019-08-20] MEDS: ISOSORBIDE DINITRATE 20 MG TAB PO SCH (08:32)
[2019-08-20] MEDS: LACTULOSE 20 GM/30 ML UDC PO SCH (08:32)
[2019-08-20] MEDS: ASCORBIC ACID 500 MG TAB PO SCH (08:33)
[2019-08-20] MEDS: SENNA 8.6 MG TAB PO SCH (08:33)
[2019-08-20] MEDS: DIVALPROEX SPRINKLES 125 MG CAPDR PO SCH (08:33)
[2019-08-20] MEDS: LACTOBACILLUS RHAMNOSUS GG 1 EACH CAP PO SCH (08:33)
[2019-08-20] MEDS: PANTOPRAZOLE 40 MG TABEC PO SCH (08:34)
[2019-08-20] MEDS: DOCUSATE SODIUM 100 MG GELCAP PO SCH (08:34)
[2019-08-20] MEDS: LOSARTAN 25 MG TAB PO SCH (08:34)
[2019-08-20] MEDS: DULoxetine 30 MG CAPDR PO SCH (08:34)
[2019-08-20] MEDS: VIT-B COMP/VIT-C/FOLIC ACID 1 TAB PO SCH (08:35)
[2019-08-20] MEDS: ZINC SULF 220 MG CAP PO SCH (08:35)
[2019-08-20] MEDS: NIFEdipine 60 MG TABER PO SCH (08:35)
[2019-08-20] MEDS: MINOXIDIL 2.5 MG TAB PO SCH (08:35)
[2019-08-20] MEDS: POLYETHYLENE GLYCOL 17 GM/PKT PO SCH (08:35)
[2019-08-20] MEDS: levETIRAcetam 500 MG TAB PO SCH (08:35)
--- NOTE | 2019-08-20 08:45 | NUR ---
ADMINISTERED MEDICATIONS PER ORDER AND TOLERATED WELL. BLOOD GLUCOSE IS NOW 119. PT IS CURRENTLY SITTING UP IN BED EATING BREAKFAST WITH NO SIGNS OF DISTRESS AT THIS TIME. DISCHARGE ORDER IS IN AND PATIENT IS AWARE. SAFETY MEASURES IN PLACE AND WILL CONTINUE TO MONITOR.
--- NOTE | 2019-08-20 10:01 | NUR ---
PT IS CURRENTLY FEELING NAUSEOUS AND WANTS TO LAY DOWN IN BED. PT ALSO WANTS FOOD TRAY TO BE TAKEN AWAY. NO COMPLAINTS OF PAIN AT THIS TIME. PTS MOTHER WAS ALSO NOTIFIED OF HIM BEING DISCHARGED. MOTHER AND FATHER ARE UNAVAILABLE TO CRAFT WORKER PT AND TRANSFER TO [facility], THEREFORE PT WILL USE TRANSPORTATION SERVICES.
[2019-08-20 12:00] VITALS: BP 149/75
--- NOTE | 2019-08-20 12:21 | NUR ---
ADMINISTERED MEDICATIONS PER ORDER. PT HAS BEEN HAVING NAUSEA AND VOMITING AND ZOFRAN WAS ADMINISTERED PER REQUEST. BLOOD GLUCOSE IS 180, PT REFUSED INSULIN AND STATED THAT HE WILL ONLY TAKE INSULIN IF BLOOD SUGAR IS ABOVE 200. PT IS IN NO SIGNS OF DISTRESS AT THIS TIME. SAFETY MEASURES IN PLACE AND WILL CONTINUE TO MONITOR.
[2019-08-20 13:59] VITALS: BP 149/75
--- NOTE | 2019-08-20 14:30 | NUR ---
PT IS CURRENTLY AWAKE, ALERT AND LAYING IN BED WITH NO SIGNS OF DISTRESS AT THIS TIME. EXPLAINED TO PT THAT HE WILL BE DISCHARGED AT 1630. PT VERBALIZED UNDERSTANDING, SAFETY MEASURES IN PLACE AND WILL CONTINUE TO MONITOR.
--- NOTE | 2019-08-20 16:25 | NUR ---
PT HAS BEEN DISCHARGED OFF OF UNIT VIA GURNEY BACK TO [facility] ROOM 51A. RESPIRATIONS WERE CLEAR AND UNLABORED, SKIN IS INTACT WITH RIGHT UPPER ARM PICC PATENT AND ASYMPTOMATIC. PER DR. LOPEZ ORDERS IT IS TO STAY IN PLACE AND HE WILL DC AT A LATER TIME. ID BANDS WERE REMOVED, DISCHARGE TEACHING, MEDICATION ADHERENCE, AND MD FOLLOW UIP INSTRUCTIONS WERE GIVEN. PT VERBALIZED UNDERSTANDING AND WAS UNABLE TO SIGN FOR HIMSELF. MOTHER WAS CONTACTED REGARDING DISCHARGE AND HAD NO FURTHER QUESTIONS.
== END 2019-08-20 16:22 | DRG 177 ==
LOC: MED 14:45 → EEVIPCON 17:52 → MTU 17:52
PROVIDERS: ADMIT General Practice; ATTEND General Practice
PROC: 5A1D70Z Performance of Urinary Filtration, Intermittent, Less than 6 Hours Per Day (ICD-10-PCS; principal; 2019-08-16)
PROC: 02HV33Z Insertion of Infusion Device into Superior Vena Cava, Percutaneous Approach (ICD-10-PCS; 2019-08-17)
PROC: 5A1D70Z Performance of Urinary Filtration, Intermittent, Less than 6 Hours Per Day (ICD-10-PCS; 2019-08-18)
DX: J69.0 Pneumonitis due to inhalation of food and vomit (principal); N17.0 Acute kidney failure with tubular necrosis; E43 Unspecified severe protein-calorie malnutrition; I21.A1 Myocardial infarction type 2; N18.6 End stage renal disease; I16.1 Hypertensive emergency; I31.3 Pericardial effusion (noninflammatory); R18.8 Other ascites; I13.2 Hypertensive heart and chronic kidney disease with heart failure and with stage 5 chronic kidney disease, or end stage renal disease; E11.22 Type 2 diabetes mellitus with diabetic chronic kidney disease; E78.5 Hyperlipidemia, unspecified; F32.9 Major depressive disorder, single episode, unspecified; G40.909 Epilepsy, unspecified, not intractable, without status epilepticus; N28.1 Cyst of kidney, acquired; K52.9 Noninfective gastroenteritis and colitis, unspecified; E11.319 Type 2 diabetes mellitus with unspecified diabetic retinopathy without macular edema; K56.41 Fecal impaction; D69.6 Thrombocytopenia, unspecified; E02 Subclinical iodine-deficiency hypothyroidism; S82.492A Other fracture of shaft of left fibula, initial encounter for closed fracture; X58.XXXA Exposure to other specified factors, initial encounter; E87.8 Other disorders of electrolyte and fluid balance, not elsewhere classified; Z91.14 Patient's other noncompliance with medication regimen; D63.1 Anemia in chronic kidney disease; H10.13 Acute atopic conjunctivitis, bilateral; I50.9 Heart failure, unspecified; Z68.20 Body mass index [BMI] 20.0-20.9, adult; Z99.2 Dependence on renal dialysis; Z88.1 Allergy status to other antibiotic agents; Z88.8 Allergy status to other drugs, medicaments and biological substances; Z79.899 Other long term (current) drug therapy; Z86.73 Personal history of transient ischemic attack (TIA), and cerebral infarction without residual deficits; Z93.0 Tracheostomy status; Z82.5 Family history of asthma and other chronic lower respiratory diseases; Z83.3 Family history of diabetes mellitus; Z82.49 Family history of ischemic heart disease and other diseases of the circulatory system; Y93.89 Activity, other specified; Y92.89 Other specified places as the place of occurrence of the external cause; Y99.8 Other external cause status; Z03.818 Encounter for observation for suspected exposure to other biological agents ruled out
CPT/HCPCS: 36415; 36556; 71045; 80048; 80053; 82150; 82550; 82728; 82948; 83036; 83605; 83615; 83690; 83735; 83880; 84100; 84439; 84443; 84484; 85025; 85379; 85384; 85610; 85651; 85730; 86140; 87081; 93005; 96374; 96375; 99285; C1751; J0360; J0456; J0780; J1200; J1956; J2270; J2405; J2543; J2765; J7030; J7060; Q0092

== ENCOUNTER 2019-09-13 05:20 | Inpatient (IN) | payer OTHER, SELFPAY ==
[~2019-09-13] VITALS: Ht 177.8 cm; Wt 63.5 kg
[~2019-09-13 05:20] MED LIST changes: +ACET-2619 PO; +ASPI81EC98 PO; -HYDR100T79 PO; -INSU100V6 SQ; +LEVO750T2 PO; +MAGN400S60 PO; +NA P133E RC; +OLOP2.5D7 OP; -OLOP2.5S OP; +ONDA4TAB PO; +[UNRECOGNIZED DRUG - CODE] PO
--- NOTE | 2019-09-13 05:40 | NUR ---
44 Y/O MALE BIBA FROM [facility]. C/O VOMITING BLOOD SINCE 399 TODAY. DENIES DIARRHEA. O2 SATURATION 75%. PT PLACED ON NASAL CANNULA 4 LPM, O2 SATURATION 97%. LUNGS SOUNDS CTA. BOWEL SOUNDS ACTIVE. ABD SOFT NONTENDER. WARM TO TOUCH, C/O CHILLS, DENIES FEVER OR COUGH. PMH: VENTRICULAR HYPERTROPHY, TBI, RENAL FAILURE, EPILEPSY, DIALYSIS PT. ALLERGIES: METFORMIN, CLINDAMYCIN, KEFLEX
--- NOTE | 2019-09-13 05:41 | NUR ---
PT HAS TRISTAN PICC LINE, INTACT, PATENT, GOOD BLOOD RETURN AND L AV FISTULA PALPABLE THRILLS, BRUITS HEARD.
[2019-09-13 05:49] VITALS: BP 168/34
[2019-09-13] MEDS ORDERED: NACL 0.9% 1,000 ML IV ONE (05:56)
[2019-09-13] MEDS ORDERED: ONDANSETRON 4 MG/2 ML VIAL IVP ONE (06:00)
[2019-09-13] MEDS ORDERED: ALUMINUM HYD/MAG/SIMETHICONE 30 ML UDC PO ONE (06:10)
--- NOTE | 2019-09-13 06:12 | NUR ---
BP 216/114. RAISA SALGADO MADE AWARE. NO NEW ORDERS AT THIS TIME.
--- NOTE | 2019-09-13 06:15 | NUR ---
PT HAD 1 VOMITING EPISODE, DARK RED BLOOD EMESIS NOTED.
--- NOTE | 2019-09-13 06:45 | NUR ---
PT HAD 2 VOMITING EPISODES ONTO THE FLOOR. BLOOD TINGED EMESIS NOTED.
[2019-09-13 07:07] LABS: BASOPHILS % (AUTO) 0.8 % (0.0-2.0); EOSINOPHILS # (AUTO) 0.1 K/uL (0-0.4); EOSINOPHILS % (AUTO) 2.5 % (0.0-4.0); HEMATOCRIT 22.2 % (36-52); HEMOGLOBIN 7.5 g/dL (12.0-18.0); LYMPHOCYTES # (AUTO) 0.6 K/uL (2.0-11.5); LYMPHOCYTES % (AUTO) 18.1 % (20.5-51.1); MEAN CORPUSCULAR HEMOGLOBIN 31 pg (27-31); MEAN CORPUSCULAR HGB CONC 34 g/dL (33-37); MEAN CORPUSCULAR VOLUME 92.7 fL (80-94); MONOCYTES # (AUTO) 0.6 K/uL (0.8-1.0); MONOCYTES % (AUTO) 16.9 % (1.7-9.3); NEUTROPHILS # (AUTO) 2.2 K/uL (1.8-7.7); NEUTROPHILS % (AUTO) 61.7 % (42.2-75.2); PLATELET COUNT (AUTO) 168 K/uL (140-450); RED BLOOD CELL COUNT(AUTO) 2.39 MIL/uL (4.20-6.10); RED CELL DISTRIBUTION WIDTH 13.8 % (11.6-13.7); WHITE BLOOD COUNT (AUTO) 3.6 K/uL (4.8-10.8)
--- NOTE | 2019-09-13 07:18 | NUR ---
REPORT GIVEN TO RODRI PANDEY FOR CONTINUITY OF CARE.
[2019-09-13 07:24] LABS: ALBUMIN 2.6 g/dL (3.4-5.0); ANION GAP 11.1 (8-16); CARBON DIOXIDE 34.2 mmol/L (21-32); POTASSIUM 3.3 mmol/L (3.5-5.1); TOTAL BILIRUBIN 0.4 mg/dL (0.0-1.0)
--- NOTE | 2019-09-13 07:25 | NUR ---
PT RESTING IN BED, 95% ON 5L NC, NAD.
[2019-09-13 07:27] LABS: CREATININE 6.2 mg/dL (0.6-1.3)
[2019-09-13 07:34] LABS: PROTHROMBIN TIME 13.9 secs (10.8-13.4)
--- NOTE | 2019-09-13 08:14 | NUR ---
DR. MEZA IS AWARE THAT PT REFUSED EKG AND CXR
[2019-09-13] MEDS ORDERED: HALOPERIDOL IM 5 MG/ML VIAL IVP ONE (08:20)
[2019-09-13] MEDS ORDERED: NACL 0.9% 1,000 ML IV SCH (09:31)
--- NOTE | 2019-09-13 09:34 | NUR ---
PT SLEEPING IN BED, RESPIRATIONS EVEN AND UNLABORED, NAD.
[2019-09-13] MEDS ORDERED: ACETAMINOPHEN 325 MG TAB PO PRN (09:35)
[2019-09-13] MEDS ORDERED: ONDANSETRON 4 MG/2 ML VIAL IM/IVP PRN (09:35)
[2019-09-13] MEDS ORDERED: DOCUSATE SODIUM 100 MG GELCAP PO PRN (09:35)
--- NOTE | 2019-09-13 09:44 | NUR ---
DR. RIVERA EVALUATING PT AT BEDSIDE
[2019-09-13] MEDS ORDERED: ALBUTEROL HFA MDI 90 MCG/ACTUATION 8 GM INH PRN (09:55)
[2019-09-13] MEDS ORDERED: POTASSIUM CHLORIDE 10 MEQ TABER PO PRN ×2 (10:00→15:10)
--- NOTE | 2019-09-13 10:02 | NUR ---
recovery room nurse at bedside
--- NOTE | 2019-09-13 10:29 | NUR ---
MRSA AND COVID SWABS WALKED TO LAB
[2019-09-13] MEDS ORDERED: cefTRIAXone 1,000 MG VIAL ONE (10:50)
--- NOTE | 2019-09-13 10:54 | NUR ---
Dr. Tiwari is evaluating the patient at bedside.
[2019-09-13] MEDS ORDERED: DICYCLOMINE HCL LIQUID 20 MG, ALUMINUM HYD/MAG/SIMETHICONE 30 ML, LIDOCAINE VISCOUS 2% ... PO ONE ×3 (11:05)
[2019-09-13] MEDS ORDERED: DICYCLOMINE HCL LIQUID 10 MG/5 ML UDC ONE (11:12)
[2019-09-13] MEDS ORDERED: LIDOCAINE VISCOUS 2% 20 ML UDC ONE (11:12)
[2019-09-13] MEDS ORDERED: ALUMINUM HYD/MAG/SIMETHICONE 30 ML UDC ONE (11:12)
--- NOTE | 2019-09-13 11:29 | NUR ---
NOTIFIED DR. RIVERA THAT BP IS NOW 210/62
[2019-09-13] MEDS ORDERED: LON2.5 PO (11:50)
[2019-09-13] MEDS ORDERED: NIFE60TE5 PO (11:50)
[2019-09-13] MEDS ORDERED: KEP500 PO (11:50)
[2019-09-13] MEDS ORDERED: PRON INH (11:50)
[2019-09-13] MEDS ORDERED: MAGN400T7 PO (11:50)
[2019-09-13] MEDS ORDERED: ISOS60TE3 PO (11:50)
[2019-09-13 11:55] LABS: CHOL/HDL RATIO 1.9 (1-4.5); MAGNESIUM 2.1 mg/dL (1.8-2.4); PHOSPHORUS 2.8 mg/dL (2.5-4.9); THYROID STIMULATING HORMONE 13.05 uIU/mL (0.34-3.74)
[2019-09-13] MEDS ORDERED: ALBUTEROL 0.083% 2.5 MG/3 ML NEBU INH PRN (12:05)
[2019-09-13] MEDS ORDERED: ONDANSETRON 4 MG TAB PO PRN (12:05)
[2019-09-13] MEDS ORDERED: HYDROcodone/APAP 10/325 MG 1 TAB TAB PO PRN (12:05)
[2019-09-13] MEDS ORDERED: MAGNESIUM OXIDE 400 MG TAB PO PRN (12:05)
[2019-09-13] MEDS ORDERED: MAGNESIUM HYDROXIDE 2400 MG/30 ML UDC PO PRN (12:05)
[2019-09-13] MEDS ORDERED: SODIUM PHOSPHATE 118 ML ENEM RC PRN (12:05)
--- NOTE | 2019-09-13 12:29 | NUR ---
PER DR. RIVERA, ADMIN PT'S MORNING MEDS FOR BP IF PT DID NOT RECEIVE IT TODAY. PT DOES NOT REMEMBER IF HE TOOK MEDS THIS AM. CALLED [facility] AND SPOKE WITH GARY PANDEY, WHO STATES PT DID NOT RECEIVE ANY MEDS TODAY AM.
[2019-09-13] MEDS ORDERED: DEXTROSE 50% 50 ML SYR IVP PRN (12:30)
--- NOTE | 2019-09-13 12:34 | NUR ---
CALLED PHARMACY WHO STATES THE PHARMACIST WILL BE VERIFYING PT'S MEDS NOW
[2019-09-13] MEDS: NIFEdipine 60 MG TABER PO SCH (13:25)
[2019-09-13] MEDS: SEVELAMER CARBONATE 800 MG TAB PO SCH ×2 (13:25→17:38)
[2019-09-13] MEDS: LOSARTAN 25 MG TAB PO SCH (13:26)
[2019-09-13] MEDS: LEVOTHYROXINE 0.025 MG TAB PO SCH (13:26)
[2019-09-13] MEDS: metroNIDAZOLE 500 MG/NS PREMIX 100 ML IV SCH ×3 (13:27→23:18)
[2019-09-13] MEDS: minoxidiL 2.5 MG TAB PO SCH ×2 (13:27→23:28)
[2019-09-13] MEDS: ISOSORBIDE MONONITRATE 30 MG TABER PO SCH ×2 (13:27→23:28)
[2019-09-13] MEDS ORDERED: CRUSHER, PILL MC ONE (13:29)
[2019-09-13] MEDS: CLONIDINE HYDROCHLORIDE 0.1 MG TAB PO SCH ×2 (13:33→17:38)
--- NOTE | 2019-09-13 13:47 | NUR ---
CALLED PHARMACIST REGARDING IF OKAY TO ADMIN THE SCHEDULED FLAGYL NOW. BLOOD CULTURE HAS NOT BEEN DRAWN YET--LAB IS AWARE OF NEED TO DRAW. ROCEPHIN HAS ALREADY BEEN ADMINISTERED.
--- NOTE | 2019-09-13 13:52 | NUR ---
PER PHARMACIST, BLANCA ADMIN THE FLAGYL BEFORE OBTAINING BLOOD CULTURE.
--- NOTE | 2019-09-13 15:02 | NUR ---
PT BP 177/46 PLAN IS FOR HEMODIALYSIS TODAY PER DR. RIVERA
--- NOTE | 2019-09-13 15:31 | NUR ---
DR. RIVERA AWARE OF BP 177/46, NO FURTHER ORDERS AT THIS TIME
--- NOTE | 2019-09-13 15:38 | NUR ---
NOTIFIED AEMT CAROL OF HEMODIALYSIS ORDER
[2019-09-13] MEDS: BLOOD GLUCOSE MONITORING 1 DEV DEV FS SCH ×2 (16:30→22:00)
--- NOTE | 2019-09-13 16:55 | NUR ---
Patient will be admitted to care of DR MENA. Admited to TELE. Will go to room 130. Belongings list completed. Report to PRINCESS PANDEY.
--- NOTE | 2019-09-13 16:59 | NUR ---
RECEIVED PATIENT FROM ED NURSE FOR ADMISSION AND CONTINUITY OF CARE. 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 RESPIRATIONS EVEN AND UNLABORED, ON 4L O2 VIA NC. VISIBLE CHEST RISE AND FALL NOTED. ON TELE MONITORING. ABDOMEN SOFT AND NONTENDER. DX: GI BLEED. SKIN WARM AND DRY. LEFT AV SHUN FOR HD NOTED. [facility] //. HAS SCHEDULED DIALYSIS TODAY. R UA PICC LINE, SALINE LOCK. FALL AND DROPLET PRECAUTIONS IN PLACE. SAFETY MEASURES IN PLACE. WILL CONTINUE TO MONITOR.
[2019-09-13 17:00] VITALS: BP 111/56
--- NOTE | 2019-09-13 17:00 | NUR ---
PER RODRI, SHE SWABBED PATIENT FOR MRSA WELL.
--- NOTE | 2019-09-13 17:56 | NUR ---
CALLED [facility] FOR HD, SHE STATED SHE WILL BE COMING
--- NOTE | 2019-09-13 18:55 | NUR ---
TELEPHONE CONSENT GIVEN BY FATHER OF THE PATIENT BONIFACIO BOOTH SR FOR DIALYSIS. NO FURTHER QUESTION ASKED. KATHERIN LOERA, SECOND RENT COLLECTOR FOR CONSENT.
[2019-09-13 20:00] VITALS: BP 123/77
[2019-09-13 20:01] LABS: BASOPHILS # (AUTO) 0.1 K/uL (0.00-0.22); EOSINOPHILS # (AUTO) 0.1 K/uL (0-0.4); LYMPHOCYTES # (AUTO) 0.6 K/uL (2.0-11.5); LYMPHOCYTES % (AUTO) 22.1 % (20.5-51.1); MEAN CORPUSCULAR HEMOGLOBIN 32 pg (27-31); MEAN CORPUSCULAR HGB CONC 34 g/dL (33-37); MEAN CORPUSCULAR VOLUME 93.3 fL (80-94); MONOCYTES # (AUTO) 0.5 K/uL (0.8-1.0); MONOCYTES % (AUTO) 19.6 % (1.7-9.3); NEUTROPHILS # (AUTO) 1.4 K/uL (1.8-7.7); NEUTROPHILS % (AUTO) 54.3 % (42.2-75.2); PLATELET COUNT (AUTO) 135 K/uL (140-450); RED BLOOD CELL COUNT(AUTO) 2.02 MIL/uL (4.20-6.10); RED CELL DISTRIBUTION WIDTH 13.4 % (11.6-13.7); WHITE BLOOD COUNT (AUTO) 2.6 K/uL (4.8-10.8)
[2019-09-13 20:11] LABS: HEMATOCRIT 18.8 % (36-52); HEMOGLOBIN 6.4 g/dL (12.0-18.0)
--- NOTE | 2019-09-13 20:24 | NUR ---
RECEIVED CRITICAL LAB VALUE AT 2009 FOR HGB AND HCT. PT CURRENTLY RECEIVING DIALYSIS. REPORTED TO , WILL ORDER REPEAT LABS AFTER PT'S DIALYSIS
[2019-09-13] MEDS ORDERED: PANTOPRAZOLE 40 MG TABEC PO SCH (21:00)
--- NOTE | 2019-09-13 23:01 | NUR ---
RECEIVED PATIENT FROM KATHERIN VELASCO FOR CONTINUITY OF CARE. PATIENT IS IN STABLE CONDITION AND CURRENTLY UNDERGOING HEMODIALYSIS.
--- NOTE | 2019-09-13 23:01 | NUR ---
ENDORSED PT TO KATHERIN BLEDSOE FOR PT'S CONTINUITY OF CARE. PT IN DIALYSIS, 0 OUTPUT PER HEAD OF DIGITAL. PT COMFORTABLE, NO SIGNS OF DISTRESS OR DISCOMFORT.
[2019-09-13] MEDS: DOCUSATE SODIUM 100 MG GELCAP PO SCH (23:18)
[2019-09-13] MEDS: DIVALPROEX SPRINKLES 125 MG CAPDR PO SCH (23:18)
[2019-09-13] MEDS: levETIRAcetam 500 MG TAB PO SCH (23:19)
[2019-09-14] VITALS: BP 123/53
--- NOTE | 2019-09-14 | NUR ---
PATIENT COMPLETED HD WITH 0 ML OUT. PATIENT IS AWAKE AND ALERT. NO C/O PAIN. NO S/S ACUTE DISTRESS. CALL LIGHT WITHIN REACH.
[2019-09-14] MEDS ORDERED: PANTOPRAZOLE 40 MG INJ VIAL ONE (00:31)
--- NOTE | 2019-09-14 02:00 | NUR ---
PATIENT AWAKE AND IN STABLE CONDITION. NO C/O PAIN. NO S/S ACUTE DISTRESS. CALL LIGHT WITHIN REACH.
--- NOTE | 2019-09-14 03:00 | NUR ---
PATIENT SAID HE FELT "A LITTLE FUNNY' AND REQUESTED FOR HIS BLOOD GLUCOSE TO BE CHECKED. BLOOD GLUCOSE 144 MG/DL. P
[2019-09-14 04:00] VITALS: BP 143/61
--- NOTE | 2019-09-14 05:00 | NUR ---
PATIENT ASLEEP AND IN STABLE CONDITION. NO S/S ACUTE DISTRESS. CALL LIGHT WITHIN REACH.
[2019-09-14] MEDS: metroNIDAZOLE 500 MG/NS PREMIX 100 ML IV SCH ×3 (05:22→22:27)
[2019-09-14] MEDS: INSULIN LISPRO SLIDING SCALE 100 UNITS/ML VIAL SUBQ PRN ×2 (05:58→17:14)
[2019-09-14] MEDS: LEVOTHYROXINE 0.025 MG TAB PO SCH (06:01)
[2019-09-14] MEDS: BLOOD GLUCOSE MONITORING 1 DEV DEV FS SCH ×4 (06:30→21:00)
[2019-09-14] MEDS: PANTOPRAZOLE 80 MG in NACL 0.9% 100 ML IV SCH ×3 (06:35)
--- NOTE | 2019-09-14 07:15 | NUR ---
ENDORSED PATIENT IN STABLE CONDITION TO AM SHIFT NURSE FOR CONTINUITY OF CARE.
--- NOTE | 2019-09-14 07:20 | NUR ---
RECEIVED REPORT FROM NIGHT NURSE FOR CONTINUITY OF CARE, PT IS STABLE, PT AAOX4, PT IS ASLEEP, PT ON 4L NASAL CANNULA OXYGEN, PT HAS LEFT UA SHUNT, PT HAS RIGHT UA PICC LINE, PT HAS LEFT FOOT BOOT, NO SIGNS OF DISTRESS NOTED, CALL LIGHT WITHIN REACH, BED IN LOW POSITION, SAFETY MEASURES IN PLACE, WILL CONTINUE TO MONITOR.
[2019-09-14 08:00] VITALS: BP 134/77
[2019-09-14] MEDS: SEVELAMER CARBONATE 800 MG TAB PO SCH ×3 (09:00→18:05)
[2019-09-14] MEDS ORDERED: OLOPATADINE HCL OP SCH (09:00)
[2019-09-14 09:31] LABS: MEAN CORPUSCULAR HEMOGLOBIN 32 pg (27-31); MEAN CORPUSCULAR HGB CONC 35 g/dL (33-37); MEAN CORPUSCULAR VOLUME 93.3 fL (80-94); PLATELET COUNT (AUTO) 128 K/uL (140-450); RED BLOOD CELL COUNT(AUTO) 2.01 MIL/uL (4.20-6.10); RED CELL DISTRIBUTION WIDTH 14.2 % (11.6-13.7); WHITE BLOOD COUNT (AUTO) 2.3 K/uL (4.8-10.8)
[2019-09-14 09:36] LABS: ANION GAP 5.5 (8-16); CARBON DIOXIDE 35.5 mmol/L (21-32); CREATININE 3.9 mg/dL (0.6-1.3)
[2019-09-14 09:37] LABS: HEMATOCRIT 18.7 % (36-52); HEMOGLOBIN 6.5 g/dL (12.0-18.0)
[2019-09-14] MEDS: DEXT 5% / NACL 0.45% 1,000 ML IV SCH (09:37)
[2019-09-14] MEDS: DIVALPROEX SPRINKLES 125 MG CAPDR PO SCH ×2 (09:38→22:24)
[2019-09-14] MEDS: CLONIDINE HYDROCHLORIDE 0.1 MG TAB PO SCH ×3 (09:38→17:00)
[2019-09-14] MEDS: ZINC SULF 220 MG CAP PO SCH (09:39)
[2019-09-14] MEDS: LOSARTAN 25 MG TAB PO SCH (09:39)
[2019-09-14] MEDS: VIT-B COMP/VIT-C/FOLIC ACID 1 TAB PO SCH (09:39)
[2019-09-14] MEDS: NIFEdipine 60 MG TABER PO SCH (09:39)
[2019-09-14] MEDS: ASCORBIC ACID 500 MG TAB PO SCH (09:40)
[2019-09-14] MEDS: ISOSORBIDE MONONITRATE 30 MG TABER PO SCH ×2 (09:40→22:26)
[2019-09-14] MEDS: minoxidiL 2.5 MG TAB PO SCH ×2 (09:40→22:25)
[2019-09-14 09:41] LABS: ALBUMIN 2.1 g/dL (3.4-5.0); CARBON DIOXIDE 32.8 mmol/L (21-32); TOTAL BILIRUBIN 0.4 mg/dL (0.0-1.0)
[2019-09-14] MEDS: LACTOBACILLUS RHAMNOSUS GG 1 EACH CAP PO SCH (09:41)
[2019-09-14] MEDS: DOCUSATE SODIUM 100 MG GELCAP PO SCH ×2 (09:41→22:26)
[2019-09-14] MEDS: levETIRAcetam 500 MG TAB PO SCH ×2 (09:41→22:26)
--- NOTE | 2019-09-14 09:49 | NUR ---
ADMINISTERED SCHEDULED MEDICATION, MEDICATION EDUCATION GIVEN, PT VERBALIZED UNDERSTANDING, PT IS STABLE, NO SIGNS OF DISTRESS NOTED, CALL LIGHT WITHIN REACH.
[2019-09-14 10:20] LABS: ANION GAP 4.2 (8-16)
[2019-09-14 11:20] LABS: BASOPHILS % (MANUAL) 0 % (0-2); EOSINOPHILS % (MANUAL) 3 % (0-4); LYMPHOCYTES % (MANUAL) 20 % (20-46); MONOCYTES % (MANUAL) 11 % (5-12)
--- NOTE | 2019-09-14 11:52 | NUR ---
ADMINISTERED SCHEDULED MEDICATION, MEDICATION EDUCATION GIVEN, PT VERBALIZED UNDERSTANDING, PT IS STABLE, CALL LIGHT WITHIN REACH.
[2019-09-14 12:00] VITALS: BP 134/44
--- NOTE | 2019-09-14 12:43 | NUR ---
ADMINISTERED POTASSIUM FOR POTASSIUM OF 3.0, MEDICATION EDUCATION GIVEN, PT NODDED UNDERSTANDING, PT TOLERATED WELL, PT IS STABLE, NO SIGNS OF DISTRESS NOTED, CALL LIGHT WITHIN REACH.
--- NOTE | 2019-09-14 13:35 | NUR ---
ADMINISTERED SCHEDULED MEDICATION, MEDICATION EDUCATION GIVEN, PT VERBALIZED UNDERSTANDING, PT IS STABLE, NO SIGNS OF DISTRESS NOTED, CALL LIGHT WITHIN REACH.
--- NOTE | 2019-09-14 14:35 | NUR ---
STARTED INFUSION OF PACKED RBC, PT STABLE, NO SIGNS OF DISTRESS NOTED, WILL CONTINUE TO MONITOR.
[2019-09-14 16:00] VITALS: BP 127/35
--- NOTE | 2019-09-14 17:17 | NUR ---
ADMINISTERED 4 UNITS OF HUMALOG FOR BLOOD GLUCOSE OF 219, MEDICATION EDUCATION GIVEN, PT VERBALIZED UNDERSTANDING, PT TOLERATED WELL, PT IS STABLE, NO SIGNS OF DISTRESS NOTED, CALL LIGHT WITHIN REACH.
--- NOTE | 2019-09-14 18:07 | NUR ---
ADMINISTERED SCHEDULED MEDICATION, MEDICATION EDUCATION GIVEN, PT VERBALIZED UNDERSTANDING, PT TOLERATED WELL, PT IS STABLE, CALL LIGHT WITHIN REACH.
--- NOTE | 2019-09-14 20:06 | NUR ---
RECEIVED REPORT FROM BRIAN PANDEY FOR CONTINUITY OF CARE PATIENT AWAKE ALERT AND ORIENTED X 4 NO S/S OF RESP DISTRESS NOTED. ABLE TO MAKE NEEDS KNOWN PLAN [facility] DISCUSSED WITH THE PATIENT VITALS STABLE WILL CONTINUE TO MONITOR.
--- NOTE | 2019-09-14 21:00 | NUR ---
DUE MEDS GIVEN TOLERATED WELL. CHECKED BLOOD SUGAR 159, ADVISED PATIENT TO HAVE EGD MD SUGGESTED, PATIENT AGREED TO HAVE EGD WILL NOTIFY MD IN AM, KEPT PT NPO AT THIS TIME.
[2019-09-14 21:01] LABS: BASOPHILS % (AUTO) 1.7 % (0.0-2.0); EOSINOPHILS # (AUTO) 0.1 K/uL (0-0.4); EOSINOPHILS % (AUTO) 4.7 % (0.0-4.0); HEMATOCRIT 21.6 % (36-52); HEMOGLOBIN 7.5 g/dL (12.0-18.0); LYMPHOCYTES # (AUTO) 0.5 K/uL (2.0-11.5); LYMPHOCYTES % (AUTO) 18.5 % (20.5-51.1); MEAN CORPUSCULAR HEMOGLOBIN 32 pg (27-31); MEAN CORPUSCULAR HGB CONC 35 g/dL (33-37); MEAN CORPUSCULAR VOLUME 92.9 fL (80-94); MONOCYTES # (AUTO) 0.5 K/uL (0.8-1.0); MONOCYTES % (AUTO) 17.7 % (1.7-9.3); NEUTROPHILS # (AUTO) 1.6 K/uL (1.8-7.7); NEUTROPHILS % (AUTO) 57.4 % (42.2-75.2); PLATELET COUNT (AUTO) 128 K/uL (140-450); RED BLOOD CELL COUNT(AUTO) 2.32 MIL/uL (4.20-6.10); RED CELL DISTRIBUTION WIDTH 13.6 % (11.6-13.7)
[2019-09-14 21:39] LABS: WHITE BLOOD COUNT (AUTO) 2.9 K/uL (4.8-10.8)
[2019-09-15] VITALS: BP 122/72
--- NOTE | 2019-09-15 | NUR ---
PT REQUESTED BLOOD SUGAR TO BE CHECKED , BS 149 NO COVERAGE NEEDED, PICC LINE DRESSING CHANGED, INTACT AND PATENT. VITALS STABLE AT THIS TIME.
--- NOTE | 2019-09-15 03:06 | NUR ---
PATIENT IS REQUESTING THE BLOOD SUGAR TO BE CHECKED , BS 209 REFUSED TO HAVE INSULIN COVERAGE. WILL CONTINUE TO MONITOR. Addendum: 09/16/19 at 1451 by Svitlana Hawthorne PATIENT WILL BE DISCHARGED TODAY BACK TO [facility] ROOM [address] KEI LOPEZ. SPOKE WITH ROBERT SET UP TRANSPORTATION WITH [employer] [employer]SP[facility]. TRANSPORTATION WILL BE HERE AT 6:00 PM TO TRANSIT MIXER OPERATOR PATIENT. NOTIFIED KEHINDE AT [facility] AND KATHERIN DAVIS
[2019-09-15 04:00] VITALS: BP 131/76
[2019-09-15] MEDS: metroNIDAZOLE 500 MG/NS PREMIX 100 ML IV SCH ×3 (06:04→20:41)
[2019-09-15] MEDS: BLOOD GLUCOSE MONITORING 1 DEV DEV FS SCH ×4 (06:04→20:40)
[2019-09-15] MEDS: DEXT 5% / NACL 0.45% 1,000 ML IV SCH (06:11)
--- NOTE | 2019-09-15 06:19 | NUR ---
BLOOD SUGAR 178 NO COVERAGE GIVEN BECAUSE PT IS NPO FOR POSSIBLE EGD .SAFETY MAINTAINED CALL LIGHT IN REACH
[2019-09-15 06:28] LABS: BASOPHILS % (AUTO) 1.1 % (0.0-2.0); EOSINOPHILS # (AUTO) 0.2 K/uL (0-0.4); EOSINOPHILS % (AUTO) 7.2 % (0.0-4.0); HEMATOCRIT 21.8 % (36-52); HEMOGLOBIN 7.6 g/dL (12.0-18.0); LYMPHOCYTES # (AUTO) 0.6 K/uL (2.0-11.5); LYMPHOCYTES % (AUTO) 20.6 % (20.5-51.1); MEAN CORPUSCULAR HEMOGLOBIN 32 pg (27-31); MEAN CORPUSCULAR HGB CONC 35 g/dL (33-37); MEAN CORPUSCULAR VOLUME 92.5 fL (80-94); MONOCYTES # (AUTO) 0.5 K/uL (0.8-1.0); MONOCYTES % (AUTO) 18.4 % (1.7-9.3); NEUTROPHILS # (AUTO) 1.5 K/uL (1.8-7.7); NEUTROPHILS % (AUTO) 52.7 % (42.2-75.2); PLATELET COUNT (AUTO) 129 K/uL (140-450); RED BLOOD CELL COUNT(AUTO) 2.36 MIL/uL (4.20-6.10); RED CELL DISTRIBUTION WIDTH 13.6 % (11.6-13.7); WHITE BLOOD COUNT (AUTO) 2.9 K/uL (4.8-10.8)
[2019-09-15 06:59] LABS: ANION GAP 11.5 (8-16); CARBON DIOXIDE 32.5 mmol/L (21-32)
[2019-09-15 07:14] LABS: CREATININE 5.5 mg/dL (0.6-1.3)
--- NOTE | 2019-09-15 07:15 | NUR ---
PT IS IN BED SLEEPING AT THIS TIME. NO DISTRESS NOTED. NOTED IV AT 30 ML. SAFETY MEASURES IN PLACE. CALL LIGHT IN REACH. WILL CONTINUE TO MONITOR.
--- NOTE | 2019-09-15 07:17 | NUR ---
RECEIVED CRITICAL VALUE FROM LAB BUN 33 CRETNIN 5.5 NO REPORTED PT IS DIALYSIS PATIENT. CALLED DR LANGFORD AND LEFT A MESSAGE THAT PT AGREED TO HAVE EGD. KEPT PT NPO FOR POSSIBLE EGD. ENDORSE THE CARE TO CARL PANDEY
[2019-09-15 08:00] VITALS: BP 124/69
--- NOTE | 2019-09-15 08:30 | NUR ---
PT IS AGITATED THAT HIS DIAPER IS LOOSE. PT MENTIONED THAT HE IS GOING TO COMMIT SUICIDE BECAUSE HIS DIAPER IS NOT COMFORTABLE. MANAGER PRODUCE TRIED HER BEST WITH THE DIAPER. HOWEVER PT WAS FRUSTRATED. PT AFTER FEW MINUTES REGRETTED FOR BEING AGGRESSIVE. IV IN PLACE. SAFETY MEASURES IN PLACE. WILL CONTINUE TO MONITOR. CALL LIGHT IN REACH.
[2019-09-15] MEDS: NIFEdipine 60 MG TABER PO SCH (09:00)
[2019-09-15] MEDS: LOSARTAN 25 MG TAB PO SCH (09:00)
[2019-09-15] MEDS: minoxidiL 2.5 MG TAB PO SCH ×2 (09:00→20:49)
--- NOTE | 2019-09-15 09:00 | NUR ---
PER DR EASTMAN PT IS NOT HAVING A EGD PROCEDURE. PROBABLY TOMORROW. PT IS BACK ON RENAL DIET.
--- NOTE | 2019-09-15 09:36 | NUR ---
PATIENT HAS BEEN SCREENED AND CATEGORIZED MODERATE NUTRITION RISK. PATIENT WILL BE SEEN WITHIN 3-5 DAYS OF ADMISSION. 09/15/19 09/17/[address]
[2019-09-15] MEDS: levETIRAcetam 500 MG TAB PO SCH ×2 (09:37→20:44)
[2019-09-15] MEDS: CLONIDINE HYDROCHLORIDE 0.1 MG TAB PO SCH ×3 (09:37→16:40)
[2019-09-15] MEDS: DIVALPROEX SPRINKLES 125 MG CAPDR PO SCH ×2 (09:40→20:43)
[2019-09-15] MEDS: ISOSORBIDE MONONITRATE 30 MG TABER PO SCH ×2 (09:40→20:44)
[2019-09-15] MEDS: PANTOPRAZOLE 40 MG INJ VIAL IVP SCH (09:49)
[2019-09-15] MEDS: DOCUSATE SODIUM 100 MG GELCAP PO SCH ×2 (09:53→20:42)
[2019-09-15] MEDS: ZINC SULF 220 MG CAP PO SCH (09:53)
[2019-09-15] MEDS: VIT-B COMP/VIT-C/FOLIC ACID 1 TAB PO SCH (09:53)
[2019-09-15] MEDS: SEVELAMER CARBONATE 800 MG TAB PO SCH ×3 (09:53→16:40)
[2019-09-15] MEDS: LACTOBACILLUS RHAMNOSUS GG 1 EACH CAP PO SCH (09:53)
[2019-09-15] MEDS: ASCORBIC ACID 500 MG TAB PO SCH (09:54)
--- NOTE | 2019-09-15 10:14 | NUR ---
MANAGING MANAGER NOTE: Patient's Orientation Person Situation Place Time Information Provided By DORA Roberts [facility] [place] [place] Comments PATIENT IS SELF-RESPONSIBLE WITH HEALTHCARE DECISIONS. Implementation Lead, Realtionship and Phone Number DANIELLE BOOTH SR FATHER [phone] Healthcare Power of Telephoto Engineer No Does Patient Have a POLST No Identifying Problems No Social Work Triggers Is A Social Work Consult Needed No Mandate Report Filed No Explanation Of Identifying Problems PATIENT IS A 44-YEAR-OLD MALE ADMITTED FOR GI BLEED. PATIENT HAS PMHX OF ESRD, DIABETES, HYPERTENSION, HYPERLIPEDEMIA, SEIZURE DISODRER, DEPRESSION, AND IMPULSE DISORDER. Admitted From Jail Facility Jail Facility [facility] - [phone] Pre-Admission Level Of Functioning Status Assist With ADL Prior Resources/Services Used In Last 12 Months SNF [facility] Prior DME Wheelchair Dialysis Hemodialysis Name And Phone Number of Dialysis Facility [facility] Patient Had Caregiver No Home Support No Caregiver Issues Financial Issues No Known Financial Issue Referral To The Financial Counselor Needed No Factors/Needs SNF/NH Placement Explanation And Or Other Factors Affecting/Possible DC Needs PATIENT IS FDC AND ON A BED HOLD. Discharge Plan Comments TENTATIVE DISCHARGE PLAN IS FOR PATIENT TO RETURN TO [facility] [place] [place]. DC Plan Status Initiated
[2019-09-15] MEDS: LEVOTHYROXINE 0.025 MG TAB PO SCH (11:23)
--- NOTE | 2019-09-15 11:35 | NUR ---
BLOOD PRESSURE MEDICATION NOT GIVEN EXCEPT CLONIDINE DUE TO LOW BLOOD PRESSURE. NOTIFIED DR KIDD.
[2019-09-15] MEDS: INSULIN LISPRO SLIDING SCALE 100 UNITS/ML VIAL SUBQ PRN ×2 (11:46→16:46)
[2019-09-15 12:00] VITALS: BP 109/58
--- NOTE | 2019-09-15 13:00 | NUR ---
PT IS HAVING LUNCH AT THIS TIME. NO DISTRESS NOTED. VITAL SIGNS NORMAL. WILL CONTINUE TO MONITOR. CALL LIGHT IN REACH.
--- NOTE | 2019-09-15 13:10 | NUR ---
CLONIDINE NOT GIVEN DUE TO LOW BLOOD PRESSURE. NOTIFIED DR KIDD.
--- NOTE | 2019-09-15 15:21 | NUR ---
PT IS RESTING. NO DISTRESS NOTED. NO C/O PAIN. WILL CONTINUE TO MONITOR.
[2019-09-15 16:00] VITALS: BP 145/75
--- NOTE | 2019-09-15 19:08 | NUR ---
SHIFT REPORT GIVEN TO ORACLE SQL DEVELOPER NURSE FOR CONTINUATION OF CARE. PT IS STABLE AT THE MOMENT. CALL LIGHT IN REACH.
--- NOTE | 2019-09-15 19:15 | NUR ---
RECEIVED PT FROMART PANDEY PT IS AAOX3 LEGALLY BLIND ON TELE SR, PICC LINE ON RT UA AND HD ACCESS O;N LEFT UA, BED BOUND NOT GI ACTIVE BLEEDING AT THIS TIME INITIAL ASSESSMENT DONE
[2019-09-15 20:00] VITALS: BP 139/86
--- NOTE | 2019-09-15 21:30 | NUR ---
BLOOD SUGAR TEST 105 PT IS GIVEN AN SNACK, GOOD APPETITE, ON TELEMETRY SR
[2019-09-16] VITALS: BP 124/81
--- NOTE | 2019-09-16 | NUR ---
SPONGE BATH GIVEN LINEN CHANGED PT IS NPO FOR EGD THIS AM DENIES ANY PAIN NOT GI BLEEDING NOTED
[2019-09-16 04:00] VITALS: BP 156/98
--- NOTE | 2019-09-16 04:00 | NUR ---
PT REPOSITIONED NOT DISTRESS NOTED ON TELMETRY SR PT NPO FOR EGD THIS AM
[2019-09-16] MEDS: BLOOD GLUCOSE MONITORING 1 DEV DEV FS SCH ×3 (05:37→16:30)
[2019-09-16] MEDS: metroNIDAZOLE 500 MG/NS PREMIX 100 ML IV SCH (05:38)
[2019-09-16] MEDS: DEXT 5% / NACL 0.45% 1,000 ML IV SCH (05:40)
[2019-09-16] MEDS: LEVOTHYROXINE 0.025 MG TAB PO SCH (05:41)
[2019-09-16 06:33] LABS: ANION GAP 9.6 (8-16); CARBON DIOXIDE 31.6 mmol/L (21-32); POTASSIUM 4.2 mmol/L (3.5-5.1)
[2019-09-16 06:35] LABS: CREATININE 6.3 mg/dL (0.6-1.3)
[2019-09-16 06:40] LABS: PHOSPHORUS 3.5 mg/dL (2.5-4.9)
[2019-09-16 06:57] LABS: BASOPHILS % (AUTO) 1.2 % (0.0-2.0); EOSINOPHILS # (AUTO) 0.2 K/uL (0-0.4); EOSINOPHILS % (AUTO) 7.2 % (0.0-4.0); HEMATOCRIT 21.6 % (36-52); HEMOGLOBIN 7.4 g/dL (12.0-18.0); LYMPHOCYTES # (AUTO) 0.6 K/uL (2.0-11.5); LYMPHOCYTES % (AUTO) 23.7 % (20.5-51.1); MEAN CORPUSCULAR HEMOGLOBIN 32 pg (27-31); MEAN CORPUSCULAR HGB CONC 34 g/dL (33-37); MEAN CORPUSCULAR VOLUME 92.8 fL (80-94); MONOCYTES # (AUTO) 0.5 K/uL (0.8-1.0); MONOCYTES % (AUTO) 21.5 % (1.7-9.3); NEUTROPHILS # (AUTO) 1.2 K/uL (1.8-7.7); NEUTROPHILS % (AUTO) 46.4 % (42.2-75.2); PLATELET COUNT (AUTO) 129 K/uL (140-450); RED BLOOD CELL COUNT(AUTO) 2.32 MIL/uL (4.20-6.10); RED CELL DISTRIBUTION WIDTH 14.1 % (11.6-13.7); WHITE BLOOD COUNT (AUTO) 2.5 K/uL (4.8-10.8)
--- NOTE | 2019-09-16 07:00 | NUR ---
PT IS ENDORSED TO DAY SHIFT NURSE FOR CONTINUE OF CARE
--- NOTE | 2019-09-16 07:25 | NUR ---
RECEIVED REPORT FROM NIGHT NURSE FOR CONTINUITY OF CARE, PT IS STABLE, PT AAOX3, PT IS ASLEEP, PT ON 3L NASAL CANNULA OXYGEN, PT HAS ISABELLA AV SHUNT FOR DIALYSIS, PT HAS TRISTAN PICC LINE INFUSING D51/2NS AT 30 ML/H, PT NPO FOR EGD TODAY, BED IN LOW POSITION, SAFETY MEASURES IN PLACE, CALL LIGHT WITHIN REACH, WILL CONTINUE TO MONITOR.
[2019-09-16 08:00] VITALS: BP 152/87
[2019-09-16] MEDS: SEVELAMER CARBONATE 800 MG TAB PO SCH ×3 (09:00→17:53)
[2019-09-16] MEDS: LOSARTAN 25 MG TAB PO SCH (09:00)
[2019-09-16] MEDS: VIT-B COMP/VIT-C/FOLIC ACID 1 TAB PO SCH (09:00)
[2019-09-16] MEDS: CLONIDINE HYDROCHLORIDE 0.1 MG TAB PO SCH ×3 (09:00→17:52)
[2019-09-16] MEDS: NIFEdipine 60 MG TABER PO SCH (09:00)
[2019-09-16] MEDS: ISOSORBIDE MONONITRATE 30 MG TABER PO SCH (09:00)
[2019-09-16] MEDS: minoxidiL 2.5 MG TAB PO SCH (09:00)
[2019-09-16] MEDS: PANTOPRAZOLE 40 MG INJ VIAL IVP SCH (09:21)
[2019-09-16] MEDS: LACTOBACILLUS RHAMNOSUS GG 1 EACH CAP PO SCH (09:24)
[2019-09-16] MEDS: DOCUSATE SODIUM 100 MG GELCAP PO SCH (09:24)
[2019-09-16] MEDS: DIVALPROEX SPRINKLES 125 MG CAPDR PO SCH (09:25)
[2019-09-16] MEDS: levETIRAcetam 500 MG TAB PO SCH (09:25)
[2019-09-16] MEDS: ASCORBIC ACID 500 MG TAB PO SCH (09:26)
[2019-09-16] MEDS: ZINC SULF 220 MG CAP PO SCH (09:26)
--- NOTE | 2019-09-16 09:32 | NUR ---
ADMINISTERED SCHEDULED MEDICATION, MEDICATION EDUCATION GIVEN, PT UPSET, PT TOLERATED MEDICATION OKAY, PT UPSET HE IS NPO AND WANTS FOOD. EXPLAINED TO PT HE HAS A PROCEDURE TODAY AND NEEDS TO WAIT, PT STABLE, NO SIGNS OF DISTRESS NOTED, CALL LIGHT WITHIN REACH.
--- NOTE | 2019-09-16 10:00 | NUR ---
OBTAINED TELEPHONE CONSENT FOR CHEST CT WITH CONTRAST
[2019-09-16] MEDS ORDERED: EPOETIN ALFA 10,000 UNITS/ML VIAL IV SCH (11:19)
--- NOTE | 2019-09-16 11:30 | NUR ---
PT BLOOD SUGAR IS 175, PT REFUSING COVERAGE. PT IS STABLE, CALL LIGHT WITHIN REACH.
[2019-09-16 12:00] VITALS: BP 163/92
--- NOTE | 2019-09-16 12:48 | NUR ---
ADMINISTERED SCHEDULED MEDICATION, MEDICATION EDUCATION GIVEN, PT TOLERATED WELL, PT IS STABLE, NO SIGNS OF DISTRESS NOTED, CALL LIGHT WITHIN REACH.
[2019-09-16] MEDS ORDERED: BUMETANIDE 1 MG/4 ML VIAL IM SCH (14:30)
--- NOTE | 2019-09-16 15:04 | NUR ---
ADMINISTERED SCHEDULED MEDICATION, MEDICATION EDUCATION GIVEN, PT VERBALIZED UNDERSTANDING, PT TOLERATED WELL, PT IS STABLE, PT IS GETTING DIALYSIS, CALL LIGHT WITHIN REACH.
[2019-09-16 16:00] VITALS: BP 135/82
--- NOTE | 2019-09-16 17:00 | NUR ---
DIALYSIS FINISHED, 3L OUTPUT, PT IS STABLE, NO SIGNS OF DISTRESS NOTED, CALL LIGHT WITHIN REACH.
--- NOTE | 2019-09-16 17:10 | NUR ---
CALLED [facility] AT [phone] AND GAVE REPORT TO NURSE VEGA, INFORMED ABOUT PT MEDICATIONS TO CONTINUE, WENT OVER THE LIST, INFORMED PT WILL BE TRANSPORTED AROUND 1800 BY [facility] AND PT IS ON 3L NASAL CANNULA OXYGEN
[2019-09-16] MEDS: INSULIN LISPRO SLIDING SCALE 100 UNITS/ML VIAL SUBQ PRN (17:51)
[2019-09-16 17:52] VITALS: BP 155/87
--- NOTE | 2019-09-16 17:56 | NUR ---
ADMINISTERED SCHEDULED MEDICATION, MEDICATION EDUCATION GIVEN, PT VERBALIZED UNDERSTANDING, PT TOLERATED WELL, PT IS STABLE, CALL LIGHT WITHIN REACH.
--- NOTE | 2019-09-16 19:00 | NUR ---
PT DISCHARGED, PT LEFT VIA WHEELCHAIR, REMOVED PICC LINE AND IT WAS INTACT, PT IS STABLE, FLU AND PNA UP TO DATE
[2019-09-16] MEDS ORDERED: LACTULOSE 20 GM/30 ML UDC PO SCH (21:00)
[2019-09-17] MEDS ORDERED: SENNA 8.6 MG TAB PO SCH (09:00)
[2019-10-02] MEDS ORDERED: SEVE800T6 PO (16:47)
[2019-10-06] MEDS ORDERED: APIX2.5 PO (12:15)
[2019-10-06] MEDS ORDERED: DEC4 PO (12:15)
[2019-10-06] MEDS ORDERED: AZIT250T3 PO (12:15)
== END 2019-09-16 19:00 | DRG 377 ==
LOC: MED 05:20 → MMU 09:36 → EEVIPCON 09:36
PROVIDERS: ADMIT General Practice; ATTEND General Practice
PROC: 30233N1 Transfusion of Nonautologous Red Blood Cells into Peripheral Vein, Percutaneous Approach (ICD-10-PCS; principal; 2019-09-14)
PROC: 02HV33Z Insertion of Infusion Device into Superior Vena Cava, Percutaneous Approach (ICD-10-PCS; 2019-09-14)
DX: K92.2 Gastrointestinal hemorrhage, unspecified (principal); N17.0 Acute kidney failure with tubular necrosis; I50.43 Acute on chronic combined systolic (congestive) and diastolic (congestive) heart failure; E43 Unspecified severe protein-calorie malnutrition; J96.01 Acute respiratory failure with hypoxia; N18.6 End stage renal disease; I12.0 Hypertensive chronic kidney disease with stage 5 chronic kidney disease or end stage renal disease; I16.1 Hypertensive emergency; K22.6 Gastro-esophageal laceration-hemorrhage syndrome; K31.84 Gastroparesis; Z68.20 Body mass index [BMI] 20.0-20.9, adult; D50.0 Iron deficiency anemia secondary to blood loss (chronic); D63.8 Anemia in other chronic diseases classified elsewhere; E03.9 Hypothyroidism, unspecified; E10.22 Type 1 diabetes mellitus with diabetic chronic kidney disease; E10.319 Type 1 diabetes mellitus with unspecified diabetic retinopathy without macular edema; E10.43 Type 1 diabetes mellitus with diabetic autonomic (poly)neuropathy; E78.5 Hyperlipidemia, unspecified; G40.909 Epilepsy, unspecified, not intractable, without status epilepticus; K74.60 Unspecified cirrhosis of liver; Z79.4 Long term (current) use of insulin; Z91.14 Patient's other noncompliance with medication regimen; Z99.2 Dependence on renal dialysis; F32.9 Major depressive disorder, single episode, unspecified; Z88.1 Allergy status to other antibiotic agents; Z88.8 Allergy status to other drugs, medicaments and biological substances; S82.492A Other fracture of shaft of left fibula, initial encounter for closed fracture; X58.XXXA Exposure to other specified factors, initial encounter; Y93.89 Activity, other specified; Y92.89 Other specified places as the place of occurrence of the external cause; Y99.8 Other external cause status; Z53.29 Procedure and treatment not carried out because of patient's decision for other reasons; Z20.828 Contact with and (suspected) exposure to other viral communicable diseases
CPT/HCPCS: 36415; 71045; 71270; 76700; 80048; 80053; 82550; 82728; 82948; 83036; 83615; 83690; 83735; 83880; 84100; 84134; 84443; 85025; 85379; 85610; 85651; 85730; 86140; 86886; 86900; 86901; 86920; 87040; 87081; 90935; 96361; 96365; 96367; 96375; 99285; C9113; J0696; J0885; J1630; J2405; J3490; J7030; J7060; P9016; Q0092; Q9967; U0003-CS

== ENCOUNTER 2019-09-30 12:55 | Emergency (ER) | payer OTHER, SELFPAY ==
[~2019-09-30] VITALS: Ht 182.9 cm; Wt 72.6 kg
[~2019-09-30 12:55] MED LIST changes: -ACET-2619 PO; -ASPI81EC98 PO; -DULO30EC PO; -LEVO750T2 PO; +MAGN400T7 PO; +NIFE60TE5 PO; -NIFE60TE79 PO; +PRON INH; -[UNRECOGNIZED DRUG - CODE] PO
--- NOTE | 2019-09-30 12:55 | NUR ---
PT BIBA BLS TO ER BED 04
[2019-09-30 12:58] VITALS: BP 118/75
--- NOTE | 2019-09-30 14:06 | NUR ---
PT EATING LUNCH AT BEDSIDE
--- NOTE | 2019-09-30 15:15 | NUR ---
pt's mother called back our ER---notified of pt being dc and needing ride back since [facility] would not be able to pick him up until 2129hrs today
[2019-09-30 15:22] VITALS: BP 114/69
--- NOTE | 2019-09-30 15:27 | NUR ---
report given to shane PANDEY [facility]--taxi voucher provided for pt
[2019-10-02] MEDS ORDERED: SEVE800T6 PO (16:47)
== END 2019-09-30 15:27 ==
LOC: MED 12:55
DX: N44.8 Other noninflammatory disorders of the testis (principal); R60.0 Localized edema; E11.22 Type 2 diabetes mellitus with diabetic chronic kidney disease; I13.2 Hypertensive heart and chronic kidney disease with heart failure and with stage 5 chronic kidney disease, or end stage renal disease; N18.6 End stage renal disease; K21.9 Gastro-esophageal reflux disease without esophagitis; H54.62 Unqualified visual loss, left eye, normal vision right eye; Z99.2 Dependence on renal dialysis; Z86.73 Personal history of transient ischemic attack (TIA), and cerebral infarction without residual deficits; Z79.899 Other long term (current) drug therapy; Z98.890 Other specified postprocedural states; Z88.1 Allergy status to other antibiotic agents; Z88.8 Allergy status to other drugs, medicaments and biological substances
CPT/HCPCS: 99283

== ENCOUNTER 2019-10-16 02:59 | Emergency (ER) | payer OTHER, SELFPAY ==
[~2019-10-16] VITALS: Ht 165.1 cm; Wt 64.0 kg
[2019-10-16 02:59] VITALS: BP 169/90
[~2019-10-16 02:59] MED LIST changes: +APIX2.5 PO; +AZIT250T3 PO; +DEC4 PO; -DOCU-299 PO; -HYDR-5092 PO; -MAGN400S60 PO; -MAGN400T7 PO; -MULT-1469 PO; -NA P133E RC; -ONDA4TAB PO; -PRON INH
--- NOTE | 2019-10-16 02:59 | NUR ---
44 Y/O MALE BIBA C/O HIGH BLOOD PRESSURE. PT WAS DISCHARGED FROM [place] [facility] X 1 HR AGO. [facility] REFUSED PT AT DOOR D/T PT HIGH BLOOD PRESSURE. PT RR EVEN AND UNLABORED, SAO2 98% ON 4L NC , CURRENT BP 169/90 . A/O X4 . PT RESTING IN BED , LOCKED AND INLOWEST POSITION, HOB ELEVATED, SIDE RAIL X2 FOR PT SAFETY. PT CONNECTED TO DUCK FARMER, BP CUFF AND PULSE OX .VSS . ERMD MADE AWARE OF PT STATUS PMH: VENTRICULAR HYPERTROPHY, TBI, RENAL FAILURE, EPILEPSY, DIALYSIS PT. ALLERGIES: METFORMIN, CLINDAMYCIN, KEFLEX
--- NOTE | 2019-10-16 02:59 | NUR ---
0244- PT LUCILA ALS. TAKEN TO BED 9
[2019-10-16] MEDS ORDERED: LOSARTAN 50 MG TAB PO SCH (03:55)
[2019-10-16] MEDS ORDERED: NIFEdipine 30 MG TABER PO ONE ×2 (04:05→10:30)
--- NOTE | 2019-10-16 04:25 | NUR ---
PT RESTING IN BED, LOCKED AND IN LOWEST POSITION, HOB ELEVATED , SIDE RAIL X2 FOR PT SAFETY. AROUSABLE TO VERBAL STIMULATION, VISIBLE RISE AND FALL OF CHEST, VSS.
--- NOTE | 2019-10-16 05:19 | NUR ---
GAVE REPORT TO KATHERIN PAUL FROM [facility] ON PT STATUS . WILL UPDATE [facility] W/ TRANSPORT ETA ONCE CONFIRMED.
--- NOTE | 2019-10-16 05:40 | NUR ---
RENAL DIET BREAKFAST ORDERED FOR PT
--- NOTE | 2019-10-16 06:50 | NUR ---
PT PROVIDED MILK AND ICE CHIPS FOR COMFORT.
--- NOTE | 2019-10-16 06:54 | NUR ---
PT REPOSITIONED FOR COMFORT. PT RESTING COMFORTABLY IN BED, LOCKED AND IN LOWEST POSITION, HOB ELEVATED, SIDE RAIL X2 FOR PT SAFETY. VSS.
--- NOTE | 2019-10-16 07:01 | NUR ---
Sury jimenez in [facility] - 10/16/19 at 0714 by ELOY REPORT GIVEN TO KATHERIN BLANCAS FOR TRANSFER OF CARE.
--- NOTE | 2019-10-16 07:14 | NUR ---
REPORT GIVEN TO KATHERIN TOUSSAINT FOR TRANSFER OF CARE.
--- NOTE | 2019-10-16 07:31 | NUR ---
CALLED [facility] TO ARRANGE FOR [facility]ONER TRANSPORT SO THAT PT CAN HAVE DIALYSIS, NO ANSWER WILL CALL BACK LATER.
--- NOTE | 2019-10-16 07:49 | NUR ---
PT SITTING UPRIGHT IN BED WITH FOOD TRAY, ORIENTED TO ITEMS ON TRAY AND GIVEN PROTEIN NUTRITIONAL SUPPLEMENT PER REQUEST.
--- NOTE | 2019-10-16 07:52 | NUR ---
KALYANI CALLED IN REGARDS OF PATIENT PIPING DESIGN SPECIALIST. SPOKE TO LINCOLN PANDEY. PER LINCOLN TO CALL BACK IN ER TO ARRANGE TRANSPORT FOR PT.
--- NOTE | 2019-10-16 08:21 | NUR ---
SPOKE TO [facility] MANAGER ADMINISTRATIVE SERVICES SHANEKA IN REGARDS OF PATIENT TRANSFER. PER SHANEKA TO CALL BACK ER FOR TRANSPORT TIME.
--- NOTE | 2019-10-16 08:41 | NUR ---
SPOKE TO SHANEKA BROADCASTER KALYANI IN REGARDS OF PATIENT TRANSPORTATION. PER SHANEKA PT TO BE IN ROOM 40-B.
--- NOTE | 2019-10-16 09:26 | NUR ---
TRANSFER OF CARE AT THIS TIME TO KATHERIN MACE
--- NOTE | 2019-10-16 09:54 | NUR ---
Spoke to Liseth from [facility] [place]. States she is going to speak to manager social about arranging transport to dialysis for pt. States she will call back with more information regarding transport for pt.
--- NOTE | 2019-10-16 10:04 | NUR ---
Spoke to pts mother Jes-- informed me that pt has been living at [facility] for past week unlike what Lilia said. Per discharge planning pt will have transportation to dialysis arranged and arrive around 1145 today.
--- NOTE | 2019-10-16 10:32 | NUR ---
Pt to go to [facility] at approx 1145. Mother made aware of transportation for pt.
--- NOTE | 2019-10-16 11:15 | NUR ---
SPOKE TO NADIA GUM ROLLING MACHINE TENDER OF [facility] [place]. [facility] GRANULAR OPERATOR ARRANGED PT TO BE TRANSPORTED TO DIALYSIS TREATMENT FOR ER AND FROM DIALYSIS TREATMENT TO [facility]. [facility] [place] [facility] MADE AWARE OF.
--- NOTE | 2019-10-16 11:15 | NUR ---
NADIA SAM FROM [facility] - PHONE: [phone]
--- NOTE | 2019-10-16 11:27 | NUR ---
PT RESTING IN BED, RESPIRATIONS EVEN AND UNLABORED, VSS ON BEDSIDE MONITOR.
[2019-10-16 13:08] VITALS: BP 166/94
--- NOTE | 2019-10-16 13:08 | NUR ---
Patient discharged with v/s stable. Written and verbal after care instructions given and explained. Patient verbalized understanding. [facility] transport of pt to dialysis center. All questions addressed prior to discharge. Advised to follow up with PMD.
== END 2019-10-16 13:08 | disposition home or self-care (01) ==
LOC: MED 02:59
DX: I13.11 Hypertensive heart and chronic kidney disease without heart failure, with stage 5 chronic kidney disease, or end stage renal disease (principal); E11.22 Type 2 diabetes mellitus with diabetic chronic kidney disease; N18.6 End stage renal disease; K21.9 Gastro-esophageal reflux disease without esophagitis; Z86.73 Personal history of transient ischemic attack (TIA), and cerebral infarction without residual deficits; Z88.1 Allergy status to other antibiotic agents; Z88.6 Allergy status to analgesic agent; Z79.899 Other long term (current) drug therapy
CPT/HCPCS: 99284

== ENCOUNTER 2019-11-10 15:07 | Emergency (ER) | payer OTHER, SELFPAY ==
[~2019-11-10] VITALS: Ht 170.2 cm; Wt 86.2 kg
[~2019-11-10 15:07] MED LIST changes: -AZIT250T3 PO; -DEC4 PO; +HYDR-1098 PO; +LEVO500T2 PO
[2019-11-10 15:25] VITALS: BP 153/83
--- NOTE | 2019-11-10 15:30 | NUR ---
ems reports upon arrival to [facility] staff reported pt to be short of breath. EMS stated pt denies any medical emergency at this time. pt shouting and cursing at staff. pt is blind with positive COVID-19 since 10/30/19 , dialysis pt
--- NOTE | 2019-11-10 15:30 | NUR ---
pt refused lab draw-- notified
--- NOTE | 2019-11-10 15:36 | NUR ---
cxr completed at bedside
--- NOTE | 2019-11-10 16:00 | NUR ---
diabetic diet ordered---pt notified
--- NOTE | 2019-11-10 16:10 | NUR ---
glass of water handed to pt
[2019-11-10 16:36] LABS: BASOPHILS # (AUTO) 0.1 K/uL (0.00-0.22); BASOPHILS % (AUTO) 2.1 % (0.0-2.0); EOSINOPHILS # (AUTO) 0.1 K/uL (0-0.4); EOSINOPHILS % (AUTO) 4.3 % (0.0-4.0); HEMATOCRIT 25.7 % (36-52); HEMOGLOBIN 8.5 g/dL (12.0-18.0); LYMPHOCYTES # (AUTO) 0.6 K/uL (2.0-11.5); LYMPHOCYTES % (AUTO) 17.2 % (20.5-51.1); MEAN CORPUSCULAR HEMOGLOBIN 33 pg (27-31); MEAN CORPUSCULAR HGB CONC 33 g/dL (33-37); MEAN CORPUSCULAR VOLUME 100.8 fL (80-94); MONOCYTES # (AUTO) 0.5 K/uL (0.8-1.0); MONOCYTES % (AUTO) 13.7 % (1.7-9.3); NEUTROPHILS # (AUTO) 2.2 K/uL (1.8-7.7); NEUTROPHILS % (AUTO) 62.7 % (42.2-75.2); PLATELET COUNT (AUTO) 179 K/uL (140-450); RED BLOOD CELL COUNT(AUTO) 2.55 MIL/uL (4.20-6.10); RED CELL DISTRIBUTION WIDTH 16.9 % (11.6-13.7); WHITE BLOOD COUNT (AUTO) 3.5 K/uL (4.8-10.8)
[2019-11-10 16:49] LABS: ANION GAP 13.7 (8-16); CARBON DIOXIDE 29.4 mmol/L (21-32); POTASSIUM 5.1 mmol/L (3.5-5.1)
--- NOTE | 2019-11-10 17:20 | NUR ---
dinner tray placed in front of pt---guided pt';s right hand to where specific foods are located.
--- NOTE | 2019-11-10 18:00 | NUR ---
pt ate 100% dinner
[2019-11-10 18:55] VITALS: BP 165/89
--- NOTE | 2019-11-10 18:56 | NUR ---
Patient discharged with v/s stable. Written and verbal after care instructions given and explained. Patient verbalized understanding. Ambulance Transport with to [facility]. All questions addressed prior to discharge. Advised to follow up with PMD.
== END 2019-11-10 18:56 | disposition home or self-care (01) ==
LOC: MED 15:07
DX: U07.1 COVID-19 (principal); R06.02 Shortness of breath; E11.22 Type 2 diabetes mellitus with diabetic chronic kidney disease; N18.6 End stage renal disease; K21.9 Gastro-esophageal reflux disease without esophagitis; Z99.2 Dependence on renal dialysis; Z79.899 Other long term (current) drug therapy; Z88.1 Allergy status to other antibiotic agents; Z88.8 Allergy status to other drugs, medicaments and biological substances; Z86.73 Personal history of transient ischemic attack (TIA), and cerebral infarction without residual deficits
CPT/HCPCS: 36415; 71045; 80048; 84484; 85025; 93005; 99285; Q0092

== ENCOUNTER 2020-03-09 12:10 | Emergency (ER) | payer OTHER, SELFPAY ==
[~2020-03-09] VITALS: Ht 162.6 cm; Wt 81.6 kg
[~2020-03-09 12:10] MED LIST changes: +CODE BLUE PARTICIPANT 1 EA MISC MC ONE; +INTUBATION KIT MC ONE; +IV zosyn IV; -LEVO500T2 PO; -PANT40EC28 PO; +PANT40EC56 PO
--- NOTE | 2020-03-09 12:10 | NUR ---
([id number]) CARDIOPULMONARY ARREST Phoebe MACKEY, ACCESS MANAGER ATTENDING
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
--- NOTE | 2020-03-09 12:10 | NUR ---
1208---Patient BIBAntoin[facility], transferred to bed 10. Dr. Richardson, RN and RT are evaluating the patient at bedside.
--- NOTE | 2020-03-09 12:40 | NUR ---
CALLED ACCREDITATION COORDINATOR TO REPORT , ANTICIPATING CALL BACK.
--- NOTE | 2020-03-09 14:21 | NUR ---
SPOKE WITH MOTHER, KALLI, REGARDING MORTUARY ARRANGEMENTS. NO MORTUARY CHOSEN AT THIS TIME, SHE WILL CALL BACK ONCE SHE MAKES A DECISION
--- NOTE | 2020-03-09 15:56 | NUR ---
SPOKE WITH [facility] STUDENT DEVELOPMENT SPECIALIST, REFERAL #[id number]
--- NOTE | 2020-03-09 19:08 | NUR ---
[facility] called back to inform me they will not be moving forward with donor process.
--- NOTE | 2020-03-09 19:22 | NUR ---
spoke to radiology transporter and body was released.
--- NOTE | 2020-03-09 19:30 | NUR ---
report given to KATHERIN Hart.
--- NOTE | 2020-03-09 22:08 | NUR ---
spoke w/ Linda from [facility] - no reference number at this time , incident # [id number]. Body is okay to be moved to our morgue at this time.
--- NOTE | 2020-03-10 01:30 | NUR ---
PT BODY MOVED TO OUTSIDE [facility].
--- NOTE | 2020-03-10 06:51 | NUR ---
SPOKE WITH THE [facility] FROM [facility]---NO REFERRAL CASE NUMBER AT THIS TIME ONLY AN INCIDENT #---SEE PREVIOUS NOTE BY DAVID RN
== END 2020-03-09 12:26 ==
LOC: MED 12:10
DX: I46.9 Cardiac arrest, cause unspecified (principal); E11.22 Type 2 diabetes mellitus with diabetic chronic kidney disease; I12.0 Hypertensive chronic kidney disease with stage 5 chronic kidney disease or end stage renal disease; N18.6 End stage renal disease; K21.9 Gastro-esophageal reflux disease without esophagitis; G40.909 Epilepsy, unspecified, not intractable, without status epilepticus; Z86.73 Personal history of transient ischemic attack (TIA), and cerebral infarction without residual deficits; Z79.899 Other long term (current) drug therapy; Z88.1 Allergy status to other antibiotic agents; Z88.8 Allergy status to other drugs, medicaments and biological substances; Z99.2 Dependence on renal dialysis
CPT/HCPCS: 31500; 92950; 99285